=== PATIENT | female | born 1990 | race African-American/Black ===

== ENCOUNTER 2019-11-01 16:30 | Emergency (ER) | payer MEDICAID, OTHER ==
--- NOTE | 2019-11-01 16:48 | EDM.PDOC ---
ED HPI GENERAL MEDICAL PROBLEM - General Chief Complaint: Diabetic Complaint Stated Complaint: MEDICAL VIA [facility] Time Seen by Provider: 11/01/19 16:35 Source of Information: Reports: Patient, EMS History Limitations: Reports: No Limitations - History of Present Illness INITIAL COMMENTS - FREE TEXT/NARRATIVE: 28-year-old female with type 1 diabetes who usually sees providers in [place] for primary care, arrives by ambulance after a hypoglycemic episode. This has happened before. She has not recently been ill, does not think she took the wrong amount of insulin and has had no significant diet change. When EMS arrived her blood glucose was in the 20s, she responded to oral glucose and glucagon. She is now back to baseline, however in reviewing her clinic records she has been a no-show for appointments for over a year and there are no blood tests other than [id number] glucoses intermittently. She has some chronic right hand and right lower extremity swelling in the hand and foot, and some intermittent left lower back discomfort. Denies a headache, fever, cold symptoms, shortness of breath or cough. 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 She also has some moderate expressive a aphasia which is chronic. Onset: Sudden Duration: Hour(s): (Became hypoglycemic about an hour and a half ago) Associated Symptoms: Reports: Confusion, Other (Decreased responsiveness) Left Back Pain Score (Numeric/FACES): 8 - Related Data Allergies Allergy/AdvReac Type Severity Reaction Status Date / Time diphenhydramine Allergy Itching Verified 11/02/19 13:43 ibuprofen Allergy Nausea and Verified 11/02/19 13:43 Vomiting Home Meds: Home Meds Albuterol Sulfate [Albuterol Sulfate Hfa] 1 - 2 puff IH Q4H PRN 11/01/19 [ History] Baclofen 15 mg PO TID 11/01/19 [History] Cholecalciferol (Vitamin D3) [Vitamin D3] 1,000 unit PO DAILY 11/01/19 [History] Cimetidine 1 tab PO BID 11/01/19 [History] DULoxetine [Cymbalta] 60 mg PO DAILY 11/01/19 [History] Ferrous Sulfate [Ferosul] 325 mg PO DAILY 11/01/19 [History] Gabapentin [Neurontin] 1 tab PO TID 11/01/19 [History] Insulin Aspart [NovoLOG] 0 units SQ ASDIRECTED 11/01/19 [History] Insulin Glarg,Human.Rec.Analog [Lantus Solostar] 10 units SQ DAILY 11/01/19 [ History] Lipase/Protease/Amylase [Enzadyne Capsule] 1 each PO ASDIRECTED 11/01/19 [ History] Loperamide [Imodium] 2 mg PO ASDIRECTED 11/01/19 [History] Melatonin 3 mg PO DAILY 11/01/19 [History] Multivitamin [Multi-Vitamin Daily] 1 tab PO DAILY 11/01/19 [History] Omeprazole Magnesium [Prilosec Otc] 20 mg PO BID 11/01/19 [History] Ondansetron [Zofran ODT] 4 mg PO Q6H PRN 11/01/19 [History] Pantoprazole Sodium [Protonix] 40 mg PO DAILY 11/01/19 [History] Rivaroxaban [Xarelto] 20 mg PO DAILY 11/01/19 [History] Vitamin A 50,000 units PO ASDIRECTED 11/01/19 [History] amLODIPine Besylate [Norvasc] 10 mg PO DAILY 11/01/19 [History] atorvaSTATin Calcium [Lipitor] 20 mg PO DAILY 11/01/19 [History] carvediloL [Coreg] 25 mg PO BID 11/01/19 [History] lisinopriL [Lisinopril] 20 mg PO BEDTIME 11/01/19 [History] ED ROS GENERAL - Review of Systems Review Of Systems: See Below Constitutional: Denies: Fever, Chills HEENT: Denies: Vision Change Respiratory: Denies: Shortness of Breath Cardiovascular: Denies: Chest Pain GI/Abdominal: Denies: Abdominal Pain, Diarrhea, Nausea, Vomiting Skin: Reports: Other (Patient has widespread scarring that appears to have resulted from past history of acne, also IV drug use) Neurological: Reports: Trouble Speaking (Chronic expressive aphasia). Denies: Headache ED EXAM GENERAL NO PERIP PULSE - Physical Exam Exam: See Below General Appearance: Alert, No Apparent Distress Eye Exam: Bilateral Eye: EOMI (Tracks well, pupils are reactive) Head: Atraumatic Respiratory/Chest: No Respiratory Distress, Lungs Clear Cardiovascular: Regular Rate, Rhythm, Other (site monitor shows normal sinus rhythm). No: Extra Beats GI/Abdominal: Soft, Non-Tender Extremities: Other (Patient does have limited muscular control of the right arm and leg, with chronic contractures of the hand on the right side. She does have some edema of the hand and foot.) Neurological: Alert, Oriented Psychiatric: Flat Affect Course - Vital Signs Last Recorded V/S: Last Vital Signs Temp 94.7 F L 11/01/19 16:43 Pulse 68 11/01/19 18:09 Resp 12 11/01/19 18:09 BP 117/77 11/01/19 18:09 Pulse Ox 99 11/01/19 18:09 - Orders/Labs/Meds Labs: Laboratory Tests 11/01/19 11/01/19 Range/Units 17:20 17:20 Urine Color Yellow (YELLOW) Urine Appearance Clear (CLEAR) Urine pH 6.0 (5.0-8.0) Ur Specific [place] 1.025 (1.008-1.030) Urine Protein Negative (NEGATIVE) mg/dL Urine Glucose (UA) 250 H (NEGATIVE) mg/dL Urine Ketones Negative (NEGATIVE) mg/dL Urine Occult Blood Trace-lysed H (NEGATIVE) Urine Nitrite Negative (NEGATIVE) Urine Bilirubin Negative (NEGATIVE) Urine Urobilinogen 0.2 (0.2-1.0) EU/dL Ur Leukocyte Esterase Negative (NEGATIVE) Urine RBC Not seen (0-5) Urine WBC 0-5 (0-5) Ur Epithelial Cells Rare Amorphous Sediment Not seen Urine Bacteria Not seen Urine Mucus Not seen Urine Opiates Screen Negative (NEGATIVE) Ur Oxycodone Screen Negative (NEGATIVE) Urine Methadone Screen Presumptive positive H (NEGATIVE) Ur Propoxyphene Screen Negative (NEGATIVE) Ur Barbiturates Screen Negative (NEGATIVE) Ur Tricyclics Screen Negative (NEGATIVE) Ur Phencyclidine Scrn Negative (NEGATIVE) Ur Amphetamine Screen Negative (NEGATIVE) U Methamphetamines Scrn Negative (NEGATIVE) Urine MDMA Screen Negative (NEGATIVE) U Benzodiazepines Scrn Negative (NEGATIVE) U Cocaine Metab Screen Negative (NEGATIVE) U Marijuana (THC) Screen Negative (NEGATIVE) - Re-Assessments/Exams Free Text/Narrative Re-Assessment/Exam: 11/01/19 17:55 After 20 minutes in the emergency room the patient had a glucometer which was 107. A mini cath UA was obtained and showed no infection, urine drug screen was negative. Patient felt comfortable going home and will continue her medications as prescribed. 11/01/19 18:25 1 full hour after being in the emergency room glucometer was checked and was 110. She was given a meal to eat and discharged and is trying to obtain a ride home. Departure - Departure Time of Disposition: 19:33 Disposition: Home, Self-Care 01 Clinical Impression: Hypoglycemia - Discharge Information Instructions: Hypoglycemia Referrals: PCP,None [Primary Care Provider] - Forms: ED Department Discharge Care Plan Goals: Continue your medications as prescribed. Arrange a follow-up appointment with your primary provider and keep the appointment. Return sooner if low blood sugar problems are recurring or you develop other concerns. Sepsis Event Note - Focused Exam Date Exam was Performed: 11/02/19 Time Exam was Performed: 16:25
== END 2019-11-01 19:35 | disposition home or self-care (01) ==
LOC: JP.ED 16:30
DX: E10.649 Type 1 diabetes mellitus with hypoglycemia without coma (principal); Z88.6 Allergy status to analgesic agent; Z88.8 Allergy status to other drugs, medicaments and biological substances; Z79.01 Long term (current) use of anticoagulants; Z79.899 Other long term (current) drug therapy
CPT/HCPCS: 80305-QW; 81001; 82962; 99284

== ENCOUNTER 2019-11-02 13:35 | Emergency (ER) | payer MEDICAID ==
--- NOTE | 2019-11-02 14:17 | EDM.PDOC ---
ED HPI GENERAL MEDICAL PROBLEM - General Chief Complaint: Diabetic Complaint Stated Complaint: MEDICAL VIA [facility] Time Seen by Provider: 11/02/19 14:00 Source of Information: Reports: Patient, EMS, Old Records History Limitations: Reports: No Limitations - History of Present Illness INITIAL COMMENTS - FREE TEXT/NARRATIVE: 28 yo black female with IDDM presents via EMS for low BS. Was seen here yesterday for the same thing. She recently moved to [place] from [place] and has not switched her care yet from [place] to here, but does intend to. Has no changes in her meds after yesterday's visit. Says that before yesterday had not had low BS for a long time. Has not been to the clinic for several months. Denies any changes in her diet, activity level or medications to explain her low BS. No recent illness or nausea. No weight loss. After EMS gave glucagon and got her BS up she is feeling back to her baseline. According to records she has been missing multiple visits to the doctor over the past year and has a pHx of meth use. PHx of CVA. Is not prescribed methadone. When asked where she is getting it she replied that she buys it off the street. Had methadone in her urine drug screen yesterday. Onset: Today, Sudden Onset Date: 11/02/19 Duration: Minutes:, Resolved Prior to Arrival Location: Reports: Generalized Quality: Reports: Other (no pain) Severity: Severe (low BS) Improves with: Reports: Medication (glucagon) Worsens with: Reports: Other (uncertain) Context: Reports: Other (See HPI) Associated Symptoms: Reports: Diaphoresis, Other (decreased LOC transiently with her low BS) Treatments LEARNING SUPPORT SPECIALIST: Reports: Glucagon - Related Data Allergies Allergy/AdvReac Type Severity Reaction Status Date / Time diphenhydramine Allergy Itching Verified 11/02/19 13:43 ibuprofen Allergy Nausea and Verified 11/02/19 13:43 Vomiting Home Meds: Home Meds Albuterol Sulfate [Albuterol Sulfate Hfa] 1 - 2 puff IH Q4H PRN 11/01/19 [ History] Baclofen 15 mg PO TID 11/01/19 [History] Cholecalciferol (Vitamin D3) [Vitamin D3] 1,000 unit PO DAILY 11/01/19 [History] Cimetidine 1 tab PO BID 11/01/19 [History] DULoxetine [Cymbalta] 60 mg PO DAILY 11/01/19 [History] Ferrous Sulfate [Ferosul] 325 mg PO DAILY 11/01/19 [History] Gabapentin [Neurontin] 1 tab PO TID 11/01/19 [History] Insulin Aspart [NovoLOG] 0 units SQ ASDIRECTED 11/01/19 [History] Insulin Glarg,Human.Rec.Analog [Lantus Solostar] 10 units SQ DAILY 11/01/19 [ History] Lipase/Protease/Amylase [Enzadyne Capsule] 1 each PO ASDIRECTED 11/01/19 [ History] Loperamide [Imodium] 2 mg PO ASDIRECTED 11/01/19 [History] Melatonin 3 mg PO DAILY 11/01/19 [History] Multivitamin [Multi-Vitamin Daily] 1 tab PO DAILY 11/01/19 [History] Omeprazole Magnesium [Prilosec Otc] 20 mg PO BID 11/01/19 [History] Ondansetron [Zofran ODT] 4 mg PO Q6H PRN 11/01/19 [History] Pantoprazole Sodium [Protonix] 40 mg PO DAILY 11/01/19 [History] Rivaroxaban [Xarelto] 20 mg PO DAILY 11/01/19 [History] Vitamin A 50,000 units PO ASDIRECTED 11/01/19 [History] amLODIPine Besylate [Norvasc] 10 mg PO DAILY 11/01/19 [History] atorvaSTATin Calcium [Lipitor] 20 mg PO DAILY 11/01/19 [History] carvediloL [Coreg] 25 mg PO BID 11/01/19 [History] lisinopriL [Lisinopril] 20 mg PO BEDTIME 11/01/19 [History] Past Medical History HEENT History: Reports: Impaired Vision Cardiovascular History: Reports: Afib, High Cholesterol, Hypertension, Other ( See Below) Other Cardiovascular History: hypotension Gastrointestinal History: Reports: GERD, Other (See Below) Other Gastrointestinal History: abdominal pain hepatic steatosis Genitourinary History: Reports: Other (See Below) Other Genitourinary History: BRIAN Musculoskeletal History: Reports: None, Other (See Below) Neurological History: Reports: CVA, Neuropathy, Diabetic, Seizure, Other (See Below) Other Neuro History: medically noncompliant Psychiatric History: Reports: Anxiety, Other (See Below) Other Psychiatric History: history of drug use altered mental statis Endocrine/Metabolic History: Reports: Diabetes, Type I, Obesity/BMI 30+, Other ( See Below) Other Endocrine/Metabolic History: polyneuropathy, ketoacidosis,hyperglycemia, hyperkalemia - Infectious Disease History Infectious Disease History: Reports: Chicken Pox - Past Surgical History GI Surgical History: Reports: Other (See Below) Other GI Surgeries/Procedures: upper endoscopy with biopsy 2019 Social & Family History - Tobacco Use Smoking Status *Q: Current Every Day Smoker Years of Tobacco use: 11 Packs/Tins Daily: 0.5 - Caffeine Use Caffeine Use: Reports: Soda - Recreational Drug Use Recreational Drug Use: No ED ROS GENERAL - Review of Systems Review Of Systems: See Below Constitutional: Reports: Diaphoresis HEENT: Reports: No Symptoms Respiratory: Reports: No Symptoms Cardiovascular: Reports: No Symptoms Endocrine: Reports: Low Glucose GI/Abdominal: Reports: No Symptoms : Reports: No Symptoms Musculoskeletal: Reports: No Symptoms Skin: Reports: Diaphoresis (now resolved) Neurological: Reports: Other (decreased LOC with her low BS) Psychiatric: Reports: No Symptoms ED EXAM GENERAL NO PERIP PULSE - Physical Exam Exam: See Below Exam Limited By: No Limitations General Appearance: Alert, WD/WN, No Apparent Distress Eye Exam: Bilateral Eye: Normal Inspection Ears: Normal External Exam, Normal Canal, Hearing Grossly Normal, Normal TMs Nose: Normal Inspection, No Blood Throat/Mouth: Normal Inspection, Normal Lips, Normal Oropharynx, Normal Voice, No Airway Compromise Head: Atraumatic, Normocephalic Neck: Normal Inspection Respiratory/Chest: No Respiratory Distress, Lungs Clear, Normal Breath Sounds, No Accessory Muscle Use Cardiovascular: Regular Rate, Rhythm, No Edema GI/Abdominal: Normal Bowel Sounds, Soft, Non-Tender, No Distention. No: Distended Extremities: Normal Inspection Neurological: Alert, Oriented, CN II-XII Intact, Normal Cognition, No Motor/ Sensory Deficits Psychiatric: Normal Affect, Normal Mood Skin Exam: Warm, Dry, Intact, Normal Color, No Rash Course - Vital Signs Last Recorded V/S: Last Vital Signs Temp 36.1 C 11/02/19 13:48 Pulse 82 11/02/19 15:14 Resp 15 11/02/19 15:14 BP 104/68 11/02/19 15:14 Pulse Ox 100 04/29/20 13:48 - Orders/Labs/Meds Labs: Laboratory Tests 11/02/19 Range/Units 14:49 Urine Opiates Screen Negative (NEGATIVE) Ur Oxycodone Screen Negative (NEGATIVE) Urine Methadone Screen Presumptive positive H (NEGATIVE) Ur Propoxyphene Screen Negative (NEGATIVE) Ur Barbiturates Screen Negative (NEGATIVE) Ur Tricyclics Screen Negative (NEGATIVE) Ur Phencyclidine Scrn Negative (NEGATIVE) Ur Amphetamine Screen Negative (NEGATIVE) U Methamphetamines Scrn Negative (NEGATIVE) Urine MDMA Screen Negative (NEGATIVE) U Benzodiazepines Scrn Negative (NEGATIVE) U Cocaine Metab Screen Negative (NEGATIVE) U Marijuana (THC) Screen Negative (NEGATIVE) - Re-Assessments/Exams Free Text/Narrative Re-Assessment/Exam: 11/02/19 14:56 Call placed for social service consult @ 1450h, message left. They called back at 1500h and a report of my concern was shared with them. They will file a report and look into her situation. 11/02/19 15:02 Departure - Departure Time of Disposition: 17:30 Disposition: Home, Self-Care 01 Condition: Fair Clinical Impression: Hypoglycemia, Illicit drug use, Medically noncompliant - Discharge Information *PRESCRIPTION DRUG MONITORING PROGRAM REVIEWED*: No *COPY OF PRESCRIPTION DRUG MONITORING REPORT IN PATIENT EDIN: No Instructions: Hypoglycemia, [id number] Referrals: PCP,None [Primary Care Provider] - Forms: ED Department Discharge Additional Instructions: Check your blood sugars more frequently to avoid low blood sugars. See your doctor MARQUEZ for recheck. Reduce your insulin Lantus to 8 mg at bedtime for now. Return as needed. Sepsis Event Note - Evaluation Sepsis Screening Result: No Definite Risk - Focused Exam Vital Signs: Vital Signs Temp Pulse Resp BP Pulse Ox 11/02/19 15:14 82 15 104/68 11/02/19 14:30 88 111/66 11/02/19 13:57 87 15 109/68 11/02/19 13:48 36.1 C 78 15 106/65 100 11/02/19 13:44 36.1 C 78 15 106/65 100 Date Exam was Performed: 11/02/19 Time Exam was Performed: 17:30
== END 2019-11-02 17:43 | disposition home or self-care (01) ==
LOC: JP.ED 13:35
DX: E10.649 Type 1 diabetes mellitus with hypoglycemia without coma (principal); I48.91 Unspecified atrial fibrillation; E78.00 Pure hypercholesterolemia, unspecified; I10 Essential (primary) hypertension; K21.9 Gastro-esophageal reflux disease without esophagitis; F41.9 Anxiety disorder, unspecified; E66.9 Obesity, unspecified; E10.42 Type 1 diabetes mellitus with diabetic polyneuropathy; E10.10 Type 1 diabetes mellitus with ketoacidosis without coma; F17.210 Nicotine dependence, cigarettes, uncomplicated; Z91.14 Patient's other noncompliance with medication regimen; Z86.73 Personal history of transient ischemic attack (TIA), and cerebral infarction without residual deficits; Z88.6 Allergy status to analgesic agent; Z79.899 Other long term (current) drug therapy; Z68.21 Body mass index [BMI] 21.0-21.9, adult; Z88.8 Allergy status to other drugs, medicaments and biological substances; Z79.01 Long term (current) use of anticoagulants
CPT/HCPCS: 80305-QW; 99285

== ENCOUNTER 2019-11-12 16:58 | Emergency (ER) | payer MEDICAID | END 2019-11-12 18:30 | disposition home or self-care (01) | LOC: JP.ED 16:58 | DX: L03.116 Cellulitis of left lower limb (principal) | CPT/HCPCS: 99283 ==

== ENCOUNTER 2019-12-07 15:43 | Emergency (ER) | payer MEDICAID ==
[2019-12-07] MEDS ORDERED: Acetaminophen 500 MG Tab PO ONE (17:13)
[2019-12-07] MEDS ORDERED: Lidocaine 2% Jelly 30 ML Tube MUCMEM STA (17:16)
--- NOTE | 2019-12-07 17:34 | EDM.PDOC ---
ED HPI GENERAL MEDICAL PROBLEM - General Chief Complaint: Skin Complaint Stated Complaint: PAIN IN BUTT Time Seen by Provider: 12/07/19 17:00 Source of Information: Reports: Patient, Old Records, RN History Limitations: Reports: No Limitations - History of Present Illness INITIAL COMMENTS - FREE TEXT/NARRATIVE: 29 yo female presents with reported anal pain x 3 days. Had some bleeding a couple weeks ago but not since. Has not been to the clinic. Pain is constant, but worse during passage of stool per rectum. Took ibuprofen for pain relief without much improvement. Onset: Gradual Onset Date: 12/04/19 Duration: Day(s): (3), Getting Worse Location: Reports: Other (anal) Quality: Reports: Sharp Severity: Moderate Improves with: Reports: None Worsens with: Reports: Other (BM's) Context: Reports: Other (see HPI) Associated Symptoms: Reports: No Other Symptoms Treatments PIPE SETTER: Reports: NSAIDS - Related Data Allergies Allergy/AdvReac Type Severity Reaction Status Date / Time diphenhydramine Allergy Itching Verified 12/07/19 16:51 ibuprofen Allergy Nausea and Verified 12/07/19 16:51 Vomiting Home Meds: Home Meds Albuterol Sulfate [Albuterol Sulfate Hfa] 1 - 2 puff IH Q4H PRN 11/01/19 [ History] Baclofen 15 mg PO TID 11/01/19 [History] Cholecalciferol (Vitamin D3) [Vitamin D3] 1,000 unit PO DAILY 11/01/19 [History] Cimetidine 1 tab PO BID 11/01/19 [History] DULoxetine [Cymbalta] 60 mg PO DAILY 11/01/19 [History] Ferrous Sulfate [Ferosul] 325 mg PO DAILY 11/01/19 [History] Gabapentin [Neurontin] 1 tab PO TID 11/01/19 [History] Insulin Aspart [NovoLOG] 0 units SQ ASDIRECTED 11/01/19 [History] Insulin Glarg,Human.Rec.Analog [Lantus Solostar] 10 units SQ DAILY 11/01/19 [ History] Lipase/Protease/Amylase [Enzadyne Capsule] 1 each PO ASDIRECTED 11/01/19 [ History] Loperamide [Imodium] 2 mg PO ASDIRECTED 11/01/19 [History] Melatonin 3 mg PO DAILY 11/01/19 [History] Multivitamin [Multi-Vitamin Daily] 1 tab PO DAILY 11/01/19 [History] Omeprazole Magnesium [Prilosec Otc] 20 mg PO BID 11/01/19 [History] Ondansetron [Zofran ODT] 4 mg PO Q6H PRN 11/01/19 [History] Pantoprazole Sodium [Protonix] 40 mg PO DAILY 11/01/19 [History] Rivaroxaban [Xarelto] 20 mg PO DAILY 11/01/19 [History] Vitamin A 50,000 units PO ASDIRECTED 11/01/19 [History] amLODIPine Besylate [Norvasc] 10 mg PO DAILY 11/01/19 [History] atorvaSTATin Calcium [Lipitor] 20 mg PO DAILY 11/01/19 [History] carvediloL [Coreg] 25 mg PO BID 11/01/19 [History] lisinopriL [Lisinopril] 20 mg PO BEDTIME 11/01/19 [History] Past Medical History HEENT History: Reports: Impaired Vision Cardiovascular History: Reports: Afib, High Cholesterol, Hypertension, Other ( See Below) Other Cardiovascular History: hypotension Gastrointestinal History: Reports: GERD, Other (See Below) Other Gastrointestinal History: abdominal pain hepatic steatosis Genitourinary History: Reports: Other (See Below) Other Genitourinary History: BRIAN Musculoskeletal History: Reports: None, Other (See Below) Neurological History: Reports: CVA, Neuropathy, Diabetic, Seizure, Other (See Below) Other Neuro History: medically noncompliant Psychiatric History: Reports: Anxiety, Other (See Below) Other Psychiatric History: history of drug use altered mental statis Endocrine/Metabolic History: Reports: Diabetes, Type I, Obesity/BMI 30+, Other ( See Below) Other Endocrine/Metabolic History: polyneuropathy, ketoacidosis,hyperglycemia, hyperkalemia - Infectious Disease History Infectious Disease History: Reports: Chicken Pox - Past Surgical History GI Surgical History: Reports: Other (See Below) Other GI Surgeries/Procedures: upper endoscopy with biopsy 2019 Social & Family History - Tobacco Use Smoking Status *Q: Never Smoker - Caffeine Use Caffeine Use: Reports: Soda ED ROS GENERAL - Review of Systems Review Of Systems: See Below Constitutional: Reports: No Symptoms HEENT: Reports: No Symptoms Respiratory: Reports: No Symptoms Cardiovascular: Reports: No Symptoms GI/Abdominal: Reports: Other (anal pain) : Reports: No Symptoms Musculoskeletal: Reports: No Symptoms ED EXAM, SKIN/RASH Exam: See Below Exam Limited By: No Limitations General Appearance: Alert, WD/WN, Mild Distress GI/Abdominal: Other (normal anal external exam with no sign of thrombosed ext hemorrhoid. No bleeding. ) Rectal (Female) Exam: Deferred Course - Vital Signs Last Recorded V/S: Last Vital Signs Temp 35.9 C L 12/07/19 17:00 Pulse 90 12/07/19 17:00 Resp 16 12/07/19 17:00 BP 180/108 H 12/07/19 17:00 Pulse Ox 99 12/07/19 17:00 - Orders/Labs/Meds Meds: Medications Discontinued Medications Generic Name Dose Route Start Last Admin Trade Name [place] PRN Reason Stop Dose Admin Acetaminophen 1,000 mg 12/07/19 17:13 Tylenol Extra Strength PO 12/07/19 17:14 ONETIME ONE Lidocaine HCl 3 ml 12/07/19 17:16 Xylocaine 2% Jelly MUCMEM 12/07/19 17:17 NOW STA - Re-Assessments/Exams Free Text/Narrative Re-Assessment/Exam: 12/07/19 17:49 Feeling a lot better after rectal lidocaine jelly. Departure - Departure Time of Disposition: 18:00 Disposition: Home, Self-Care 01 Condition: Fair Clinical Impression: Acute anal fissure - Discharge Information *PRESCRIPTION DRUG MONITORING PROGRAM REVIEWED*: No *COPY OF PRESCRIPTION DRUG MONITORING REPORT IN PATIENT EDIN: No Referrals: PCP,None [Primary Care Provider] - Additional Instructions: Take acetaminophen up to 1000 mg every 6 hrs as needed for pain relief. Take Miralax one dose twice daily to keep your stools soft. Use Lidocaine jelly about 2 ml 3 minutes before attempting a bowel movement and as needed for pain relief. See your doctor for recheck early next week, call for an appointment. Sepsis Event Note - Evaluation Sepsis Screening Result: No Definite Risk - Focused Exam Vital Signs: Vital Signs Temp Pulse Resp BP Pulse Ox 12/07/19 17:00 35.9 C L 90 16 180/108 H 99 12/07/19 16:10 35.9 C L 90 16 180/108 H 99 Date Exam was Performed: 12/07/19 Time Exam was Performed: 17:29
== END 2019-12-07 18:28 | disposition home or self-care (01) ==
LOC: JP.ED 15:43
DX: K60.0 Acute anal fissure (principal); K21.9 Gastro-esophageal reflux disease without esophagitis; I10 Essential (primary) hypertension; I48.91 Unspecified atrial fibrillation; E66.9 Obesity, unspecified; E10.65 Type 1 diabetes mellitus with hyperglycemia; E10.42 Type 1 diabetes mellitus with diabetic polyneuropathy; E10.10 Type 1 diabetes mellitus with ketoacidosis without coma; F41.9 Anxiety disorder, unspecified; E78.00 Pure hypercholesterolemia, unspecified; Z86.73 Personal history of transient ischemic attack (TIA), and cerebral infarction without residual deficits; Z88.6 Allergy status to analgesic agent; Z88.8 Allergy status to other drugs, medicaments and biological substances; Z79.899 Other long term (current) drug therapy
CPT/HCPCS: 99283; A9270

== ENCOUNTER 2019-12-10 00:53 | Emergency (ER) | payer MEDICAID ==
--- NOTE | 2019-12-10 01:10 | EDM.PDOC ---
ED HPI GENERAL MEDICAL PROBLEM - General Chief Complaint: Cardiovascular Problem Stated Complaint: MEDICAL VIA [facility] Time Seen by Provider: 12/10/19 01:10 Source of Information: Reports: Patient History Limitations: Reports: No Limitations - History of Present Illness INITIAL COMMENTS - FREE TEXT/NARRATIVE: pt has been running high bs and she is not sure when that started. She seemed slightly confused. Onset: Today, Sudden Duration: Hour(s): Location: Reports: Generalized, Other ( bs was very high. ) Associated Symptoms: Reports: Weakness - Related Data Allergies Allergy/AdvReac Type Severity Reaction Status Date / Time diphenhydramine Allergy Itching Verified 12/10/19 00:56 ibuprofen AdvReac Nausea and Verified 12/10/19 07:16 Vomiting Home Meds: Home Meds Cimetidine 1 tab PO BID 11/01/19 [History] DULoxetine [Cymbalta] 60 mg PO DAILY 11/01/19 [History] Insulin Aspart [NovoLOG] 10 units SQ QID 11/01/19 [History] Insulin Glarg,Human.Rec.Analog [Lantus Solostar] 20 units SQ DAILY 11/01/19 [ History] Rivaroxaban [Xarelto] 20 mg PO DAILY 11/01/19 [History] atorvaSTATin Calcium [Lipitor] 20 mg PO DAILY 11/01/19 [History] carvediloL [Coreg] 25 mg PO BID 11/01/19 [History] levETIRAcetam [Keppra] 1 tab PO BID 12/10/19 [History] Past Medical History HEENT History: Reports: Impaired Vision Cardiovascular History: Reports: Afib, High Cholesterol, Hypertension, Other ( See Below) Other Cardiovascular History: hypotension Gastrointestinal History: Reports: GERD, Other (See Below) Other Gastrointestinal History: abdominal pain hepatic steatosis Genitourinary History: Reports: Other (See Below) Other Genitourinary History: BRIAN Musculoskeletal History: Reports: None, Other (See Below) Neurological History: Reports: CVA, Neuropathy, Diabetic, Seizure, Other (See Below) Other Neuro History: medically noncompliant Psychiatric History: Reports: Anxiety, Other (See Below) Other Psychiatric History: history of drug use altered mental statis Endocrine/Metabolic History: Reports: Diabetes, Type I, Obesity/BMI 30+, Other ( See Below) Other Endocrine/Metabolic History: polyneuropathy, ketoacidosis,hyperglycemia, hyperkalemia - Infectious Disease History Infectious Disease History: Reports: Chicken Pox - Past Surgical History GI Surgical History: Reports: Other (See Below) Other GI Surgeries/Procedures: upper endoscopy with biopsy 2019 Social & Family History - Tobacco Use Smoking Status *Q: Current Every Day Smoker Years of Tobacco use: 12 Packs/Tins Daily: 0.5 Used Tobacco, but Quit: No Second Hand Smoke Exposure: Yes - Caffeine Use Caffeine Use: Reports: Soda - Recreational Drug Use Recreational Drug Use: No ED ROS GENERAL - Review of Systems Review Of Systems: See Below Constitutional: Reports: No Symptoms HEENT: Reports: No Symptoms Respiratory: Reports: No Symptoms Cardiovascular: Reports: No Symptoms Endocrine: Reports: High Glucose GI/Abdominal: Reports: No Symptoms : Reports: No Symptoms Musculoskeletal: Reports: No Symptoms Skin: Reports: No Symptoms Neurological: Reports: Other (history of a cerebral bleed with rt hemipareses) Psychiatric: Reports: Anxiety, Depression ED EXAM, GENERAL - Physical Exam Exam: See Below Free Text/Narrative:: pt arrived with a history of her bp being up and hr bs was elevated. Exam Limited By: No Limitations General Appearance: Alert, Anxious Ears: Normal TMs Nose: Normal Inspection Throat/Mouth: Normal Inspection Head: Atraumatic Neck: Normal Inspection Respiratory/Chest: No Respiratory Distress Cardiovascular: Regular Rate, Rhythm GI/Abdominal: Soft, Non-Tender (Female) Exam: Deferred Rectal (Female) Exam: Deferred Extremities: Other (hemiparesis on the rt from a stroke. ) Neurological: Alert, Other (pt was a little confused earlier) Psychiatric: Normal Affect Course - Vital Signs Last Recorded V/S: Last Vital Signs Temp 36.3 C 12/10/19 01:05 Pulse 81 12/10/19 07:13 Resp 18 12/10/19 01:05 BP 136/84 12/10/19 07:13 Pulse Ox 100 12/10/19 01:05 - Orders/Labs/Meds Labs: Laboratory Tests 12/10/19 12/10/19 12/10/19 Range/Units 01:20 01:20 02:10 WBC 7.9 (4.5-11.0) K/uL RBC 3.19 L (3.30-5.50) M/uL Hgb 9.6 L (12.0-15.0) g/dL Hct 28.0 L (36.0-48.0) % MCV 88 (80-98) fL MCH 30 (27-31) pg MCHC 34 (32-36) % Plt Count 249 (150-400) K/uL Neut % (Auto) 56 (36-66) % Lymph % (Auto) 29 (24-44) % [place] % (Auto) 8 H (2-6) % Eos % (Auto) 7 H (2-4) % Baso % (Auto) 0 (0-1) % VBG pH 7.537 H (7.350-7.450) Sodium 135 L (140-148) mmol/L Potassium 3.7 (3.6-5.2) mmol/L Chloride 102 (100-108) mmol/L Carbon Dioxide 21 (21-32) mmol/L Anion Gap 15.7 H (5.0-14.0) mmol/L BUN 12 (7-18) mg/dL Creatinine 1.5 H (0.6-1.0) mg/dL Est Cr Clr Drug Dosing 51.05 mL/min Estimated GFR (MDRD) 49 L (>60) Glucose 414 H* (74-106) mg/dL Calcium 8.3 L (8.5-10.1) mg/dL Iron (50-170) ug/dL TIBC (250-450) ug/dl % Saturation (20-55) % Total Bilirubin 0.6 (0.2-1.0) mg/dL AST 24 (15-37) U/L ALT 26 (12-78) U/L Alkaline Phosphatase 118 H (46-116) U/L Total Protein 6.5 (6.4-8.2) g/dL Albumin 3.4 (3.4-5.0) g/dL Globulin 3.1 (2.3-3.5) g/dL Albumin/Globulin Ratio 1.1 L (1.2-2.2) Urine Color (YELLOW) Urine Appearance (CLEAR) Urine pH (5.0-8.0) Ur Specific Green (1.008-1.030) Urine Protein (NEGATIVE) mg/dL Urine Glucose (UA) (NEGATIVE) mg/dL Urine Ketones (NEGATIVE) mg/dL Urine Occult Blood (NEGATIVE) Urine Nitrite (NEGATIVE) Urine Bilirubin (NEGATIVE) Urine Urobilinogen (0.2-1.0) EU/dL Ur Leukocyte Esterase (NEGATIVE) Urine RBC (0-5) Urine WBC (0-5) Ur Epithelial Cells Amorphous Sediment Urine Bacteria Urine Mucus Urine Opiates Screen (NEGATIVE) Ur Oxycodone Screen (NEGATIVE) Urine Methadone Screen (NEGATIVE) Ur Propoxyphene Screen (NEGATIVE) Ur Barbiturates Screen (NEGATIVE) Ur Tricyclics Screen (NEGATIVE) Ur Phencyclidine Scrn (NEGATIVE) Ur Amphetamine Screen (NEGATIVE) U Methamphetamines Scrn (NEGATIVE) Urine MDMA Screen (NEGATIVE) U Benzodiazepines Scrn (NEGATIVE) U Cocaine Metab Screen (NEGATIVE) U Marijuana (THC) Screen (NEGATIVE) Ethyl Alcohol mg/dL 12/10/19 12/10/19 12/10/19 Range/Units 02:30 02:38 02:38 WBC (4.5-11.0) K/uL RBC (3.30-5.50) M/uL Hgb (12.0-15.0) g/dL Hct (36.0-48.0) % MCV (80-98) fL MCH (27-31) pg MCHC (32-36) % Plt Count (150-400) K/uL Neut % (Auto) (36-66) % Lymph % (Auto) (24-44) % [place] % (Auto) (2-6) % Eos % (Auto) (2-4) % Baso % (Auto) (0-1) % VBG pH (7.350-7.450) Sodium (140-148) mmol/L Potassium (3.6-5.2) mmol/L Chloride (100-108) mmol/L Carbon Dioxide (21-32) mmol/L Anion Gap (5.0-14.0) mmol/L BUN (7-18) mg/dL Creatinine (0.6-1.0) mg/dL Est Cr Clr Drug Dosing mL/min Estimated GFR (MDRD) (>60) Glucose (74-106) mg/dL Calcium (8.5-10.1) mg/dL Iron (50-170) ug/dL TIBC (250-450) ug/dl % Saturation (20-55) % Total Bilirubin (0.2-1.0) mg/dL AST (15-37) U/L ALT (12-78) U/L Alkaline Phosphatase (46-116) U/L Total Protein (6.4-8.2) g/dL Albumin (3.4-5.0) g/dL Globulin (2.3-3.5) g/dL Albumin/Globulin Ratio (1.2-2.2) Urine Color Yellow (YELLOW) Urine Appearance Slightly cloudy A (CLEAR) Urine pH 6.0 (5.0-8.0) Ur Specific Green 1.015 (1.008-1.030) Urine Protein Negative (NEGATIVE) mg/dL Urine Glucose (UA) 500 H (NEGATIVE) mg/dL Urine Ketones Trace H (NEGATIVE) mg/dL Urine Occult Blood Moderate H (NEGATIVE) Urine Nitrite Negative (NEGATIVE) Urine Bilirubin Negative (NEGATIVE) Urine Urobilinogen 0.2 (0.2-1.0) EU/dL Ur Leukocyte Esterase Negative (NEGATIVE) Urine RBC 5-10 H (0-5) Urine WBC 0-5 (0-5) Ur Epithelial Cells Rare Amorphous Sediment Not seen Urine Bacteria Few Urine Mucus Not seen Urine Opiates Screen Negative (NEGATIVE) Ur Oxycodone Screen Negative (NEGATIVE) Urine Methadone Screen Negative (NEGATIVE) Ur Propoxyphene Screen Negative (NEGATIVE) Ur Barbiturates Screen Negative (NEGATIVE) Ur Tricyclics Screen Negative (NEGATIVE) Ur Phencyclidine Scrn Negative (NEGATIVE) Ur Amphetamine Screen Negative (NEGATIVE) U Methamphetamines Scrn Negative (NEGATIVE) Urine MDMA Screen Negative (NEGATIVE) U Benzodiazepines Scrn Negative (NEGATIVE) U Cocaine Metab Screen Negative (NEGATIVE) U Marijuana (THC) Screen Negative (NEGATIVE) Ethyl Alcohol < 3 mg/dL 12/10/19 Range/Units 06:19 WBC (4.5-11.0) K/uL RBC (3.30-5.50) M/uL Hgb (12.0-15.0) g/dL Hct (36.0-48.0) % MCV (80-98) fL MCH (27-31) pg MCHC (32-36) % Plt Count (150-400) K/uL Neut % (Auto) (36-66) % Lymph % (Auto) (24-44) % [place] % (Auto) (2-6) % Eos % (Auto) (2-4) % Baso % (Auto) (0-1) % VBG pH (7.350-7.450) Sodium (140-148) mmol/L Potassium (3.6-5.2) mmol/L Chloride (100-108) mmol/L Carbon Dioxide (21-32) mmol/L Anion Gap (5.0-14.0) mmol/L BUN (7-18) mg/dL Creatinine (0.6-1.0) mg/dL Est Cr Clr Drug Dosing mL/min Estimated GFR (MDRD) (>60) Glucose (74-106) mg/dL Calcium (8.5-10.1) mg/dL Iron 24 L (50-170) ug/dL TIBC 332 (250-450) ug/dl % Saturation 7 L (20-55) % Total Bilirubin (0.2-1.0) mg/dL AST (15-37) U/L ALT (12-78) U/L Alkaline Phosphatase (46-116) U/L Total Protein (6.4-8.2) g/dL Albumin (3.4-5.0) g/dL Globulin (2.3-3.5) g/dL Albumin/Globulin Ratio (1.2-2.2) Urine Color (YELLOW) Urine Appearance (CLEAR) Urine pH (5.0-8.0) Ur Specific Green (1.008-1.030) Urine Protein (NEGATIVE) mg/dL Urine Glucose (UA) (NEGATIVE) mg/dL Urine Ketones (NEGATIVE) mg/dL Urine Occult Blood (NEGATIVE) Urine Nitrite (NEGATIVE) Urine Bilirubin (NEGATIVE) Urine Urobilinogen (0.2-1.0) EU/dL Ur Leukocyte Esterase (NEGATIVE) Urine RBC (0-5) Urine WBC (0-5) Ur Epithelial Cells Amorphous Sediment Urine Bacteria Urine Mucus Urine Opiates Screen (NEGATIVE) Ur Oxycodone Screen (NEGATIVE) Urine Methadone Screen (NEGATIVE) Ur Propoxyphene Screen (NEGATIVE) Ur Barbiturates Screen (NEGATIVE) Ur Tricyclics Screen (NEGATIVE) Ur Phencyclidine Scrn (NEGATIVE) Ur Amphetamine Screen (NEGATIVE) U Methamphetamines Scrn (NEGATIVE) Urine MDMA Screen (NEGATIVE) U Benzodiazepines Scrn (NEGATIVE) U Cocaine Metab Screen (NEGATIVE) U Marijuana (THC) Screen (NEGATIVE) Ethyl Alcohol mg/dL Meds: Medications Discontinued Medications Generic Name Dose Route Start Last Admin Trade Name Freq PRN Reason Stop Dose Admin Sodium Chloride 1,000 mls @ 999 mls/hr 12/10/19 02:00 12/10/19 02:38 Normal Saline IV 999 mls/hr ASDIRECTED GWEDNOLYN Administration Insulin Glargine 15 units 12/10/19 02:04 12/10/19 02:43 Lantus Solostar SUBCUT 15 units DAILY GWENDOLYN Administration Insulin Human Regular 6 unit 12/10/19 02:05 12/10/19 02:40 Humulin R SUBCUT 12/10/19 02:06 6 unit ONETIME ONE Administration Insulin Human Regular 5 unit 12/10/19 06:01 12/10/19 06:15 Humulin R SUBCUT 12/10/19 06:02 5 units ONETIME ONE Administration - Re-Assessments/Exams Free Text/Narrative Re-Assessment/Exam: 12/10/19 06:15 pt was found to have a bs of over 400. . she was given her lantus insulin which she had not taken at 10 pm as usual and she has been incremented with some regular insulin. She is coming down and is in the 200 range, Will have her eat some breakfast. Pt states she is feeling better. Pt does need to be more rigoris in regulating her insulin. Pt was dry and she was given a liter of fluid. Departure - Departure Time of Disposition: 07:35 Disposition: Home, Self-Care 01 Condition: Fair Clinical Impression: Hyperglycemia, Dehydration Instructions: Hyperglycemia Referrals: PCP,None [Primary Care Provider] - Forms: ED Department Discharge Care Plan Goals: take insulin on a regular basis to maintain better diabetic control, resume diabetic diet. check sugars regularly. push fluids. Sepsis Event Note - Evaluation Sepsis Screening Result: No Definite Risk - Focused Exam Date Exam was Performed: 12/12/19 Time Exam was Performed: 12:33
[2019-12-10] MEDS ORDERED: Sodium Chloride 0.9% 1,000 ML IV SCH (02:00)
[2019-12-10] MEDS ORDERED: Insulin Glargine,Human Rec. Analog 100 Units/ML 3 ML Pen SUBCUT SCH (02:04)
[2019-12-10] MEDS ORDERED: Insulin Regular, Human 100 Units/ML 3 ML Vial SUBCUT ONE ×2 (02:05→06:01)
== END 2019-12-10 07:38 | disposition home or self-care (01) ==
LOC: JP.ED 00:53
DX: E86.0 Dehydration (principal); E10.65 Type 1 diabetes mellitus with hyperglycemia; I10 Essential (primary) hypertension; I48.91 Unspecified atrial fibrillation; E78.00 Pure hypercholesterolemia, unspecified; E10.40 Type 1 diabetes mellitus with diabetic neuropathy, unspecified; R56.9 Unspecified convulsions; E66.9 Obesity, unspecified; F41.9 Anxiety disorder, unspecified; F17.210 Nicotine dependence, cigarettes, uncomplicated; Z88.6 Allergy status to analgesic agent; Z88.8 Allergy status to other drugs, medicaments and biological substances; Z79.899 Other long term (current) drug therapy
CPT/HCPCS: 36415; 80053; 80305; 80307; 81001; 82800; 82962; 83550; 85025; 87086; 96360; 99285; J1815; J7030

== ENCOUNTER 2019-12-30 20:27 | Emergency (ER) | payer MEDICAID ==
[2019-12-30] MEDS ORDERED: Lidocaine 2% Jelly 10 ML Urojet MUCMEM ONE (21:21)
--- NOTE | 2019-12-30 21:28 | EDM.PDOC ---
ED HPI GENERAL MEDICAL PROBLEM - General Chief Complaint: Gastrointestinal Problem Stated Complaint: ABD PAIN/BLOOD IN STOOL Time Seen by Provider: 12/30/19 21:15 Source of Information: Reports: Patient, Old Records, RN History Limitations: Reports: No Limitations - History of Present Illness INITIAL COMMENTS - FREE TEXT/NARRATIVE: 29 yo black female returns complaining of continued anal pain presumably from an anal fissure. Was seen here for the same thing 23 days ago and was asked to follow up in the clinic. She has not done this. Says her stools are soft and that there is blood all through each stool. Is taking Ibuprofen for pain relief. Has been using hydrocortisone cream on the area that her "partner" recommended. Onset: Unknown/Unsure Duration: Chronic, Constant Location: Reports: Abdomen (anus) Quality: Reports: Burning Severity: Moderate Improves with: Reports: None Worsens with: Reports: None Context: Reports: Other (see HPI) Associated Symptoms: Reports: No Other Symptoms Treatments [employer]: Reports: Other (see below) (See HPI) Abdomen Pain Score (Numeric/FACES): 10 - Related Data Allergies Allergy/AdvReac Type Severity Reaction Status Date / Time diphenhydramine Allergy Itching Verified 12/30/19 20:39 ibuprofen AdvReac Nausea and Verified 12/30/19 20:39 Vomiting Home Meds: Home Meds Cimetidine 1 tab PO BID 11/01/19 [History] DULoxetine [Cymbalta] 60 mg PO DAILY 11/01/19 [History] Insulin Aspart [NovoLOG] 10 units SQ QID 11/01/19 [History] Insulin Glarg,Human.Rec.Analog [Lantus Solostar] 20 units SQ DAILY 11/01/19 [History] Rivaroxaban [Xarelto] 20 mg PO DAILY 11/01/19 [History] atorvaSTATin Calcium [Lipitor] 20 mg PO DAILY 11/01/19 [History] carvediloL [Coreg] 25 mg PO BID 11/01/19 [History] levETIRAcetam [Keppra] 1 tab PO BID 12/10/19 [History] Nitroglycerin [Rectiv] 1 inch TD BID #1 oint...g. 12/30/19 [Rx] Past Medical History HEENT History: Reports: Impaired Vision Cardiovascular History: Reports: Afib, High Cholesterol, Hypertension, Other (See Below) Other Cardiovascular History: hypotension Gastrointestinal History: Reports: GERD, Other (See Below) Other Gastrointestinal History: abdominal pain hepatic steatosis Genitourinary History: Reports: Other (See Below) Other Genitourinary History: BRIAN Musculoskeletal History: Reports: Other (See Below) Neurological History: Reports: CVA, Neuropathy, Diabetic, Seizure, Other (See Below) Other Neuro History: medically noncompliant Psychiatric History: Reports: Anxiety, Other (See Below) Other Psychiatric History: history of drug use altered mental statis Endocrine/Metabolic History: Reports: Diabetes, Type I, Obesity/BMI 30+, Other (See Below) Other Endocrine/Metabolic History: polyneuropathy, ketoacidosis,hyperglycemia,hyperkalemia - Infectious Disease History Infectious Disease History: Reports: Chicken Pox - Past Surgical History GI Surgical History: Reports: Other (See Below) Other GI Surgeries/Procedures: upper endoscopy with biopsy 2019 Social & Family History - Tobacco Use Smoking Status *Q: Light Tobacco Smoker Years of Tobacco use: 12 Packs/Tins Daily: 0.3 - Caffeine Use Caffeine Use: Reports: Soda - Recreational Drug Use Recreational Drug Use: No ED ROS GENERAL - Review of Systems Review Of Systems: See Below Constitutional: Reports: No Symptoms HEENT: Reports: No Symptoms Respiratory: Reports: No Symptoms Cardiovascular: Reports: No Symptoms GI/Abdominal: Reports: Bloody Stool, Hematochezia, Other (anal pain). Denies: Abdominal Pain, Black Stool, Constipation, Diarrhea, Nausea : Reports: No Symptoms Musculoskeletal: Reports: No Symptoms Skin: Reports: No Symptoms Neurological: Reports: No Symptoms ED EXAM, GI/ABD - Physical Exam Exam: See Below Exam Limited By: No Limitations General Appearance: Alert, WD/WN, No Apparent Distress Eyes: Bilateral: Normal Appearance Ears: Hearing Grossly Normal Nose: Normal Inspection, No Blood Throat/Mouth: Normal Inspection, Normal Lips, Normal Oropharynx, Normal Voice, No Airway Compromise Head: Atraumatic, Normocephalic Neck: Normal Inspection Respiratory/Chest: No Respiratory Distress, Lungs Clear, Normal Breath Sounds, No Accessory Muscle Use Cardiovascular: Regular Rate, Rhythm, No Edema GI/Abdominal Exam: Soft, Non-Tender, No Distention Rectal (Female) Exam: Other (anal area inspected. No external pathology noted. No blood visualized. There is a white cream present over area, presumably the hydrocortisone cream. ) Extremities: Normal Inspection Course - Vital Signs Last Recorded V/S: Last Vital Signs Temp 35.8 C L 12/30/19 21:07 Pulse 96 12/30/19 21:32 Resp 16 12/30/19 21:32 BP 181/104 H 12/30/19 21:32 Pulse Ox 97 12/30/19 21:32 - Orders/Labs/Meds Labs: Laboratory Tests 12/30/19 Range/Units 21:22 Hgb 7.5 L D (12.0-15.0) g/dL Meds: Medications Discontinued Medications Generic Name Dose Route Start Last Admin Trade Name [place] PRN Reason Stop Dose Admin Lidocaine HCl 5 ml 12/30/19 21:21 12/30/19 21:37 Xylocaine 2% Jelly MUCMEM 12/30/19 21:22 5 ml ONETIME ONE Administration Departure - Departure Time of Disposition: 22:07 Disposition: Home, Self-Care 01 Condition: Fair Clinical Impression: Anal pain, Rectal bleeding Anemia Qualifiers: Anemia type: iron deficiency Iron deficiency anemia type: chronic blood loss Qualified Code(s): D50.0 - Iron deficiency anemia secondary to blood loss (chronic) - Discharge Information *PRESCRIPTION DRUG MONITORING PROGRAM REVIEWED*: No *COPY OF PRESCRIPTION DRUG MONITORING REPORT IN PATIENT EDIN: No Prescriptions: Nitroglycerin [Rectiv] 1 inch TD BID #1 oint...g. Referrals: PCP,None [Primary Care Provider] - Forms: ED Department Discharge Additional Instructions: Try the Rectiv for pain relief, use a one inch strip every 12 hrs applied to your finger and then placed in your anus. Use a gloved little finger. Switch to acetaminophen 1000 mg every 6 hrs for pain relief, stop the ibuprofen. Eat a high fiber diet and drink ample fluids to keep your stools soft. Take the prep as directed and return as directed on Thursday for your colonoscopy. Get established with a family doctor of your choice next week. Sepsis Event Note (ED) - Evaluation Sepsis Screening Result: No Definite Risk - Focused Exam Vital Signs: Vital Signs Temp Pulse Resp BP Pulse Ox 12/30/19 21:32 96 16 181/104 H 97 12/30/19 21:07 35.8 C L 96 16 172/105 H 100 12/30/19 20:45 35.8 C L 96 16 172/105 H 100
== END 2019-12-30 22:33 | disposition home or self-care (01) ==
LOC: JP.ED 20:27
DX: D50.0 Iron deficiency anemia secondary to blood loss (chronic) (principal); K62.5 Hemorrhage of anus and rectum; I48.91 Unspecified atrial fibrillation; E78.00 Pure hypercholesterolemia, unspecified; I10 Essential (primary) hypertension; R56.9 Unspecified convulsions; F41.9 Anxiety disorder, unspecified; E66.9 Obesity, unspecified; Z68.22 Body mass index [BMI] 22.0-22.9, adult; E10.42 Type 1 diabetes mellitus with diabetic polyneuropathy; F17.210 Nicotine dependence, cigarettes, uncomplicated; Z88.6 Allergy status to analgesic agent; Z79.01 Long term (current) use of anticoagulants; Z86.73 Personal history of transient ischemic attack (TIA), and cerebral infarction without residual deficits; Z88.8 Allergy status to other drugs, medicaments and biological substances
CPT/HCPCS: 36415; 85018; 99284

== ENCOUNTER 2020-01-02 19:30 | Emergency (ER) | payer MEDICAID ==
[2020-01-02] MEDS ORDERED: Sodium Chloride 0.9% 1,000 ML IV ONE (22:14)
[2020-01-02] MEDS ORDERED: Ondansetron 4 MG Tab.DIS PO ONE (22:15)
--- NOTE | 2020-01-02 22:31 | EDM.PDOC ---
<Ольга Aguilar - Last Filed: 01/02/20 23:05> ED HPI GENERAL MEDICAL PROBLEM - General Chief Complaint: Gastrointestinal Problem Stated Complaint: VOMITING,NOT EATING Time Seen by Provider: 01/02/20 22:12 Source of Information: Reports: Patient, Provider, RN, RN Notes Reviewed History Limitations: Reports: Altered Mental Status (Previous CVA) - History of Present Illness INITIAL COMMENTS - FREE TEXT/NARRATIVE: 29 year old female presents to the ER via w/c for continuing c/o nausea, emesis, weakness, back pain, sweats, RUQ pain, poor intake of food or liquid over last 3 days, no BM since 12-30-19, urination only 1 time today and 2 times yesterday. Denies fever. Denies pain with urination. Back pain and RUQ pain 10/10 from vomiting. States takes Tylenol but not helping. Onset: Gradual Onset Date: 12/30/19 Duration: Day(s):, Getting Worse, Recurring Location: Reports: Abdomen, Back Quality: Reports: Ache Severity: Moderate Improves with: Reports: None Worsens with: Reports: None Associated Symptoms: Reports: Loss of Appetite, Malaise, Nausea/Vomiting, Weakness Treatments WATCH DIAL STONER: Reports: Acetaminophen Abdomen Pain Score (Numeric/FACES): 10 Lower Back Pain Score (Numeric/FACES): 10 - Related Data Allergies Allergy/AdvReac Type Severity Reaction Status Date / Time diphenhydramine Allergy Itching Verified 01/02/20 21:52 ibuprofen AdvReac Nausea and Verified 01/02/20 21:52 Vomiting Home Meds: Home Meds Cimetidine 1 tab PO BID 11/01/19 [History] DULoxetine [Cymbalta] 60 mg PO DAILY 11/01/19 [History] Insulin Aspart [NovoLOG] 10 units SQ QID 11/01/19 [History] Insulin Glarg,Human.Rec.Analog [Lantus Solostar] 20 units SQ DAILY 11/01/19 [History] Rivaroxaban [Xarelto] 20 mg PO DAILY 11/01/19 [History] atorvaSTATin Calcium [Lipitor] 20 mg PO DAILY 11/01/19 [History] carvediloL [Coreg] 25 mg PO BID 11/01/19 [History] levETIRAcetam [Keppra] 1 tab PO BID 12/10/19 [History] Nitroglycerin [Rectiv] 1 inch TD BID #1 oint...g. 12/30/19 [Rx] Past Medical History HEENT History: Reports: Impaired Vision Cardiovascular History: Reports: Afib, High Cholesterol, Hypertension, Other (See Below) Other Cardiovascular History: hypotension Gastrointestinal History: Reports: GERD, Other (See Below) Other Gastrointestinal History: abdominal pain hepatic steatosis Genitourinary History: Reports: Other (See Below) Other Genitourinary History: BRIAN Musculoskeletal History: Reports: Other (See Below) Neurological History: Reports: CVA, Neuropathy, Diabetic, Seizure, Other (See Below) Other Neuro History: medically noncompliant Psychiatric History: Reports: Anxiety, Depression, Other (See Below) Other Psychiatric History: history of drug use altered mental statis Endocrine/Metabolic History: Reports: Diabetes, Type I, Obesity/BMI 30+, Other (See Below) Other Endocrine/Metabolic History: polyneuropathy, ketoacidosis,hyperglycemia,hyperkalemia - Infectious Disease History Infectious Disease History: Reports: Chicken Pox - Past Surgical History GI Surgical History: Reports: Other (See Below) Other GI Surgeries/Procedures: upper endoscopy with biopsy 2019 Social & Family History - Tobacco Use Smoking Status *Q: Current Every Day Smoker Years of Tobacco use: 18 Packs/Tins Daily: 0.5 - Caffeine Use Caffeine Use: Reports: None - Recreational Drug Use Recreational Drug Use: Yes Drug Use in Last 12 Months: No Recreational Drug Type: Reports: Marijuana/Hashish - Sexual History Other Sexual History Comment: Has girlfriend ED ROS GENERAL - Review of Systems Review Of Systems: See Below Constitutional: Reports: Chills, Malaise, Weakness, Fatigue, Night Sweats, Decreased Appetite HEENT: Reports: No Symptoms Respiratory: Reports: Shortness of Breath (From vomitting. ) Cardiovascular: Reports: Lightheadedness (From not eating or drinking ) Endocrine: Reports: High Glucose (History of high blood sugar. Type I) GI/Abdominal: Reports: Abdominal Pain, Constipation, Decreased Appetite, Nausea, Vomiting : Reports: No Symptoms Musculoskeletal: Reports: Back Pain Skin: Reports: Dryness Neurological: Reports: Pre-Existing Deficit, Weakness Psychiatric: Reports: No Symptoms Hematologic/Lymphatic: Reports: No Symptoms Immunologic: Reports: No Symptoms ED EXAM, GI/ABD - Physical Exam Exam: See Below Exam Limited By: Altered Mental Status General Appearance: Alert, WD/WN, No Apparent Distress Eyes: Bilateral: Normal Appearance Ears: Normal External Exam, Hearing Grossly Normal Nose: Normal Inspection, Normal Mucosa, No Blood Throat/Mouth: Normal Inspection, Normal Lips, Normal Teeth, Normal Gums, Normal Voice, No Airway Compromise Head: Atraumatic, Normocephalic Neck: Normal Inspection, Supple, Non-Tender, Full Range of Motion Respiratory/Chest: No Respiratory Distress, Lungs Clear, Normal Breath Sounds, No Accessory Muscle Use, Chest Non-Tender Cardiovascular: Normal Peripheral Pulses, Regular Rate, Rhythm, No Edema, No Gallop, No JVD, No Murmur, No Rub GI/Abdominal Exam: Normal Bowel Sounds, Soft, No Distention, Guarding (RUQ) (Female) Exam: Deferred Rectal (Female) Exam: Deferred Back Exam: Normal Inspection, Full Range of Motion, Other (C/o pain to back from vomiting) Extremities: Normal Inspection, Normal Range of Motion, Non-Tender, No Pedal Edema, Normal Capillary Refill Neurological: Alert, Oriented, CN II-XII Intact (Baseline neuro from medical history ) Psychiatric: Normal Affect, Normal Mood Lymphatic: No Adenopathy Course - Re-Assessments/Exams Free Text/Narrative Re-Assessment/Exam: 01/02/20 22:37 Met with pt. Full ROS completed. Labs ordered, glucometer check, and UA mini cath 01/02/20 22:59 CBC reviewed. Glucose 139 per lab 01/02/20 23:05 CMP reviewed. Will discuss plans with pt to d/c home with [facility] and instructions on hydration. Departure - Departure Disposition: Home, Self-Care 01 Condition: Good Clinical Impression: Vomiting, Dehydration Nausea & vomiting Qualifiers: Vomiting type: unspecified Vomiting Intractability: unspecified Qualified Code(s): R11.2 - Nausea with vomiting, unspecified Gastritis Qualifiers: Gastritis type: unspecified gastritis Chronicity: acute Gastritis bleeding: without bleeding Qualified Code(s): K29.00 - Acute gastritis without bleeding - Discharge Information *PRESCRIPTION DRUG MONITORING PROGRAM REVIEWED*: Not Applicable *COPY OF PRESCRIPTION DRUG MONITORING REPORT IN PATIENT EDIN: Not Applicable Instructions: Viral Gastroenteritis, Adult, [id number], Nausea and Vomiting, Adult, [id number], Dehydration, Adult, [id number], Abdominal Pain, Adult, [id number] Referrals: PCP,None [Primary Care Provider] - Forms: ED Department Discharge Care Plan Goals: Please drink plenty of fluids and rest. Eat a diet that is bland, not spicy, and easy to digest. Please seek medical attention in the event of continuing of symptoms or medical emergency. Follow up with your regular medical provider with any medical concerns. Take Zofran as directed by provider. Sepsis Event Note (ED) - Evaluation Sepsis Screening Result: No Definite Risk - Problem List Review Problem List Initiated/Reviewed/Updated: Yes <Michael Hawk - Last Filed: 01/03/20 17:23> Course - Vital Signs Text/Narrative:: I personally performed or re-performed the physical examination and medical decision making. I have verified all student documentation or findings, including history, physical exam and/or medical decision making. Last Recorded V/S: Last Vital Signs Temp 96.7 F L 01/02/20 21:49 Pulse 99 01/02/20 21:49 Resp 16 01/02/20 21:49 BP 147/112 H 01/02/20 21:49 Pulse Ox 99 01/02/20 21:49 - Orders/Labs/Meds Orders: Active Orders 24 hr Category Date Time Status POC Glucose [Blood Glucose Check, Bedside] [RC] ONETIME Care 01/02/20 22:17 Active Labs: Laboratory Tests 01/02/20 01/02/20 Range/Units 22:45 22:45 WBC 8.6 (4.5-11.0) K/uL RBC 3.78 (3.30-5.50) M/uL Hgb 10.9 L D (12.0-15.0) g/dL Hct 34.0 L (36.0-48.0) % MCV 90 (80-98) fL MCH 29 (27-31) pg MCHC 32 (32-36) % Plt Count 408 H (150-400) K/uL Neut % (Auto) 69 H (36-66) % Lymph % (Auto) 20 L (24-44) % [place] % (Auto) 10 H (2-6) % Eos % (Auto) 1 L (2-4) % Baso % (Auto) 0 (0-1) % Sodium 136 L (140-148) mmol/L Potassium 3.2 L (3.6-5.2) mmol/L Chloride 101 (100-108) mmol/L Carbon Dioxide 21 (21-32) mmol/L Anion Gap 17.2 H (5.0-14.0) mmol/L BUN 15 (7-18) mg/dL Creatinine 0.9 (0.6-1.0) mg/dL Est Cr Clr Drug Dosing 88.88 mL/min Estimated GFR (MDRD) > 60 (>60) Glucose 139 H (74-106) mg/dL Calcium 8.6 (8.5-10.1) mg/dL Total Bilirubin 0.6 (0.2-1.0) mg/dL AST 24 (15-37) U/L ALT 23 (12-78) U/L Alkaline Phosphatase 85 (46-116) U/L Total Protein 6.6 (6.4-8.2) g/dL Albumin 2.5 L (3.4-5.0) g/dL Globulin 4.1 H (2.3-3.5) g/dL Albumin/Globulin Ratio 0.6 L (1.2-2.2) Meds: Medications Discontinued Medications Generic Name Dose Route Start Last Admin Trade Name Freq PRN Reason Stop Dose Admin Sodium Chloride 1,000 mls @ 999 mls/hr 01/02/20 22:14 Normal Saline IV 01/02/20 23:14 .BOLUS ONE Ondansetron HCl 4 mg 01/02/20 22:15 01/02/20 23:00 Zofran Odt PO 01/02/20 22:16 4 mg ONETIME ONE Administration Departure - Departure Time of Disposition: 23:20
== END 2020-01-02 23:29 | disposition home or self-care (01) ==
LOC: JP.ED 19:30
DX: E86.0 Dehydration (principal); K29.00 Acute gastritis without bleeding; I10 Essential (primary) hypertension; I48.91 Unspecified atrial fibrillation; F41.9 Anxiety disorder, unspecified; F32.9 Major depressive disorder, single episode, unspecified; E10.40 Type 1 diabetes mellitus with diabetic neuropathy, unspecified; E66.9 Obesity, unspecified; Z68.21 Body mass index [BMI] 21.0-21.9, adult; F17.210 Nicotine dependence, cigarettes, uncomplicated; Z88.6 Allergy status to analgesic agent; Z88.8 Allergy status to other drugs, medicaments and biological substances; Z79.01 Long term (current) use of anticoagulants; Z79.899 Other long term (current) drug therapy
CPT/HCPCS: 36415; 80053; 85025; 99284; A9270

== ENCOUNTER 2020-01-19 12:53 | Emergency (ER) | payer MEDICAID ==
[2020-01-19] MEDS ORDERED: Albuterol 0.083% 2.5 MG/3 ML Neb Soln NEB ONE (13:34)
--- NOTE | 2020-01-19 13:38 | EDM.PDOC ---
ED HPI GENERAL MEDICAL PROBLEM - General Chief Complaint: Respiratory Problem Stated Complaint: CHEST PAIN, COUGH Time Seen by Provider: 01/19/20 13:25 Source of Information: Reports: Patient, Old Records History Limitations: Reports: No Limitations - History of Present Illness INITIAL COMMENTS - FREE TEXT/NARRATIVE: 29 yo smoking black female presents with a cough for 2 weeks. No fever. Chest hurts when she coughs. Called the clinic today and was referred to the ER. No SOB. Onset: Gradual Duration: Week(s): (2), Constant Location: Reports: Chest Quality: Reports: Dull Severity: Mild Improves with: Reports: None Worsens with: Reports: Other (coughing) Context: Reports: Other (See HPI) Associated Symptoms: Reports: Chest Pain, Cough. Denies: Fever/Chills, Shortness of Breath Treatments SOCIAL WORK JOB TITLES: Reports: Other (see below) (none) - Related Data Allergies Allergy/AdvReac Type Severity Reaction Status Date / Time diphenhydramine Allergy Itching Verified 01/19/20 13:20 ibuprofen AdvReac Nausea and Verified 01/19/20 13:20 Vomiting Home Meds: Home Meds Insulin Aspart [NovoLOG] 5 units SQ .WITHMEALS 11/01/19 [History] Insulin Glarg,Human.Rec.Analog [Lantus Solostar] 10 units SQ BEDTIME 11/01/19 [History] Acetaminophen [Tylenol] 650 mg PO Q4H PRN 01/04/20 [History] Albuterol Sulfate [Albuterol Sulfate Hfa] 1 - 2 puff INH Q4H PRN 01/04/20 [History] Docusate Sodium [Colace] 100 mg PO DAILY 01/04/20 [History] Gabapentin [Neurontin] 600 mg PO TID 01/04/20 [History] Hyoscyamine Sulfate 0.125 mg SL Q4H 01/04/20 [History] Multivitamin 1 each PO DAILY 01/04/20 [History] Omeprazole 20 mg PO DAILY 01/04/20 [History] Ondansetron [Zofran ODT] 4 mg PO Q8H 01/04/20 [History] Saccharomyces Boulardii 250 mg PO BID 01/04/20 [History] Sertraline HCl 50 mg PO DAILY 01/04/20 [History] amLODIPine Besylate [Amlodipine Besylate] 10 mg PO DAILY 01/04/20 [History] hydrOXYzine HCL [Hydroxyzine HCl] 25 mg PO TID PRN 01/04/20 [History] lisinopriL [Lisinopril] 30 mg PO DAILY 01/04/20 [History] polyethylene glycoL 3350 [Miralax] 17 gm PO DAILY PRN 01/04/20 [History] predniSONE [Prednisone] 10 mg PO TID #16 tab.ds.pk 01/19/20 [Rx] Past Medical History HEENT History: Reports: Impaired Vision Cardiovascular History: Reports: Afib, High Cholesterol, Hypertension, Other (See Below) Other Cardiovascular History: hypotension Gastrointestinal History: Reports: GERD, Other (See Below) Other Gastrointestinal History: abdominal pain hepatic steatosis Genitourinary History: Reports: Other (See Below) Other Genitourinary History: BRIAN Musculoskeletal History: Reports: Other (See Below) Neurological History: Reports: CVA, Neuropathy, Diabetic, Seizure, Other (See Below) Other Neuro History: medically noncompliant Psychiatric History: Reports: Anxiety, Depression, Other (See Below) Other Psychiatric History: history of drug use altered mental statis Endocrine/Metabolic History: Reports: Diabetes, Type I, Obesity/BMI 30+, Other (See Below) Other Endocrine/Metabolic History: polyneuropathy, ketoacidosis,hyperglycemia,hyperkalemia - Infectious Disease History Infectious Disease History: Reports: Chicken Pox - Past Surgical History GI Surgical History: Reports: Other (See Below) Other GI Surgeries/Procedures: upper endoscopy with biopsy 2019 Social & Family History - Tobacco Use Smoking Status *Q: Current Every Day Smoker Years of Tobacco use: 10 Packs/Tins Daily: 0.5 - Caffeine Use Caffeine Use: Reports: None - Sexual History Other Sexual History Comment: Has girlfriend ED ROS GENERAL - Review of Systems Review Of Systems: See Below Constitutional: Reports: No Symptoms HEENT: Reports: No Symptoms Respiratory: Reports: Cough. Denies: Shortness of Breath, Wheezing, Pleuritic Chest Pain, Sputum, Hemoptysis Cardiovascular: Reports: Chest Pain (with coughing). Denies: Dyspnea on Exertion, Edema, Orthopnea, Palpitations GI/Abdominal: Reports: No Symptoms : Reports: No Symptoms Musculoskeletal: Reports: No Symptoms Skin: Reports: No Symptoms Neurological: Reports: No Symptoms ED EXAM, GENERAL - Physical Exam Exam: See Below Exam Limited By: No Limitations General Appearance: Alert, WD/WN, No Apparent Distress Eye Exam: Bilateral Eye: Normal Inspection Ears: Normal External Exam, Normal Canal, Hearing Grossly Normal Ear Exam: Bilateral Ear: Auricle Normal, Canal Normal Nose: Normal Inspection, No Blood Throat/Mouth: Normal Inspection, Normal Lips, Normal Oropharynx, Normal Voice, No Airway Compromise Head: Atraumatic, Normocephalic Neck: Normal Inspection Respiratory/Chest: No Respiratory Distress, Lungs Clear, Normal Breath Sounds, No Accessory Muscle Use Cardiovascular: Regular Rate, Rhythm, No Edema Extremities: Normal Inspection Neurological: Alert, Oriented, CN II-XII Intact, Normal Cognition, No Motor/Sensory Deficits Psychiatric: Normal Affect, Normal Mood Skin Exam: Warm, Dry, Intact, Normal Color, No Rash Course - Vital Signs Last Recorded V/S: Last Vital Signs Temp 35.8 C L 01/19/20 13:26 Pulse 105 H 01/19/20 13:26 Resp 14 01/19/20 13:26 BP 180/108 H 01/19/20 13:26 Pulse Ox 95 01/19/20 13:26 - Orders/Labs/Meds Orders: Active Orders 24 hr Category Date Time Status RT Aerosol Therapy [RC] ASDIRECTED Care 01/19/20 13:34 Active Labs: Laboratory Tests 01/19/20 Range/Units 14:29 WBC 5.4 (4.5-11.0) K/uL RBC 3.05 L (3.30-5.50) M/uL Hgb 8.5 L D (12.0-15.0) g/dL Hct 27.5 L (36.0-48.0) % MCV 90 (80-98) fL MCH 28 (27-31) pg MCHC 31 L (32-36) % Plt Count 299 (150-400) K/uL Meds: Medications Discontinued Medications Generic Name Dose Route Start Last Admin Trade Name Freq PRN Reason Stop Dose Admin Albuterol 2.5 mg 01/19/20 13:34 01/19/20 13:58 Proventil Neb Soln NEB 01/19/20 13:35 2.5 mg ONETIME ONE Administration - Re-Assessments/Exams Free Text/Narrative Re-Assessment/Exam: 01/19/20 14:30 Breath sounds slightly improved after neb, feels a little better. Departure - Departure Time of Disposition: 15:10 Disposition: Home, Self-Care 01 Condition: Fair Clinical Impression: Bronchospasm - Discharge Information Prescriptions: predniSONE [Prednisone] 10 mg PO TID #16 tab.ds.pk Referrals: PCP,None [Primary Care Provider] - Forms: ED Department Discharge Additional Instructions: NO smoking. Use your albuterol inhaler 2 puffs every 4 hrs as needed. Take the prednisone as directed until gone. Recheck with your doctor by early next week, call for an appt. Sepsis Event Note (ED) - Evaluation Sepsis Screening Result: No Definite Risk - Focused Exam Vital Signs: Vital Signs Temp Pulse Resp BP Pulse Ox 01/19/20 13:26 35.8 C L 105 H 14 180/108 H 95 01/19/20 13:17 35.8 C L 105 H 14 180/108 H 95 - My Orders Last 24 Hours: My Active Orders 01/19/20 13:34 RT Aerosol Therapy [RC] ASDIRECTED - Assessment/Plan Last 24 Hours: My Active Orders 01/19/20 13:34 RT Aerosol Therapy [RC] ASDIRECTED
== END 2020-01-19 16:21 | disposition home or self-care (01) ==
LOC: JP.ED 12:53
DX: J98.01 Acute bronchospasm (principal); I48.91 Unspecified atrial fibrillation; E78.00 Pure hypercholesterolemia, unspecified; I10 Essential (primary) hypertension; Z86.73 Personal history of transient ischemic attack (TIA), and cerebral infarction without residual deficits; R56.9 Unspecified convulsions; E66.9 Obesity, unspecified; E10.40 Type 1 diabetes mellitus with diabetic neuropathy, unspecified; Z79.4 Long term (current) use of insulin; Z79.899 Other long term (current) drug therapy; Z68.27 Body mass index [BMI] 27.0-27.9, adult; Z88.6 Allergy status to analgesic agent; Z88.8 Allergy status to other drugs, medicaments and biological substances
CPT/HCPCS: 36415; 85027; 94640; 99285-25

== ENCOUNTER 2020-02-13 12:58 | Emergency (ER) | payer MEDICAID ==
--- NOTE | 2020-02-13 13:18 | EDM.PDOC ---
ED HPI GENERAL MEDICAL PROBLEM - General Chief Complaint: Diabetic Complaint Stated Complaint: BODY PAIN Time Seen by Provider: 02/13/20 13:04 Source of Information: Reports: Patient History Limitations: Reports: No Limitations - History of Present Illness Onset: Today Duration: Week(s): (2), Chronic Quality: Reports: Ache - Related Data Allergies Allergy/AdvReac Type Severity Reaction Status Date / Time diphenhydramine Allergy Itching Verified 01/19/20 13:20 ibuprofen AdvReac Nausea and Verified 01/19/20 13:20 Vomiting Home Meds: Home Meds Insulin Aspart [NovoLOG] 5 units SQ .WITHMEALS 11/01/19 [History] Insulin Glarg,Human.Rec.Analog [Lantus Solostar] 10 units SQ BEDTIME 11/01/19 [History] Acetaminophen [Tylenol] 650 mg PO Q4H PRN 01/04/20 [History] Albuterol Sulfate [Albuterol Sulfate Hfa] 1 - 2 puff INH Q4H PRN 01/04/20 [History] Docusate Sodium [Colace] 100 mg PO DAILY 01/04/20 [History] Gabapentin [Neurontin] 600 mg PO TID 01/04/20 [History] Hyoscyamine Sulfate 0.125 mg SL Q4H 01/04/20 [History] Multivitamin 1 each PO DAILY 01/04/20 [History] Omeprazole 20 mg PO DAILY 01/04/20 [History] Ondansetron [Zofran ODT] 4 mg PO Q8H 01/04/20 [History] Saccharomyces Boulardii 250 mg PO BID 01/04/20 [History] Sertraline HCl 50 mg PO DAILY 01/04/20 [History] amLODIPine Besylate [Amlodipine Besylate] 10 mg PO DAILY 01/04/20 [History] hydrOXYzine HCL [Hydroxyzine HCl] 25 mg PO TID PRN 01/04/20 [History] lisinopriL [Lisinopril] 30 mg PO DAILY 01/04/20 [History] polyethylene glycoL 3350 [Miralax] 17 gm PO DAILY PRN 01/04/20 [History] predniSONE [Prednisone] 10 mg PO TID #16 tab.ds.pk 01/19/20 [Rx] Past Medical History HEENT History: Reports: Impaired Vision Cardiovascular History: Reports: Afib, High Cholesterol, Hypertension, Other (See Below) Other Cardiovascular History: hypotension Gastrointestinal History: Reports: GERD, Other (See Below) Other Gastrointestinal History: abdominal pain hepatic steatosis Genitourinary History: Reports: Other (See Below) Other Genitourinary History: BRIAN Musculoskeletal History: Reports: Other (See Below) Neurological History: Reports: CVA, Neuropathy, Diabetic, Seizure, Other (See Below) Other Neuro History: medically noncompliant Psychiatric History: Reports: Anxiety, Depression, Other (See Below) Other Psychiatric History: history of drug use altered mental statis Endocrine/Metabolic History: Reports: Diabetes, Type I, Obesity/BMI 30+, Other (See Below) Other Endocrine/Metabolic History: polyneuropathy, keto acidosis,hyperglycemia,hyperkalemia - Infectious Disease History Infectious Disease History: Reports: Chicken Pox - Past Surgical History GI Surgical History: Reports: Other (See Below) Other GI Surgeries/Procedures: upper endoscopy with biopsy 2019 Social & Family History - Caffeine Use Caffeine Use: Reports: None - Sexual History Other Sexual History Comment: Has girlfriend ED ROS GENERAL - Review of Systems Review Of Systems: See Below Constitutional: Reports: Fever, Chills, Diaphoresis HEENT: Reports: Throat Pain. Denies: Ear Pain Respiratory: Reports: Shortness of Breath, Cough, Sputum Cardiovascular: Reports: Chest Pain Endocrine: Reports: Fatigue GI/Abdominal: Reports: Nausea, Vomiting (Last vomited today). Denies: Diarrhea Musculoskeletal: Reports: Other ("body aches") Free Text/Narrative/Comment: Pt states blood sugar measurement at home "doing good" ED EXAM GENERAL NO PERIP PULSE - Physical Exam Exam: See Below Exam Limited By: No Limitations General Appearance: Alert EKG INTERPRETATION EKG Date: 02/13/20 Time: 13:55 Rhythm: NSR Rate (Beats/Min): 101 P-Wave: Present ST-T: Normal Course - Vital Signs Text/Narrative:: Initial diff Dx: DKA, viral syndrome, UTI, CHF,pneumonia, influenza, COVID. Radiologist interpretation of chest x-ray is that there is an infiltrate in the left lower lobe and increased markings in the right perihilar area, consistent with pneumonia. The pt. is very difficult to obatain venous access for blood draw and IV placement. At 1455 I discussed the patient with Dr. Cortes who would like to wait making a decision regarding disposition pending COVID results. Fingerstick blood glucose>500. Discussed again w/Dr. Cortes and pt. will be admitted to ICU here. Last Recorded V/S: Last Vital Signs Temp 36.1 C 02/13/20 13:21 Pulse 80 02/13/20 13:21 Resp 27 H 02/13/20 13:21 BP 129/64 02/13/20 13:21 Pulse Ox 94 L 02/13/20 13:21 - Orders/Labs/Meds Orders: Active Orders 24 hr Category Date Time Status EKG Documentation Completion [RC] ASDIRECTED Care 02/13/20 13:37 Active POC Glucose [Blood Glucose Check, Bedside] [RC] ONETIME Care 02/13/20 14:36 Active BLOOD GAS VENOUS [BG] Stat Lab 02/13/20 13:37 Ordered CULTURE BLOOD [BC] Urgent Lab 02/13/20 14:27 Ordered CULTURE BLOOD [BC] Urgent Lab 02/13/20 14:27 Ordered INFLUENZA A+B AG SCREEN [RM] Stat Lab 02/13/20 13:39 Ordered LIPASE [CHEM] Stat Lab 02/13/20 16:24 Received TROPONIN I [CHEM] Stat Lab 02/13/20 16:24 Received UA W/MICROSCOPIC [URIN] Urgent Lab 02/13/20 13:36 Ordered Sodium Chloride 0.9% [Normal Saline] 1,000 ml Med 02/13/20 14:15 Active IV ASDIRECTED Sodium Chloride 0.9% [Normal Saline] 1,000 ml Med 02/13/20 14:15 Active IV ASDIRECTED Blood Culture x2 Reflex Set [OM.PC] Urgent Oth 02/13/20 14:27 Ordered Isolation [COMM] Routine Oth 02/13/20 13:39 Ordered EKG 12 Lead [EK] Urgent Ther 02/13/20 13:36 Ordered Medication Orders Sodium Chloride (Normal Saline) 1,000 mls @ 500 mls/hr IV ASDIRECTED GWENDOLYN Sodium Chloride (Normal Saline) 1,000 mls @ 150 mls/hr IV ASDIRECTED GWENDOLYN Labs: Laboratory Tests 02/13/20 02/13/20 02/13/20 Range/Units 13:36 13:36 13:36 WBC 9.9 (4.5-11.0) K/uL RBC 2.95 L (3.30-5.50) M/uL Hgb 8.1 L (12.0-15.0) g/dL Hct 25.0 L (36.0-48.0) % MCV 85 (80-98) fL MCH 28 (27-31) pg MCHC 32 (32-36) % Plt Count 321 (150-400) K/uL Sodium 128 L (140-148) mmol/L Potassium 6.6 H* (3.6-5.2) mmol/L Chloride 96 L (100-108) mmol/L Carbon Dioxide 12 L (21-32) mmol/L Anion Gap 26.6 H (5.0-14.0) mmol/L BUN 46 H D (7-18) mg/dL Creatinine 3.8 H* D (0.6-1.0) mg/dL Est Cr Clr Drug Dosing 21.05 mL/min Estimated GFR (MDRD) 17 L (>60) Glucose 815 H* (74-106) mg/dL POC Glucose (74-106) MG/DL Lactic Acid 3.9 H (0.4-2.0) mmol/L Calcium 7.3 L D (8.5-10.1) mg/dL Total Bilirubin 1.1 H D (0.2-1.0) mg/dL AST 41 H (15-37) U/L ALT 19 (12-78) U/L Alkaline Phosphatase 123 H (46-116) U/L NT-Pro-B Natriuret Pep 47426 H (5-125) pg/mL Total Protein 5.0 L (6.4-8.2) g/dL Albumin 1.7 L (3.4-5.0) g/dL Globulin 3.3 (2.3-3.5) g/dL Albumin/Globulin Ratio 0.5 L (1.2-2.2) SARS Virus RNA (PCR) (NEGATIVE) 02/13/20 02/13/20 Range/Units 15:15 15:51 WBC (4.5-11.0) K/uL RBC (3.30-5.50) M/uL Hgb (12.0-15.0) g/dL Hct (36.0-48.0) % MCV (80-98) fL MCH (27-31) pg MCHC (32-36) % Plt Count (150-400) K/uL Sodium (140-148) mmol/L Potassium (3.6-5.2) mmol/L Chloride (100-108) mmol/L Carbon Dioxide (21-32) mmol/L Anion Gap (5.0-14.0) mmol/L BUN (7-18) mg/dL Creatinine (0.6-1.0) mg/dL Est Cr Clr Drug Dosing mL/min Estimated GFR (MDRD) (>60) Glucose (74-106) mg/dL POC Glucose > 500 H* (74-106) MG/DL Lactic Acid (0.4-2.0) mmol/L Calcium (8.5-10.1) mg/dL Total Bilirubin (0.2-1.0) mg/dL AST (15-37) U/L ALT (12-78) U/L Alkaline Phosphatase (46-116) U/L NT-Pro-B Natriuret Pep (5-125) pg/mL Total Protein (6.4-8.2) g/dL Albumin (3.4-5.0) g/dL Globulin (2.3-3.5) g/dL Albumin/Globulin Ratio (1.2-2.2) SARS Virus RNA (PCR) Negative (NEGATIVE) Meds: Medications Generic Name Dose Route Start Last Admin Trade Name Freq PRN Reason Stop Dose Admin Sodium Chloride 1,000 mls @ 500 mls/hr 02/13/20 14:15 Normal Saline IV ASDIRECTED GWENDOLYN Sodium Chloride 1,000 mls @ 150 mls/hr 02/13/20 14:15 Normal Saline IV ASDIRECTED GWENDOLYN Discontinued Medications Generic Name Dose Route Start Last Admin Trade Name Freq PRN Reason Stop Dose Admin Ceftriaxone Sodium 1 gm/ 50 mls @ 100 mls/hr 02/13/20 14:32 Sodium Chloride IV 02/13/20 15:01 ONETIME ONE Insulin Human Regular 3 unit 02/13/20 15:50 Humulin R SUBCUT 02/13/20 15:51 ONETIME ONE Insulin Human Regular 5 unit 02/13/20 15:51 Humulin R IVPUSH 02/13/20 15:52 ONETIME ONE Departure - Departure Time of Disposition: 16:43 Disposition: Admitted As Inpatient 65 Condition: Poor Clinical Impression: Community acquired pneumonia, Hyperglycemia due to diabetes mellitus Anemia Qualifiers: Anemia type: unspecified type Qualified Code(s): D64.9 - Anemia, unspecified - Discharge Information Referrals: PCP,None [Primary Care Provider] - Forms: ED Department Discharge Sepsis Event Note (ED) - Focused Exam Vital Signs: Vital Signs Temp Pulse Resp BP Pulse Ox 02/13/20 13:21 36.1 C 80 27 H 129/64 94 L 02/13/20 13:14 36.1 C 80 27 H 129/64 94 L - My Orders Last 24 Hours: My Active Orders 02/13/20 13:36 UA W/MICROSCOPIC [URIN] Urgent EKG 12 Lead [EK] Urgent 02/13/20 13:37 EKG Documentation Completion [RC] ASDIRECTED BLOOD GAS VENOUS [BG] Stat 02/13/20 13:39 INFLUENZA A+B AG SCREEN [RM] Stat Isolation [COMM] Routine 02/13/20 14:15 Sodium Chloride 0.9% [Normal Saline] 1,000 ml IV ASDIRECTED Sodium Chloride 0.9% [Normal Saline] 1,000 ml IV ASDIRECTED 02/13/20 14:27 CULTURE BLOOD [BC] Urgent CULTURE BLOOD [BC] Urgent Blood Culture x2 Reflex Set [OM.PC] Urgent 02/13/20 14:36 POC Glucose [Blood Glucose Check, Bedside] [RC] ONETIME 02/13/20 16:24 LIPASE [CHEM] Stat TROPONIN I [CHEM] Stat - Assessment/Plan Last 24 Hours: My Active Orders 02/13/20 13:36 UA W/MICROSCOPIC [URIN] Urgent EKG 12 Lead [EK] Urgent 02/13/20 13:37 EKG Documentation Completion [RC] ASDIRECTED BLOOD GAS VENOUS [BG] Stat 02/13/20 13:39 INFLUENZA A+B AG SCREEN [RM] Stat Isolation [COMM] Routine 02/13/20 14:15 Sodium Chloride 0.9% [Normal Saline] 1,000 ml IV ASDIRECTED Sodium Chloride 0.9% [Normal Saline] 1,000 ml IV ASDIRECTED 02/13/20 14:27 CULTURE BLOOD [BC] Urgent CULTURE BLOOD [BC] Urgent Blood Culture x2 Reflex Set [OM.PC] Urgent 02/13/20 14:36 POC Glucose [Blood Glucose Check, Bedside] [RC] ONETIME 02/13/20 16:24 LIPASE [CHEM] Stat TROPONIN I [CHEM] Stat
[2020-02-13] MEDS ORDERED: Sodium Chloride 0.9% 1,000 ML IV SCH ×2 (14:15)
--- NOTE | 2020-02-13 14:22 | CR ---
CHEST: 2 view CLINICAL HISTORY:SOB COMPARISON:None FINDINGS: There is less than optimal inspiration which exaggerates lung markings. There is some patchy density in the left midlung field which is suspect for infiltrate in the left lower lobe. There is some mild density in the right perihilar region which could also represent minimal infiltrate. Impression: Limited study due to poor inspiratory level Bilateral pneumonic infiltrate suggested left greater than right .
[2020-02-13] MEDS ORDERED: cefTRIAXone 1 GM in Sodium Chloride 0.9% 50 ML IV ONE ×2 (14:32→16:45)
[2020-02-13] MEDS ORDERED: Insulin Regular, Human 100 Units/ML 3 ML Vial SUBCUT ONE (15:50)
[2020-02-13] MEDS ORDERED: Insulin Regular, Human 100 Units/ML 3 ML Vial IVPUSH ONE (15:51)
[2020-02-13] MEDS ORDERED: Aspirin 81 MG Tab.Chew PO ONE (17:45)
[2020-02-13] MEDS ORDERED: Nitroglycerin 0.4 MG Tab.SL SL PRN (17:46)
[2020-02-13] MEDS ORDERED: Sodium Chloride 0.9% 1,000 ML IV ONE (17:54)
[2020-02-13] MEDS ORDERED: Insulin Regular in 0.9 % NACL 100 ML IV SCH (18:00)
--- NOTE | 2020-02-13 18:06 | EDM.PDOC ---
ED HPI GENERAL MEDICAL PROBLEM - General Chief Complaint: Diabetic Complaint Stated Complaint: BODY PAIN Time Seen by Provider: 02/13/20 13:04 Source of Information: Reports: Patient History Limitations: Reports: No Limitations - History of Present Illness Onset: Today Duration: Week(s): (2), Chronic Quality: Reports: Ache - Related Data Allergies Allergy/AdvReac Type Severity Reaction Status Date / Time diphenhydramine Allergy Itching Verified 01/19/20 13:20 ibuprofen AdvReac Nausea and Verified 01/19/20 13:20 Vomiting Home Meds: Home Meds Insulin Aspart [NovoLOG] 5 units SQ .WITHMEALS 11/01/19 [History] Insulin Glarg,Human.Rec.Analog [Lantus Solostar] 10 units SQ BEDTIME 11/01/19 [History] Acetaminophen [Tylenol] 650 mg PO Q4H PRN 01/04/20 [History] Albuterol Sulfate [Albuterol Sulfate Hfa] 1 - 2 puff INH Q4H PRN 01/04/20 [History] Docusate Sodium [Colace] 100 mg PO DAILY 01/04/20 [History] Gabapentin [Neurontin] 600 mg PO TID 01/04/20 [History] Hyoscyamine Sulfate 0.125 mg SL Q4H 01/04/20 [History] Multivitamin 1 each PO DAILY 01/04/20 [History] Omeprazole 20 mg PO DAILY 01/04/20 [History] Ondansetron [Zofran ODT] 4 mg PO Q8H 01/04/20 [History] Saccharomyces Boulardii 250 mg PO BID 01/04/20 [History] Sertraline HCl 50 mg PO DAILY 01/04/20 [History] amLODIPine Besylate [Amlodipine Besylate] 10 mg PO DAILY 01/04/20 [History] hydrOXYzine HCL [Hydroxyzine HCl] 25 mg PO TID PRN 01/04/20 [History] lisinopriL [Lisinopril] 30 mg PO DAILY 01/04/20 [History] polyethylene glycoL 3350 [Miralax] 17 gm PO DAILY PRN 01/04/20 [History] predniSONE [Prednisone] 10 mg PO TID #16 tab.ds.pk 01/19/20 [Rx] Past Medical History HEENT History: Reports: Impaired Vision Cardiovascular History: Reports: Afib, High Cholesterol, Hypertension, Other (See Below) Other Cardiovascular History: hypotension Gastrointestinal History: Reports: GERD, Other (See Below) Other Gastrointestinal History: abdominal pain hepatic steatosis Genitourinary History: Reports: Other (See Below) Other Genitourinary History: BRIAN Musculoskeletal History: Reports: Other (See Below) Neurological History: Reports: CVA, Neuropathy, Diabetic, Seizure, Other (See Below) Other Neuro History: medically noncompliant Psychiatric History: Reports: Anxiety, Depression, Other (See Below) Other Psychiatric History: history of drug use altered mental statis Endocrine/Metabolic History: Reports: Diabetes, Type I, Obesity/BMI 30+, Other (See Below) Other Endocrine/Metabolic History: polyneuropathy, keto acidosis,hyperglycemia,hyperkalemia - Infectious Disease History Infectious Disease History: Reports: Chicken Pox - Past Surgical History GI Surgical History: Reports: Other (See Below) Other GI Surgeries/Procedures: upper endoscopy with biopsy 2019 Social & Family History - Caffeine Use Caffeine Use: Reports: None - Recreational Drug Use Recreational Drug Use: No - Sexual History Other Sexual History Comment: Has girlfriend ED ROS GENERAL - Review of Systems Review Of Systems: See Below Constitutional: Reports: Malaise, Weakness HEENT: Reports: No Symptoms Respiratory: Reports: Shortness of Breath Cardiovascular: Reports: Chest Pain Endocrine: Reports: Fatigue, High Glucose GI/Abdominal: Reports: Abdominal Pain Neurological: Reports: No Symptoms Psychiatric: Reports: Depression Hematologic/Lymphatic: Reports: Anemia ED EXAM GENERAL NO PERIP PULSE - Physical Exam Exam: See Below Exam Limited By: No Limitations General Appearance: Alert, Anxious, Moderate Distress Neck: Normal Inspection, Supple Respiratory/Chest: Chest Non-Tender, Respiratory Distress (Apnea). No: Crackles, Rales, Wheezing, Pleural Rub Cardiovascular: Normal Peripheral Pulses, Tachycardia GI/Abdominal: Soft, Non-Tender Extremities: Pedal Edema Neurological: Alert, Oriented, Normal Cognition Psychiatric: Anxious, Depressed Mood Skin Exam: Warm, Dry EKG INTERPRETATION EKG Date: 02/13/20 Time: 13:55 Rhythm: NSR Rate (Beats/Min): 101 P-Wave: Present QRS: Normal ST-T: Normal Course - Vital Signs Last Recorded V/S: Last Vital Signs Temp 36.1 C 02/13/20 13:21 Pulse 80 02/13/20 13:21 Resp 27 H 02/13/20 13:21 BP 129/64 02/13/20 13:21 Pulse Ox 94 L 02/13/20 13:21 - Orders/Labs/Meds Orders: Active Orders 24 hr Category Date Time Status EKG Documentation Completion [RC] ASDIRECTED Care 02/13/20 13:37 Active POC Glucose [Blood Glucose Check, Bedside] [RC] ONETIME Care 02/13/20 14:36 Active CULTURE BLOOD [BC] Urgent Lab 02/13/20 17:20 Received CULTURE BLOOD [BC] Urgent Lab 02/13/20 17:20 Received INFLUENZA A+B AG SCREEN [RM] Stat Lab 02/13/20 13:39 Ordered UA W/MICROSCOPIC [URIN] Urgent Lab 02/13/20 13:36 Ordered Nitroglycerin [Nitrostat] Med 02/13/20 17:46 Ordered 0.4 mg SL Q5M PRN Regular Insulin,Human 100 Units in NS @ 0.1 UNITS/KG/HR Med 02/13/20 18:00 Ordered (100 ml) Insulin Regular in 0.9 % NACL [Myxredlin 100 UNIT/100 ML] 100 ml IV ASDIRECTED Sodium Chloride 0.9% [Normal Saline] 1,000 ml Med 02/13/20 14:15 Active IV ASDIRECTED Sodium Chloride 0.9% [Normal Saline] 1,000 ml Med 02/13/20 14:15 Active IV ASDIRECTED Blood Culture x2 Reflex Set [OM.PC] Urgent Oth 02/13/20 14:27 Ordered Isolation [COMM] Routine Oth 02/13/20 13:39 Ordered EKG 12 Lead [EK] Urgent Ther 02/13/20 13:36 Ordered Medication Orders Sodium Chloride (Normal Saline) 1,000 mls @ 500 mls/hr IV ASDIRECTED GWENDOLYN Sodium Chloride (Normal Saline) 1,000 mls @ 150 mls/hr IV ASDIRECTED GWENDOLYN Last Admin: 02/13/20 17:33 Dose: 150 mls/hr Documented by: [id number] Insulin Regular in 0.9 % NACL (Myxredlin 100 Unit/100 Ml) 100 mls @ 6.804 mls/hr IV ASDIRECTED GWENDOLYN Nitroglycerin (Nitrostat) 0.4 mg SL Q5M PRN PRN Reason: Chest Pain Labs: Laboratory Tests 02/13/20 02/13/2002/12/20 Range/Units 13:36 13:36 13:36 WBC 9.9 (4.5-11.0) K/uL RBC 2.95 L (3.30-5.50) M/uL Hgb 8.1 L (12.0-15.0) g/dL Hct 25.0 L (36.0-48.0) % MCV 85 (80-98) fL MCH 28 (27-31) pg MCHC 32 (32-36) % Plt Count 321 (150-400) K/uL Puncture Site ABG pH (7.350-7.450) ABG pCO2 (35.0-42.0) mmHg ABG pO2 (75.0-100.0) mmHg ABG HCO3 (22.0-26.0) mmol/L ABG Total CO2 (21.0-25.0) mmol/L ABG O2 Saturation (95.0-98.0) % ABG Base Excess mm/L ABG Hemoglobin (12.0-16.0) g/dL ABG Oxyhemoglobin % ABG Carboxyhemoglobin (0.0-1.6) % ABG Methemoglobin % Santiago Test O2 Delivery Device Sodium 128 L (140-148) mmol/L Potassium 6.6 H* (3.6-5.2) mmol/L Chloride 96 L (100-108) mmol/L Carbon Dioxide 12 L (21-32) mmol/L Anion Gap 26.6 H (5.0-14.0) mmol/L BUN 46 H D (7-18) mg/dL Creatinine 3.8 H* D (0.6-1.0) mg/dL Est Cr Clr Drug Dosing 21.05 mL/min Estimated GFR (MDRD) 17 L (>60) Glucose 815 H* (74-106) mg/dL POC Glucose (74-106) MG/DL Lactic Acid 3.9 H (0.4-2.0) mmol/L Calcium 7.3 L D (8.5-10.1) mg/dL Total Bilirubin 1.1 H D (0.2-1.0) mg/dL AST 41 H (15-37) U/L ALT 19 (12-78) U/L Alkaline Phosphatase 123 H (46-116) U/L Troponin I (0.000-0.056) ng/mL NT-Pro-B Natriuret Pep 96686 H (5-125) pg/mL Total Protein 5.0 L (6.4-8.2) g/dL Albumin 1.7 L (3.4-5.0) g/dL Globulin 3.3 (2.3-3.5) g/dL Albumin/Globulin Ratio 0.5 L (1.2-2.2) Lipase (73-393) U/L SARS Virus RNA (PCR) (NEGATIVE) 02/13/20 02/13/20 02/13/20 Range/Units 15:15 15:51 16:24 WBC (4.5-11.0) K/uL RBC (3.30-5.50) M/uL Hgb (12.0-15.0) g/dL Hct (36.0-48.0) % MCV (80-98) fL MCH (27-31) pg MCHC (32-36) % Plt Count (150-400) K/uL Puncture Site ABG pH (7.350-7.450) ABG pCO2 (35.0-42.0) mmHg ABG pO2 (75.0-100.0) mmHg ABG HCO3 (22.0-26.0) mmol/L ABG Total CO2 (21.0-25.0) mmol/L ABG O2 Saturation (95.0-98.0) % ABG Base Excess mm/L ABG Hemoglobin (12.0-16.0) g/dL ABG Oxyhemoglobin % ABG Carboxyhemoglobin (0.0-1.6) % ABG Methemoglobin % Santiago Test O2 Delivery Device Sodium (140-148) mmol/L Potassium (3.6-5.2) mmol/L Chloride (100-108) mmol/L Carbon Dioxide (21-32) mmol/L Anion Gap (5.0-14.0) mmol/L BUN (7-18) mg/dL Creatinine (0.6-1.0) mg/dL Est Cr Clr Drug Dosing mL/min Estimated GFR (MDRD) (>60) Glucose (74-106) mg/dL POC Glucose > 500 H* (74-106) MG/DL Lactic Acid (0.4-2.0) mmol/L Calcium (8.5-10.1) mg/dL Total Bilirubin (0.2-1.0) mg/dL AST (15-37) U/L ALT (12-78) U/L Alkaline Phosphatase (46-116) U/L Troponin I 1.508 H* (0.000-0.056) ng/mL NT-Pro-B Natriuret Pep (5-125) pg/mL Total Protein (6.4-8.2) g/dL Albumin (3.4-5.0) g/dL Globulin (2.3-3.5) g/dL Albumin/Globulin Ratio (1.2-2.2) Lipase 581 H (73-393) U/L SARS Virus RNA (PCR) Negative (NEGATIVE) 02/13/20 Range/Units 17:20 WBC (4.5-11.0) K/uL RBC (3.30-5.50) M/uL Hgb (12.0-15.0) g/dL Hct (36.0-48.0) % MCV (80-98) fL MCH (27-31) pg MCHC (32-36) % Plt Count (150-400) K/uL Puncture Site Jugular ABG pH 7.271 L (7.350-7.450) ABG pCO2 24.7 L (35.0-42.0) mmHg ABG pO2 152.0 H (75.0-100.0) mmHg ABG HCO3 11.0 L (22.0-26.0) mmol/L ABG Total CO2 10.8 L (21.0-25.0) mmol/L ABG O2 Saturation 93.7 L (95.0-98.0) % ABG Base Excess -14.4 mm/L ABG Hemoglobin 8.0 L (12.0-16.0) g/dL ABG Oxyhemoglobin 86.4 % ABG Carboxyhemoglobin 4.5 H (0.0-1.6) % ABG Methemoglobin 3.3 % Santiago Test Not performed O2 Delivery Device Room air Sodium (140-148) mmol/L Potassium (3.6-5.2) mmol/L Chloride (100-108) mmol/L Carbon Dioxide (21-32) mmol/L Anion Gap (5.0-14.0) mmol/L BUN (7-18) mg/dL Creatinine (0.6-1.0) mg/dL Est Cr Clr Drug Dosing mL/min Estimated GFR (MDRD) (>60) Glucose (74-106) mg/dL POC Glucose (74-106) MG/DL Lactic Acid (0.4-2.0) mmol/L Calcium (8.5-10.1) mg/dL Total Bilirubin (0.2-1.0) mg/dL AST (15-37) U/L ALT (12-78) U/L Alkaline Phosphatase (46-116) U/L Troponin I (0.000-0.056) ng/mL NT-Pro-B Natriuret Pep (5-125) pg/mL Total Protein (6.4-8.2) g/dL Albumin (3.4-5.0) g/dL Globulin (2.3-3.5) g/dL Albumin/Globulin Ratio (1.2-2.2) Lipase (73-393) U/L SARS Virus RNA (PCR) (NEGATIVE) Meds: Medications Generic Name Dose Route Start Last Admin Trade Name Freq PRN Reason Stop Dose Admin Sodium Chloride 1,000 mls @ 500 mls/hr 02/13/20 14:15 Normal Saline IV ASDIRECTED GWENDOLYN Sodium Chloride 1,000 mls @ 150 mls/hr 02/13/20 14:15 02/13/20 17:33 Normal Saline IV 150 mls/hr ASDIRECTED GWENDOLYN Administration Insulin Regular in 0.9 % NACL 100 mls @ 6.804 mls/hr 02/13/20 18:00 Myxredlin 100 Unit/100 Ml IV ASDIRECTED GWENDOLYN 0.1 UNITS/KG/HR Nitroglycerin 0.4 mg 02/13/20 17:46 Nitrostat SL Q5M PRN Chest Pain Discontinued Medications Generic Name Dose Route Start Last Admin Trade Name Freq PRN Reason Stop Dose Admin Aspirin 324 mg 02/13/20 17:45 Aspirin PO 02/13/20 17:46 ONETIME ONE Ceftriaxone Sodium 1 gm/ 50 mls @ 100 mls/hr 02/13/20 16:45 02/13/20 17:33 Sodium Chloride IV 02/13/20 17:14 100 mls/hr ONETIME ONE Administration Sodium Chloride 1,000 mls @ 999 mls/min 02/13/20 17:54 Normal Saline IV 02/13/20 17:55 .BOLUS ONE Insulin Human Regular 3 unit 02/13/20 15:50 Humulin R SUBCUT 02/13/20 15:51 ONETIME ONE Insulin Human Regular 5 unit 02/13/20 15:51 02/13/20 17:32 Humulin R IVPUSH 02/13/20 15:52 5 units ONETIME ONE Administration - Re-Assessments/Exams Free Text/Narrative Re-Assessment/Exam: 02/13/20 18:02 The patient's troponin was reported back markedly elevated. Twelve-lead EKG does not show ischemic changes. This is a non-ST elevation [place]. Patient is also in diabetic ketoacidosis and is hyperkalemic. Given all this information, Dr. Cortes feels the patient deserves a higher level of care, i.e. availability of [facility]. As of 1754 I have discussed the patient with sultana Borrego at [facility]. Patient has been accepted in transfer there. Dr. Doherty has recommended that we give more fluid to the patient and start an insulin drip. This is been ordered. Patient was here for a prolonged period of time because we could not obtain blood for testing or IV access. After multiple attempts at percutaneous access we did consult anesthesia who was able to place a jugular line Departure - Departure Time of Disposition: 18:08 Disposition: DC/Tfer to Critical Access 66 Condition: Poor Clinical Impression: Community acquired pneumonia, Hyperglycemia due to diabetes mellitus, Non-STEMI (non-ST elevated myocardial infarction) Anemia Qualifiers: Anemia type: unspecified type Qualified Code(s): D64.9 - Anemia, unspecified - Discharge Information Referrals: PCP,None [Primary Care Provider] - Forms: ED Department Discharge, Interfacility Transfer [facility] Sepsis Event Note (ED) - Evaluation Sepsis Screening Result: No Definite Risk - Focused Exam Vital Signs: Vital Signs Temp Pulse Resp BP Pulse Ox 02/13/20 13:21 36.1 C 80 27 H 129/64 94 L 02/13/20 13:14 36.1 C 80 27 H 129/64 94 L - My Orders Last 24 Hours: My Active Orders 02/13/20 13:36 UA W/MICROSCOPIC [URIN] Urgent EKG 12 Lead [EK] Urgent 02/13/20 13:37 EKG Documentation Completion [RC] ASDIRECTED 02/13/20 13:39 INFLUENZA A+B AG SCREEN [RM] Stat Isolation [COMM] Routine 02/13/20 14:15 Sodium Chloride 0.9% [Normal Saline] 1,000 ml IV ASDIRECTED Sodium Chloride 0.9% [Normal Saline] 1,000 ml IV ASDIRECTED 02/13/20 14:27 Blood Culture x2 Reflex Set [OM.PC] Urgent 02/13/20 14:36 POC Glucose [Blood Glucose Check, Bedside] [RC] ONETIME 02/13/20 17:20 CULTURE BLOOD [BC] Urgent CULTURE BLOOD [BC] Urgent 02/13/20 17:46 Nitroglycerin [Nitrostat] 0.4 mg SL Q5M PRN 02/13/20 18:00 Regular Insulin,Human 100 Units in NS @ 0.1 UNITS/KG/HR (100 ml) Insulin Regular in 0.9 % NACL [Myxredlin 100 UNIT/100 ML] 100 ml IV ASDIRECTED - Assessment/Plan Last 24 Hours: My Active Orders 02/13/20 13:36 UA W/MICROSCOPIC [URIN] Urgent EKG 12 Lead [EK] Urgent 02/13/20 13:37 EKG Documentation Completion [RC] ASDIRECTED 02/13/20 13:39 INFLUENZA A+B AG SCREEN [RM] Stat Isolation [COMM] Routine 02/13/20 14:15 Sodium Chloride 0.9% [Normal Saline] 1,000 ml IV ASDIRECTED Sodium Chloride 0.9% [Normal Saline] 1,000 ml IV ASDIRECTED 02/13/20 14:27 Blood Culture x2 Reflex Set [OM.PC] Urgent 02/13/20 14:36 POC Glucose [Blood Glucose Check, Bedside] [RC] ONETIME 02/13/20 17:20 CULTURE BLOOD [BC] Urgent CULTURE BLOOD [BC] Urgent 02/13/20 17:46 Nitroglycerin [Nitrostat] 0.4 mg SL Q5M PRN 02/13/20 18:00 Regular Insulin,Human 100 Units in NS @ 0.1 UNITS/KG/HR (100 ml) Insulin Regular in 0.9 % NACL [Myxredlin 100 UNIT/100 ML] 100 ml IV ASDIRECTED
== END 2020-02-13 19:10 | disposition critical access hospital (66) ==
LOC: JP.ED 12:58
DX: I21.4 Non-ST elevation (NSTEMI) myocardial infarction (principal); J18.9 Pneumonia, unspecified organism; D64.9 Anemia, unspecified; I48.91 Unspecified atrial fibrillation; E78.00 Pure hypercholesterolemia, unspecified; I10 Essential (primary) hypertension; K21.9 Gastro-esophageal reflux disease without esophagitis; R56.9 Unspecified convulsions; F41.9 Anxiety disorder, unspecified; F32.9 Major depressive disorder, single episode, unspecified; E10.65 Type 1 diabetes mellitus with hyperglycemia; E10.40 Type 1 diabetes mellitus with diabetic neuropathy, unspecified; Z68.23 Body mass index [BMI] 23.0-23.9, adult; Z79.899 Other long term (current) drug therapy; Z86.73 Personal history of transient ischemic attack (TIA), and cerebral infarction without residual deficits; Z20.828 Contact with and (suspected) exposure to other viral communicable diseases
CPT/HCPCS: 36415; 36556; 36600; 71046; 80053; 82803; 82962; 83605; 83690; 83880; 84484; 85027; 87040; 87635; 93005; 96365; 99285; A9270; C1894; J0696; J1815; J7030; J7050; 93010; U0002

== ENCOUNTER 2020-03-02 11:49 | Observation (INO) | payer MEDICAID, OTHER ==
[2020-03-02] MEDS ORDERED: Dextrose 5%-0.45% NaCl 1,000 ML IV SCH ×2 (12:15→14:15)
[2020-03-02] MEDS ORDERED: 50% Dextrose in Water 50 ML Syringe IVPUSH ONE (12:20)
--- NOTE | 2020-03-02 12:24 | EDM.PDOC ---
ED HPI GENERAL MEDICAL PROBLEM - General Chief Complaint: Diabetic Complaint Stated Complaint: [facility] Time Seen by Provider: 03/02/20 11:49 Source of Information: Reports: EMS - History of Present Illness INITIAL COMMENTS - FREE TEXT/NARRATIVE: Maren is a 29 year old diabetic female who presents to the ED today after being found unresponsive by her roommate, EMS was called, blood sugar prior to arrival 27, patient given Glucagon, EMS unable to establish IV. Patient arrives responsive to pain, GCS of 7. Patient with extensive medical hx. Patient unable to provide hx, last known well per EMS was "last evening". Onset: Today - Related Data Allergies Allergy/AdvReac Type Severity Reaction Status Date / Time diphenhydramine Allergy Itching Verified 01/19/20 13:20 ibuprofen AdvReac Nausea and Verified 01/19/20 13:20 Vomiting Home Meds: Home Meds Insulin Aspart [NovoLOG] 5 units SQ .WITHMEALS 11/01/19 [History] Insulin Glarg,Human.Rec.Analog [Lantus Solostar] 10 units SQ BEDTIME 11/01/19 [History] Acetaminophen [Tylenol] 650 mg PO Q4H PRN 01/04/20 [History] Albuterol Sulfate [Albuterol Sulfate Hfa] 1 - 2 puff INH Q4H PRN 01/04/20 [History] Docusate Sodium [Colace] 100 mg PO DAILY 01/04/20 [History] Gabapentin [Neurontin] 600 mg PO TID 01/04/20 [History] Hyoscyamine Sulfate 0.125 mg SL Q4H 01/04/20 [History] Multivitamin 1 each PO DAILY 01/04/20 [History] Omeprazole 20 mg PO DAILY 01/04/20 [History] Ondansetron [Zofran ODT] 4 mg PO Q8H 01/04/20 [History] Saccharomyces Boulardii 250 mg PO BID 01/04/20 [History] Sertraline HCl 50 mg PO DAILY 01/04/20 [History] amLODIPine Besylate [Amlodipine Besylate] 10 mg PO DAILY 01/04/20 [History] hydrOXYzine HCL [Hydroxyzine HCl] 25 mg PO TID PRN 01/04/20 [History] lisinopriL [Lisinopril] 30 mg PO DAILY 01/04/20 [History] polyethylene glycoL 3350 [Miralax] 17 gm PO DAILY PRN 01/04/20 [History] predniSONE [Prednisone] 10 mg PO TID #16 tab.ds.pk 01/19/20 [Rx] Past Medical History HEENT History: Reports: Impaired Vision Cardiovascular History: Reports: Afib, High Cholesterol, Hypertension, Other (See Below) Other Cardiovascular History: hypotension Gastrointestinal History: Reports: GERD, Other (See Below) Other Gastrointestinal History: abdominal pain hepatic steatosis Genitourinary History: Reports: Other (See Below) Other Genitourinary History: BRIAN Musculoskeletal History: Reports: Other (See Below) Neurological History: Reports: CVA, Neuropathy, Diabetic, Seizure, Other (See Below) Other Neuro History: medically noncompliant Psychiatric History: Reports: Anxiety, Depression, Other (See Below) Other Psychiatric History: history of drug use altered mental statis Endocrine/Metabolic History: Reports: Diabetes, Type I, Obesity/BMI 30+, Other (See Below) Other Endocrine/Metabolic History: polyneuropathy, ketoacidosis,hyperglycemia,hyperkalemia - Infectious Disease History Infectious Disease History: Reports: Chicken Pox - Past Surgical History GI Surgical History: Reports: Other (See Below) Other GI Surgeries/Procedures: upper endoscopy with biopsy 2019 Social & Family History - Caffeine Use Caffeine Use: Reports: None - Sexual History Other Sexual History Comment: Has girlfriend ED ROS GENERAL - Review of Systems Review Of Systems: Unable To Obtain Reason Not Obtained: unresponsive ED EXAM GENERAL NO PERIP PULSE - Physical Exam Exam: See Below Exam Limited By: Other (unresponsive with GCS of 7) Eye Exam: Bilateral Eye: EOMI, PERRL Ears: Normal External Exam Throat/Mouth: Normal Oropharynx Head: Atraumatic, Normocephalic Neck: Normal Inspection, Supple Respiratory/Chest: Lungs Clear GI/Abdominal: Normal Bowel Sounds Extremities: Normal Inspection, Other (Right hemiparesis from CVA hx with swelling noted to right upper and lower extremities) Neurological: Unresponsive (GCS of 7 on arrival) Course - Vital Signs Text/Narrative:: 1149-Patient arrives here with a GCS of 7 and profound hypoglycemia. Please refer to HPI. Patient unable to provide hx. She arrives here with profound hypoglycemia, EMS unable to obtain PIV. NO quick access identified on patient arrival so Intra-osseous was placed on right tibial plateau successfully. Patient was given one amp of D50, shortly there after patient woke up, was re- oriented to today's events and location. 1245-PIV access was obtained using bedside US. Intra-osseous was pulled. Patient at this time is on a D5 1/2 NS infusion. Last blood sugar 110. Patient alert and oriented, states she feels "good". Patient denies any drug use. Patient denies any trauma. 1330-Blood sugar stable, patient will be admitted to observation to ensure stabilization of her blood sugars over the next 24 hours. Note patient's blood work above. Patient agreeable and verbalizes understanding of plan of care. Patient unable to urinate but is complaining of a full bladder and the need to urinate so jimenez catheter was placed. Awaiting UA and drug screen. Patient discussed with Dr. Cortes, hospitalist, who has graciously accepted patient for admission. Last Recorded V/S: Last Vital Signs Temp 35.5 C L 03/02/20 12:18 Pulse 79 03/02/20 14:54 Resp 15 03/02/20 14:54 BP 141/99 H 03/02/20 14:54 Pulse Ox 94 L 03/02/20 14:54 - Orders/Labs/Meds Orders: Active Orders 24 hr Category Date Time Status Patient Status Manage Transfer [TRANSFER] Routine ADT 03/02/20 14:31 Active Jimenez Catheter Insertion [Insert Urinary Catheter] [OM. Care 03/02/20 13:45 Ordered PC] Q24H Urinary Catheter Assessment [RC] ASDIRECTED Care 03/02/20 13:31 Active Dextrose 5%-0.45% NaCl [Dextrose 5%-1/2 NS] 1,000 ml Med 03/02/20 12:15 Active IV ASDIRECTED Dextrose 5%-0.45% NaCl [Dextrose 5%-1/2 NS] 1,000 ml Med 03/02/20 14:15 Active IV ASDIRECTED Intraosseous Insertion [OM.PC] Routine Oth 03/02/20 12:02 Ordered Resuscitation Status Routine Resus Stat 03/02/20 14:32 Ordered Medication Orders Dextrose/Sodium Chloride (Dextrose 5%-1/2 Ns) 1,000 mls @ 125 mls/hr IV ASDIRECTED GWENDOLYN Dextrose/Sodium Chloride (Dextrose 5%-1/2 Ns) 1,000 mls @ 125 mls/hr IV ASDIRECTED [facility] Labs: Laboratory Tests 03/02/20 03/02/20 03/02/20 Range/Units 12:02 12:10 12:10 WBC 7.3 (4.5-11.0) K/uL RBC 3.51 (3.30-5.50) M/uL Hgb 9.7 L (12.0-15.0) g/dL Hct 30.6 L (36.0-48.0) % MCV 87 (80-98) fL MCH 28 (27-31) pg MCHC 32 (32-36) % Plt Count 348 (150-400) K/uL Neut % (Auto) 60 (36-66) % Lymph % (Auto) 28 (24-44) % [place] % (Auto) 8 H (2-6) % Eos % (Auto) 3 (2-4) % Baso % (Auto) 0 (0-1) % Puncture Site ABG pH (7.350-7.450) ABG pCO2 (35.0-42.0) mmHg ABG pO2 (75.0-100.0) mmHg ABG HCO3 (22.0-26.0) mmol/L ABG Total CO2 (21.0-25.0) mmol/L ABG O2 Saturation (95.0-98.0) % ABG O2 Content (15.0-23.0) %vol ABG Base Excess mm/L ABG Hemoglobin (12.0-16.0) g/dL ABG Oxyhemoglobin % ABG Carboxyhemoglobin (0.0-1.6) % ABG Methemoglobin % Santiago Test O2 Delivery Device Sodium 143 (140-148) mmol/L Potassium 3.2 L (3.6-5.2) mmol/L Chloride 111 H (100-108) mmol/L Carbon Dioxide 20 L (21-32) mmol/L Anion Gap 15.2 H (5.0-14.0) mmol/L BUN 29 H (7-18) mg/dL Creatinine 2.1 H (0.6-1.0) mg/dL Est Cr Clr Drug Dosing TNP Estimated GFR (MDRD) 34 L (>60) Glucose 163 H (74-106) mg/dL POC Glucose 33 L* (74-106) MG/DL Lactic Acid (0.4-2.0) mmol/L Calcium 8.0 L (8.5-10.1) mg/dL Total Bilirubin 0.6 (0.2-1.0) mg/dL AST 30 (15-37) U/L ALT 37 D (12-78) U/L Alkaline Phosphatase 115 (46-116) U/L C-Reactive Protein (0.0-0.3) mg/dL Total Protein 6.0 L (6.4-8.2) g/dL Albumin 2.4 L (3.4-5.0) g/dL Globulin 3.6 H (2.3-3.5) g/dL Albumin/Globulin Ratio 0.7 L (1.2-2.2) Urine Color (YELLOW) Urine Appearance (CLEAR) Urine pH (5.0-8.0) Ur Specific Addison (1.008-1.030) Urine Protein (NEGATIVE) mg/dL Urine Glucose (UA) (NEGATIVE) mg/dL Urine Ketones (NEGATIVE) mg/dL Urine Occult Blood (NEGATIVE) Urine Nitrite (NEGATIVE) Urine Bilirubin (NEGATIVE) Urine Urobilinogen (0.2-1.0) EU/dL Ur Leukocyte Esterase (NEGATIVE) Urine RBC (0-5) Urine WBC (0-5) Ur Epithelial Cells Amorphous Sediment Urine Bacteria Urine Mucus Urine Opiates Screen (NEGATIVE) Ur Oxycodone Screen (NEGATIVE) Urine Methadone Screen (NEGATIVE) Ur Propoxyphene Screen (NEGATIVE) Ur Barbiturates Screen (NEGATIVE) Ur Tricyclics Screen (NEGATIVE) Ur Phencyclidine Scrn (NEGATIVE) Ur Amphetamine Screen (NEGATIVE) U Methamphetamines Scrn (NEGATIVE) Urine MDMA Screen (NEGATIVE) U Benzodiazepines Scrn (NEGATIVE) U Cocaine Metab Screen (NEGATIVE) U Marijuana (THC) Screen (NEGATIVE) 03/02/20 03/02/20 03/02/20 Range/Units 12:10 12:10 12:10 WBC (4.5-11.0) K/uL RBC (3.30-5.50) M/uL Hgb (12.0-15.0) g/dL Hct (36.0-48.0) % MCV (80-98) fL MCH (27-31) pg MCHC (32-36) % Plt Count (150-400) K/uL Neut % (Auto) (36-66) % Lymph % (Auto) (24-44) % [place] % (Auto) (2-6) % Eos % (Auto) (2-4) % Baso % (Auto) (0-1) % Puncture Site Lt brachial ABG pH 7.323 L (7.350-7.450) ABG pCO2 36.4 (35.0-42.0) mmHg ABG pO2 93.4 (75.0-100.0) mmHg ABG HCO3 18.3 L (22.0-26.0) mmol/L ABG Total CO2 17.3 L (21.0-25.0) mmol/L ABG O2 Saturation 94.4 L (95.0-98.0) % ABG O2 Content 12.6 L (15.0-23.0) %vol ABG Base Excess -6.6 mm/L ABG Hemoglobin 9.9 L (12.0-16.0) g/dL ABG Oxyhemoglobin 89.2 % ABG Carboxyhemoglobin 2.5 H (0.0-1.6) % ABG Methemoglobin 3.0 % Santiago Test N/a O2 Delivery Device Room air Sodium (140-148) mmol/L Potassium (3.6-5.2) mmol/L Chloride (100-108) mmol/L Carbon Dioxide (21-32) mmol/L Anion Gap (5.0-14.0) mmol/L BUN (7-18) mg/dL Creatinine (0.6-1.0) mg/dL Est Cr Clr Drug Dosing Estimated GFR (MDRD) (>60) Glucose (74-106) mg/dL POC Glucose (74-106) MG/DL Lactic Acid 1.4 (0.4-2.0) mmol/L Calcium (8.5-10.1) mg/dL Total Bilirubin (0.2-1.0) mg/dL AST (15-37) U/L ALT (12-78) U/L Alkaline Phosphatase (46-116) U/L C-Reactive Protein 0.26 (0.0-0.3) mg/dL Total Protein (6.4-8.2) g/dL Albumin (3.4-5.0) g/dL Globulin (2.3-3.5) g/dL Albumin/Globulin Ratio (1.2-2.2) Urine Color (YELLOW) Urine Appearance (CLEAR) Urine pH (5.0-8.0) Ur Specific [place] (1.008-1.030) Urine Protein (NEGATIVE) mg/dL Urine Glucose (UA) (NEGATIVE) mg/dL Urine Ketones (NEGATIVE) mg/dL Urine Occult Blood (NEGATIVE) Urine Nitrite (NEGATIVE) Urine Bilirubin (NEGATIVE) Urine Urobilinogen (0.2-1.0) EU/dL Ur Leukocyte Esterase (NEGATIVE) Urine RBC (0-5) Urine WBC (0-5) Ur Epithelial Cells Amorphous Sediment Urine Bacteria Urine Mucus Urine Opiates Screen (NEGATIVE) Ur Oxycodone Screen (NEGATIVE) Urine Methadone Screen (NEGATIVE) Ur Propoxyphene Screen (NEGATIVE) Ur Barbiturates Screen (NEGATIVE) Ur Tricyclics Screen (NEGATIVE) Ur Phencyclidine Scrn (NEGATIVE) Ur Amphetamine Screen (NEGATIVE) U Methamphetamines Scrn (NEGATIVE) Urine MDMA Screen (NEGATIVE) U Benzodiazepines Scrn (NEGATIVE) U Cocaine Metab Screen (NEGATIVE) U Marijuana (THC) Screen (NEGATIVE) 03/02/20 03/02/20 03/02/20 Range/Units 12:20 13:30 13:50 WBC (4.5-11.0) K/uL RBC (3.30-5.50) M/uL Hgb (12.0-15.0) g/dL Hct (36.0-48.0) % MCV (80-98) fL MCH (27-31) pg MCHC (32-36) % Plt Count (150-400) K/uL Neut % (Auto) (36-66) % Lymph % (Auto) (24-44) % [place] % (Auto) (2-6) % Eos % (Auto) (2-4) % Baso % (Auto) (0-1) % Puncture Site ABG pH (7.350-7.450) ABG pCO2 (35.0-42.0) mmHg ABG pO2 (75.0-100.0) mmHg ABG HCO3 (22.0-26.0) mmol/L ABG Total CO2 (21.0-25.0) mmol/L ABG O2 Saturation (95.0-98.0) % ABG O2 Content (15.0-23.0) %vol ABG Base Excess mm/L ABG Hemoglobin (12.0-16.0) g/dL ABG Oxyhemoglobin % ABG Carboxyhemoglobin (0.0-1.6) % ABG Methemoglobin % Santiago Test O2 Delivery Device Sodium (140-148) mmol/L Potassium (3.6-5.2) mmol/L Chloride (100-108) mmol/L Carbon Dioxide (21-32) mmol/L Anion Gap (5.0-14.0) mmol/L BUN (7-18) mg/dL Creatinine (0.6-1.0) mg/dL Est Cr Clr Drug Dosing Estimated GFR (MDRD) (>60) Glucose (74-106) mg/dL POC Glucose 102 87 (74-106) MG/DL Lactic Acid (0.4-2.0) mmol/L Calcium (8.5-10.1) mg/dL Total Bilirubin (0.2-1.0) mg/dL AST (15-37) U/L ALT (12-78) U/L Alkaline Phosphatase (46-116) U/L C-Reactive Protein (0.0-0.3) mg/dL Total Protein (6.4-8.2) g/dL Albumin (3.4-5.0) g/dL Globulin (2.3-3.5) g/dL Albumin/Globulin Ratio (1.2-2.2) Urine Color (YELLOW) Urine Appearance (CLEAR) Urine pH (5.0-8.0) Ur Specific [place] (1.008-1.030) Urine Protein (NEGATIVE) mg/dL Urine Glucose (UA) (NEGATIVE) mg/dL Urine Ketones (NEGATIVE) mg/dL Urine Occult Blood (NEGATIVE) Urine Nitrite (NEGATIVE) Urine Bilirubin (NEGATIVE) Urine Urobilinogen (0.2-1.0) EU/dL Ur Leukocyte Esterase (NEGATIVE) Urine RBC (0-5) Urine WBC (0-5) Ur Epithelial Cells Amorphous Sediment Urine Bacteria Urine Mucus Urine Opiates Screen Negative (NEGATIVE) Ur Oxycodone Screen Presumptive positive H (NEGATIVE) Urine Methadone Screen Presumptive positive H (NEGATIVE) Ur Propoxyphene Screen Negative (NEGATIVE) Ur Barbiturates Screen Negative (NEGATIVE) Ur Tricyclics Screen Negative (NEGATIVE) Ur Phencyclidine Scrn Negative (NEGATIVE) Ur Amphetamine Screen Negative (NEGATIVE) U Methamphetamines Scrn Negative (NEGATIVE) Urine MDMA Screen Negative (NEGATIVE) U Benzodiazepines Scrn Negative (NEGATIVE) U Cocaine Metab Screen Negative (NEGATIVE) U Marijuana (THC) Screen Negative (NEGATIVE) 03/02/20 Range/Units 13:50 WBC (4.5-11.0) K/uL RBC (3.30-5.50) M/uL Hgb (12.0-15.0) g/dL Hct (36.0-48.0) % MCV (80-98) fL MCH (27-31) pg MCHC (32-36) % Plt Count (150-400) K/uL Neut % (Auto) (36-66) % Lymph % (Auto) (24-44) % [place] % (Auto) (2-6) % Eos % (Auto) (2-4) % Baso % (Auto) (0-1) % Puncture Site ABG pH (7.350-7.450) ABG pCO2 (35.0-42.0) mmHg ABG pO2 (75.0-100.0) mmHg ABG HCO3 (22.0-26.0) mmol/L ABG Total CO2 (21.0-25.0) mmol/L ABG O2 Saturation (95.0-98.0) % ABG O2 Content (15.0-23.0) %vol ABG Base Excess mm/L ABG Hemoglobin (12.0-16.0) g/dL ABG Oxyhemoglobin % ABG Carboxyhemoglobin (0.0-1.6) % ABG Methemoglobin % Santiago Test O2 Delivery Device Sodium (140-148) mmol/L Potassium (3.6-5.2) mmol/L Chloride (100-108) mmol/L Carbon Dioxide (21-32) mmol/L Anion Gap (5.0-14.0) mmol/L BUN (7-18) mg/dL Creatinine (0.6-1.0) mg/dL Est Cr Clr Drug Dosing Estimated GFR (MDRD) (>60) Glucose (74-106) mg/dL POC Glucose (74-106) MG/DL Lactic Acid (0.4-2.0) mmol/L Calcium (8.5-10.1) mg/dL Total Bilirubin (0.2-1.0) mg/dL AST (15-37) U/L ALT (12-78) U/L Alkaline Phosphatase (46-116) U/L C-Reactive Protein (0.0-0.3) mg/dL Total Protein (6.4-8.2) g/dL Albumin (3.4-5.0) g/dL Globulin (2.3-3.5) g/dL Albumin/Globulin Ratio (1.2-2.2) Urine Color Yellow (YELLOW) Urine Appearance Slightly cloudy A (CLEAR) Urine pH 5.5 (5.0-8.0) Ur Specific [place] 1.015 (1.008-1.030) Urine Protein 30 H (NEGATIVE) mg/dL Urine Glucose (UA) 100 H (NEGATIVE) mg/dL Urine Ketones Negative (NEGATIVE) mg/dL Urine Occult Blood Negative (NEGATIVE) Urine Nitrite Negative (NEGATIVE) Urine Bilirubin Negative (NEGATIVE) Urine Urobilinogen 0.2 (0.2-1.0) EU/dL Ur Leukocyte Esterase Negative (NEGATIVE) Urine RBC Not seen (0-5) Urine WBC 0-5 (0-5) Ur Epithelial Cells Not seen Amorphous Sediment Many Urine Bacteria Not seen Urine Mucus Not seen Urine Opiates Screen (NEGATIVE) Ur Oxycodone Screen (NEGATIVE) Urine Methadone Screen (NEGATIVE) Ur Propoxyphene Screen (NEGATIVE) Ur Barbiturates Screen (NEGATIVE) Ur Tricyclics Screen (NEGATIVE) Ur Phencyclidine Scrn (NEGATIVE) Ur Amphetamine Screen (NEGATIVE) U Methamphetamines Scrn (NEGATIVE) Urine MDMA Screen (NEGATIVE) U Benzodiazepines Scrn (NEGATIVE) U Cocaine Metab Screen (NEGATIVE) U Marijuana (THC) Screen (NEGATIVE) Meds: Medications Generic Name Dose Route Start Last Admin Trade Name Freq PRN Reason Stop Dose Admin Dextrose/Sodium Chloride 1,000 mls @ 125 mls/hr 03/02/20 12:15 Dextrose 5%-1/2 Ns IV ASDIRECTED GWENDOLYN Dextrose/Sodium Chloride 1,000 mls @ 125 mls/hr 03/02/20 14:15 Dextrose 5%-1/2 Ns IV ASDIRECTED GWENDOLYN Discontinued Medications Generic Name Dose Route Start Last Admin Trade Name Freq PRN Reason Stop Dose Admin Dextrose/Water 50 ml 03/02/20 12:20 03/02/20 11:49 Dextrose 50% In Water IVPUSH 03/02/20 12:21 50 ml ONETIME ONE Administration Departure - Departure Time of Disposition: 14:00 Disposition: Admitted As Inpatient 65 Condition: Serious Clinical Impression: Hypoglycemia, coma - Discharge Information Referrals: PCP,None [Primary Care Provider] - Forms: ED Department Discharge Sepsis Event Note (ED) - Focused Exam Vital Signs: Vital Signs Temp Pulse Resp BP Pulse Ox 03/02/20 14:54 79 15 141/99 H 94 L 03/02/20 12:18 35.5 C L 82 15 112/76 94 L - My Orders Last 24 Hours: My Active Orders 03/02/20 12:02 Intraosseous Insertion [OM.PC] Routine 03/02/20 12:15 Dextrose 5%-0.45% NaCl [Dextrose 5%-1/2 NS] 1,000 ml IV ASDIRECTED 03/02/20 13:31 Urinary Catheter Assessment [RC] ASDIRECTED 03/02/20 13:45 Jimenez Catheter Insertion [Insert Urinary Catheter] [OM.PC] Q24H 03/02/20 14:15 Dextrose 5%-0.45% NaCl [Dextrose 5%-1/2 NS] 1,000 ml IV ASDIRECTED - Assessment/Plan Last 24 Hours: My Active Orders 03/02/20 12:02 Intraosseous Insertion [OM.PC] Routine 03/02/20 12:15 Dextrose 5%-0.45% NaCl [Dextrose 5%-1/2 NS] 1,000 ml IV ASDIRECTED 03/02/20 13:31 Urinary Catheter Assessment [RC] ASDIRECTED 03/02/20 13:45 Jimenez Catheter Insertion [Insert Urinary Catheter] [OM.PC] Q24H 03/02/20 14:15 Dextrose 5%-0.45% NaCl [Dextrose 5%-1/2 NS] 1,000 ml IV ASDIRECTED
[2020-03-02] MEDS ORDERED: Lidocaine 2% 100 MG/5 ML Syringe IOSS ONE (14:00)
--- NOTE | 2020-03-02 14:41 | PCM.HP.2 ---
H&P History of Present Illness - General Date of Service: 03/02/20 Admit Problem/Dx: Admission Diagnosis/Problem Admission Diagnosis/Problem Hypoglycemia Source of Information: Patient, Provider History Limitations: Reports: No Limitations - History of Present Illness Initial Comments - Free Text/Narative: CC: unresponsive HPI: Maren was brought to the emergency room by ambulance after her fianc found her unresponsive at home. Her blood sugar was checked in route to the hospital and her blood sugar was noted to be 27. Upon arrival to the emergency room IV access was difficult to obtain so an intraosseous line was achieved and she was given D50. After her blood sugar improved her mental status improved very quickly with a baseline on arrival with a GCS of 7. Since improvement in her blood sugar she has been fairly stable. Her blood sugar has remained acceptable but she is currently requiring an infusion of D5 half-normal saline. Laboratory studies fairly unremarkable and her kidney function is stable and stage III. No evidence for infection so far. Given the persistent hypoglycemia and requirement for a dextrose infusion she is going to be admitted for observation. She reports that she had been feeling well the last couple of days. Her appetite has been normal. She does have some diarrhea which is chronic and unchanged. No complaints of shortness of breath or chest pain. She did just get out of the hospital in [place] after diabetic ketoacidosis and a variety of other issues. She is not quite sure what could have happened to cause the low blood sugar. She does report that she has hypoglycemia occasionally but never this low. - Related Data Allergies/Adverse Reactions: Allergies Allergy/AdvReac Type Severity Reaction Status Date / Time diphenhydramine Allergy Itching Verified 01/19/20 13:20 ibuprofen AdvReac Nausea and Verified 01/19/20 13:20 Vomiting Home Medications: Home Meds Insulin Aspart [NovoLOG] 5 units SQ .WITHMEALS 11/01/19 [History] Insulin Glarg,Human.Rec.Analog [Lantus Solostar] 10 units SQ BEDTIME 11/01/19 [History] Acetaminophen [Tylenol] 650 mg PO Q4H PRN 01/04/20 [History] Albuterol Sulfate [Albuterol Sulfate Hfa] 1 - 2 puff INH Q4H PRN 01/04/20 [History] Docusate Sodium [Colace] 100 mg PO DAILY 01/04/20 [History] Gabapentin [Neurontin] 600 mg PO TID 01/04/20 [History] Hyoscyamine Sulfate 0.125 mg SL Q4H 01/04/20 [History] Multivitamin 1 each PO DAILY 01/04/20 [History] Omeprazole 20 mg PO DAILY 01/04/20 [History] Ondansetron [Zofran ODT] 4 mg PO Q8H 01/04/20 [History] Saccharomyces Boulardii 250 mg PO BID 01/04/20 [History] Sertraline HCl 50 mg PO DAILY 01/04/20 [History] amLODIPine Besylate [Amlodipine Besylate] 10 mg PO DAILY 01/04/20 [History] hydrOXYzine HCL [Hydroxyzine HCl] 25 mg PO TID PRN 01/04/20 [History] lisinopriL [Lisinopril] 30 mg PO DAILY 01/04/20 [History] polyethylene glycoL 3350 [Miralax] 17 gm PO DAILY PRN 01/04/20 [History] predniSONE [Prednisone] 10 mg PO TID #16 tab.ds.pk 01/19/20 [Rx] Past Medical History HEENT History: Reports: Impaired Vision Cardiovascular History: Reports: Afib, High Cholesterol, Hypertension, Other (See Below) Other Cardiovascular History: hypotension Gastrointestinal History: Reports: GERD, Other (See Below) Other Gastrointestinal History: abdominal pain hepatic steatosis Genitourinary History: Reports: Other (See Below) Other Genitourinary History: BRIAN Musculoskeletal History: Reports: Other (See Below) Neurological History: Reports: CVA, Neuropathy, Diabetic, Seizure, Other (See Below) Other Neuro History: medically noncompliant Psychiatric History: Reports: Anxiety, Depression, Other (See Below) Other Psychiatric History: history of drug use altered mental statis Endocrine/Metabolic History: Reports: Diabetes, Type I, Obesity/BMI 30+, Other (See Below) Other Endocrine/Metabolic History: polyneuropathy, ketoacidosis,hyperglycemia,hyperkalemia - Infectious Disease History Infectious Disease History: Reports: Chicken Pox - Past Surgical History GI Surgical History: Reports: Other (See Below) Other GI Surgeries/Procedures: upper endoscopy with biopsy 2019 Social & Family History - Family History Cardiac: Denies: CAD - Tobacco Use Smoking Status *Q: Unknown Ever Smoked - Caffeine Use Caffeine Use: Reports: None - Alcohol Use Alcohol Use History: No - Sexual History Other Sexual History Comment: Has girlfriend H&P Review of Systems - Review of Systems: Review Of Systems: See Below Free Text/Narrative: A complete 12 point review of systems was obtained. Pertinent positives and negatives are noted in the history of present illness. All other systems were reviewed and were negative except as noted. Exam - Exam Exam: See Below - Exam Quality Assessment: No: Supplemental Oxygen General: Alert, Cooperative. No: Mild Distress HEENT: Conjunctiva Clear. No: Mucosa Moist & Hecker (dry) Neck: Supple, Trachea Midline Lungs: Clear to Auscultation, Normal Respiratory Effort Cardiovascular: Regular Rate, Regular Rhythm GI/Abdominal Exam: Normal Bowel Sounds, Soft, No Distention, Tender (mild right sided ) Extremities: No Pedal Edema. No: Increased Warmth Skin: Warm, Dry, Wound (round lesion right anterior patel ) Neuro Extensive - Mental Status: Alert, Slow Response to Commands Neuro Extensive - Motor, Sensory, Reflexes: Expressive Aphasia. No: Abnormal Motor, Tremor Psychiatric: Alert, Normal Affect - Patient Data Lab Results Last 24 hrs: Laboratory Results - last 24 hr 03/02/20 03/02/20 03/02/20 Range/Units 12:02 12:10 12:10 WBC 7.3 (4.5-11.0) K/uL RBC 3.51 (3.30-5.50) M/uL Hgb 9.7 L (12.0-15.0) g/dL Hct 30.6 L (36.0-48.0) % MCV 87 (80-98) fL MCH 28 (27-31) pg MCHC 32 (32-36) % Plt Count 348 (150-400) K/uL Neut % (Auto) 60 (36-66) % Lymph % (Auto) 28 (24-44) % [place] % (Auto) 8 H (2-6) % Eos % (Auto) 3 (2-4) % Baso % (Auto) 0 (0-1) % Puncture Site ABG pH (7.350-7.450) ABG pCO2 (35.0-42.0) mmHg ABG pO2 (75.0-100.0) mmHg ABG HCO3 (22.0-26.0) mmol/L ABG Total CO2 (21.0-25.0) mmol/L ABG O2 Saturation (95.0-98.0) % ABG O2 Content (15.0-23.0) %vol ABG Base Excess mm/L ABG Hemoglobin (12.0-16.0) g/dL ABG Oxyhemoglobin % ABG Carboxyhemoglobin (0.0-1.6) % ABG Methemoglobin % Santiago Test O2 Delivery Device Sodium 143 (140-148) mmol/L Potassium 3.2 L (3.6-5.2) mmol/L Chloride 111 H (100-108) mmol/L Carbon Dioxide 20 L (21-32) mmol/L Anion Gap 15.2 H (5.0-14.0) mmol/L BUN 29 H (7-18) mg/dL Creatinine 2.1 H (0.6-1.0) mg/dL Est Cr Clr Drug Dosing TNP Estimated GFR (MDRD) 34 L (>60) Glucose 163 H (74-106) mg/dL POC Glucose 33 L* (74-106) MG/DL Lactic Acid (0.4-2.0) mmol/L Calcium 8.0 L (8.5-10.1) mg/dL Total Bilirubin 0.6 (0.2-1.0) mg/dL AST 30 (15-37) U/L ALT 37 D (12-78) U/L Alkaline Phosphatase 115 (46-116) U/L C-Reactive Protein (0.0-0.3) mg/dL Total Protein 6.0 L (6.4-8.2) g/dL Albumin 2.4 L (3.4-5.0) g/dL Globulin 3.6 H (2.3-3.5) g/dL Albumin/Globulin Ratio 0.7 L (1.2-2.2) Urine Color (YELLOW) Urine Appearance (CLEAR) Urine pH (5.0-8.0) Ur Specific [place] (1.008-1.030) Urine Protein (NEGATIVE) mg/dL Urine Glucose (UA) (NEGATIVE) mg/dL Urine Ketones (NEGATIVE) mg/dL Urine Occult Blood (NEGATIVE) Urine Nitrite (NEGATIVE) Urine Bilirubin (NEGATIVE) Urine Urobilinogen (0.2-1.0) EU/dL Ur Leukocyte Esterase (NEGATIVE) Urine RBC (0-5) Urine WBC (0-5) Ur Epithelial Cells Amorphous Sediment Urine Bacteria Urine Mucus Urine Opiates Screen (NEGATIVE) Ur Oxycodone Screen (NEGATIVE) Urine Methadone Screen (NEGATIVE) Ur Propoxyphene Screen (NEGATIVE) Ur Barbiturates Screen (NEGATIVE) Ur Tricyclics Screen (NEGATIVE) Ur Phencyclidine Scrn (NEGATIVE) Ur Amphetamine Screen (NEGATIVE) U Methamphetamines Scrn (NEGATIVE) Urine MDMA Screen (NEGATIVE) U Benzodiazepines Scrn (NEGATIVE) U Cocaine Metab Screen (NEGATIVE) U Marijuana (THC) Screen (NEGATIVE) 03/02/20 03/02/20 03/02/20 Range/Units 12:10 12:10 12:10 WBC (4.5-11.0) K/uL RBC (3.30-5.50) M/uL Hgb (12.0-15.0) g/dL Hct (36.0-48.0) % MCV (80-98) fL MCH (27-31) pg MCHC (32-36) % Plt Count (150-400) K/uL Neut % (Auto) (36-66) % Lymph % (Auto) (24-44) % [place] % (Auto) (2-6) % Eos % (Auto) (2-4) % Baso % (Auto) (0-1) % Puncture Site Lt brachial ABG pH 7.323 L (7.350-7.450) ABG pCO2 36.4 (35.0-42.0) mmHg ABG pO2 93.4 (75.0-100.0) mmHg ABG HCO3 18.3 L (22.0-26.0) mmol/L ABG Total CO2 17.3 L (21.0-25.0) mmol/L ABG O2 Saturation 94.4 L (95.0-98.0) % ABG O2 Content 12.6 L (15.0-23.0) %vol ABG Base Excess -6.6 mm/L ABG Hemoglobin 9.9 L (12.0-16.0) g/dL ABG Oxyhemoglobin 89.2 % ABG Carboxyhemoglobin 2.5 H (0.0-1.6) % ABG Methemoglobin 3.0 % [place] Test N/a O2 Delivery Device Room air Sodium (140-148) mmol/L Potassium (3.6-5.2) mmol/L Chloride (100-108) mmol/L Carbon Dioxide (21-32) mmol/L Anion Gap (5.0-14.0) mmol/L BUN (7-18) mg/dL Creatinine (0.6-1.0) mg/dL Est Cr Clr Drug Dosing Estimated GFR (MDRD) (>60) Glucose (74-106) mg/dL POC Glucose (74-106) MG/DL Lactic Acid 1.4 (0.4-2.0) mmol/L Calcium (8.5-10.1) mg/dL Total Bilirubin (0.2-1.0) mg/dL AST (15-37) U/L ALT (12-78) U/L Alkaline Phosphatase (46-116) U/L C-Reactive Protein 0.26 (0.0-0.3) mg/dL Total Protein (6.4-8.2) g/dL Albumin (3.4-5.0) g/dL Globulin (2.3-3.5) g/dL Albumin/Globulin Ratio (1.2-2.2) Urine Color (YELLOW) Urine Appearance (CLEAR) Urine pH (5.0-8.0) Ur Specific [place] (1.008-1.030) Urine Protein (NEGATIVE) mg/dL Urine Glucose (UA) (NEGATIVE) mg/dL Urine Ketones (NEGATIVE) mg/dL Urine Occult Blood (NEGATIVE) Urine Nitrite (NEGATIVE) Urine Bilirubin (NEGATIVE) Urine Urobilinogen (0.2-1.0) EU/dL Ur Leukocyte Esterase (NEGATIVE) Urine RBC (0-5) Urine WBC (0-5) Ur Epithelial Cells Amorphous Sediment Urine Bacteria Urine Mucus Urine Opiates Screen (NEGATIVE) Ur Oxycodone Screen (NEGATIVE) Urine Methadone Screen (NEGATIVE) Ur Propoxyphene Screen (NEGATIVE) Ur Barbiturates Screen (NEGATIVE) Ur Tricyclics Screen (NEGATIVE) Ur Phencyclidine Scrn (NEGATIVE) Ur Amphetamine Screen (NEGATIVE) U Methamphetamines Scrn (NEGATIVE) Urine MDMA Screen (NEGATIVE) U Benzodiazepines Scrn (NEGATIVE) U Cocaine Metab Screen (NEGATIVE) U Marijuana (THC) Screen (NEGATIVE) 03/02/20 03/02/20 03/02/20 Range/Units 12:20 13:30 13:50 WBC (4.5-11.0) K/uL RBC (3.30-5.50) M/uL Hgb (12.0-15.0) g/dL Hct (36.0-48.0) % MCV (80-98) fL MCH (27-31) pg MCHC (32-36) % Plt Count (150-400) K/uL Neut % (Auto) (36-66) % Lymph % (Auto) (24-44) % [place] % (Auto) (2-6) % Eos % (Auto) (2-4) % Baso % (Auto) (0-1) % Puncture Site ABG pH (7.350-7.450) ABG pCO2 (35.0-42.0) mmHg ABG pO2 (75.0-100.0) mmHg ABG HCO3 (22.0-26.0) mmol/L ABG Total CO2 (21.0-25.0) mmol/L ABG O2 Saturation (95.0-98.0) % ABG O2 Content (15.0-23.0) %vol ABG Base Excess mm/L ABG Hemoglobin (12.0-16.0) g/dL ABG Oxyhemoglobin % ABG Carboxyhemoglobin (0.0-1.6) % ABG Methemoglobin % Santiago Test O2 Delivery Device Sodium (140-148) mmol/L Potassium (3.6-5.2) mmol/L Chloride (100-108) mmol/L Carbon Dioxide (21-32) mmol/L Anion Gap (5.0-14.0) mmol/L BUN (7-18) mg/dL Creatinine (0.6-1.0) mg/dL Est Cr Clr Drug Dosing Estimated GFR (MDRD) (>60) Glucose (74-106) mg/dL POC Glucose 102 87 (74-106) MG/DL Lactic Acid (0.4-2.0) mmol/L Calcium (8.5-10.1) mg/dL Total Bilirubin (0.2-1.0) mg/dL AST (15-37) U/L ALT (12-78) U/L Alkaline Phosphatase (46-116) U/L C-Reactive Protein (0.0-0.3) mg/dL Total Protein (6.4-8.2) g/dL Albumin (3.4-5.0) g/dL Globulin (2.3-3.5) g/dL Albumin/Globulin Ratio (1.2-2.2) Urine Color (YELLOW) Urine Appearance (CLEAR) Urine pH (5.0-8.0) Ur Specific [place] (1.008-1.030) Urine Protein (NEGATIVE) mg/dL Urine Glucose (UA) (NEGATIVE) mg/dL Urine Ketones (NEGATIVE) mg/dL Urine Occult Blood (NEGATIVE) Urine Nitrite (NEGATIVE) Urine Bilirubin (NEGATIVE) Urine Urobilinogen (0.2-1.0) EU/dL Ur Leukocyte Esterase (NEGATIVE) Urine RBC (0-5) Urine WBC (0-5) Ur Epithelial Cells Amorphous Sediment Urine Bacteria Urine Mucus Urine Opiates Screen Negative (NEGATIVE) Ur Oxycodone Screen Presumptive positive H (NEGATIVE) Urine Methadone Screen Presumptive positive H (NEGATIVE) Ur Propoxyphene Screen Negative (NEGATIVE) Ur Barbiturates Screen Negative (NEGATIVE) Ur Tricyclics Screen Negative (NEGATIVE) Ur Phencyclidine Scrn Negative (NEGATIVE) Ur Amphetamine Screen Negative (NEGATIVE) U Methamphetamines Scrn Negative (NEGATIVE) Urine MDMA Screen Negative (NEGATIVE) U Benzodiazepines Scrn Negative (NEGATIVE) U Cocaine Metab Screen Negative (NEGATIVE) U Marijuana (THC) Screen Negative (NEGATIVE) 03/02/20 Range/Units 13:50 WBC (4.5-11.0) K/uL RBC (3.30-5.50) M/uL Hgb (12.0-15.0) g/dL Hct (36.0-48.0) % MCV (80-98) fL MCH (27-31) pg MCHC (32-36) % Plt Count (150-400) K/uL Neut % (Auto) (36-66) % Lymph % (Auto) (24-44) % [place] % (Auto) (2-6) % Eos % (Auto) (2-4) % Baso % (Auto) (0-1) % Puncture Site ABG pH (7.350-7.450) ABG pCO2 (35.0-42.0) mmHg ABG pO2 (75.0-100.0) mmHg ABG HCO3 (22.0-26.0) mmol/L ABG Total CO2 (21.0-25.0) mmol/L ABG O2 Saturation (95.0-98.0) % ABG O2 Content (15.0-23.0) %vol ABG Base Excess mm/L ABG Hemoglobin (12.0-16.0) g/dL ABG Oxyhemoglobin % ABG Carboxyhemoglobin (0.0-1.6) % ABG Methemoglobin % Santiago Test O2 Delivery Device Sodium (140-148) mmol/L Potassium (3.6-5.2) mmol/L Chloride (100-108) mmol/L Carbon Dioxide (21-32) mmol/L Anion Gap (5.0-14.0) mmol/L BUN (7-18) mg/dL Creatinine (0.6-1.0) mg/dL Est Cr Clr Drug Dosing Estimated GFR (MDRD) (>60) Glucose (74-106) mg/dL POC Glucose (74-106) MG/DL Lactic Acid (0.4-2.0) mmol/L Calcium (8.5-10.1) mg/dL Total Bilirubin (0.2-1.0) mg/dL AST (15-37) U/L ALT (12-78) U/L Alkaline Phosphatase (46-116) U/L C-Reactive Protein (0.0-0.3) mg/dL Total Protein (6.4-8.2) g/dL Albumin (3.4-5.0) g/dL Globulin (2.3-3.5) g/dL Albumin/Globulin Ratio (1.2-2.2) Urine Color Yellow (YELLOW) Urine Appearance Slightly cloudy A (CLEAR) Urine pH 5.5 (5.0-8.0) Ur Specific [place] 1.015 (1.008-1.030) Urine Protein 30 H (NEGATIVE) mg/dL Urine Glucose (UA) 100 H (NEGATIVE) mg/dL Urine Ketones Negative (NEGATIVE) mg/dL Urine Occult Blood Negative (NEGATIVE) Urine Nitrite Negative (NEGATIVE) Urine Bilirubin Negative (NEGATIVE) Urine Urobilinogen 0.2 (0.2-1.0) EU/dL Ur Leukocyte Esterase Negative (NEGATIVE) Urine RBC Not seen (0-5) Urine WBC 0-5 (0-5) Ur Epithelial Cells Not seen Amorphous Sediment Many Urine Bacteria Not seen Urine Mucus Not seen Urine Opiates Screen (NEGATIVE) Ur Oxycodone Screen (NEGATIVE) Urine Methadone Screen (NEGATIVE) Ur Propoxyphene Screen (NEGATIVE) Ur Barbiturates Screen (NEGATIVE) Ur Tricyclics Screen (NEGATIVE) Ur Phencyclidine Scrn (NEGATIVE) Ur Amphetamine Screen (NEGATIVE) U Methamphetamines Scrn (NEGATIVE) Urine MDMA Screen (NEGATIVE) U Benzodiazepines Scrn (NEGATIVE) U Cocaine Metab Screen (NEGATIVE) U Marijuana (THC) Screen (NEGATIVE) Result Diagrams: 03/02/20 12:02 03/02/20 12:10 *Q Meaningful Use (ADM) - VTE Risk Assess *Q Each Risk Factor Represents 1 Point: None Total Score 1 Point Risk Factors: 0 Each Risk Factor Represents 2 Points: None Total Score 2 Point Risk Factors: 0 Each Risk Factor Represents 3 Points: None Total Score 3 Point Risk Factors: 0 Each Risk Factor Represents 5 Points: None Total Score 5 Point Risk Factors: 0 Venous Thromboembolism Risk Factor Score *Q: 0 - Problem List (1) Hypoglycemia due to type 1 diabetes mellitus SNOMED Code(s): 76527851349901, 88909325883668 ICD Code: E10.649 - TYPE 1 DIABETES MELLITUS WITH HYPOGLYCEMIA WITHOUT COMA Status: Acute Current Visit: Yes (2) Type I diabetes mellitus with complication SNOMED Code(s): 77361149, 006868917 ICD Code: E10.8 - TYPE 1 DIABETES MELLITUS WITH UNSPECIFIED COMPLICATIONS Status: Acute Current Visit: Yes (3) CKD (chronic kidney disease), stage III SNOMED Code(s): 304088825 ICD Code: N18.3 - CHRONIC KIDNEY DISEASE, STAGE 3 (MODERATE) Status: Chronic Current Visit: Yes (4) Hx of stroke without residual deficits Status: Chronic Current Visit: Yes Problem List Initiated/Reviewed/Updated: Yes Orders Last 24hrs: Active Orders 24 hr Category Date Time Status Patient Status Manage Transfer [TRANSFER] Routine ADT 03/02/20 14:31 Ordered Alt[place]irano Catheter Insertion [Insert Urinary Catheter] [OM. Care 03/02/20 13:45 Ordered PC] Q24H Urinary Catheter Assessment [RC] ASDIRECTED Care 03/02/20 13:31 Active Dextrose 5%-0.45% NaCl [Dextrose 5%-1/2 NS] 1,000 ml Med 03/02/20 12:15 Active IV ASDIRECTED Dextrose 5%-0.45% NaCl [Dextrose 5%-1/2 NS] 1,000 ml Med 08/28/20 14:15 Active IV ASDIRECTED Intraosseous Insertion [OM.PC] Routine Oth 03/02/20 12:02 Ordered Resuscitation Status Routine Resus Stat 03/02/20 14:32 Ordered Medication Orders Dextrose/Sodium Chloride (Dextrose 5%-1/2 Ns) 1,000 mls @ 125 mls/hr IV ASDI RECTED GWENDOLYN Dextrose/Sodium Chloride (Dextrose 5%-1/2 Ns) 1,000 mls @ 125 mls/hr IV ASDIRECTED GWENDOLYN Assessment/Plan Comment:: ASSESSMENT AND PLAN - Type 1 diabetes mellitus with hypoglycemia and obtundation-improved with sugar in the emergency room. Still requiring dextrose containing fluids to keep her blood sugar up. Trigger for the hypoglycemia is unclear. Patient did states she may have taken extra insulin this morning but does not recall for sure. No evidence for infection. Otherwise she is stable. -Continue D5 infusion until blood sugar improves and stabilizes -Hold insulin until blood sugar has improved further -Every 2 hour Accu-Cheks -Restart insulins as indicated when blood sugar improves Cerebrovascular disease-history of a stroke 3 years ago with resulting difficulties including some strength and speech. -Continue medical management Stage III chronic kidney disease-creatinine near baseline. Maintenance issues - - DVT prophylaxis -mechanical - GI prophylaxis -PPI - Nutrition -diabetic - Altamirano catheter -placed in the emergency room CODE STATUS -full code Admission justification -patient will be referred observation status for glucose monitoring Disposition -I would anticipate discharge home after the hospital stay Primary care physician - Bhanu Cortes M.D. - Mortality Measure Prognosis:: Good
[2020-03-02] MEDS ORDERED: LORazepam 2 MG/ML SDV IVPUSH PRN (16:09)
[2020-03-02] MEDS ORDERED: Acetaminophen 325 MG Tab PO PRN (16:09)
[2020-03-02] MEDS ORDERED: Ondansetron 4 MG/2 ML SDV IV PRN (16:09)
[2020-03-02] MEDS ORDERED: Ondansetron 4 MG Tab.DIS PO PRN (16:09)
[2020-03-02] MEDS: oxyCODONE 5 MG Tab PO PRN ×2 (17:21→21:48)
[2020-03-02] MEDS ORDERED: Insulin Glargine,Human Rec. Analog 100 Units/ML 3 ML Pen SUBCUT SCH (21:00)
[2020-03-02] MEDS ORDERED: Insulin Lispro 100 Unit/ML 3 ML KwikPen SUBCUT ONE (21:01)
[2020-03-03] MEDS: oxyCODONE 5 MG Tab PO PRN ×3 (01:44→10:58)
[2020-03-03] MEDS ORDERED: Potassium Chloride 20 MEQ Tab.ER PO ONE (09:00)
[2020-03-03] MEDS: Insulin Lispro 100 Unit/ML 3 ML KwikPen SUBCUT SCH ×2 (09:33→12:23)
--- NOTE | 2020-03-03 09:34 | PCM.DCSUM1 ---
Discharge Summary - Hospital Course Brief History: 29-year-old female with history of stroke at age 26 with some residual speech deficits and weakness, suboptimally controlled insulin-dependent diabetes mellitus, stage IIIb chronic kidney disease who presented after being found obtunded at home. She was admitted for management of severe hypoglycemia. Diagnosis: Stroke: No - Discharge Data Discharge Date: 03/03/20 Discharge Disposition: Home, Self-Care 01 Condition: Fair - Referral to Home Health Primary Care Physician: PCP None - Discharge Diagnosis/Problem(s) (1) Hypoglycemia due to type 1 diabetes mellitus SNOMED Code(s): 44594934652410, [id number] ICD Code: E10.649 - TYPE 1 DIABETES MELLITUS WITH HYPOGLYCEMIA WITHOUT COMA Status: Acute Current Visit: Yes (2) Type I diabetes mellitus with complication SNOMED Code(s): 79950876, 238436353 ICD Code: E10.8 - TYPE 1 DIABETES MELLITUS WITH UNSPECIFIED COMPLICATIONS Status: Acute Current Visit: Yes (3) CKD (chronic kidney disease), stage III SNOMED Code(s): 074217479 ICD Code: N18.3 - CHRONIC KIDNEY DISEASE, STAGE 3 (MODERATE) Status: Chronic Current Visit: Yes (4) Hx of stroke without residual deficits Status: Chronic Current Visit: Yes - Patient Summary/Data Hospital Course: Maren was brought to the emergency room by ambulance after being found unresponsive at home. She had severe hypoglycemia with a blood sugar of only 20 when paramedics arrived. After getting to the emergency room and intraosseous line was placed and she was given a dose of D50 with almost immediate improvement in her mental status. Her blood sugar did remain low despite the amp of D50 so she was started on a dextrose infusion. This did maintain her blood sugars but just barely in the normal range. We decided to admit her for observation until her blood sugars had stabilized. The patient was not aware of any event that may have triggered the hypoglycemia. She said that she had been eating okay and was not aware of any extra medication that she took. She is able to tell me her insulin dosing at the time of admission. During the first few hours of the hospital stay we continued the dextrose infusion until her blood sugar was over 200. At this point it was stopped. Her blood sugar remained mildly elevated but stable overnight. She has become slightly tachycardic but has missed a couple of doses of her carvedilol. Otherwise her vital signs are fairly stable with exception of some moderate hypertension but she has also missed her antihypertensive medications because we were not able to verify these medications until this morning. She feels well and appears much better than yesterday. Blood sugars have been stable. We did have a slightly low normal blood sugar at lunchtime so I did encourage her to decrease her insulin dosing from 5 units with meals to 3 units. She will continue her usual long-acting dose at bedtime. She has follow-up scheduled in a few days. She will be discharged home in stable condition. - Patient Instructions Diet: Diabetic Diet Activity: As Tolerated Notify Provider of: Fever, Increased Pain Other/Special Instructions: 1. You were in the hospital for observation after an episode of severe hypoglycemia. Your condition has improved with some IV glucose therapy. Your blood sugar control has been acceptable during the hospital stay and I recommend that you continue your usual home doses of 10 units of the long-acting insulin at 5 units with your meals. If you continue to experience low blood sugars you may need to reduce the doses of these medications. At this point I would not recommend making any changes but continue to monitor your blood sugars very carefully. 2. It is extremely important that you take your medications as prescribed by your doctors. This is especially true with your diabetes medications, blood pressure medications as well as your blood thinning medication apixaban (AKA Eliquis). It is also important to take your own medications and not use medications prescribed to other people. 3. Follow up as scheduled with Randy Jacques on , Mar 08 at 1 pm. 4. Resume any standing home care orders. - Discharge Plan *PRESCRIPTION DRUG MONITORING PROGRAM REVIEWED*: Not Applicable *COPY OF PRESCRIPTION DRUG MONITORING REPORT IN PATIENT EDIN: Not Applicable Prescriptions/Med Rec: Insulin Aspart [NovoLOG] 3 units SQ TIDAC #3 pen oxyCODONE 5 mg PO Q6H PRN #15 tablet PRN Reason: Pain Home Medications: Home Meds Insulin Glarg,Human.Rec.Analog [Lantus Solostar] 10 units SQ BEDTIME 11/01/19 [History] Acetaminophen [Tylenol] 650 mg PO Q4H PRN 01/04/20 [History] Albuterol Sulfate [Albuterol Sulfate Hfa] 1 - 2 puff INH Q4H PRN 01/04/20 [History] Sertraline HCl 50 mg PO DAILY 01/04/20 [History] Apixaban [Eliquis] 5 mg PO BID 03/02/20 [History] Aspirin [Halfprin] 81 mg PO DAILY 03/02/20 [History] Bumetanide [Bumex] 1 mg PO DAILY 03/02/20 [History] Gabapentin [Neurontin] 300 mg PO DAILY 03/02/20 [History] Magnesium Chloride [Mag-64] 128 mg PO DAILY 03/02/20 [History] atorvaSTATin [Lipitor] 20 mg PO BEDTIME 03/02/20 [History] carvediloL [Carvedilol] 12.5 mg PO BID 03/02/20 [History] Insulin Aspart [NovoLOG] 3 units SQ TIDAC #3 pen 03/03/20 [Rx] hydrALAZINE [Apresoline] 25 mg PO QID 03/03/20 [History] oxyCODONE 5 mg PO Q6H PRN #15 tablet 03/03/20 [Rx] Oxygen Therapy Mode: Room Air Patient Handouts: Type 1 Diabetes Mellitus, Self Care, Adult, [id number], Hypoglycemia, [id number] Referrals: Randy Jacques NP [Nurse Practitioner] - 03/08/20 1:00 pm (arrive by 12:45) - Discharge Summary/Plan Comment DC Time >30 min.: Yes (40-medication counseling) - Patient Data Vitals - Most Recent: Last Vital Signs Temp 36.7 C 03/03/20 08:00 Pulse 117 H 03/03/20 08:00 Resp 12 03/03/20 08:00 BP 156/102 H 03/03/20 08:00 Pulse Ox 98 03/03/20 08:00 Weight - Most Recent: 77.4 kg I&O - Last 24 hours: Intake & Output 03/02/20 03/03/20 03/03/20 22:59 06:59 14:59 Intake Total 360 Output Total 900 Balance 360 -900 Lab Results - Last 24 hrs: Laboratory Results - last 24 hr 03/02/20 03/02/20 03/02/20 Range/Units 12:02 12:10 12:10 WBC 7.3 (4.5-11.0) K/uL RBC 3.51 (3.30-5.50) M/uL Hgb 9.7 L (12.0-15.0) g/dL Hct 30.6 L (36.0-48.0) % MCV 87 (80-98) fL MCH 28 (27-31) pg MCHC 32 (32-36) % Plt Count 348 (150-400) K/uL Neut % (Auto) 60 (36-66) % Lymph % (Auto) 28 (24-44) % Stone % (Auto) 8 H (2-6) % Eos % (Auto) 3 (2-4) % Baso % (Auto) 0 (0-1) % Puncture Site ABG pH (7.350-7.450) ABG pCO2 (35.0-42.0) mmHg ABG pO2 (75.0-100.0) mmHg ABG HCO3 (22.0-26.0) mmol/L ABG Total CO2 (21.0-25.0) mmol/L ABG O2 Saturation (95.0-98.0) % ABG O2 Content (15.0-23.0) %vol ABG Base Excess mm/L ABG Hemoglobin (12.0-16.0) g/dL ABG Oxyhemoglobin % ABG Carboxyhemoglobin (0.0-1.6) % ABG Methemoglobin % Santiago Test O2 Delivery Device Sodium 143 (140-148) mmol/L Potassium 3.2 L (3.6-5.2) mmol/L Chloride 111 H (100-108) mmol/L Carbon Dioxide 20 L (21-32) mmol/L Anion Gap 15.2 H (5.0-14.0) mmol/L BUN 29 H (7-18) mg/dL Creatinine 2.1 H (0.6-1.0) mg/dL Est Cr Clr Drug Dosing TNP Estimated GFR (MDRD) 34 L (>60) Glucose 163 H (74-106) mg/dL POC Glucose 33 L* (74-106) MG/DL Lactic Acid (0.4-2.0) mmol/L Calcium 8.0 L (8.5-10.1) mg/dL Total Bilirubin 0.6 (0.2-1.0) mg/dL AST 30 (15-37) U/L ALT 37 D (12-78) U/L Alkaline Phosphatase 115 (46-116) U/L C-Reactive Protein (0.0-0.3) mg/dL Total Protein 6.0 L (6.4-8.2) g/dL Albumin 2.4 L (3.4-5.0) g/dL Globulin 3.6 H (2.3-3.5) g/dL Albumin/Globulin Ratio 0.7 L (1.2-2.2) Urine Color (YELLOW) Urine Appearance (CLEAR) Urine pH (5.0-8.0) Ur Specific Elgin (1.008-1.030) Urine Protein (NEGATIVE) mg/dL Urine Glucose (UA) (NEGATIVE) mg/dL Urine Ketones (NEGATIVE) mg/dL Urine Occult Blood (NEGATIVE) Urine Nitrite (NEGATIVE) Urine Bilirubin (NEGATIVE) Urine Urobilinogen (0.2-1.0) EU/dL Ur Leukocyte Esterase (NEGATIVE) Urine RBC (0-5) Urine WBC (0-5) Ur Epithelial Cells Amorphous Sediment Urine Bacteria Urine Mucus Urine Opiates Screen (NEGATIVE) Ur Oxycodone Screen (NEGATIVE) Urine Methadone Screen (NEGATIVE) Ur Propoxyphene Screen (NEGATIVE) Ur Barbiturates Screen (NEGATIVE) Ur Tricyclics Screen (NEGATIVE) Ur Phencyclidine Scrn (NEGATIVE) Ur Amphetamine Screen (NEGATIVE) U Methamphetamines Scrn (NEGATIVE) Urine MDMA Screen (NEGATIVE) U Benzodiazepines Scrn (NEGATIVE) U Cocaine Metab Screen (NEGATIVE) U Marijuana (THC) Screen (NEGATIVE) 03/02/20 03/02/20 03/02/20 Range/Units 12:10 12:10 12:10 WBC (4.5-11.0) K/uL RBC (3.30-5.50) M/uL Hgb (12.0-15.0) g/dL Hct (36.0-48.0) % MCV (80-98) fL MCH (27-31) pg MCHC (32-36) % Plt Count (150-400) K/uL Neut % (Auto) (36-66) % Lymph % (Auto) (24-44) % Stone % (Auto) (2-6) % Eos % (Auto) (2-4) % Baso % (Auto) (0-1) % Puncture Site Lt brachial ABG pH 7.323 L (7.350-7.450) ABG pCO2 36.4 (35.0-42.0) mmHg ABG pO2 93.4 (75.0-100.0) mmHg ABG HCO3 18.3 L (22.0-26.0) mmol/L ABG Total CO2 17.3 L (21.0-25.0) mmol/L ABG O2 Saturation 94.4 L (95.0-98.0) % ABG O2 Content 12.6 L (15.0-23.0) %vol ABG Base Excess -6.6 mm/L ABG Hemoglobin 9.9 L (12.0-16.0) g/dL ABG Oxyhemoglobin 89.2 % ABG Carboxyhemoglobin 2.5 H (0.0-1.6) % ABG Methemoglobin 3.0 % Santiago Test N/a O2 Delivery Device Room air Sodium (140-148) mmol/L Potassium (3.6-5.2) mmol/L Chloride (100-108) mmol/L Carbon Dioxide (21-32) mmol/L Anion Gap (5.0-14.0) mmol/L BUN (7-18) mg/dL Creatinine (0.6-1.0) mg/dL Est Cr Clr Drug Dosing Estimated GFR (MDRD) (>60) Glucose (74-106) mg/dL POC Glucose (74-106) MG/DL Lactic Acid 1.4 (0.4-2.0) mmol/L Calcium (8.5-10.1) mg/dL Total Bilirubin (0.2-1.0) mg/dL AST (15-37) U/L ALT (12-78) U/L Alkaline Phosphatase (46-116) U/L C-Reactive Protein 0.26 (0.0-0.3) mg/dL Total Protein (6.4-8.2) g/dL Albumin (3.4-5.0) g/dL Globulin (2.3-3.5) g/dL Albumin/Globulin Ratio (1.2-2.2) Urine Color (YELLOW) Urine Appearance (CLEAR) Urine pH (5.0-8.0) Ur Specific [place] (1.008-1.030) Urine Protein (NEGATIVE) mg/dL Urine Glucose (UA) (NEGATIVE) mg/dL Urine Ketones (NEGATIVE) mg/dL Urine Occult Blood (NEGATIVE) Urine Nitrite (NEGATIVE) Urine Bilirubin (NEGATIVE) Urine Urobilinogen (0.2-1.0) EU/dL Ur Leukocyte Esterase (NEGATIVE) Urine RBC (0-5) Urine WBC (0-5) Ur Epithelial Cells Amorphous Sediment Urine Bacteria Urine Mucus Urine Opiates Screen (NEGATIVE) Ur Oxycodone Screen (NEGATIVE) Urine Methadone Screen (NEGATIVE) Ur Propoxyphene Screen (NEGATIVE) Ur Barbiturates Screen (NEGATIVE) Ur Tricyclics Screen (NEGATIVE) Ur Phencyclidine Scrn (NEGATIVE) Ur Amphetamine Screen (NEGATIVE) U Methamphetamines Scrn (NEGATIVE) Urine MDMA Screen (NEGATIVE) U Benzodiazepines Scrn (NEGATIVE) U Cocaine Metab Screen (NEGATIVE) U Marijuana (THC) Screen (NEGATIVE) 03/02/20 03/02/20 03/02/20 Range/Units 12:20 13:30 13:50 WBC (4.5-11.0) K/uL RBC (3.30-5.50) M/uL Hgb (12.0-15.0) g/dL Hct (36.0-48.0) % MCV (80-98) fL MCH (27-31) pg MCHC (32-36) % Plt Count (150-400) K/uL Neut % (Auto) (36-66) % Lymph % (Auto) (24-44) % Stone % (Auto) (2-6) % Eos % (Auto) (2-4) % Baso % (Auto) (0-1) % Puncture Site ABG pH (7.350-7.450) ABG pCO2 (35.0-42.0) mmHg ABG pO2 (75.0-100.0) mmHg ABG HCO3 (22.0-26.0) mmol/L ABG Total CO2 (21.0-25.0) mmol/L ABG O2 Saturation (95.0-98.0) % ABG O2 Content (15.0-23.0) %vol ABG Base Excess mm/L ABG Hemoglobin (12.0-16.0) g/dL ABG Oxyhemoglobin % ABG Carboxyhemoglobin (0.0-1.6) % ABG Methemoglobin % Santiago Test O2 Delivery Device Sodium (140-148) mmol/L Potassium (3.6-5.2) mmol/L Chloride (100-108) mmol/L Carbon Dioxide (21-32) mmol/L Anion Gap (5.0-14.0) mmol/L BUN (7-18) mg/dL Creatinine (0.6-1.0) mg/dL Est Cr Clr Drug Dosing Estimated GFR (MDRD) (>60) Glucose (74-106) mg/dL POC Glucose 102 87 (74-106) MG/DL Lactic Acid (0.4-2.0) mmol/L Calcium (8.5-10.1) mg/dL Total Bilirubin (0.2-1.0) mg/dL AST (15-37) U/L ALT (12-78) U/L Alkaline Phosphatase (46-116) U/L C-Reactive Protein (0.0-0.3) mg/dL Total Protein (6.4-8.2) g/dL Albumin (3.4-5.0) g/dL Globulin (2.3-3.5) g/dL Albumin/Globulin Ratio (1.2-2.2) Urine Color (YELLOW) Urine Appearance (CLEAR) Urine pH (5.0-8.0) Ur Specific [place] (1.008-1.030) Urine Protein (NEGATIVE) mg/dL Urine Glucose (UA) (NEGATIVE) mg/dL Urine Ketones (NEGATIVE) mg/dL Urine Occult Blood (NEGATIVE) Urine Nitrite (NEGATIVE) Urine Bilirubin (NEGATIVE) Urine Urobilinogen (0.2-1.0) EU/dL Ur Leukocyte Esterase (NEGATIVE) Urine RBC (0-5) Urine WBC (0-5) Ur Epithelial Cells Amorphous Sediment Urine Bacteria Urine Mucus Urine Opiates Screen Negative (NEGATIVE) Ur Oxycodone Screen Presumptive positive H (NEGATIVE) Urine Methadone Screen Presumptive positive H (NEGATIVE) Ur Propoxyphene Screen Negative (NEGATIVE) Ur Barbiturates Screen Negative (NEGATIVE) Ur Tricyclics Screen Negative (NEGATIVE) Ur Phencyclidine Scrn Negative (NEGATIVE) Ur Amphetamine Screen Negative (NEGATIVE) U Methamphetamines Scrn Negative (NEGATIVE) Urine MDMA Screen Negative (NEGATIVE) U Benzodiazepines Scrn Negative (NEGATIVE) U Cocaine Metab Screen Negative (NEGATIVE) U Marijuana (THC) Screen Negative (NEGATIVE) 03/02/20 03/03/20 Range/Units 13:50 05:46 WBC (4.5-11.0) K/uL RBC (3.30-5.50) M/uL Hgb (12.0-15.0) g/dL Hct (36.0-48.0) % MCV (80-98) fL MCH (27-31) pg MCHC (32-36) % Plt Count (150-400) K/uL Neut % (Auto) (36-66) % Lymph % (Auto) (24-44) % Stone % (Auto) (2-6) % Eos % (Auto) (2-4) % Baso % (Auto) (0-1) % Puncture Site ABG pH (7.350-7.450) ABG pCO2 (35.0-42.0) mmHg ABG pO2 (75.0-100.0) mmHg ABG HCO3 (22.0-26.0) mmol/L ABG Total CO2 (21.0-25.0) mmol/L ABG O2 Saturation (95.0-98.0) % ABG O2 Content (15.0-23.0) %vol ABG Base Excess mm/L ABG Hemoglobin (12.0-16.0) g/dL ABG Oxyhemoglobin % ABG Carboxyhemoglobin (0.0-1.6) % ABG Methemoglobin % Santiago Test O2 Delivery Device Sodium 144 (140-148) mmol/L Potassium 3.2 L (3.6-5.2) mmol/L Chloride 112 H (100-108) mmol/L Carbon Dioxide 20 L (21-32) mmol/L Anion Gap 15.2 H (5.0-14.0) mmol/L BUN 27 H (7-18) mg/dL Creatinine 2.0 H (0.6-1.0) mg/dL Est Cr Clr Drug Dosing 40.00 Estimated GFR (MDRD) 35 L (>60) Glucose 197 H (74-106) mg/dL POC Glucose (74-106) MG/DL Lactic Acid (0.4-2.0) mmol/L Calcium 7.7 L (8.5-10.1) mg/dL Total Bilirubin (0.2-1.0) mg/dL AST (15-37) U/L ALT (12-78) U/L Alkaline Phosphatase (46-116) U/L C-Reactive Protein (0.0-0.3) mg/dL Total Protein (6.4-8.2) g/dL Albumin (3.4-5.0) g/dL Globulin (2.3-3.5) g/dL Albumin/Globulin Ratio (1.2-2.2) Urine Color Yellow (YELLOW) Urine Appearance Slightly cloudy A (CLEAR) Urine pH 5.5 (5.0-8.0) Ur Specific [place]gin 1.015 (1.008-1.030) Urine Protein 30 H (NEGATIVE) mg/dL Urine Glucose (UA) 100 H (NEGATIVE) mg/dL Urine Ketones Negative (NEGATIVE) mg/dL Urine Occult Blood Negative (NEGATIVE) Urine Nitrite Negative (NEGATIVE) Urine Bilirubin Negative (NEGATIVE) Urine Urobilinogen 0.2 (0.2-1.0) EU/dL Ur Leukocyte Esterase Negative (NEGATIVE) Urine RBC Not seen (0-5) Urine WBC 0-5 (0-5) Ur Epithelial Cells Not seen Amorphous Sediment Many Urine Bacteria Not seen Urine Mucus Not seen Urine Opiates Screen (NEGATIVE) Ur Oxycodone Screen (NEGATIVE) Urine Methadone Screen (NEGATIVE) Ur Propoxyphene Screen (NEGATIVE) Ur Barbiturates Screen (NEGATIVE) Ur Tricyclics Screen (NEGATIVE) Ur Phencyclidine Scrn (NEGATIVE) Ur Amphetamine Screen (NEGATIVE) U Methamphetamines Scrn (NEGATIVE) Urine MDMA Screen (NEGATIVE) U Benzodiazepines Scrn (NEGATIVE) U Cocaine Metab Screen (NEGATIVE) U Marijuana (THC) Screen (NEGATIVE) Med Orders - Current: Current Medications Acetaminophen (Tylenol) 650 mg PO Q4H PRN PRN Reason: Pain (Mild 1-3)/fever Last Admin: 03/03/20 08:09 Dose: 650 mg Documented by: Insulin Glargine (Lantus Solostar) 8 units SUBCUT BEDTIME GWENDOLYN Last Admin: 03/02/20 21:15 Dose: 8 units Documented by: Insulin Human Lispro (Humalog) 5 unit SUBCUT TIDAC GWENDOLYN Lorazepam (Ativan) 0.5 mg IVPUSH Q4H PRN PRN Reason: Nausea/Vomiting Ondansetron HCl (Zofran) 4 mg IV Q6H PRN PRN Reason: Nausea/Vomiting Ondansetron HCl (Zofran Odt) 4 mg PO Q6H PRN PRN Reason: Nausea able to take PO Oxycodone HCl (Oxycodone) 5 - 10 mg PO Q4H PRN PRN Reason: Pain Last Admin: 03/03/20 05:53 Dose: 10 mg Documented by: Discontinued Medications Dextrose/Water (Dextrose 50% In Water) 50 ml IVPUSH ONETIME ONE Stop: 03/02/20 12:21 Last Admin: 03/02/20 11:49 Dose: 50 ml Documented by: Dextrose/Sodium Chloride (Dextrose 5%-1/2 Ns) 1,000 mls @ 125 mls/hr IV ASDIRECTED GWENDOLYN Dextrose/Sodium Chloride (Dextrose 5%-1/2 Ns) 1,000 mls @ 125 mls/hr IV ASDIRECTED GWENDOLYN Last Admin: 03/02/20 16:22 Dose: 125 mls/hr Documented by: Insulin Human Lispro (Humalog) 2 unit SUBCUT ONETIME ONE Stop: 03/02/20 21:02 Last Admin: 03/02/20 21:16 Dose: 2 units Documented by: Lidocaine HCl (Xylocaine 2%) 60 mg IOSS ONETIME ONE Stop: 03/02/20 14:01 Last Admin: 03/02/20 17:25 Dose: Not Given Documented by: Potassium Chloride (Klor-Con M20) 40 meq PO ONETIME ONE Stop: 03/03/20 09:01
[2020-03-03] MEDS ORDERED: Pneumococcal Polyvalent-23 Vaccine 0.5 ML SDV IM ONE (10:00)
== END 2020-03-03 16:06 | disposition home or self-care (01) ==
LOC: JP.ED 11:49 → JP.ICU 14:31
PROVIDERS: ADMIT Internal Medicine; ATTEND Internal Medicine
DX: E10.649 Type 1 diabetes mellitus with hypoglycemia without coma (principal); E10.22 Type 1 diabetes mellitus with diabetic chronic kidney disease; I12.9 Hypertensive chronic kidney disease with stage 1 through stage 4 chronic kidney disease, or unspecified chronic kidney disease; N18.3 Chronic kidney disease, stage 3 (moderate); E78.00 Pure hypercholesterolemia, unspecified; E10.42 Type 1 diabetes mellitus with diabetic polyneuropathy; E66.9 Obesity, unspecified; Z88.6 Allergy status to analgesic agent; Z88.8 Allergy status to other drugs, medicaments and biological substances; Z86.73 Personal history of transient ischemic attack (TIA), and cerebral infarction without residual deficits; Z79.899 Other long term (current) drug therapy; Z79.82 Long term (current) use of aspirin; Z68.26 Body mass index [BMI] 26.0-26.9, adult
CPT/HCPCS: 36415; 36600; 51702; 80048; 80053; 80305; 81001; 82803; 82962; 83605; 85025; 86140; 96361; 96374; 99285; A9270; G0378; J1815; J7042

== ENCOUNTER 2020-03-13 15:56 | Emergency (ER) | payer MEDICAID ==
[2020-03-13] MEDS ORDERED: Midazolam 1 MG/ML 2 ML SDV NAS ONE (16:43)
[2020-03-13] MEDS ORDERED: Sodium Chloride 0.9% 10 ML Syringe FLUSH PRN (16:44)
--- NOTE | 2020-03-13 16:58 | EDM.PDOC ---
<OfficerMauricio - Last Filed: 03/13/20 16:53> ED HPI GENERAL MEDICAL PROBLEM - General Chief Complaint: Diabetic Complaint Stated Complaint: MEDICAL [facility] Time Seen by Provider: 03/13/20 16:40 Source of Information: Reports: Patient, EMS, RN Notes Reviewed History Limitations: Reports: Altered Mental Status - Related Data Allergies Allergy/AdvReac Type Severity Reaction Status Date / Time diphenhydramine Allergy Itching Verified 03/02/20 17:33 ibuprofen AdvReac Nausea and Verified 03/02/20 17:33 Vomiting Home Meds: Home Meds Insulin Glarg,Human.Rec.Analog [Lantus Solostar] 10 units SQ BEDTIME 11/01/19 [History] Acetaminophen [Tylenol] 650 mg PO Q4H PRN 01/04/20 [History] Albuterol Sulfate [Albuterol Sulfate Hfa] 1 - 2 puff INH Q4H PRN 01/04/20 [History] Sertraline HCl 50 mg PO DAILY 01/04/20 [History] Apixaban [Eliquis] 5 mg PO BID 03/02/20 [History] Aspirin [Halfprin] 81 mg PO DAILY 03/02/20 [History] Bumetanide [Bumex] 1 mg PO DAILY 03/02/20 [History] Gabapentin [Neurontin] 300 mg PO DAILY 03/02/20 [History] Magnesium Chloride [Mag-64] 128 mg PO DAILY 03/02/20 [History] atorvaSTATin [Lipitor] 20 mg PO BEDTIME 03/02/20 [History] carvediloL [Carvedilol] 12.5 mg PO BID 03/02/20 [History] Insulin Aspart [NovoLOG] 3 units SQ TIDAC #3 pen 03/03/20 [Rx] hydrALAZINE [Apresoline] 25 mg PO QID 03/03/20 [History] oxyCODONE 5 mg PO Q6H PRN #15 tablet 03/03/20 [Rx] Past Medical History HEENT History: Reports: Impaired Vision Cardiovascular History: Reports: Afib, High Cholesterol, Hypertension, Other (See Below) Other Cardiovascular History: hypotension Gastrointestinal History: Reports: GERD, Other (See Below) Other Gastrointestinal History: abdominal pain hepatic steatosis Genitourinary History: Reports: Other (See Below) Other Genitourinary History: BRIAN Musculoskeletal History: Reports: Other (See Below) Neurological History: Reports: CVA, Neuropathy, Diabetic, Seizure, Other (See Below) Other Neuro History: medically noncompliant Psychiatric History: Reports: Anxiety, Depression, Other (See Below) Other Psychiatric History: history of drug use altered mental statis Endocrine/Metabolic History: Reports: Diabetes, Type I, Other (See Below) Other Endocrine/Metabolic History: polyneuropathy, ketoacidosis,hyperglycemia,hyperkalemia - Infectious Disease History Infectious Disease History: Reports: Chicken Pox - Past Surgical History GI Surgical History: Reports: Other (See Below) Other GI Surgeries/Procedures: upper endoscopy with biopsy 2019 Social & Family History - Tobacco Use Smoking Status *Q: Current Every Day Smoker - Caffeine Use Caffeine Use: Reports: Soda - Sexual History Other Sexual History Comment: Has girlfriend ED ROS GENERAL - Review of Systems Review Of Systems: Unable To Obtain ED EXAM GENERAL NO PERIP PULSE - Physical Exam Exam: See Below Exam Limited By: Altered Mental Status General Appearance: Obtunded Head: Atraumatic, Normocephalic Neck: Normal Inspection, Supple, Non-Tender, Full Range of Motion Respiratory/Chest: No Respiratory Distress, Lungs Clear, Normal Breath Sounds, No Accessory Muscle Use, Chest Non-Tender Cardiovascular: Regular Rate, Rhythm, No Murmur GI/Abdominal: Soft, Non-Tender Departure - Departure Disposition: DC/Tfer to Other Clinical Impression: Witnessed seizure-like activity, Hypokalemia DKA (diabetic ketoacidoses) Qualifiers: Diabetes mellitus type: type 1 Diabetes mellitus complication detail: without coma Qualified Code(s): E10.10 - Type 1 diabetes mellitus with ketoacidosis without coma - Discharge Information Referrals: PCP,None [Primary Care Provider] - Forms: ED Department Discharge Care Plan Goals: Patient was accepted by Dr. Silva at [place], she will be a direct admit for further evaluation and treatment of diabetic ketoacidosis, hypokalemia, seizure activity. <Michael Hawk - Last Filed: 03/14/20 01:39> Course - Vital Signs Last Recorded V/S: Last Vital Signs Temp 95.2 F L 03/13/20 18:13 Pulse 116 H 03/13/20 19:15 Resp 22 H 03/13/20 19:15 BP 200/117 H 03/13/20 19:15 Pulse Ox 99 03/13/20 19:15 - Orders/Labs/Meds Orders: Active Orders 24 hr Category Date Time Status Insert [place] Catheter [Insert Urinary Catheter] [OM.PC] Care 03/13/20 18:00 Ordered Q24H CULTURE BLOOD [BC] Urgent Lab 03/13/20 18:15 Received CULTURE BLOOD [BC] Urgent Lab 03/13/20 18:15 Received Blood Culture x2 Reflex Set [OM.PC] Urgent Oth 03/13/20 16:44 Ordered Peripheral IV Insertion Adult [OM.PC] Stat Oth 03/13/20 16:44 Ordered Resuscitation Status Stat Resus Stat 03/13/20 16:44 Ordered Labs: Laboratory Tests 03/13/20 03/13/20 03/13/20 Range/Units 16:44 16:44 17:51 WBC (4.5-11.0) K/uL RBC (3.30-5.50) M/uL Hgb (12.0-15.0) g/dL Hct (36.0-48.0) % MCV (80-98) fL MCH (27-31) pg MCHC (32-36) % Plt Count (150-400) K/uL Neut % (Auto) (36-66) % Lymph % (Auto) (24-44) % [place] % (Auto) (2-6) % Eos % (Auto) (2-4) % Baso % (Auto) (0-1) % Puncture Site Rt femoral ABG pH 7.245 L (7.350-7.450) ABG pCO2 24.3 L (35.0-42.0) mmHg ABG pO2 113.0 H (75.0-100.0) mmHg ABG HCO3 10.2 L (22.0-26.0) mmol/L ABG Total CO2 9.6 L (21.0-25.0) mmol/L ABG O2 Saturation 95.6 (95.0-98.0) % ABG O2 Content 15.1 (15.0-23.0) %vol ABG Base Excess -15.6 mm/L ABG Hemoglobin 11.5 L (12.0-16.0) g/dL ABG Oxyhemoglobin 92.3 % ABG Carboxyhemoglobin 0.7 (0.0-1.6) % ABG Methemoglobin 2.8 % Santiago Test N/a O2 Delivery Device Room air Sodium 124 L (140-148) mmol/L Potassium 2.7 L* (3.6-5.2) mmol/L Chloride 86 L (100-108) mmol/L Carbon Dioxide 10 L (21-32) mmol/L Anion Gap 30.7 H (5.0-14.0) mmol/L BUN 17 (7-18) mg/dL Creatinine 2.8 H (0.6-1.0) mg/dL Est Cr Clr Drug Dosing 28.49 mL/min Estimated GFR (MDRD) 24 L (>60) Glucose 1114 H* (74-106) mg/dL POC Glucose > 500 H* (74-106) MG/DL Lactic Acid (0.4-2.0) mmol/L Calcium 8.1 L (8.5-10.1) mg/dL Phosphorus 3.7 (2.5-4.9) mg/dL Magnesium 1.6 L (1.8-2.4) mg/dL Total Bilirubin 0.6 (0.2-1.0) mg/dL AST 20 (15-37) U/L ALT 21 (12-78) U/L Alkaline Phosphatase 100 (46-116) U/L Troponin I (0.000-0.056) ng/mL Total Protein 6.3 L (6.4-8.2) g/dL Albumin 2.8 L (3.4-5.0) g/dL Globulin 3.5 (2.3-3.5) g/dL Albumin/Globulin Ratio 0.8 L (1.2-2.2) Urine Color (YELLOW) Urine Appearance (CLEAR) Urine pH (5.0-8.0) Ur Specific Tiff (1.008-1.030) Urine Protein (NEGATIVE) mg/dL Urine Glucose (UA) (NEGATIVE) mg/dL Urine Ketones (NEGATIVE) mg/dL Urine Occult Blood (NEGATIVE) Urine Nitrite (NEGATIVE) Urine Bilirubin (NEGATIVE) Urine Urobilinogen (0.2-1.0) EU/dL Ur Leukocyte Esterase (NEGATIVE) Urine RBC (0-5) Urine WBC (0-5) Ur Epithelial Cells Amorphous Sediment Urine Bacteria Urine Mucus Urine Opiates Screen (NEGATIVE) Ur Oxycodone Screen (NEGATIVE) Urine Methadone Screen (NEGATIVE) Ur Propoxyphene Screen (NEGATIVE) Ur Barbiturates Screen (NEGATIVE) Ur Tricyclics Screen (NEGATIVE) Ur Phencyclidine Scrn (NEGATIVE) Ur Amphetamine Screen (NEGATIVE) U Methamphetamines Scrn (NEGATIVE) Urine MDMA Screen (NEGATIVE) U Benzodiazepines Scrn (NEGATIVE) U Cocaine Metab Screen (NEGATIVE) U Marijuana (THC) Screen (NEGATIVE) 03/13/20 03/13/20 03/13/20 Range/Units 18:15 18:15 18:15 WBC 6.1 (4.5-11.0) K/uL RBC 4.16 (3.30-5.50) M/uL Hgb 11.2 L (12.0-15.0) g/dL Hct 35.2 L (36.0-48.0) % MCV 85 (80-98) fL MCH 27 (27-31) pg MCHC 32 (32-36) % Plt Count 100 L (150-400) K/uL Neut % (Auto) 76 H (36-66) % Lymph % (Auto) 14 L (24-44) % [place] % (Auto) 6 (2-6) % Eos % (Auto) 3 (2-4) % Baso % (Auto) 0 (0-1) % Puncture Site ABG pH (7.350-7.450) ABG pCO2 (35.0-42.0) mmHg ABG pO2 (75.0-100.0) mmHg ABG HCO3 (22.0-26.0) mmol/L ABG Total CO2 (21.0-25.0) mmol/L ABG O2 Saturation (95.0-98.0) % ABG O2 Content (15.0-23.0) %vol ABG Base Excess mm/L ABG Hemoglobin (12.0-16.0) g/dL ABG Oxyhemoglobin % ABG Carboxyhemoglobin (0.0-1.6) % ABG Methemoglobin % Santiago Test O2 Delivery Device Sodium (140-148) mmol/L Potassium (3.6-5.2) mmol/L Chloride (100-108) mmol/L Carbon Dioxide (21-32) mmol/L Anion Gap (5.0-14.0) mmol/L BUN (7-18) mg/dL Creatinine (0.6-1.0) mg/dL Est Cr Clr Drug Dosing mL/min Estimated GFR (MDRD) (>60) Glucose (74-106) mg/dL POC Glucose (74-106) MG/DL Lactic Acid 3.7 H (0.4-2.0) mmol/L Calcium (8.5-10.1) mg/dL Phosphorus (2.5-4.9) mg/dL Magnesium (1.8-2.4) mg/dL Total Bilirubin (0.2-1.0) mg/dL AST (15-37) U/L ALT (12-78) U/L Alkaline Phosphatase (46-116) U/L Troponin I 0.160 H* (0.000-0.056) ng/mL Total Protein (6.4-8.2) g/dL Albumin (3.4-5.0) g/dL Globulin (2.3-3.5) g/dL Albumin/Globulin Ratio (1.2-2.2) Urine Color (YELLOW) Urine Appearance (CLEAR) Urine pH (5.0-8.0) Ur Specific Tiff (1.008-1.030) Urine Protein (NEGATIVE) mg/dL Urine Glucose (UA) (NEGATIVE) mg/dL Urine Ketones (NEGATIVE) mg/dL Urine Occult Blood (NEGATIVE) Urine Nitrite (NEGATIVE) Urine Bilirubin (NEGATIVE) Urine Urobilinogen (0.2-1.0) EU/dL Ur Leukocyte Esterase (NEGATIVE) Urine RBC (0-5) Urine WBC (0-5) Ur Epithelial Cells Amorphous Sediment Urine Bacteria Urine Mucus Urine Opiates Screen (NEGATIVE) Ur Oxycodone Screen (NEGATIVE) Urine Methadone Screen (NEGATIVE) Ur Propoxyphene Screen (NEGATIVE) Ur Barbiturates Screen (NEGATIVE) Ur Tricyclics Screen (NEGATIVE) Ur Phencyclidine Scrn (NEGATIVE) Ur Amphetamine Screen (NEGATIVE) U Methamphetamines Scrn (NEGATIVE) Urine MDMA Screen (NEGATIVE) U Benzodiazepines Scrn (NEGATIVE) U Cocaine Metab Screen (NEGATIVE) U Marijuana (THC) Screen (NEGATIVE) 03/13/20 03/13/20 Range/Units 18:24 18:24 WBC (4.5-11.0) K/uL RBC (3.30-5.50) M/uL Hgb (12.0-15.0) g/dL Hct (36.0-48.0) % MCV (80-98) fL MCH (27-31) pg MCHC (32-36) % Plt Count (150-400) K/uL Neut % (Auto) (36-66) % Lymph % (Auto) (24-44) % [place] % (Auto) (2-6) % Eos % (Auto) (2-4) % Baso % (Auto) (0-1) % Puncture Site ABG pH (7.350-7.450) ABG pCO2 (35.0-42.0) mmHg ABG pO2 (75.0-100.0) mmHg ABG HCO3 (22.0-26.0) mmol/L ABG Total CO2 (21.0-25.0) mmol/L ABG O2 Saturation (95.0-98.0) % ABG O2 Content (15.0-23.0) %vol ABG Base Excess mm/L ABG Hemoglobin (12.0-16.0) g/dL ABG Oxyhemoglobin % ABG Carboxyhemoglobin (0.0-1.6) % ABG Methemoglobin % Santiago Test O2 Delivery Device Sodium (140-148) mmol/L Potassium (3.6-5.2) mmol/L Chloride (100-108) mmol/L Carbon Dioxide (21-32) mmol/L Anion Gap (5.0-14.0) mmol/L BUN (7-18) mg/dL Creatinine (0.6-1.0) mg/dL Est Cr Clr Drug Dosing mL/min Estimated GFR (MDRD) (>60) Glucose (74-106) mg/dL POC Glucose (74-106) MG/DL Lactic Acid (0.4-2.0) mmol/L Calcium (8.5-10.1) mg/dL Phosphorus (2.5-4.9) mg/dL Magnesium (1.8-2.4) mg/dL Total Bilirubin (0.2-1.0) mg/dL AST (15-37) U/L ALT (12-78) U/L Alkaline Phosphatase (46-116) U/L Troponin I (0.000-0.056) ng/mL Total Protein (6.4-8.2) g/dL Albumin (3.4-5.0) g/dL Globulin (2.3-3.5) g/dL Albumin/Globulin Ratio (1.2-2.2) Urine Color Yellow (YELLOW) Urine Appearance Clear (CLEAR) Urine pH 5.5 (5.0-8.0) Ur Specific Tiff 1.010 (1.008-1.030) Urine Protein Negative (NEGATIVE) mg/dL Urine Glucose (UA) 500 H (NEGATIVE) mg/dL Urine Ketones 40 H (NEGATIVE) mg/dL Urine Occult Blood Small H (NEGATIVE) Urine Nitrite Negative (NEGATIVE) Urine Bilirubin Negative (NEGATIVE) Urine Urobilinogen 0.2 (0.2-1.0) EU/dL Ur Leukocyte Esterase Negative (NEGATIVE) Urine RBC Not seen (0-5) Urine WBC Not seen (0-5) Ur Epithelial Cells Rare Amorphous Sediment Few Urine Bacteria Not seen Urine Mucus Not seen Urine Opiates Screen Negative (NEGATIVE) Ur Oxycodone Screen Presumptive positive H (NEGATIVE) Urine Methadone Screen Negative (NEGATIVE) Ur Propoxyphene Screen Negative (NEGATIVE) Ur Barbiturates Screen Negative (NEGATIVE) Ur Tricyclics Screen Negative (NEGATIVE) Ur Phencyclidine Scrn Negative (NEGATIVE) Ur Amphetamine Screen Negative (NEGATIVE) U Methamphetamines Scrn Negative (NEGATIVE) Urine MDMA Screen Negative (NEGATIVE) U Benzodiazepines Scrn Negative (NEGATIVE) U Cocaine Metab Screen Negative (NEGATIVE) U Marijuana (THC) Screen Negative (NEGATIVE) Meds: Medications Discontinued Medications Generic Name Dose Route Start Last Admin Trade Name Freq PRN Reason Stop Dose Admin Fentanyl 50 mcg 03/13/20 17:34 03/13/20 17:43 Sublimaze IVPUSH 03/13/20 17:35 50 mcg ONETIME ONE Administration Sodium Chloride 1,000 mls @ 999 mls/hr 03/13/20 17:00 03/13/20 18:30 Normal Saline IV 999 mls/hr ASDIRECTED GWENDOLYN Administration Potassium Chloride 20 meq/ 100 mls @ 50 mls/hr 03/13/20 19:01 03/13/20 19:14 Premix IV 03/13/20 21:00 50 mls/hr ONETIME ONE Administration Insulin Human Regular 10 unit 03/13/20 18:21 03/13/20 18:27 Humulin R IVPUSH 03/13/20 18:22 10 unit ONETIME ONE Administration Lidocaine HCl 5 ml 03/13/20 19:12 03/13/20 19:16 Xylocaine-Mpf 1% INJECT 03/13/20 19:13 3 ml ONETIME ONE Administration Lorazepam 2 mg 03/13/20 17:33 03/13/20 17:41 Ativan IVPUSH 03/13/20 17:34 2 mg ONETIME ONE Administration Lorazepam 4 mg 03/13/20 18:03 03/13/20 18:12 Ativan IVPUSH 03/13/20 18:04 4 mg ONETIME ONE Administration Lorazepam 2 mg 03/13/20 19:08 03/13/20 19:13 Ativan IVPUSH 03/13/20 19:09 2 mg ONETIME ONE Administration Midazolam HCl 5 mg 03/13/20 16:43 03/13/20 16:48 Versed 1 Mg/Ml STEF 03/13/20 16:44 5 mg ONETIME ONE Administration Sodium Chloride 10 ml 03/13/20 16:44 03/13/20 17:34 Saline Flush FLUSH 10 ml ASDIRECTED PRN Administration Keep Vein Open - Re-Assessments/Exams Free Text/Narrative Re-Assessment/Exam: 03/13/20 19:06 29-year-old female arrives by ambulance with seizure-like activity and hyperglycemia. She is a very poorly controlled diabetic. Initially evaluated and treatment started by Officer, care turned over to myself pending labs and disposition. She was a very difficult IV access, a left IO was in place. It was running well. She had received almost 1 L of normal saline when I arrived, a left femoral artery stick was used to get blood for lab. pH was 7.24, glucose 1114. CO2 24. She was given 10 units of insulin through the IO, with her potassium only 2.7 she needed 40 mEq of potassium IV prior to an insulin drip. Just prior to discharge she had seizure-like activity and was given 2 mg of IV Ativan. Vitals were stable. 03/13/20 21:21 Patient had not received enough potassium to start the insulin drip prior to transfer, this was relayed to the accepting physician Departure - Departure Time of Disposition: 19:29 Sepsis Event Note (ED) - Focused Exam Vital Signs: Vital Signs Temp Pulse Resp BP Pulse Ox 03/13/20 19:15 116 H 22 H 200/117 H 99 03/13/20 18:28 110 H 22 H 190/151 H 100 03/13/20 18:13 95.2 F L 104 H 18 152/75 H 97 03/13/20 17:48 115 H 15 162/90 H 98 03/13/20 17:25 97.3 F 96 19 155/87 H 100 03/13/20 16:26 97.3 F 96 19 155/87 H 100
[2020-03-13] MEDS ORDERED: LORazepam 2 MG/ML SDV IVPUSH ONE ×3 (17:33→19:08)
[2020-03-13] MEDS: Sodium Chloride 0.9% 1,000 ML IV SCH ×2 (17:34→18:30)
[2020-03-13] MEDS ORDERED: fentaNYL 100 MCG/2 ML SDV IVPUSH ONE (17:34)
[2020-03-13] MEDS ORDERED: Insulin Regular, Human 100 Units/ML 3 ML Vial IVPUSH ONE (18:21)
[2020-03-13] MEDS ORDERED: Potassium Chloride 20 MEQ in Premix Bag 1 BAG IV ONE ×2 (18:45→19:01)
== END 2020-03-13 19:31 | disposition other institution (70) ==
LOC: JP.ED 15:56
DX: E10.10 Type 1 diabetes mellitus with ketoacidosis without coma (principal); E87.6 Hypokalemia; R56.9 Unspecified convulsions; I10 Essential (primary) hypertension; F41.9 Anxiety disorder, unspecified; F32.9 Major depressive disorder, single episode, unspecified; E10.65 Type 1 diabetes mellitus with hyperglycemia; E10.42 Type 1 diabetes mellitus with diabetic polyneuropathy; I48.91 Unspecified atrial fibrillation; F17.200 Nicotine dependence, unspecified, uncomplicated; Z88.6 Allergy status to analgesic agent; Z88.8 Allergy status to other drugs, medicaments and biological substances; Z86.73 Personal history of transient ischemic attack (TIA), and cerebral infarction without residual deficits; Z79.82 Long term (current) use of aspirin; Z79.899 Other long term (current) drug therapy
CPT/HCPCS: 36415; 36600; 51702; 80053; 80305; 81001; 82803; 82962; 83605; 83735; 84100; 84484; 85025; 87040; 96361; 96374; 96375; 96376; 99285; J1815; J2001; J2060; J2250; J3010; J3480; J7030

== ENCOUNTER 2020-04-05 14:59 | Emergency (ER) | payer MEDICAID ==
[2020-04-05] MEDS ORDERED: Lactated Ringers 1,000 ML IV ONE (15:04)
[2020-04-05] MEDS ORDERED: Metoclopramide 10 MG/2 ML SDV IVPUSH ONE (15:04)
[2020-04-05] MEDS ORDERED: HYDROmorphone 0.5 MG/0.5 ML Syringe IVPUSH ONE ×2 (15:43→19:37)
--- NOTE | 2020-04-05 15:45 | EDM.PDOC ---
ED HPI GENERAL MEDICAL PROBLEM - General Chief Complaint: General Stated Complaint: HIGH BLOOD SUGAR, VOMITTING Time Seen by Provider: 04/05/20 15:30 Source of Information: Reports: Patient History Limitations: Reports: No Limitations - History of Present Illness INITIAL COMMENTS - FREE TEXT/NARRATIVE: 29 yo female with multiple medical problems including diabetes has been running elevated blood sugars for the past 3 days and has had L sided abdominal pain since yesterday. Has vomited. No fever. No hematemesis. Has not had any other medical care this week. Denies knowledge of diverticular dz. Onset: Gradual Onset Date: 04/02/20 Duration: Day(s):, Getting Worse Location: Reports: Abdomen (L side), Generalized Quality: Reports: Ache Severity: Moderate Improves with: Reports: Rest Worsens with: Reports: Movement (or touching of area) Context: Reports: Other (See HPI) Associated Symptoms: Reports: Nausea/Vomiting. Denies: Fever/Chills, Shortness of Breath Treatments [employer]: Reports: Other (see below) (none) - Related Data Allergies Allergy/AdvReac Type Severity Reaction Status Date / Time diphenhydramine Allergy Itching Verified 03/02/20 17:33 ibuprofen AdvReac Nausea and Verified 03/02/20 17:33 Vomiting Home Meds: Home Meds Insulin Glarg,Human.Rec.Analog [Lantus Solostar] 10 units SQ BEDTIME 11/01/19 [History] Acetaminophen [Tylenol] 650 mg PO Q4H PRN 01/04/20 [History] Albuterol Sulfate [Albuterol Sulfate Hfa] 1 - 2 puff INH Q4H PRN 01/04/20 [History] Sertraline HCl 50 mg PO DAILY 01/04/20 [History] Apixaban [Eliquis] 5 mg PO BID 03/02/20 [History] Aspirin [Halfprin] 81 mg PO DAILY 03/02/20 [History] Bumetanide [Bumex] 1 mg PO DAILY 03/02/20 [History] Gabapentin [Neurontin] 300 mg PO DAILY 03/02/20 [History] Magnesium Chloride [Mag-64] 128 mg PO DAILY 03/02/20 [History] atorvaSTATin [Lipitor] 20 mg PO BEDTIME 03/02/20 [History] carvediloL [Carvedilol] 12.5 mg PO BID 03/02/20 [History] Insulin Aspart [NovoLOG] 3 units SQ TIDAC #3 pen 03/03/20 [Rx] hydrALAZINE [Apresoline] 25 mg PO QID 03/03/20 [History] oxyCODONE 5 mg PO Q6H PRN #15 tablet 03/03/20 [Rx] Past Medical History HEENT History: Reports: Impaired Vision Cardiovascular History: Reports: Afib, High Cholesterol, Hypertension, Other (See Below) Other Cardiovascular History: hypotension Gastrointestinal History: Reports: GERD, Other (See Below) Other Gastrointestinal History: abdominal pain hepatic steatosis Genitourinary History: Reports: Other (See Below) Other Genitourinary History: BRIAN Musculoskeletal History: Reports: Other (See Below) Neurological History: Reports: CVA, Neuropathy, Diabetic, Seizure, Other (See Below) Other Neuro History: medically noncompliant Psychiatric History: Reports: Anxiety, Depression, Other (See Below) Other Psychiatric History: history of drug use altered mental statis Endocrine/Metabolic History: Reports: Diabetes, Type I, Other (See Below) Other Endocrine/Metabolic History: polyneuropathy, ketoacidosis,hyperglycemia,hyperkalemia - Infectious Disease History Infectious Disease History: Reports: Chicken Pox - Past Surgical History GI Surgical History: Reports: Other (See Below) Other GI Surgeries/Procedures: upper endoscopy with biopsy 2019 Social & Family History - Caffeine Use Caffeine Use: Reports: Soda - Sexual History Other Sexual History Comment: Has girlfriend ED ROS GENERAL - Review of Systems Review Of Systems: See Below Constitutional: Reports: Malaise HEENT: Reports: No Symptoms Respiratory: Reports: No Symptoms Cardiovascular: Reports: No Symptoms Endocrine: Reports: High Glucose (high 500's at home today) GI/Abdominal: Reports: Abdominal Pain (L sided), Nausea, Vomiting. Denies: Black Stool, Bloody Stool, Constipation, Diarrhea, Distension, Hematemesis, Hematochezia, Melena : Reports: No Symptoms Musculoskeletal: Reports: No Symptoms Skin: Reports: No Symptoms Neurological: Reports: No Symptoms ED EXAM, GENERAL - Physical Exam Exam: See Below Exam Limited By: No Limitations General Appearance: Alert, WD/WN, No Apparent Distress Eye Exam: Bilateral Eye: Normal Inspection Ears: Normal External Exam, Normal Canal, Hearing Grossly Normal, Normal TMs Ear Exam: Bilateral Ear: Auricle Normal, Canal Normal Nose: Normal Inspection, No Blood Throat/Mouth: Normal Inspection, Normal Lips, Normal Oropharynx, Normal Voice, No Airway Compromise Head: Atraumatic, Normocephalic Neck: Normal Inspection Respiratory/Chest: No Respiratory Distress, Lungs Clear, Normal Breath Sounds, No Accessory Muscle Use Cardiovascular: Regular Rate, Rhythm, No Edema GI/Abdominal: No Distention, Guarding, Rebound, Tender (L sided). No: Distended Back Exam: Normal Inspection Extremities: Normal Inspection, Normal Range of Motion, Non-Tender, No Pedal Edema Neurological: Alert, Oriented, CN II-XII Intact, Normal Cognition, No Motor/Sensory Deficits Psychiatric: Normal Affect, Normal Mood Skin Exam: Warm, Dry, Intact, Normal Color, No Rash EKG INTERPRETATION EKG Date: 04/05/20 Time: 16:40 Rhythm: NSR Rate (Beats/Min): 86 [place]: RAD-Right [place] Deviation P-Wave: Present QRS: Normal ST-T: Normal QT: Prolonged Comparison: Change From Previous EKG Course - Vital Signs Last Recorded V/S: Last Vital Signs Temp 36.8 C 04/05/20 16:29 Pulse 90 04/05/20 16:29 Resp 16 04/05/20 16:29 BP 181/103 H 04/05/20 16:29 Pulse Ox 98 04/05/20 16:29 - Orders/Labs/Meds Orders: Active Orders 24 hr Category Date Time Status EKG Documentation Completion [RC] ASDIRECTED Care 04/05/20 16:30 Active DRUG SCREEN, URINE [URCHEM] Stat Lab 04/05/20 15:05 Ordered UA W/MICROSCOPIC [URIN] Stat Lab 04/05/20 15:04 Ordered Potassium Chloride [KCL 20 MEQ in Water 100 ML] 20 meq Med 04/05/20 16:29 Active Premix Bag 1 bag IV ONETIME EKG 12 Lead [EK] Routine Ther 04/05/20 16:29 Ordered Medication Orders Potassium Chloride 20 meq/ (Premix) 100 mls @ 50 mls/hr IV ONETIME ONE Stop: 04/05/20 18:28 Last Admin: 04/05/20 16:44 Dose: 50 mls/hr Documented by: [email or web address] Labs: Laboratory Tests 10/01/20 10/01/20 10/01/20 Range/Units 15:57 15:57 15:57 WBC 6.4 (4.5-11.0) K/uL RBC 3.47 (3.30-5.50) M/uL Hgb 9.0 L D (12.0-15.0) g/dL Hct 28.2 L (36.0-48.0) % MCV 81 (80-98) fL MCH 26 L (27-31) pg MCHC 32 (32-36) % Plt Count 288 (150-400) K/uL Puncture Site ABG pH (7.350-7.450) ABG pCO2 (35.0-42.0) mmHg ABG pO2 (75.0-100.0) mmHg ABG HCO3 (22.0-26.0) mmol/L ABG Total CO2 (21.0-25.0) mmol/L ABG O2 Saturation (95.0-98.0) % ABG O2 Content (15.0-23.0) %vol ABG Base Excess mm/L ABG Hemoglobin (12.0-16.0) g/dL ABG Oxyhemoglobin % ABG Carboxyhemoglobin (0.0-1.6) % ABG Methemoglobin % Santiago Test O2 Delivery Device Sodium 133 L (140-148) mmol/L Potassium 2.7 L* (3.6-5.2) mmol/L Chloride 97 L (100-108) mmol/L Carbon Dioxide 25 D (21-32) mmol/L Anion Gap 13.7 (5.0-14.0) mmol/L BUN 20 H (7-18) mg/dL Creatinine 2.3 H (0.6-1.0) mg/dL Est Cr Clr Drug Dosing 33.29 mL/min Estimated GFR (MDRD) 30 L (>60) Glucose 512 H* (74-106) mg/dL Calcium 9.5 D (8.5-10.1) mg/dL Magnesium (1.8-2.4) mg/dL Troponin I 0.158 H* (0.000-0.056) ng/mL C-Reactive Protein (0.0-0.3) mg/dL 04/05/20 04/05/20 04/05/20 Range/Units 15:57 15:57 16:01 WBC (4.5-11.0) K/uL RBC (3.30-5.50) M/uL Hgb (12.0-15.0) g/dL Hct (36.0-48.0) % MCV (80-98) fL MCH (27-31) pg MCHC (32-36) % Plt Count (150-400) K/uL Puncture Site Lt.brachial ABG pH 7.413 (7.350-7.450) ABG pCO2 38.0 (35.0-42.0) mmHg ABG pO2 155.0 H (75.0-100.0) mmHg ABG HCO3 23.8 (22.0-26.0) mmol/L ABG Total CO2 22.2 (21.0-25.0) mmol/L ABG O2 Saturation 95.2 (95.0-98.0) % ABG O2 Content 12.1 L (15.0-23.0) %vol ABG Base Excess -0.1 mm/L ABG Hemoglobin 9.5 L (12.0-16.0) g/dL ABG Oxyhemoglobin 88.1 % ABG Carboxyhemoglobin 2.8 H (0.0-1.6) % ABG Methemoglobin 4.7 % Santiago Test TNP O2 Delivery Device Room air Sodium (140-148) mmol/L Potassium (3.6-5.2) mmol/L Chloride (100-108) mmol/L Carbon Dioxide (21-32) mmol/L Anion Gap (5.0-14.0) mmol/L BUN (7-18) mg/dL Creatinine (0.6-1.0) mg/dL Est Cr Clr Drug Dosing mL/min Estimated GFR (MDRD) (>60) Glucose (74-106) mg/dL Calcium (8.5-10.1) mg/dL Magnesium 1.5 L (1.8-2.4) mg/dL Troponin I (0.000-0.056) ng/mL C-Reactive Protein 2.05 H (0.0-0.3) mg/dL Meds: Medications Generic Name Dose Route Start Last Admin Trade Name Freq PRN Reason Stop Dose Admin Potassium Chloride 20 meq/ 100 mls @ 50 mls/hr 04/05/20 16:29 04/05/20 16:44 Premix IV 04/05/20 18:28 50 mls/hr ONETIME ONE Administration Discontinued Medications Generic Name Dose Route Start Last Admin Trade Name Freq PRN Reason Stop Dose Admin Hydromorphone HCl 0.5 mg 04/05/20 15:43 04/05/20 16:28 Dilaudid IVPUSH 04/05/20 15:44 0.5 mg ONETIME ONE Administration Lactated Ringer's 1,000 mls @ 1,000 mls/hr 04/05/20 15:04 04/05/20 16:28 Ringers, Lactated IV 04/05/20 16:03 1,000 mls/hr BOLUS ONE Administration Insulin Human Regular 10 unit 04/05/20 16:28 04/05/20 16:43 Humulin R SUBCUT 04/05/20 16:29 10 unit ONETIME ONE Administration Magnesium Oxide 800 mg 04/05/20 16:22 04/05/20 16:44 Magnesium Oxide PO 04/05/20 16:23 800 mg ONETIME ONE Administration Metoclopramide HCl 10 mg 04/05/20 15:04 04/05/20 16:28 Reglan IVPUSH 04/05/20 15:05 10 mg ONETIME ONE Administration Potassium Chloride 40 meq 04/05/20 16:28 04/05/20 16:44 Potassium Chloride PO 04/05/20 16:29 40 meq ONETIME ONE Administration - Radiology Interpretation Free Text/Narrative:: CT abd/pelvis without contrast-IMPRESSION: CT of the abdomen shows moderate acute pancreatitis involving the pancreatic head. Moderate inflammatory changes extending throughout the abdomen as described above. Mild amount of fluid seen inferior to the pancreatic body with moderate amount of fluid in the pelvis, right greater than left. Scattered coarse calcifications throughout the pancreas consistent with previous pancreatitis. Satisfactory appearance status post cecal resection with ileocolic anastomosis seen to be widely patent. CT of the pelvis shows a 1.4 centimeter left ovarian cyst. As described above, there is a moderate amount of free fluid in the pelvis, right greater than left. Please note that all CT scans at this facility use dose modulation, iterative reconstruction, and/or weight-based dosing when appropriate to reduce radiation dose to as low as reasonably achievable. Dictated by Jose Mendez MD @ Apr 05 2020 5:34PM CT Results Date: 04/05/20 CT Results Time: 17:45 Departure - Departure Time of Disposition: 18:10 Disposition: DC/Tfer to Acute Hospital 02 Condition: Serious Clinical Impression: Hyperglycemia, Hypokalemia, Elevated troponin Acute pancreatitis Qualifiers: Pancreatitis type: unspecified pancreatitis type Acute pancreatitis complication: unspecified Qualified Code(s): K85.90 - Acute pancreatitis without necrosis or infection, unspecified - Discharge Information *PRESCRIPTION DRUG MONITORING PROGRAM REVIEWED*: Not Applicable *COPY OF PRESCRIPTION DRUG MONITORING REPORT IN PATIENT EDIN: Not Applicable Referrals: PCP,None [Primary Care Provider] - Forms: ED Department Discharge Sepsis Event Note (ED) - Focused Exam Vital Signs: Vital Signs Temp Pulse Resp BP Pulse Ox 04/05/20 16:29 36.8 C 90 16 181/103 H 98 04/05/20 15:34 36.8 C 90 16 181/103 H 98 - My Orders Last 24 Hours: My Active Orders 04/05/20 15:04 UA W/MICROSCOPIC [URIN] Stat 04/05/20 15:05 DRUG SCREEN, URINE [URCHEM] Stat 04/05/20 16:29 Potassium Chloride [KCL 20 MEQ in Water 100 ML] 20 meq Premix Bag 1 bag IV ONETIME EKG 12 Lead [EK] Routine 04/05/20 16:30 EKG Documentation Completion [RC] ASDIRECTED - Assessment/Plan Last 24 Hours: My Active Orders 04/05/20 15:04 UA W/MICROSCOPIC [URIN] Stat 04/05/20 15:05 DRUG SCREEN, URINE [URCHEM] Stat 04/05/20 16:29 Potassium Chloride [KCL 20 MEQ in Water 100 ML] 20 meq Premix Bag 1 bag IV ONETIME EKG 12 Lead [EK] Routine 04/05/20 16:30 EKG Documentation Completion [RC] ASDIRECTED
[2020-04-05] MEDS ORDERED: Magnesium Oxide 400 MG Tab PO ONE (16:22)
[2020-04-05] MEDS ORDERED: Insulin Regular, Human 100 Units/ML 3 ML Vial SUBCUT ONE (16:28)
[2020-04-05] MEDS ORDERED: Potassium Chloride 10 MEQ Cap.ER PO ONE (16:28)
[2020-04-05] MEDS ORDERED: Potassium Chloride 20 MEQ in Premix Bag 1 BAG IV ONE (16:29)
--- NOTE | 2020-04-05 17:45 | CRLCT ---
INDICATION: Left-sided pain with elevated CRP. Chronic renal failure. COMPARISON: None available TECHNIQUE: CT examination of the abdomen and pelvis was performed without contrast enhancement using 3 mm thick axial sections from the lung bases through the pubic symphysis. Oral contrast was not administered. Please note that all CT scans at this facility use dose modulation, iterative reconstruction, and/or weight-based dosing when appropriate to reduce radiation dose to as low as reasonably achievable. FINDINGS: The dome of the liver and upper pole of the spleen are not included on today`s study. Today`s study is diagnostic however. In the abdomen, the visualized portions of the unenhanced liver and spleen are normal in appearance. There are findings of moderate acute pancreatitis. The pancreatic head is mildly swollen and there is mild peripancreatic inflammation around the pancreatic head. The inflammation extends anteriorly and inferiorly along the body of the stomach and into the omentum. There is also extension of the inflammation into the para retroperitoneum, involving the periaortic and pericaval spaces. There is a mild amount of fluid located inferior to the pancreatic body. There is also a moderate amount of free fluid in the pelvis, more prominent on the right than the left. There are small coarse calcifications scattered throughout the pancreatic head, body, and tail consistent with previous pancreatitis. The adrenals are normal in appearance. The unenhanced kidneys are normal in appearance. The gallbladder is normal in appearance. The abdominal aorta is normal in caliber with no sign of dilatation. There is no sign of retroperitoneal mass or adenopathy. The stomach shows no sign of wall thickening to suggest gastritis related to the pancreatitis. There are changes of cecal resection with a widely patent ileocolic anastomosis. The rest of the loops of small bowel and colon in the abdomen are normal in appearance. The loops of small bowel and colon in the pelvis are normal in appearance. The left ovary has a 1.5 centimeter cyst. The uterus and right adnexal region are normal in appearance. The urinary bladder is normal in appearance. There is no sign of pelvic or inguinal mass or adenopathy. There is no sign of any free air or extraluminal air in the abdomen or pelvis. The lung bases are clear. There is minimal scoliosis of the thoracolumbar spine convex towards the right. The osseous structures are otherwise normal in appearance for the patient`s age. IMPRESSION: CT of the abdomen shows moderate acute pancreatitis involving the pancreatic head. Moderate inflammatory changes extending throughout the abdomen as described above. Mild amount of fluid seen inferior to the pancreatic body with moderate amount of fluid in the pelvis, right greater than left. Scattered coarse calcifications throughout the pancreas consistent with previous pancreatitis. Satisfactory appearance status post cecal resection with ileocolic anastomosis seen to be widely patent. CT of the pelvis shows a 1.4 centimeter left ovarian cyst. As described above, there is a moderate amount of free fluid in the pelvis, right greater than left. Please note that all CT scans at this facility use dose modulation, iterative reconstruction, and/or weight-based dosing when appropriate to reduce radiation dose to as low as reasonably achievable. Dictated by Jose Mendez MD @ Apr 05 2020 5:34PM Signed by Dr. Jose Mendez @ Apr 05 2020 5:43PM
[2020-04-05] MEDS ORDERED: Lactated Ringers 1,000 ML IV SCH (19:45)
== END 2020-04-05 21:13 ==
LOC: JP.ED 14:59
DX: K85.90 Acute pancreatitis without necrosis or infection, unspecified (principal); E87.6 Hypokalemia; N83.202 Unspecified ovarian cyst, left side; E10.65 Type 1 diabetes mellitus with hyperglycemia; E10.42 Type 1 diabetes mellitus with diabetic polyneuropathy; F41.9 Anxiety disorder, unspecified; F32.9 Major depressive disorder, single episode, unspecified; R79.89 Other specified abnormal findings of blood chemistry; I48.91 Unspecified atrial fibrillation; E78.00 Pure hypercholesterolemia, unspecified; Z79.01 Long term (current) use of anticoagulants; Z79.82 Long term (current) use of aspirin; Z79.899 Other long term (current) drug therapy; Z86.73 Personal history of transient ischemic attack (TIA), and cerebral infarction without residual deficits; Z88.6 Allergy status to analgesic agent; Z88.8 Allergy status to other drugs, medicaments and biological substances
CPT/HCPCS: 36415; 36600; 74176; 80048; 82803; 82962; 83690; 83735; 84484; 85027; 86140; 93005; 96365; 96366; 96375; 96376; 99285; A9270; J1170; J1815; J2765; J3480; J7120; 93010; 99283

== ENCOUNTER 2020-04-13 01:17 | Emergency (ER) | payer MEDICAID ==
--- NOTE | 2020-04-13 01:34 | EDM.PDOC ---
ED HPI GENERAL MEDICAL PROBLEM - General Chief Complaint: Neurological Problem Stated Complaint: [facility] Time Seen by Provider: 04/13/20 01:25 Source of Information: Reports: EMS History Limitations: Reports: Altered Mental Status - History of Present Illness INITIAL COMMENTS - FREE TEXT/NARRATIVE: Patient presents via local ambulance paramedics after being found unresponsive at home by family members. This patient has had multiple emergency department visits for hypoglycemia, unresponsiveness, brittle diabetes, poor system compliance. She was last seen here approximately 10 days ago after being found in a similar poorly responsive state. Tonight, the patient was found unresponsive by family members when they returned home from work. She was found on a concrete floor and there is no indication how long she may have been there. Family called 911 and reportedly when law enforcement arrived, the initial first responders, they did not detect pulse or breathing and did CPR for approximately 2 minutes. Paramedics arrived and were able to detect pulse and breathing at that time. She was responsive only to pain and felt cool to the touch. Based on many prior encounters with the patient, paramedics contacted local air ambulance service as she always has been transferred to other facilities for care when she presents as was found anika. Initially, there was not helicopter available and the paramedics made a decision to bring her here for initial evaluation and stabilization. On their way here, a helicopter was found available with an ETA of approximately 20 minutes. They came to us as a brief, intermediate stop until the patient could be flown to [place]. Had helicopter been available while they were initially at her home, they would have flown her directly from there to one of the [facility]. On arrival she was responsive to pain but would moan slightly. At the scene, EMS found her blood glucose to read low on their meter. They established an intraosseous point on the left tibia. She received some D10 solution prior to arrival here. On arrival, she felt cool but did respond to sternal rub with some extremity flexion. There was a nasal trumpet in place in the left nostril. As she was transferred to her cart, paramedics were notified that the helicopter was 15 minutes out from the airport. And an additional IV was attempted in the left humeral region. Altamirano catheter was placed. Skin temperature was found to be 83 degrees and she was given 1 L of warm lactated Ringer's at 500 mL/h. We were unable to get peripheral blood except for a tiny drop at the time of her other IV start. That shows a glucose value of 76. I contacted [facility], the typical receiving facility for her and they were unable to take any patients. I contacted [facility] and spoke with emergency department staff regarding the case. They accepted her and would arrange to have their wire rope sling maker contact us. Paramedics had obtained an EKG at the scene which showed sinus rhythm with occasional short bursts of what appeared to be ventricular tachycardia but nonsustained. Onset: Unknown/Unsure Location: Reports: Generalized Severity: Severe Improves with: Reports: None Worsens with: Reports: None - Related Data Allergies Allergy/AdvReac Type Severity Reaction Status Date / Time diphenhydramine Allergy Itching Verified 03/02/20 17:33 ibuprofen AdvReac Nausea and Verified 03/02/20 17:33 Vomiting Home Meds: Home Meds Insulin Glarg,Human.Rec.Analog [Lantus Solostar] 10 units SQ BEDTIME 11/01/19 [History] Acetaminophen [Tylenol] 650 mg PO Q4H PRN 01/04/20 [History] Albuterol Sulfate [Albuterol Sulfate Hfa] 1 - 2 puff INH Q4H PRN 01/04/20 [History] Sertraline HCl 50 mg PO DAILY 01/04/20 [History] Apixaban [Eliquis] 5 mg PO BID 03/02/20 [History] Aspirin [Halfprin] 81 mg PO DAILY 03/02/20 [History] Bumetanide [Bumex] 1 mg PO DAILY 03/02/20 [History] Gabapentin [Neurontin] 300 mg PO DAILY 03/02/20 [History] Magnesium Chloride [Mag-64] 128 mg PO DAILY 03/02/20 [History] atorvaSTATin [Lipitor] 20 mg PO BEDTIME 03/02/20 [History] carvediloL [Carvedilol] 12.5 mg PO BID 03/02/20 [History] Insulin Aspart [NovoLOG] 3 units SQ TIDAC #3 pen 03/03/20 [Rx] hydrALAZINE [Apresoline] 25 mg PO QID 03/03/20 [History] oxyCODONE 5 mg PO Q6H PRN #15 tablet 03/03/20 [Rx] Past Medical History HEENT History: Reports: Impaired Vision Cardiovascular History: Reports: Afib, High Cholesterol, Hypertension, Other (See Below) Other Cardiovascular History: hypotension Gastrointestinal History: Reports: GERD, Other (See Below) Other Gastrointestinal History: abdominal pain hepatic steatosis Genitourinary History: Reports: Other (See Below) Other Genitourinary History: BRIAN Musculoskeletal History: Reports: Other (See Below) Neurological History: Reports: CVA, Neuropathy, Diabetic, Seizure, Other (See Below) Other Neuro History: medically noncompliant Psychiatric History: Reports: Anxiety, Depression, Other (See Below) Other Psychiatric History: history of drug use altered mental statis Endocrine/Metabolic History: Reports: Diabetes, Type I, Other (See Below) Other Endocrine/Metabolic History: polyneuropathy, ketoacidosis,hyperglycemia,hyperkalemia - Infectious Disease History Infectious Disease History: Reports: Chicken Pox - Past Surgical History GI Surgical History: Reports: Other (See Below) Other GI Surgeries/Procedures: upper endoscopy with biopsy 2019 Social & Family History - Caffeine Use Caffeine Use: Reports: Soda - Sexual History Other Sexual History Comment: Has girlfriend ED ROS GENERAL - Review of Systems Review Of Systems: Unable To Obtain Reason Not Obtained: Altered mental status due to hypoglycemia and possibly a cardiac - Physical Exam Exam: See Below Exam Limited By: Altered Mental Status General Appearance: Obtunded Eye Exam: Bilateral Eye: PERRL (2 mm pupils) Ears: Normal External Exam Nose: Normal Inspection Respiratory/Chest: No Respiratory Distress Cardiovascular: Regular Rate, Rhythm, Extra Beats GI/Abdominal: Soft, Non-Tender Neuro Exam (Abbreviated): Unresponsive (Although she does respond to a sternal rub weekly.) Skin Exam: Cool Course - Vital Signs Last Recorded V/S: Last Vital Signs Temp 28.3 C L 04/13/20 01:37 Pulse 67 04/13/20 01:37 Resp 11 L 04/13/20 01:37 BP 177/120 H 04/13/20 01:37 Pulse Ox 100 04/13/20 01:37 - Orders/Labs/Meds Orders: Active Orders 24 hr Category Date Time Status Altamirano Catheter Insertion [Insert Urinary Catheter] [OM. Care 04/13/20 01:45 Ordered PC] Q24H Urinary Catheter Assessment [RC] ASDIRECTED Care 04/13/20 01:39 Ordered Lactated Ringers [Ringers, Lactated] 1,000 ml Med 04/13/20 01:45 Ordered IOSS ASDIRECTED Medication Orders Lactated Ringer's (Ringers, Lactated) 1,000 mls @ 500 mls/hr IOSS ASDIRECTED [facility] Last Admin: 04/13/20 01:30 Dose: 500 mls/hr Documented by: Meds: Medications Generic Name Dose Route Start Last Admin Trade Name Frejohnnie PRN Reason Stop Dose Admin Lactated Ringer's 1,000 mls @ 500 mls/hr 04/13/20 01:45 04/13/20 01:30 Ringers, Lactated IOSS 500 mls/hr ASDIRECTED [facility] Administration - Re-Assessments/Exams Free Text/Narrative Re-Assessment/Exam: 04/13/20 02:42 Patient was in our facility for only a brief period of time prior to transport to [place] which she would have needed. She was moving head and neck slightly and moving her hands at the time of transfer to the helicopter. We did not attempt intubation at that time. Altamirano catheter was placed. Blood pressure was in the 190 systolic range, heart rate was in the 70s and she was breathing approximately 14-15 times per minute. Her total time in the department may have been only 22 minutes or so. As the patient was being placed in the ambulance to go to the airport, critical care staff from [facility] called and her case was reviewed with him. Although CPR was performed by law enforcement on initial arrival, it is not known for certain whether the patient was actually in cardiac arrest? Paramedics on their arrival did find vital signs. EKG was as described previously the patient's vital signs remained stable in the department here for her brief time. Critical care staff was upset with the fact that the patient had not been intubated prior to discharge from this department. Due to the related operational tempo of the department, her beginnings of pain is movement, and the desire to facilitate transfer, we did not attempt intubation. Flight paramedics would be able to intubator if needed. Departure - Departure Time of Disposition: 01:50 Disposition: DC/Tfer to Acute Hospital 02 Condition: Poor Clinical Impression: Hypoglycemia, Unresponsive state Hypothermia Qualifiers: Encounter type: initial encounter Qualified Code(s): T68.XXXA - Hypothermia, initial encounter - Discharge Information Referrals: PCP,None [Primary Care Provider] - Forms: ED Department Discharge Additional Instructions: Transfer to [facility]. Sepsis Event Note (ED) - Focused Exam Vital Signs: Vital Signs Temp Pulse Resp BP Pulse Ox 04/13/20 01:37 28.3 C L 67 11 L 177/120 H 100 - My Orders Last 24 Hours: My Active Orders 04/13/20 01:39 Urinary Catheter Assessment [RC] ASDIRECTED 04/13/20 01:45 Altamirano Catheter Insertion [Insert Urinary Catheter] [OM.PC] Q24H Lactated Ringers [Ringers, Lactated] 1,000 ml IOSS ASDIRECTED - Assessment/Plan Last 24 Hours: My Active Orders 04/13/20 01:39 Urinary Catheter Assessment [RC] ASDIRECTED 04/13/20 01:45 Altamirano Catheter Insertion [Insert Urinary Catheter] [OM.PC] Q24H Lactated Ringers [Ringers, Lactated] 1,000 ml IOSS ASDIRECTED
[2020-04-13] MEDS ORDERED: Lactated Ringers 1,000 ML IOSS SCH (01:45)
== END 2020-04-13 02:00 ==
LOC: JP.ED 01:17
DX: T68.XXXA Hypothermia, initial encounter (principal); E10.649 Type 1 diabetes mellitus with hypoglycemia without coma; I10 Essential (primary) hypertension; I48.91 Unspecified atrial fibrillation; E78.00 Pure hypercholesterolemia, unspecified; E10.42 Type 1 diabetes mellitus with diabetic polyneuropathy; F41.9 Anxiety disorder, unspecified; F32.9 Major depressive disorder, single episode, unspecified; Z88.6 Allergy status to analgesic agent; Z88.8 Allergy status to other drugs, medicaments and biological substances; Z86.73 Personal history of transient ischemic attack (TIA), and cerebral infarction without residual deficits; Z79.82 Long term (current) use of aspirin; Z79.01 Long term (current) use of anticoagulants; Z79.899 Other long term (current) drug therapy
CPT/HCPCS: 51702; 99285; J7120; 99284

== ENCOUNTER 2020-12-11 14:07 | Inpatient (IN) | payer MEDICAID ==
[2020-12-11] MEDS ORDERED: Ondansetron 4 MG/2 ML SDV IVPUSH ONE ×2 (16:38→23:08)
[2020-12-11] MEDS ORDERED: Sodium Chloride 0.9% 1,000 ML IV SCH ×2 (16:45→19:30)
--- NOTE | 2020-12-11 18:26 | EDM.PDOC ---
<Bro Angela - Last Filed: 12/11/20 22:04> ED HPI GENERAL MEDICAL PROBLEM - General Chief Complaint: General Time Seen by Provider: 12/11/20 14:30 - Related Data Allergies Allergy/AdvReac Type Severity Reaction Status Date / Time diphenhydramine Allergy Itching Verified 12/11/20 15:04 ibuprofen AdvReac Nausea and Verified 12/11/20 15:04 Vomiting Home Meds: Home Meds Insulin Glarg,Human.Rec.Analog [Lantus Solostar] 10 units SQ BEDTIME 11/01/19 [History] Acetaminophen [Tylenol] 650 mg PO Q4H PRN 01/04/20 [History] Albuterol Sulfate [Albuterol Sulfate Hfa] 1 - 2 puff INH Q4H PRN 01/04/20 [History] Sertraline HCl 50 mg PO DAILY 01/04/20 [History] Apixaban [Eliquis] 5 mg PO BID 03/02/20 [History] Aspirin [Halfprin] 81 mg PO DAILY 03/02/20 [History] Bumetanide [Bumex] 1 mg PO DAILY 03/02/20 [History] Gabapentin [Neurontin] 300 mg PO DAILY 03/02/20 [History] Magnesium Chloride [Mag-64] 128 mg PO DAILY 03/02/20 [History] atorvaSTATin [Lipitor] 20 mg PO BEDTIME 03/02/20 [History] carvediloL [Carvedilol] 12.5 mg PO BID 03/02/20 [History] Insulin Aspart [NovoLOG] 3 units SQ TIDAC #3 pen 03/03/20 [Rx] hydrALAZINE [Apresoline] 25 mg PO QID 03/03/20 [History] oxyCODONE 5 mg PO Q6H PRN #15 tablet 03/03/20 [Rx] Course - Vital Signs Text/Narrative:: Jose Ray called @ 2135h Dr. Mooney called @ - Radiology Interpretation Free Text/Narrative:: CT abd/pelvis without contrast- IMPRESSION: 1. Bibasilar bronchial wall thickening with a few areas of mucus plugging, likely representing bronchitis. 2. No acute intra-abdominal abnormality identified. No urinary tract stones or hydronephrosis. 3. Chronic pancreatitis. 4. Status post resection of the proximal colon with ileocolic anastomosis, as before. 5. Aortoiliac atherosclerotic calcifications, prominent for age. MIK GOMEZ MD [facility] CXR-neg CT Results Date: 12/11/20 CT Results Time: 21:10 Departure - Departure Time of Disposition: 22:30 Disposition: Admitted As Inpatient 65 Condition: Serious Clinical Impression: Elevated amylase, Dehydration DKA (diabetic ketoacidoses) Qualifiers: Diabetes mellitus type: type 1 Diabetes mellitus complication detail: without coma Qualified Code(s): E10.10 - Type 1 diabetes mellitus with ketoacidosis without coma Nausea and vomiting Qualifiers: Vomiting type: unspecified Vomiting Intractability: non-intractable Qualified Code(s): R11.2 - Nausea with vomiting, unspecified - Discharge Information <Nazia Bullock - Last Filed: 12/12/20 07:46> ED HPI GENERAL MEDICAL PROBLEM - General Source of Information: Reports: Patient History Limitations: Reports: No Limitations - History of Present Illness INITIAL COMMENTS - FREE TEXT/NARRATIVE: PT HAS BEEN SICK FOR THE PAST 4 DAYS. sHE HAS BEEN VOMITING. sHE HAS UPPER ABDOMANAL PAIN. sHE HAS NOT BEEN HAVING STOOLS BUT SHE HAS NOT BEEN EATING. Pt is a known diabetic who has been vomiting and having abdomanal pain. She is very dehydrated. Pt does not know what her sugar has been looking like because she has been too sick to check it. Onset: Other ( 4 DAYS AGO. ) Duration: Day(s): Location: Reports: Abdomen, Other (PT HAS HAD A STROKE IN THE PAST WITH A ) Associated Symptoms: Reports: Other (PT HAS HAD A PREVIOUS CVA WITH WEAKNESS ON THE RT SIDE. ) Chest Pain Score (Numeric/FACES): 3 Past Medical History HEENT History: Reports: Impaired Vision Cardiovascular History: Reports: Afib, High Cholesterol, Hypertension, Other (See Below) Other Cardiovascular History: hypotension Respiratory History: Reports: Asthma Gastrointestinal History: Reports: GERD, Other (See Below) Other Gastrointestinal History: abdominal pain hepatic steatosis Genitourinary History: Reports: Other (See Below) Other Genitourinary History: BRIAN Musculoskeletal History: Reports: Other (See Below) Other Musculoskeletal History: neuropathy Neurological History: Reports: CVA, Neuropathy, Diabetic, Seizure, Other (See Below) Other Neuro History: medically noncompliant. weakness on right side from CVA Psychiatric History: Reports: Anxiety, Depression, Other (See Below) Other Psychiatric History: history of drug use altered mental statis Endocrine/Metabolic History: Reports: Diabetes, Type I, Other (See Below) Other Endocrine/Metabolic History: polyneuropathy, ketoacidosis,hyperglycemia,hyperkalemia - Infectious Disease History Infectious Disease History: Reports: Chicken Pox - Past Surgical History Cardiovascular Surgical History: Reports: None Respiratory Surgical History: Reports: None GI Surgical History: Reports: Other (See Below) Other GI Surgeries/Procedures: upper endoscopy with biopsy 2020 Female Surgical History: Reports: None Endocrine Surgical History: Reports: None Neurological Surgical History: Reports: None Musculoskeletal Surgical History: Reports: None Dermatological Surgical History: Reports: None Social & Family History - Tobacco Use Tobacco Use Status *Q: Current Every Day Tobacco User Years of Tobacco use: 10 Packs/Tins Daily: 0.5 - Caffeine Use Caffeine Use: Reports: Soda Caffeine Use Comment: unable to obtain - Recreational Drug Use Recreational Drug Use: No - Sexual History Other Sexual History Comment: Has girlfriend ED ROS GENERAL - Review of Systems Review Of Systems: See Below Constitutional: Reports: No Symptoms HEENT: Reports: No Symptoms Respiratory: Reports: No Symptoms Cardiovascular: Reports: No Symptoms Endocrine: Reports: No Symptoms GI/Abdominal: Reports: Abdominal Pain, Vomiting, Other ( PT HAS BEEN VOMITING FOR THE PAST 4 DAYS. ) : Reports: No Symptoms Musculoskeletal: Reports: No Symptoms Skin: Reports: No Symptoms Neurological: Reports: No Symptoms, Other (past history of a stroke, ) Psychiatric: Reports: Other (pt does seem somewhat obtunded. ) ED EXAM, GENERAL - Physical Exam Exam: See Below Free Text/Narrative:: PT ARRIVED WITH UPPER ABDOMANAL PAIN. sHE STATES SHE HAS BEEN VOMITING FOR THE PAST 4 DAY. Exam Limited By: No Limitations General Appearance: Alert, Lethargic, Moderate Distress Ears: Normal TMs Nose: Normal Inspection Throat/Mouth: Other (MOUTH IS EXTREMELY DRY WITH ALOT OF MUCOUS CAKED TO THE AREA. ) Head: Atraumatic Neck: Normal Inspection Respiratory/Chest: No Respiratory Distress Cardiovascular: Regular Rate, Rhythm, Tachycardia GI/Abdominal: Tender, Other (PT IS TENDER IN THE EPIGASTRIC AREA. sHE DOES NOT KNOW IF SHE HAD PANCREATITIS IN THE PAST. ) (Female) Exam: Deferred Rectal (Female) Exam: Deferred Back Exam: Normal Inspection Extremities: Other ( PT HAS A OLD RT SIDED HEMIPARES. ) Neurological: Alert, Oriented, Other (PT IS LETHARGIC. ) Psychiatric: Anxious #1 Interpretation Rhythm: NSR EKG Interpretation Comments: PT HAS EVIDENCE OF ATRIAL ENLARGEMENT. dEFINITE TACHY. Course - Vital Signs Last Recorded V/S: Last Vital Signs Temp 36.8 C 12/12/20 02:00 Pulse 110 H 12/12/20 06:00 Resp 29 H 12/12/20 06:00 BP 174/106 H 12/12/20 06:00 Pulse Ox 93 L 12/12/20 06:00 - Orders/Labs/Meds Orders: Active Orders 24 hr Category Date Time Status Patient Status [ADT] Routine ADT 12/11/20 23:05 Active Ambulate [RC] QID Care 12/11/20 23:05 Active Blood Glucose Check, Bedside [RC] Q1H Care 12/11/20 22:32 Active Diabetes Education [RC] Click to Edit Care 12/11/20 22:29 Active Height and Weight [RC] DAILY Care 12/11/20 23:05 Active Intake and Output [RC] QSHIFT Care 12/11/20 23:05 Active Notify Provider Laboratory Res [RC] ASDIRECTED Care 12/11/20 22:31 Active Notify Provider Laboratory Res [RC] ASDIRECTED Care 12/11/20 22:31 Active Notify Provider Laboratory Res [RC] ASDIRECTED Care 12/11/20 22:31 Active Notify Provider Vital Signs [RC] ASDIRECTED Care 12/11/20 23:05 Active Notify Provider [RC] PRN Care 12/11/20 22:29 Active Oxygen Therapy [RC] PRN Care 12/11/20 23:05 Active Peripheral IV Care [RC] . DIRECTED Care 12/11/20 23:05 Active RT Aerosol Therapy [RC] ASDIRECTED Care 12/11/20 23:05 Active RT Post Treatment Assessment [RC] Click to Edit Care 12/11/20 23:05 Active Up With Assistance [RC] ASDIRECTED Care 12/11/20 23:05 Active Up to Chair [RC] QID Care 12/11/20 23:05 Active VTE/DVT Education [RC] Per Unit Routine Care 12/11/20 23:05 Active Vital Signs [RC] Q1H Care 12/11/20 22:29 Active Consult to Diabetic Nurse Specialist [CONS] Urgent Cons 12/11/20 22:29 Active Consistent Carbohydrate Diet [DIET] Diet 12/11/20 Breakfast Active Chest 1V Frontal [CR] Stat Exams 12/11/20 18:56 Taken BASIC METABOLIC PANEL,BMP [CHEM] Q4H Lab 12/12/20 10:30 Ordered BASIC METABOLIC PANEL,BMP [CHEM] Q4H Lab 12/12/20 14:30 Ordered BASIC METABOLIC PANEL,BMP [CHEM] Q4H Lab 12/12/20 18:30 Ordered MAGNESIUM [CHEM] Q6H Lab 12/12/20 10:30 Ordered MAGNESIUM [CHEM] Q6H Lab 12/12/20 16:30 Ordered PHOSPHORUS [CHEM] Q6H Lab 12/12/20 10:30 Ordered PHOSPHORUS [CHEM] Q6H Lab 12/12/20 16:30 Ordered POTASSIUM,K [CHEM] Q2H Lab 12/12/20 08:30 Ordered POTASSIUM,K [CHEM] Q2H Lab 12/12/20 12:30 Ordered POTASSIUM,K [CHEM] Q2H Lab 12/12/20 16:30 Ordered POTASSIUM,K [CHEM] Q2H Lab 12/12/20 20:30 Ordered Acetaminophen [TylenoL] Med 12/11/20 23:05 Active 650 mg PO Q4H PRN Albuterol [Proventil Neb Soln] Med 12/11/20 23:05 Active 2.5 mg NEB Q4H PRN Albuterol [Ventolin HFA] Med 12/11/20 23:05 Active 1 - 2 gm INH Q4H PRN Apixaban [Eliquis] Med 12/12/20 09:00 Active 5 mg PO BID Aspirin [Halfprin] Med 12/12/20 09:00 Active 81 mg PO DAILY Dextrose 5%-0.45% NaCl [Dextrose 5%-1/2 NS] 1,000 ml Med 12/11/20 22:29 Active IV .CONTINUOUS Dextrose 50% in Water Med 12/11/20 23:05 Active 50 ml IVPUSH ASDIRECTED PRN Dextrose 50% in Water Med 12/11/20 22:29 Active 50 ml IVPUSH ONETIME PRN Gabapentin [Neurontin] Med 12/12/20 09:00 Active 300 mg PO DAILY Glucagon,Human Recombinant [GlucaGen] Med 12/11/20 23:05 Active 1 mg IM ASDIRECTED PRN Insulin Glarg,Human.Rec.Analog [LantUS Solostar] Med 12/12/20 21:00 Active 10 units SUBCUT BEDTIME Insulin Regular in 0.9 % NACL [Myxredlin in NS 100 UNIT Med 12/11/20 22:30 Active /100 ML] 100 ml IV ASDIRECTED Magnesium Oxide Med 12/12/20 09:00 Active 400 mg PO DAILY Ondansetron [Zofran] Med 12/11/20 23:05 Active 4 mg IV Q4H PRN Potassium Chloride [KCL in Water 20 MEQ/100 ML] 20 meq Med 12/11/20 23:00 Active Premix Bag 1 bag IV Q2H Potassium Chloride [Potassium Chloride Solution] Med 12/11/20 22:29 Active 20 meq PO NOW PRN Potassium Chloride [Potassium Chloride Solution] Med 12/11/20 22:29 Active 40 meq PO NOW PRN Potassium Chloride [Potassium Chloride Solution] Med 12/11/20 22:29 Active 40 meq PO Q2H PRN Sertraline [Zoloft] Med 12/12/20 09:00 Active 50 mg PO DAILY Sodium Chloride 0.9% [Normal Saline] 2,000 ml Med 12/11/20 22:29 Active IV .CONTINUOUS Sodium Chloride 0.9% [Saline Flush] Med 12/11/20 23:05 Active 10 ml FLUSH ASDIRECTED PRN atorvaSTATin [Lipitor] Med 12/12/20 21:00 Active 20 mg PO BEDTIME carvediloL [Coreg] Med 12/12/20 09:00 Active 12.5 mg PO BID hydrALAZINE [Apresoline] Med 12/12/20 06:00 Active 25 mg PO QID oxyCODONE Med 12/11/20 23:05 Active 5 mg PO Q6H PRN polyethylene glycoL 3350 [MiraLAX] Med 12/11/20 23:05 Active 17 gm PO DAILY PRN Medication Continuation Instructions [OM.PC] ASDIRECTED Oth 12/11/20 22:30 Ordered Medication Discontinuation Instructions [OM.PC] Oth 12/11/20 22:30 Ordered ASDIRECTED Medication Discontinuation Instructions [OM.PC] Routine Oth 12/11/20 22:33 Ordered Peripheral IV Insertion Adult [OM.PC] Routine Oth 12/11/20 23:05 Ordered Sequential Compression Device [OM.PC] Per Unit Routine Oth 12/11/20 23:05 Ordered Resuscitation Status Routine Resus Stat 12/11/20 22:48 Ordered EKG 12 Lead [EK] Routine Ther 12/11/20 18:58 Stop Req Medication Orders Acetaminophen (Acetaminophen 325 Mg Tab) 650 mg PO Q4H PRN PRN Reason: Pain (Mild 1-3)/fever Albuterol (Albuterol 8 Gm Inhaler) 1 - 2 gm INH Q4H PRN PRN Reason: Shortness of Breath Albuterol (Albuterol 0.083% 2.5 Mg/3 Ml Neb Soln) 2.5 mg NEB Q4H PRN PRN Reason: Shortness Of Breath/wheezing Last Admin: 12/12/20 05:43 Dose: 2.5 mg Documented by: TOMÁS Apixaban (Apixaban 5 Mg Tab) 5 mg PO BID [facility] Aspirin (Aspirin 81 Mg Tab.Ec) 81 mg PO DAILY [facility] Atorvastatin Calcium (Atorvastatin 20 Mg Tab) 20 mg PO BEDTIME [facility] Carvedilol (Carvedilol 12.5 Mg Tab) 12.5 mg PO BID [facility] Dextrose/Water (50% Dextrose In Water 50 Ml Syringe) 50 ml IVPUSH ONETIME PRN PRN Reason: Blood Glucose Dextrose/Water (50% Dextrose In Water 50 Ml Syringe) 50 ml IVPUSH ASDIRECTED PRN PRN Reason: Hypoglycemia Gabapentin (Gabapentin 300 Mg Cap) 300 mg PO DAILY [facility] Glucagon (Glucagon,Human Recombinant 1 Mg Vial) 1 mg IM ASDIRECTED PRN PRN Reason: Hypoglycemia Hydralazine HCl (Hydralazine 25 Mg Tab) 25 mg PO QID [facility] Last Admin: 12/12/20 05:43 Dose: 25 mg Documented by: TOMÁS Sodium Chloride (Normal Saline) 2,000 mls @ 500 mls/hr IV .CONTINUOUS PRN PRN Reason: Blood Glucose Last Infusion: 12/12/20 02:07 Dose: 0 mls/hr Documented by: Admin: 12/11/20 23:36 Dose: 500 mls/hr Documented by: TOMÁS Dextrose/Sodium Chloride (Dextrose 5%-1/2 Ns) 1,000 mls @ 150 mls/hr IV .CONTINUOUS PRN PRN Reason: Blood Glucose Last Admin: 12/12/20 02:08 Dose: 150 mls/hr Documented by: TOMÁS Potassium Chloride 20 meq/ (Premix) 100 mls @ 50 mls/hr IV Q2H PRN PRN Reason: Hypokalemia Insulin Regular in 0.9 % NACL (Myxredlin In Ns 100 Unit/100 Ml) 100 mls @ 5.897 mls/hr IV ASDIRECTED [facility]; Protocol Last Infusion: 12/12/20 06:01 Dose: 0.05 units/kg/hr, 3 mls/hr Documented by: TOMÁS Cosigned by: ELAINA Infusion: 12/12/20 04:12 Dose: 0.03 units/kg/hr, 2 mls/hr Documented by: TOMÁS Cosigned by: ELAINA Infusion: 12/12/20 02:05 Dose: 0.05 units/kg/hr, 3 mls/hr Documented by: TOMÁS Cosigned by: ELAINA Infusion: 12/12/20 01:07 Dose: 0.1 units/kg/hr, 6 mls/hr Documented by: ELAINA Cosigned by: TOMÁS Admin: 12/11/20 23:29 Dose: 0.2 units/kg/hr, 12 mls/hr Documented by: TOMÁS Cosigned by: ELAINA Piperacillin/Tazobactam/ (Dextrose 3.375 gm/ Premix) 50 mls @ 100 mls/hr IV Q6H [facility] Vancomycin HCl 1.5 gm/ Sodium (Chloride) 250 mls @ 167 mls/hr IV ONETIME ONE Stop: 12/12/20 10:29 Insulin Glargine (Insulin Glargine,Human Rec. Analog 100 Units/Ml 3 Ml Pen) 10 units SUBCUT BEDTIME [facility] Magnesium Oxide (Magnesium Oxide 400 Mg Tab) 400 mg PO DAILY [facility] Morphine Sulfate (Morphine 2 Mg/Ml Syringe) 2 mg IVPUSH Q1H PRN PRN Reason: Pain Last Admin: 12/12/20 04:06 Dose: 2 mg Documented by: Admin: 12/12/20 02:47 Dose: 2 mg Documented by: Admin: 12/12/20 01:02 Dose: 2 mg Documented by: TOMÁS Ondansetron HCl (Ondansetron 4 Mg/2 Ml Sdv) 4 mg IV Q4H PRN PRN Reason: Nausea/Vomiting Last Admin: 12/12/20 04:49 Dose: 4 mg Documented by: TOMÁS Oxycodone HCl (Oxycodone 5 Mg Tab) 5 mg PO Q6H PRN PRN Reason: Pain Polyethylene Glycol (Polyethylene Glycol 3350 Powder 17 Gm Packet) 17 gm PO DAILY PRN PRN Reason: Constipation Potassium Chloride (Potassium Chloride 10% 20 Meq/15 Ml Soln 15 Ml Ud Cup) 20 meq PO NOW PRN PRN Reason: Hypokalemia Last Admin: 12/12/20 04:45 Dose: 20 meq Documented by: TOMÁS Potassium Chloride (Potassium Chloride 10% 20 Meq/15 Ml Soln 15 Ml Ud Cup) 40 meq PO NOW PRN PRN Reason: Hypokalemia Potassium Chloride (Potassium Chloride 10% 20 Meq/15 Ml Soln 15 Ml Ud Cup) 40 meq PO Q2H PRN PRN Reason: Hypokalemia Sertraline HCl (Sertraline 50 Mg Tab) 50 mg PO DAILY [facility] Sodium Chloride (Sodium Chloride 0.9% 10 Ml Syringe) 10 ml FLUSH ASDIRECTED PRN PRN Reason: Keep Vein Open Vancomycin HCl (Vancomycin 1 Gm Sdv) 1 gm IV .PHARMACY TO DOSE [facility] Labs: Laboratory Tests 12/11/20 12/11/20 12/11/20 Range/Units 16:37 17:50 17:50 WBC 13.5 H (4.5-11.0) K/uL RBC 3.83 (3.30-5.50) M/uL Hgb 11.2 L D (12.0-15.0) g/dL Hct 33.3 L (36.0-48.0) % MCV 87 (80-98) fL MCH 29 (27-31) pg MCHC 34 (32-36) % Plt Count 217 (150-400) K/uL Neut % (Auto) 81.8 H (36-66) % Lymph % (Auto) 7.8 L (24-44) % [place] % (Auto) 9.6 H (2-6) % Eos % (Auto) 0.7 L (2-4) % Baso % (Auto) 0.1 (0-1) % VBG pH (7.350-7.450) Sodium 135 L (140-148) mmol/L Potassium 4.7 (3.6-5.2) mmol/L Chloride 97 L (100-108) mmol/L Carbon Dioxide 11 L (21-32) mmol/L Anion Gap 31.7 H (5.0-14.0) mmol/L BUN 50 H D (7-18) mg/dL Creatinine 3.8 H* D (0.6-1.0) mg/dL Est Cr Clr Drug Dosing 19.97 mL/min Estimated GFR (MDRD) 17 L (>60) Glucose 680 H* (74-106) mg/dL POC Glucose (74-106) mg/dL Calcium 8.1 L (8.5-10.1) mg/dL Phosphorus (2.5-4.9) mg/dL Magnesium (1.8-2.4) mg/dL Total Bilirubin 0.9 (0.2-1.0) mg/dL AST 22 (15-37) U/L ALT 15 (12-78) U/L Alkaline Phosphatase 103 (46-116) U/L C-Reactive Protein (0.0-0.3) mg/dL Total Protein 7.5 (6.4-8.2) g/dL Albumin 3.0 L (3.4-5.0) g/dL Globulin 4.5 H (2.3-3.5) g/dL Albumin/Globulin Ratio 0.7 L (1.2-2.2) Amylase (25-115) U/L Lipase (73-393) U/L Urine Color Cancelled Urine Appearance Cancelled Urine pH Cancelled Ur Specific [place] Cancelled Urine Protein Cancelled Urine Glucose (UA) Cancelled Urine Ketones Cancelled Urine Occult Blood Cancelled Urine Nitrite Cancelled Urine Bilirubin Cancelled Urine Urobilinogen Cancelled Ur Leukocyte Esterase Cancelled Urine RBC Cancelled Urine WBC Cancelled Ur Epithelial Cells Cancelled Amorphous Sediment Cancelled Urine Bacteria Cancelled Urine Mucus Cancelled Urine Other Cancelled Urinalysis Comment Cancelled Urine Opiates Screen (NEGATIVE) Ur Oxycodone Screen (NEGATIVE) Urine Methadone Screen (NEGATIVE) Ur Propoxyphene Screen (NEGATIVE) Ur Barbiturates Screen (NEGATIVE) Ur Tricyclics Screen (NEGATIVE) Ur Phencyclidine Scrn (NEGATIVE) Ur Amphetamine Screen (NEGATIVE) U Methamphetamines Scrn (NEGATIVE) Urine MDMA Screen (NEGATIVE) U Benzodiazepines Scrn (NEGATIVE) U Cocaine Metab Screen (NEGATIVE) U Marijuana (THC) Screen (NEGATIVE) 12/11/20 12/11/20 12/11/20 Range/Units 17:50 17:50 19:49 WBC (4.5-11.0) K/uL RBC (3.30-5.50) M/uL Hgb (12.0-15.0) g/dL Hct (36.0-48.0) % MCV (80-98) fL MCH (27-31) pg MCHC (32-36) % Plt Count (150-400) K/uL Neut % (Auto) (36-66) % Lymph % (Auto) (24-44) % [place] % (Auto) (2-6) % Eos % (Auto) (2-4) % Baso % (Auto) (0-1) % VBG pH 7.242 L (7.350-7.450) Sodium (140-148) mmol/L Potassium (3.6-5.2) mmol/L Chloride (100-108) mmol/L Carbon Dioxide (21-32) mmol/L Anion Gap (5.0-14.0) mmol/L BUN (7-18) mg/dL Creatinine (0.6-1.0) mg/dL Est Cr Clr Drug Dosing mL/min Estimated GFR (MDRD) (>60) Glucose (74-106) mg/dL POC Glucose (74-106) mg/dL Calcium (8.5-10.1) mg/dL Phosphorus (2.5-4.9) mg/dL Magnesium (1.8-2.4) mg/dL Total Bilirubin (0.2-1.0) mg/dL AST (15-37) U/L ALT (12-78) U/L Alkaline Phosphatase (46-116) U/L C-Reactive Protein 23.80 H (0.0-0.3) mg/dL Total Protein (6.4-8.2) g/dL Albumin (3.4-5.0) g/dL Globulin (2.3-3.5) g/dL Albumin/Globulin Ratio (1.2-2.2) Amylase 235 H (25-115) U/L Lipase 43 L (73-393) U/L Urine Color Urine Appearance Urine pH Ur Specific [place] Urine Protein Urine Glucose (UA) Urine Ketones Urine Occult Blood Urine Nitrite Urine Bilirubin Urine Urobilinogen Ur Leukocyte Esterase Urine RBC Urine WBC Ur Epithelial Cells Amorphous Sediment Urine Bacteria Urine Mucus Urine Other Urinalysis Comment Urine Opiates Screen (NEGATIVE) Ur Oxycodone Screen (NEGATIVE) Urine Methadone Screen (NEGATIVE) Ur Propoxyphene Screen (NEGATIVE) Ur Barbiturates Screen (NEGATIVE) Ur Tricyclics Screen (NEGATIVE) Ur Phencyclidine Scrn (NEGATIVE) Ur Amphetamine Screen (NEGATIVE) U Methamphetamines Scrn (NEGATIVE) Urine MDMA Screen (NEGATIVE) U Benzodiazepines Scrn (NEGATIVE) U Cocaine Metab Screen (NEGATIVE) U Marijuana (THC) Screen (NEGATIVE) 12/11/20 12/11/20 12/11/20 Range/Units 20:51 21:27 21:29 WBC (4.5-11.0) K/uL RBC (3.30-5.50) M/uL Hgb (12.0-15.0) g/dL Hct (36.0-48.0) % MCV (80-98) fL MCH (27-31) pg MCHC (32-36) % Plt Count (150-400) K/uL Neut % (Auto) (36-66) % Lymph % (Auto) (24-44) % [place] % (Auto) (2-6) % Eos % (Auto) (2-4) % Baso % (Auto) (0-1) % VBG pH (7.350-7.450) Sodium (140-148) mmol/L Potassium (3.6-5.2) mmol/L Chloride (100-108) mmol/L Carbon Dioxide (21-32) mmol/L Anion Gap (5.0-14.0) mmol/L BUN (7-18) mg/dL Creatinine (0.6-1.0) mg/dL Est Cr Clr Drug Dosing mL/min Estimated GFR (MDRD) (>60) Glucose (74-106) mg/dL POC Glucose (74-106) mg/dL Calcium (8.5-10.1) mg/dL Phosphorus (2.5-4.9) mg/dL Magnesium 1.7 L (1.8-2.4) mg/dL Total Bilirubin (0.2-1.0) mg/dL AST (15-37) U/L ALT (12-78) U/L Alkaline Phosphatase (46-116) U/L C-Reactive Protein (0.0-0.3) mg/dL Total Protein (6.4-8.2) g/dL Albumin (3.4-5.0) g/dL Globulin (2.3-3.5) g/dL Albumin/Globulin Ratio (1.2-2.2) Amylase (25-115) U/L Lipase (73-393) U/L Urine Color Yellow Urine Appearance Slightly cloudy A Urine pH 5.5 Ur Specific [place] 1.015 Urine Protein >=300 H Urine Glucose (UA) 500 H Urine Ketones 80 H Urine Occult Blood Large H Urine Nitrite Negative Urine Bilirubin Small H Urine Urobilinogen 0.2 Ur Leukocyte Esterase Negative Urine RBC 75-100 H Urine WBC 0-5 Ur Epithelial Cells Few Amorphous Sediment Not seen Urine Bacteria Moderate Urine Mucus Not seen Urine Other Urinalysis Comment Urine Opiates Screen Negative (NEGATIVE) Ur Oxycodone Screen Negative (NEGATIVE) Urine Methadone Screen Presumptive positive H (NEGATIVE) Ur Propoxyphene Screen Negative (NEGATIVE) Ur Barbiturates Screen Negative (NEGATIVE) Ur Tricyclics Screen Negative (NEGATIVE) Ur Phencyclidine Scrn Negative (NEGATIVE) Ur Amphetamine Screen Negative (NEGATIVE) U Methamphetamines Scrn Negative (NEGATIVE) Urine MDMA Screen Negative (NEGATIVE) U Benzodiazepines Scrn Negative (NEGATIVE) U Cocaine Metab Screen Negative (NEGATIVE) U Marijuana (THC) Screen Negative (NEGATIVE) 12/11/20 12/11/20 Range/Units 21:29 22:45 WBC (4.5-11.0) K/uL RBC (3.30-5.50) M/uL Hgb (12.0-15.0) g/dL Hct (36.0-48.0) % MCV (80-98) fL MCH (27-31) pg MCHC (32-36) % Plt Count (150-400) K/uL Neut % (Auto) (36-66) % Lymph % (Auto) (24-44) % [place] % (Auto) (2-6) % Eos % (Auto) (2-4) % Baso % (Auto) (0-1) % VBG pH (7.350-7.450) Sodium 139 L (140-148) mmol/L Potassium 5.3 H (3.6-5.2) mmol/L Chloride 104 (100-108) mmol/L Carbon Dioxide 17 L (21-32) mmol/L Anion Gap 23.3 H (5.0-14.0) mmol/L BUN 46 H (7-18) mg/dL Creatinine 3.5 H (0.6-1.0) mg/dL Est Cr Clr Drug Dosing 21.68 mL/min Estimated GFR (MDRD) 18 L (>60) Glucose 488 H* (74-106) mg/dL POC Glucose 544 H* (74-106) mg/dL Calcium 7.7 L (8.5-10.1) mg/dL Phosphorus 3.6 (2.5-4.9) mg/dL Magnesium 1.8 (1.8-2.4) mg/dL Total Bilirubin (0.2-1.0) mg/dL AST (15-37) U/L ALT (12-78) U/L Alkaline Phosphatase (46-116) U/L C-Reactive Protein (0.0-0.3) mg/dL Total Protein (6.4-8.2) g/dL Albumin (3.4-5.0) g/dL Globulin (2.3-3.5) g/dL Albumin/Globulin Ratio (1.2-2.2) Amylase (25-115) U/L Lipase (73-393) U/L Urine Color Urine Appearance Urine pH Ur Specific [place] Urine Protein Urine Glucose (UA) Urine Ketones Urine Occult Blood Urine Nitrite Urine Bilirubin Urine Urobilinogen Ur Leukocyte Esterase Urine RBC Urine WBC Ur Epithelial Cells Amorphous Sediment Urine Bacteria Urine Mucus Urine Other Urinalysis Comment Urine Opiates Screen (NEGATIVE) Ur Oxycodone Screen (NEGATIVE) Urine Methadone Screen (NEGATIVE) Ur Propoxyphene Screen (NEGATIVE) Ur Barbiturates Screen (NEGATIVE) Ur Tricyclics Screen (NEGATIVE) Ur Phencyclidine Scrn (NEGATIVE) Ur Amphetamine Screen (NEGATIVE) U Methamphetamines Scrn (NEGATIVE) Urine MDMA Screen (NEGATIVE) U Benzodiazepines Scrn (NEGATIVE) U Cocaine Metab Screen (NEGATIVE) U Marijuana (THC) Screen (NEGATIVE) Meds: Medications Generic Name Dose Route Start Last Admin Trade Name Freq PRN Reason Stop Dose Admin Acetaminophen 650 mg 12/11/20 23:05 Acetaminophen 325 Mg Tab PO Q4H PRN Pain (Mild 1-3)/fever Albuterol 1 - 2 gm 12/11/20 23:05 Albuterol 8 Gm Inhaler INH Q4H PRN Shortness of Breath Albuterol 2.5 mg 12/11/20 23:05 12/12/20 05:43 Albuterol 0.083% 2.5 Mg/3 Ml Neb Soln NEB 2.5 mg Q4H PRN Administration Shortness Of Breath/wheezing Apixaban 5 mg 12/12/20 09:00 Apixaban 5 Mg Tab PO BID [facility] Aspirin 81 mg 12/12/20 09:00 Aspirin 81 Mg Tab.Ec PO DAILY [facility] Atorvastatin Calcium 20 mg 12/12/20 21:00 Atorvastatin 20 Mg Tab PO BEDTIME [facility] Carvedilol 12.5 mg 12/12/20 09:00 Carvedilol 12.5 Mg Tab PO BID [facility] Dextrose/Water 50 ml 12/11/20 22:29 50% Dextrose In Water 50 Ml Syringe IVPUSH ONETIME PRN Blood Glucose Dextrose/Water 50 ml 12/11/20 23:05 50% Dextrose In Water 50 Ml Syringe IVPUSH ASDIRECTED PRN Hypoglycemia Gabapentin 300 mg 12/12/20 09:00 Gabapentin 300 Mg Cap PO DAILY [facility] Glucagon 1 mg 12/11/20 23:05 Glucagon,Human Recombinant 1 Mg Vial IM ASDIRECTED PRN Hypoglycemia Hydralazine HCl 25 mg 12/12/20 06:00 12/12/20 05:43 Hydralazine 25 Mg Tab PO 25 mg QID [facility] Administration Sodium Chloride 2,000 mls @ 500 mls/hr 12/11/20 22:29 12/12/20 02:07 Normal Saline IV 0 mls/hr .CONTINUOUS PRN Infusion Blood Glucose Dextrose/Sodium Chloride 1,000 mls @ 150 mls/hr 12/11/20 22:29 12/12/20 02:08 Dextrose 5%-1/2 Ns IV 150 mls/hr .CONTINUOUS PRN Administration Blood Glucose Potassium Chloride 20 meq/ 100 mls @ 50 mls/hr 12/11/20 23:00 Premix IV Q2H PRN Hypokalemia Insulin Regular in 0.9 % NACL 100 mls @ 5.897 mls/hr 12/11/20 22:30 12/12/20 06:01 Myxredlin In Ns 100 Unit/100 Ml IV 0.05 units/kg/hr ASDIRECTED [facility] 3 mls/hr Infusion Protocol 0.1 UNITS/KG/HR Piperacillin/Tazobactam/ 50 mls @ 100 mls/hr 12/12/20 08:00 Dextrose 3.375 gm/ Premix IV Q6H [facility] Vancomycin HCl 1.5 gm/ Sodium 250 mls @ 167 mls/hr 12/12/20 09:00 Chloride IV 12/12/20 10:29 ONETIME ONE Insulin Glargine 10 units 12/12/20 21:00 Insulin Glargine,Human Rec. Analog 100 Units/Ml 3 Ml Pen SUBCUT BEDTIME [facility] Magnesium Oxide 400 mg 12/12/20 09:00 Magnesium Oxide 400 Mg Tab PO DAILY [facility] Morphine Sulfate 2 mg 12/12/20 00:45 12/12/20 04:06 Morphine 2 Mg/Ml Syringe IVPUSH 2 mg Q1H PRN Administration Pain Ondansetron HCl 4 mg 12/11/20 23:05 12/12/20 04:49 Ondansetron 4 Mg/2 Ml Sdv IV 4 mg Q4H PRN Administration Nausea/Vomiting Oxycodone HCl 5 mg 12/11/20 23:05 Oxycodone 5 Mg Tab PO Q6H PRN Pain Polyethylene Glycol 17 gm 12/11/20 23:05 Polyethylene Glycol 3350 Powder 17 Gm Packet PO DAILY PRN Constipation Potassium Chloride 20 meq 12/11/20 22:29 12/12/20 04:45 Potassium Chloride 10% 20 Meq/15 Ml Soln 15 Ml Ud Cup PO 20 meq NOW PRN Administration Hypokalemia Potassium Chloride 40 meq 12/11/20 22:29 Potassium Chloride 10% 20 Meq/15 Ml Soln 15 Ml Ud Cup PO NOW PRN Hypokalemia Potassium Chloride 40 meq 12/11/20 22:29 Potassium Chloride 10% 20 Meq/15 Ml Soln 15 Ml Ud Cup PO Q2H PRN Hypokalemia Sertraline HCl 50 mg 12/12/20 09:00 Sertraline 50 Mg Tab PO DAILY [facility] Sodium Chloride 10 ml 12/11/20 23:05 Sodium Chloride 0.9% 10 Ml Syringe FLUSH ASDIRECTED PRN Keep Vein Open Vancomycin HCl 1 gm 12/12/20 08:00 Vancomycin 1 Gm Sdv IV .PHARMACY TO DOSE [facility] Discontinued Medications Generic Name Dose Route Start Last Admin Trade Name Freq PRN Reason Stop Dose Admin Dextrose/Water 50 ml 12/11/20 19:47 50% Dextrose In Water 50 Ml Syringe IVPUSH ASDIRECTED PRN Hypoglycemia Dextrose/Water 50 ml 12/11/20 21:33 50% Dextrose In Water 50 Ml Syringe IVPUSH ASDIRECTED PRN Hypoglycemia Glucagon 1 mg 12/11/20 19:47 Glucagon,Human Recombinant 1 Mg Vial IM ASDIRECTED PRN Hypoglycemia Glucagon 1 mg 12/11/20 21:33 Glucagon,Human Recombinant 1 Mg Vial IM ASDIRECTED PRN Hypoglycemia Hydromorphone HCl 0.5 mg 12/11/20 18:52 12/11/20 19:12 Hydromorphone 0.5 Mg/0.5 Ml Syringe IVPUSH 12/11/20 18:53 0.5 mg ONETIME ONE Administration Hydromorphone HCl 0.5 mg 12/11/20 22:09 12/11/20 23:37 Hydromorphone 0.5 Mg/0.5 Ml Syringe IVPUSH 12/11/20 22:10 Not Given ONETIME ONE Sodium Chloride 1,000 mls @ 999 mls/hr 12/11/20 16:45 12/11/20 17:53 Normal Saline IV 999 mls/hr ASDIRECTED [facility] Administration Sodium Chloride 1,000 mls @ 999 mls/hr 12/11/20 19:30 12/11/20 19:32 Normal Saline IV 999 mls/hr ASDIRECTED [facility] Administration Potassium Chloride/Sodium Chloride 1,000 mls @ 500 mls/hr 12/11/20 21:00 12/11/20 21:10 Normal Saline With 20 Meq Kcl IV 500 mls/hr ASDIRECTED [facility] Administration Potassium Chloride 20 meq/ 100 mls @ 50 mls/hr 12/11/20 22:29 12/11/20 23:30 Premix IV 12/12/20 00:28 Not Given ONETIME ONE Potassium Chloride 20 meq/ 100 mls @ 50 mls/hr 12/11/20 22:29 Premix IV Q2H PRN Hypokalemia Magnesium Sulfate 2 gm in 50 mls @ 25 mls/hr 12/11/20 22:29 12/12/20 06:13 Magnesium Sulfate In Water 2 Gm/50 Ml IV 25 mls/hr ONETIME PRN Administration low magnesium Insulin Human Regular 16 unit 12/11/20 19:47 12/11/20 19:52 Insulin Regular, Human 100 Units/Ml 3 Ml Vial SUBCUT 12/11/20 19:48 16 units ONETIME ONE Administration Insulin Human Regular 14 unit 12/11/20 21:33 12/11/20 22:00 Insulin Regular, Human 100 Units/Ml 3 Ml Vial SUBCUT 12/11/20 21:34 14 units ONETIME ONE Administration Metoclopramide HCl 5 mg 12/11/20 21:17 12/11/20 21:44 Metoclopramide 10 Mg/2 Ml Sdv IVPUSH 12/11/20 21:18 5 mg ONETIME ONE Administration Ondansetron HCl 4 mg 12/11/20 16:38 12/11/20 17:52 Ondansetron 4 Mg/2 Ml Sdv IVPUSH 12/11/20 16:39 4 mg ONETIME ONE Administration Ondansetron HCl 4 mg 12/11/20 23:08 12/11/20 23:17 Ondansetron 4 Mg/2 Ml Sdv IVPUSH 12/11/20 23:09 4 mg ONETIME ONE Administration - Re-Assessments/Exams Free Text/Narrative Re-Assessment/Exam: 12/12/20 07:45 pt was found to be very acidotic. Her bs was over 600. She was obviously in ketoacidosis. Sepsis Event Note (ED) - Evaluation Sepsis Screening Result: No Definite Risk - Focused Exam Vital Signs: Vital Signs Temp Pulse Resp BP Pulse Ox 12/11/20 22:09 111 H 29 H 173/103 H 98 12/11/20 21:16 36.5 C 12/11/20 20:57 113 H 28 H 179/110 H 90 L 12/11/20 20:20 108 H 180/102 H - My Orders Last 24 Hours: My Active Orders 12/11/20 18:56 Chest 1V Frontal [CR] Stat 12/11/20 18:58 EKG 12 Lead [EK] Routine - Assessment/Plan Last 24 Hours: My Active Orders 12/11/20 18:56 Chest 1V Frontal [CR] Stat 12/11/20 18:58 EKG 12 Lead [EK] Routine
[2020-12-11] MEDS ORDERED: HYDROmorphone 0.5 MG/0.5 ML Syringe IVPUSH ONE ×2 (18:52→22:09)
[2020-12-11] MEDS ORDERED: 50% Dextrose in Water 50 ML Syringe IVPUSH PRN ×4 (19:47→23:05)
[2020-12-11] MEDS ORDERED: Glucagon,Human Recombinant 1 MG Vial IM PRN ×3 (19:47→23:05)
[2020-12-11] MEDS ORDERED: Insulin Regular, Human 100 Units/ML 3 ML Vial SUBCUT ONE ×2 (19:47→21:33)
[2020-12-11] MEDS ORDERED: NS + KCl 20mEq/L 1,000 ML IV SCH (21:00)
--- NOTE | 2020-12-11 21:09 | CRLCT ---
INDICATION: Abdominal pain. CT ABDOMEN AND PELVIS WITHOUT CONTRAST TECHNIQUE: Multidetector CT imaging was performed through the abdomen and pelvis without intravenous contrast administration. Coronal and sagittal reconstructions were generated. COMPARISON: 04/05/2020 CT abdomen and pelvis. FINDINGS: Lower chest: Bibasilar bronchial wall thickening with a few areas of mucous plugging, suggesting bronchitis. No lung consolidation identified. Liver: Within normal limits. Gallbladder and bile ducts: No gallbladder wall thickening or calcified gallstones. No biliary dilation identified. Pancreas: Diffuse pancreatic atrophy and innumerable punctate pancreatic calcifications, consistent with chronic pancreatitis. Spleen: Normal. Adrenals: No nodules or masses. Kidneys, ureters, and urinary bladder: No urinary tract stones identified. No renal masses or hydronephrosis. Nonspecific moderate distention of the urinary bladder. No bladder mass or definite wall thickening. Gastrointestinal tract: Normal caliber small bowel without apparent wall thickening or obstruction. Status post resection of the proximal colon with ileocolic anastomosis, as before. Vascular structures: Mild aortoiliac atherosclerotic calcifications, prominent for the patient`s age. Peritoneum: No free air, abscess, or significant free fluid. Lymph nodes: No pathologically enlarged nodes identified. Reproductive organs: No pelvic masses. Bones: Normal for age. IMPRESSION: 1. Bibasilar bronchial wall thickening with a few areas of mucus plugging, likely representing bronchitis. 2. No acute intra-abdominal abnormality identified. No urinary tract stones or hydronephrosis. 3. Chronic pancreatitis. 4. Status post resection of the proximal colon with ileocolic anastomosis, as before. 5. Aortoiliac atherosclerotic calcifications, prominent for age. MIK GOMEZ MD [employer] [facility] Dictated by Anjum Gomez MD @ 12/11/2020 9:07:17 PM Dictated by: Anjum Gomez MD @ 12/11/2020 21:07:49 (Electronically Signed)
[2020-12-11] MEDS ORDERED: Metoclopramide 10 MG/2 ML SDV IVPUSH ONE (21:17)
[2020-12-11] MEDS ORDERED: Potassium Chloride 20 MEQ in Premix Bag 1 BAG IV ONE (22:29)
[2020-12-11] MEDS ORDERED: Potassium Chloride 20 MEQ in Premix Bag 1 BAG IV PRN ×2 (22:29→23:00)
[2020-12-11] MEDS ORDERED: Magnesium Sulfate/Water 2 GM/50 ML BAG IV PRN (22:29)
[2020-12-11] MEDS ORDERED: Sodium Chloride 0.9% 2,000 ML IV PRN (22:29)
[2020-12-11] MEDS ORDERED: Potassium Chloride 10% 20 MEQ/15 ML Soln 15 ML UD Cup PO PRN ×3 (22:29)
[2020-12-11] MEDS ORDERED: Insulin Regular in 0.9 % NACL 100 ML IV SCH (22:30)
--- NOTE | 2020-12-11 22:57 | PCM.HP.2 ---
H&P History of Present Illness - General Date of Service: 12/11/20 Admit Problem/Dx: Admission Diagnosis/Problem Admission Diagnosis/Problem Ketoacidosis Source of Information: Patient, Old Records, Provider, RN Notes Reviewed History Limitations: Reports: No Limitations - History of Present Illness Initial Comments - Free Text/Narative: Ms. Frank is a 30-year-old woman who was admitted through the emergency department with progressive weakness, nausea vomiting, and abdominal pain, secondary to diabetic ketoacidosis. She has a known and longstanding history of type 1 diabetes mellitus with regular episodes of ketoacidosis. She has underlying kidney disease, cerebrovascular disease, and peripheral neuropathy. She reports recent history of abdominal pain in the left lower quadrant for the past 4 days associated with nausea and vomiting. She thinks that she has been taking her insulin at home and has noticed a progressive increase in glucose levels over the past few days. Because of progression of her symptoms she has presented to the emergency department earlier today for further evaluation. Laboratory tests did show evidence of elevated anion gap acidosis, with a carbon dioxide level of 11 and anion gap of 32. White blood cell count is mildly to mo derately elevated and CRP is significantly elevated. Because of her history of abdominal pain CT scan of the abdomen was obtained but shows no acute abnormality to explain her current symptoms. Chest x-ray is clear with no obvious infiltrate and urinalysis is also fairly clear other than some blood in the urine. She has received IV fluid replacement in the emergency department and given 2 doses of subcutaneous insulin. - Related Data Allergies/Adverse Reactions: Allergies Allergy/AdvReac Type Severity Reaction Status Date / Time diphenhydramine Allergy Itching Verified 12/11/20 15:04 ibuprofen AdvReac Nausea and Verified 12/11/20 15:04 Vomiting Home Medications: Home Meds Insulin Glarg,Human.Rec.Analog [Lantus Solostar] 10 units SQ BEDTIME 11/01/19 [History] Acetaminophen [Tylenol] 650 mg PO Q4H PRN 01/04/20 [History] Albuterol Sulfate [Albuterol Sulfate Hfa] 1 - 2 puff INH Q4H PRN 01/04/20 [Histo ry] Sertraline HCl 50 mg PO DAILY 01/04/20 [History] Apixaban [Eliquis] 5 mg PO BID 03/02/20 [History] Aspirin [Halfprin] 81 mg PO DAILY 03/02/20 [History] Bumetanide [Bumex] 1 mg PO DAILY 03/02/20 [History] Gabapentin [Neurontin] 300 mg PO DAILY 03/02/20 [History] Magnesium Chloride [Mag-64] 128 mg PO DAILY 03/02/20 [History] atorvaSTATin [Lipitor] 20 mg PO BEDTIME 03/02/20 [History] carvediloL [Carvedilol] 12.5 mg PO BID 03/02/20 [History] Insulin Aspart [NovoLOG] 3 units SQ TIDAC #3 pen 03/03/20 [Rx] hydrALAZINE [Apresoline] 25 mg PO QID 03/03/20 [History] oxyCODONE 5 mg PO Q6H PRN #15 tablet 03/03/20 [Rx] Past Medical History HEENT History: Reports: Impaired Vision Cardiovascular History: Reports: Afib, High Cholesterol, Hypertension, Other (See Below) Other Cardiovascular History: hypotension Respiratory History: Reports: Asthma Gastrointestinal History: Reports: GERD, Other (See Below) Other Gastrointestinal History: abdominal pain hepatic steatosis Genitourinary History: Reports: Other (See Below) Other Genitourinary History: BRIAN Musculoskeletal History: Reports: Other (See Below) Other Musculoskeletal History: neuropathy Neurological History: Reports: CVA, Neuropathy, Diabetic, Seizure, Other (See Below) Other Neuro History: medically noncompliant. weakness on right side from CVA Psychiatric History: Reports: Anxiety, Depression, Other (See Below) Other Psychiatric History: history of drug use altered mental statis Endocrine/Metabolic History: Reports: Diabetes, Type I, Other (See Below) Other Endocrine/Metabolic History: polyneuropathy, ketoacido sis,hyperglycemia,hyperkalemia - Infectious Disease History Infectious Disease History: Reports: Chicken Pox - Past Surgical History Cardiovascular Surgical History: Reports: None Respiratory Surgical History: Reports: None GI Surgical History: Reports: Other (See Below) Other GI Surgeries/Procedures: upper endoscopy with biopsy 2020 Female Surgical History: Reports: None Endocrine Surgical History: Reports: None Neurological Surgical History: Reports: None Musculoskeletal Surgical History: Reports: None Dermatological Surgical History: Reports: None Social & Family History - Tobacco Use Tobacco Use Status *Q: Current Every Day Tobacco User Years of Tobacco use: 10 Packs/Tins Daily: 0.5 - Caffeine Use Caffeine Use: Reports: Soda Caffeine Use Comment: unable to obtain - Recreational Drug Use Recreational Drug Use: No - Sexual History Other Sexual History Comment: Has girlfriend H&P Review of Systems - Review of Systems: Review Of Systems: See Below General: Reports: Weakness, Diaphoresis, Decreased Appetite HEENT: Reports: No Symptoms Pulmonary: Reports: Shortness of Breath. Denies: Wheezing, Pleuritic Chest Pain, Cough, Sputum, Hemoptysis Cardiovascular: Reports: No Symptoms Gastrointestinal: Reports: Abdominal Pain, Nausea, Vomiting. Denies: Diarrhea, Difficulty Swallowing, Distension, Hematemesis, Hematochezia, Melena Genitourinary: Reports: No Symptoms Musculoskeletal: Reports: Back Pain. Denies: Neck Pain Skin: Reports: No Symptoms Psychiatric: Reports: No Symptoms Neurological: Reports: Numbness, Pre-Existing Deficit (Peripheral neuropathy, right upper and lower extremity weakness secondary to previous CVA) Exam - Exam Exam: See Below - Vital Signs Vital Signs: Last Vital Signs Temp 97.7 F 12/11/20 21:16 Pulse 111 H 12/11/20 22:09 Resp 29 H 12/11/20 22:09 BP 173/103 H 12/11/20 22:09 Pulse Ox 98 12/11/20 22:09 Weight: 130 lb - Exam Quality Assessment: DVT Prophylaxis General: Alert, Oriented, Cooperative, Moderate Distress HEENT: Conjunctiva Clear, Hearing Intact, Normal Nasal Septum, Posterior Pharynx Clear, Pupils Equal. No: Mucosa Moist & [place] Neck: Supple, Trachea Midline, +2 Carotid Pulse wo Bruit Lungs: Clear to Auscultation, Normal Respiratory Effort Cardiovascular: Regular Rhythm, Normal S1, Normal S2, Tachycardia. No: Systolic Murmur, Diastolic Murmur GI/Abdominal Exam: Soft, No Organomegaly, Tender. No: Distended, Guarding, Rigid, Rebound Back Exam: Normal Inspection, Full Range of Motion, Vertebral Tenderness Extremities: Non-Tender, No Pedal Edema Skin: Warm, Dry, Intact Neurological: Cranial Nerves Intact, Normal Speech, Focal Deficit (Right upper and lower extremity weakness). No: Strength Equal Bilateral, Sensation Intact Neuro Extensive - Mental Status: Alert, Oriented x3, Normal Mood/Affect, Normal Cognition, Memory Intact - Patient Data Lab Results Last 24 hrs: Laboratory Results - last 24 hr 12/11/20 12/11/20 12/11/20 Range/Units 16:37 17:50 17:50 WBC 13.5 H (4.5-11.0) K/uL RBC 3.83 (3.30-5.50) M/uL Hgb 11.2 L D (12.0-15.0) g/dL Hct 33.3 L (36.0-48.0) % MCV 87 (80-98) fL MCH 29 (27-31) pg MCHC 34 (32-36) % Plt Count 217 (150-400) K/uL Neut % (Auto) 81.8 H (36-66) % Lymph % (Auto) 7.8 L (24-44) % Upson % (Auto) 9.6 H (2-6) % Eos % (Auto) 0.7 L (2-4) % Baso % (Auto) 0.1 (0-1) % VBG pH (7.350-7.450) Sodium 135 L (140-148) mmol/L Potassium 4.7 (3.6-5.2) mmol/L Chloride 97 L (100-108) mmol/L Carbon Dioxide 11 L (21-32) mmol/L Anion Gap 31.7 H (5.0-14.0) mmol/L BUN 50 H D (7-18) mg/dL Creatinine 3.8 H* D (0.6-1.0) mg/dL Est Cr Clr Drug Dosing 19.97 mL/min Estimated GFR (MDRD) 17 L (>60) Glucose 680 H* (74-106) mg/dL POC Glucose (74-106) mg/dL Calcium 8.1 L (8.5-10.1) mg/dL Magnesium (1.8-2.4) mg/dL Total Bilirubin 0.9 (0.2-1.0) mg/dL AST 22 (15-37) U/L ALT 15 (12-78) U/L Alkaline Phosphatase 103 (46-116) U/L C-Reactive Protein (0.0-0.3) mg/dL Total Protein 7.5 (6.4-8.2) g/dL Albumin 3.0 L (3.4-5.0) g/dL Globulin 4.5 H (2.3-3.5) g/dL Albumin/Globulin Ratio 0.7 L (1.2-2.2) Amylase (25-115) U/L Lipase (73-393) U/L Urine Color Cancelled Urine Appearance Cancelled Urine pH Cancelled Ur Specific [place] Cancelled Urine Protein Cancelled Urine Glucose (UA) Cancelled Urine Ketones Cancelled Urine Occult Blood Cancelled Urine Nitrite Cancelled Urine Bilirubin Cancelled Urine Urobilinogen Cancelled Ur Leukocyte Esterase Cancelled Urine RBC Cancelled Urine WBC Cancelled Ur Epithelial Cells Cancelled Amorphous Sediment Cancelled Urine Bacteria Cancelled Urine Mucus Cancelled Urine Other Cancelled Urinalysis Comment Cancelled Urine Opiates Screen (NEGATIVE) Ur Oxycodone Screen (NEGATIVE) Urine Methadone Screen (NEGATIVE) Ur Propoxyphene Screen (NEGATIVE) Ur Barbiturates Screen (NEGATIVE) Ur Tricyclics Screen (NEGATIVE) Ur Phencyclidine Scrn (NEGATIVE) Ur Amphetamine Screen (NEGATIVE) U Methamphetamines Scrn (NEGATIVE) Urine MDMA Screen (NEGATIVE) U Benzodiazepines Scrn (NEGATIVE) U Cocaine Metab Screen (NEGATIVE) U Marijuana (THC) Screen (NEGATIVE) 12/11/20 12/11/20 12/11/20 Range/Units 17:50 17:50 19:49 WBC (4.5-11.0) K/uL RBC (3.30-5.50) M/uL Hgb (12.0-15.0) g/dL Hct (36.0-48.0) % MCV (80-98) fL MCH (27-31) pg MCHC (32-36) % Plt Count (150-400) K/uL Neut % (Auto) (36-66) % Lymph % (Auto) (24-44) % Upson % (Auto) (2-6) % Eos % (Auto) (2-4) % Baso % (Auto) (0-1) % VBG pH 7.242 L (7.350-7.450) Sodium (140-148) mmol/L Potassium (3.6-5.2) mmol/L Chloride (100-108) mmol/L Carbon Dioxide (21-32) mmol/L Anion Gap (5.0-14.0) mmol/L BUN (7-18) mg/dL Creatinine (0.6-1.0) mg/dL Est Cr Clr Drug Dosing mL/min Estimated GFR (MDRD) (>60) Glucose (74-106) mg/dL POC Glucose (74-106) mg/dL Calcium (8.5-10.1) mg/dL Magnesium (1.8-2.4) mg/dL Total Bilirubin (0.2-1.0) mg/dL AST (15-37) U/L ALT (12-78) U/L Alkaline Phosphatase (46-116) U/L C-Reactive Protein 23.80 H (0.0-0.3) mg/dL Total Protein (6.4-8.2) g/dL Albumin (3.4-5.0) g/dL Globulin (2.3-3.5) g/dL Albumin/Globulin Ratio (1.2-2.2) Amylase 235 H (25-115) U/L Lipase 43 L (73-393) U/L Urine Color Urine Appearance Urine pH Ur Specific [place] Urine Protein Urine Glucose (UA) Urine Ketones Urine Occult Blood Urine Nitrite Urine Bilirubin Urine Urobilinogen Ur Leukocyte Esterase Urine RBC Urine WBC Ur Epithelial Cells Amorphous Sediment Urine Bacteria Urine Mucus Urine Other Urinalysis Comment Urine Opiates Screen (NEGATIVE) Ur Oxycodone Screen (NEGATIVE) Urine Methadone Screen (NEGATIVE) Ur Propoxyphene Screen (NEGATIVE) Ur Barbiturates Screen (NEGATIVE) Ur Tricyclics Screen (NEGATIVE) Ur Phencyclidine Scrn (NEGATIVE) Ur Amphetamine Screen (NEGATIVE) U Methamphetamines Scrn (NEGATIVE) Urine MDMA Screen (NEGATIVE) U Benzodiazepines Scrn (NEGATIVE) U Cocaine Metab Screen (NEGATIVE) U Marijuana (THC) Screen (NEGATIVE) 12/11/20 12/11/20 12/11/20 Range/Units 20:51 21:27 21:29 WBC (4.5-11.0) K/uL RBC (3.30-5.50) M/uL Hgb (12.0-15.0) g/dL Hct (36.0-48.0) % MCV (80-98) fL MCH (27-31) pg MCHC (32-36) % Plt Count (150-400) K/uL Neut % (Auto) (36-66) % Lymph % (Auto) (24-44) % Upson % (Auto) (2-6) % Eos % (Auto) (2-4) % Baso % (Auto) (0-1) % VBG pH (7.350-7.450) Sodium (140-148) mmol/L Potassium (3.6-5.2) mmol/L Chloride (100-108) mmol/L Carbon Dioxide (21-32) mmol/L Anion Gap (5.0-14.0) mmol/L BUN (7-18) mg/dL Creatinine (0.6-1.0) mg/dL Est Cr Clr Drug Dosing mL/min Estimated GFR (MDRD) (>60) Glucose (74-106) mg/dL POC Glucose (74-106) mg/dL Calcium (8.5-10.1) mg/dL Magnesium 1.7 L (1.8-2.4) mg/dL Total Bilirubin (0.2-1.0) mg/dL AST (15-37) U/L ALT (12-78) U/L Alkaline Phosphatase (46-116) U/L C-Reactive Protein (0.0-0.3) mg/dL Total Protein (6.4-8.2) g/dL Albumin (3.4-5.0) g/dL Globulin (2.3-3.5) g/dL Albumin/Globulin Ratio (1.2-2.2) Amylase (25-115) U/L Lipase (73-393) U/L Urine Color Yellow Urine Appearance Slightly cloudy A Urine pH 5.5 Ur Specific [place] 1.015 Urine Protein >=300 H Urine Glucose (UA) 500 H Urine Ketones 80 H Urine Occult Blood Large H Urine Nitrite Negative Urine Bilirubin Small H Urine Urobilinogen 0.2 Ur Leukocyte Esterase Negative Urine RBC 75-100 H Urine WBC 0-5 Ur Epithelial Cells Few Amorphous Sediment Not seen Urine Bacteria Moderate Urine Mucus Not seen Urine Other Urinalysis Comment Urine Opiates Screen Negative (NEGATIVE) Ur Oxycodone Screen Negative (NEGATIVE) Urine Methadone Screen Presumptive positive H (NEGATIVE) Ur Propoxyphene Screen Negative (NEGATIVE) Ur Barbiturates Screen Negative (NEGATIVE) Ur Tricyclics Screen Negative (NEGATIVE) Ur Phencyclidine Scrn Negative (NEGATIVE) Ur Amphetamine Screen Negative (NEGATIVE) U Methamphetamines Scrn Negative (NEGATIVE) Urine MDMA Screen Negative (NEGATIVE) U Benzodiazepines Scrn Negative (NEGATIVE) U Cocaine Metab Screen Negative (NEGATIVE) U Marijuana (THC) Screen Negative (NEGATIVE) 12/11/20 Range/Units 21:29 WBC (4.5-11.0) K/uL RBC (3.30-5.50) M/uL Hgb (12.0-15.0) g/dL Hct (36.0-48.0) % MCV (80-98) fL MCH (27-31) pg MCHC (32-36) % Plt Count (150-400) K/uL Neut % (Auto) (36-66) % Lymph % (Auto) (24-44) % Upson % (Auto) (2-6) % Eos % (Auto) (2-4) % Baso % (Auto) (0-1) % VBG pH (7.350-7.450) Sodium (140-148) mmol/L Potassium (3.6-5.2) mmol/L Chloride (100-108) mmol/L Carbon Dioxide (21-32) mmol/L Anion Gap (5.0-14.0) mmol/L BUN (7-18) mg/dL Creatinine (0.6-1.0) mg/dL Est Cr Clr Drug Dosing mL/min Estimated GFR (MDRD) (>60) Glucose (74-106) mg/dL POC Glucose 544 H* (74-106) mg/dL Calcium (8.5-10.1) mg/dL Magnesium (1.8-2.4) mg/dL Total Bilirubin (0.2-1.0) mg/dL AST (15-37) U/L ALT (12-78) U/L Alkaline Phosphatase (46-116) U/L C-Reactive Protein (0.0-0.3) mg/dL Total Protein (6.4-8.2) g/dL Albumin (3.4-5.0) g/dL Globulin (2.3-3.5) g/dL Albumin/Globulin Ratio (1.2-2.2) Amylase (25-115) U/L Lipase (73-393) U/L Urine Color Urine Appearance Urine pH Ur Specific [place] Urine Protein Urine Glucose (UA) Urine Ketones Urine Occult Blood Urine Nitrite Urine Bilirubin Urine Urobilinogen Ur Leukocyte Esterase Urine RBC Urine WBC Ur Epithelial Cells Amorphous Sediment Urine Bacteria Urine Mucus Urine Other Urinalysis Comment Urine Opiates Screen (NEGATIVE) Ur Oxycodone Screen (NEGATIVE) Urine Methadone Screen (NEGATIVE) Ur Propoxyphene Screen (NEGATIVE) Ur Barbiturates Screen (NEGATIVE) Ur Tricyclics Screen (NEGATIVE) Ur Phencyclidine Scrn (NEGATIVE) Ur Amphetamine Screen (NEGATIVE) U Methamphetamines Scrn (NEGATIVE) Urine MDMA Screen (NEGATIVE) U Benzodiazepines Scrn (NEGATIVE) U Cocaine Metab Screen (NEGATIVE) U Marijuana (THC) Screen (NEGATIVE) Result Diagrams: 12/11/20 17:50 12/11/20 22:45 Sepsis Event Note - Evaluation Sepsis Screening Result: No Definite Risk - Focused Exam Vital Signs: Vital Signs Temp Pulse Resp BP Pulse Ox 12/11/20 22:09 111 H 29 H 173/103 H 98 12/11/20 21:16 97.7 F 12/11/20 20:57 113 H 28 H 179/110 H 90 L 12/11/20 20:20 108 H 180/102 H 12/11/20 18:07 114 H 30 H 169/109 H 12/11/20 16:52 109 H 138/86 99 12/11/20 16:23 114 H 24 H 148/97 H 98 12/11/20 15:01 112 H 39 H 143/84 H 87 L 12/11/20 15:00 111 H 33 H 143/84 H 93 L 12/11/20 14:43 113 H 25 H 126/85 93 L 12/11/20 14:28 100.1 F 114 H 39 H 178/103 H 93 L *Q Meaningful Use (ADM) - VTE Risk Assess *Q Each Risk Factor Represents 1 Point: None Total Score 1 Point Risk Factors: 0 Each Risk Factor Represents 2 Points: None Total Score 2 Point Risk Factors: 0 Each Risk Factor Represents 3 Points: None Total Score 3 Point Risk Factors: 0 Each Risk Factor Represents 5 Points: None Total Score 5 Point Risk Factors: 0 Venous Thromboembolism Risk Factor Score *Q: 0 Problem List Initiated/Reviewed/Updated: Yes Orders Last 24hrs: Active Orders 24 hr Category Date Time Status Patient Status Manage Transfer [TRANSFER] Routine ADT 12/11/20 22:42 Active Blood Glucose Check, Bedside [RC] Q1H Care 12/11/20 22:32 Active Diabetes Education [RC] Click to Edit Care 12/11/20 22:29 Active EKG Documentation Completion [RC] ASDIRECTED Care 12/11/20 18:58 Active Notify Provider Laboratory Res [RC] ASDIRECTED Care 12/11/20 22:31 Active Notify Provider Laboratory Res [RC] ASDIRECTED Care 12/11/20 22:31 Active Notify Provider Laboratory Res [RC] ASDIRECTED Care 12/11/20 22:31 Active Notify Provider [RC] PRN Care 12/11/20 22:29 Active Vital Signs [RC] Q1H Care 12/11/20 22:29 Active Consult to Diabetic Nurse Specialist [CONS] Urgent Cons 12/11/20 22:29 Active Chest 1V Frontal [CR] Stat Exams 12/11/20 18:56 Taken BASIC METABOLIC PANEL,BMP [CHEM] Q4H Lab 12/11/20 22:45 Received BASIC METABOLIC PANEL,BMP [CHEM] Q4 Lab 12/12/20 02:30 Ordered BASIC METABOLIC PANEL,BMP [CHEM] Q4 Lab 12/12/20 06:30 Ordered BASIC METABOLIC PANEL,BMP [CHEM] Q4 Lab 12/12/20 10:30 Ordered BASIC METABOLIC PANEL,BMP [CHEM] Q4 Lab 12/12/20 14:30 Ordered BASIC METABOLIC PANEL,BMP [CHEM] Q4 Lab 12/12/20 18:30 Ordered CORONAVIRUS COVID-19, ANGEL Stat Lab 12/11/20 22:06 Ordered GLYCOSYLATED HEMOGLOBIN,HGBA1C [CHEM] AM Lab 12/12/20 05:11 Ordered MAGNESIUM [CHEM] Q6 Lab 12/11/20 22:45 Received MAGNESIUM [CHEM] Q6 Lab 12/12/20 04:30 Ordered MAGNESIUM [CHEM] Q6 Lab 12/12/20 10:30 Ordered MAGNESIUM [CHEM] Q6 Lab 12/12/20 16:30 Ordered PHOSPHORUS [CHEM] Q6 Lab 12/11/20 22:45 Received PHOSPHORUS [CHEM] Q6 Lab 12/12/20 04:30 Ordered PHOSPHORUS [CHEM] Q6H Lab 12/12/20 10:30 Ordered PHOSPHORUS [CHEM] Q6 Lab 12/12/20 16:30 Ordered POTASSIUM,K [CHEM] Q2 Lab 12/12/20 00:30 Ordered POTASSIUM,K [CHEM] Q2H Lab 12/12/20 02:30 Ordered POTASSIUM,K [CHEM] Q2H Lab 12/12/20 04:30 Ordered POTASSIUM,K [CHEM] Q2H Lab 12/12/20 06:30 Ordered POTASSIUM,K [CHEM] Q2 Lab 12/12/20 08:30 Ordered POTASSIUM,K [CHEM] [facility] Lab 12/12/20 10:30 Ordered POTASSIUM,K [CHEM] [facility] Lab 12/12/20 12:30 Ordered POTASSIUM,K [CHEM] [facility] Lab 12/12/20 14:30 Ordered POTASSIUM,K [CHEM] [facility] Lab 12/12/20 16:30 Ordered POTASSIUM,K [CHEM] [facility] Lab 12/12/20 18:30 Ordered POTASSIUM,K [CHEM] [facility] Lab 12/12/20 20:30 Ordered Dextrose 5%-0.45% NaCl [Dextrose 5%-1/2 NS] 1,000 ml Med 12/11/20 22:29 Active IV .CONTINUOUS Dextrose 50% in Water Med 12/11/20 19:47 Active 50 ml IVPUSH ASDIRECTED PRN Dextrose 50% in Water Med 12/11/20 21:33 Active 50 ml IVPUSH ASDIRECTED PRN Dextrose 50% in Water Med 12/11/20 22:29 Active 50 ml IVPUSH ONETIME PRN Glucagon,Human Recombinant [GlucaGen] Med 12/11/20 19:47 Active 1 mg IM ASDIRECTED PRN Glucagon,Human Recombinant [GlucaGen] Med 12/11/20 21:33 Active 1 mg IM ASDIRECTED PRN Insulin Regular in 0.9 % NACL [Myxredlin in NS 100 UNIT Med 12/11/20 22:30 Act jayy /100 ML] 100 ml IV ASDIRECTED Magnesium Sulfate/Water [Magnesium Sulfate in Water 2 Med 12/11/20 22:29 Active GM/50 ML] 2 gm in 50 ml IV ONETIME NS + KCl 20mEq/L [Normal Saline with 20 mEq KCl] 1,000 Med 12/11/20 21:00 Active ml IV ASDIRECTED Potassium Chloride [KCL in Water 20 MEQ/100 ML] 20 meq Med 12/11/20 22:29 Active Premix Bag 1 bag IV ONETIME Potassium Chloride [KCL in Water 20 MEQ/100 ML] 20 meq Med 12/11/20 23:00 Active Premix Bag 1 bag IV Q2H Potassium Chloride [Potassium Chloride Solution] Med 12/11/20 22:29 Active 20 meq PO NOW PRN Potassium Chloride [Potassium Chloride Solution] Med 12/11/20 22:29 Active 40 meq PO NOW PRN Potassium Chloride [Potassium Chloride Solution] Med 12/11/20 22:29 Active 40 meq PO Q2H PRN Sodium Chloride 0.9% [Normal Saline] 1,000 ml Med 12/11/20 16:45 Active IV ASDIRECTED Sodium Chloride 0.9% [Normal Saline] 1,000 ml Med 12/11/20 19:30 Active IV ASDIRECTED Sodium Chloride 0.9% [Normal Saline] 2,000 ml Med 12/11/20 22:29 Active IV .CONTINUOUS Medication Continuation Instructions [OM.PC] ASDIRECTED Oth 12/11/20 22:30 Or dered Medication Discontinuation Instructions [OM.PC] Oth 12/11/20 22:30 Ordered ASDIRECTED Medication Discontinuation Instructions [OM.PC] Routine Oth 12/11/20 22:33 Ordered Resuscitation Status Routine Resus Stat 12/11/20 22:48 Ordered EKG 12 Lead [EK] Routine Ther 12/11/20 18:58 Ordered Medication Orders Dextrose/Water (50% Dextrose In Water 50 Ml Syringe) 50 ml IVPUSH ASDIRECTED PRN PRN Reason: Hypoglycemia Dextrose/Water (50% Dextrose In Water 50 Ml Syringe) 50 ml IVPUSH ASDIRECTED PRN PRN Reason: Hypoglycemia Dextrose/Water (50% Dextrose In Water 50 Ml Syringe) 50 ml IVPUSH ONETIME PRN PRN Reason: Blood Glucose Glucagon (Glucagon,Human Recombinant 1 Mg Vial) 1 mg IM ASDIRECTED PRN PRN Reason: Hypoglycemia Glucagon (Glucagon,Human Recombinant 1 Mg Vial) 1 mg IM ASDIRECTED PRN PRN Reason: Hypoglycemia Sodium Chloride (Normal Saline) 1,000 mls @ 999 mls/hr IV ASDIRECTED [facility] Last Admin: 12/11/20 17:53 Dose: 999 mls/hr Documented by: USROB Sodium Chloride (Normal Saline) 1,000 mls @ 999 mls/hr IV ASDIRECTED [facility] Last Admin: 12/11/20 19:32 Dose: 999 mls/hr Documented by: USROB Potassium Chloride/Sodium Chloride (Normal Saline With 20 Meq Kcl) 1,000 mls @ 500 mls/hr IV ASDIRECTED [facility] Last Admin: 12/11/20 21:10 Dose: 500 mls/hr Documented by: GET Sodium Chloride (Normal Saline) 2,000 mls @ 500 mls/hr IV .CONTINUOUS PRN PRN Reason: Blood Glucose Dextrose/Sodium Chloride (Dextrose 5%-1/2 Ns) 1,000 mls @ 150 mls/hr IV .EDWIN NUOUS PRN PRN Reason: Blood Glucose Potassium Chloride 20 meq/ (Premix) 100 mls @ 50 mls/hr IV ONETIME ONE Stop: 12/12/20 00:28 Potassium Chloride 20 meq/ (Premix) 100 mls @ 50 mls/hr IV Q2H PRN PRN Reason: Hypokalemia Magnesium Sulfate (Magnesium Sulfate In Water 2 Gm/50 Ml) 2 gm in 50 mls @ 25 mls/hr IV ONETIME PRN PRN Reason: low magnesium Insulin Regular in 0.9 % NACL (Myxredlin In Ns 100 Unit/100 Ml) 100 mls @ 5.897 mls/hr IV ASDIRECTED GWENDOLYN; Protocol Potassium Chloride (Potassium Chloride 10% 20 Meq/15 Ml Soln 15 Ml Ud Cup) 20 meq PO NOW PRN PRN Reason: Hypokalemia Potassium Chloride (Potassium Chloride 10% 20 Meq/15 Ml Soln 15 Ml Ud Cup) 40 meq PO NOW PRN PRN Reason: Hypokalemia Potassium Chloride (Potassium Chloride 10% 20 Meq/15 Ml Soln 15 Ml Ud Cup) 40 meq PO Q2H PRN PRN Reason: Hypokalemia Assessment/Plan Comment:: ASSESSMENT AND PLAN DIABETIC KETOACIDOSIS-occurring in this 30-year-old woman with a known and longstanding history of type 1 diabetes mellitus. Symptoms of abdominal pain with nausea and vomiting over the past 4 days. She does not think she has had a fever but has had sweats. Significant elevation in CRP with modest elevation in white blood cell count. No obvious source of underlying infection identified on evaluation in the emergency department with labs and CT scan of the abdomen. Significant elevation in anion gap at 32 with a carbon dioxide level of 11. She has received fluids as well as subcutaneous insulin in the emergency department and labs have improved somewhat with this management. -IV insulin per protocol -Continue vigorous IV fluid replacement again per ketoacidosis protocol -Closely monitor electrolytes and manage per protocol -Consistent carbohydrate diet ACUTE KIDNEY INJURY-known chronic kidney disease stage IIIb. 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 At the time of this admission I do not reasonably expected evaluation and management of this problem will require more than a 96 hour hospital stay. DISPOSITION-anticipate discharge to home after the hospital stay. PRIMARY CARE PROVIDER-Randy Jacques - Mortality Measure Prognosis:: Good
[2020-12-11] MEDS ORDERED: Albuterol 8 GM Inhaler INH PRN (23:05)
[2020-12-11] MEDS ORDERED: Polyethylene Glycol 3350 Powder 17 GM Packet PO PRN (23:05)
[2020-12-11] MEDS ORDERED: Sodium Chloride 0.9% 10 ML Syringe FLUSH PRN (23:05)
[2020-12-12 00:14] LABS: HEMOGLOBIN A1C 9.2 % (4.5-6.2)
[2020-12-12 00:18] LABS: CORONAVIRUS COVID-19 NAA NEGATIVE (NEGATIVE)
[2020-12-12] MEDS: Morphine 2 MG/ML SYRINGE IVPUSH PRN ×5 (01:02→20:57)
[2020-12-12] MEDS: Dextrose 5%-0.45% NaCl 1,000 ML IV PRN ×3 (02:08→15:14)
[2020-12-12] MEDS: Ondansetron 4 MG/2 ML SDV IV PRN (04:49)
[2020-12-12] MEDS: hydrALAZINE 25 MG Tab PO SCH ×4 (05:43→21:00)
[2020-12-12] MEDS: Albuterol 0.083% 2.5 MG/3 ML Neb Soln NEB PRN (05:43)
[2020-12-12] MEDS ORDERED: Vancomycin 1 GM SDV IV SCH (08:00)
[2020-12-12] MEDS: oxyCODONE 5 MG Tab PO PRN ×3 (08:14→22:40)
[2020-12-12] MEDS: Carvedilol 12.5 MG Tab PO SCH ×2 (08:15→20:36)
[2020-12-12] MEDS: Gabapentin 300 MG Cap PO SCH (08:15)
[2020-12-12] MEDS: Sertraline 50 MG Tab PO SCH (08:15)
[2020-12-12] MEDS: Aspirin 81 MG Tab.EC PO SCH (08:15)
[2020-12-12] MEDS: Magnesium Oxide 400 MG Tab PO SCH (08:15)
[2020-12-12] MEDS: Apixaban 5 MG Tab PO SCH ×2 (08:15→20:36)
[2020-12-12] MEDS: Piperacillin/Tazobactam/Dext 3.375 GM in Premix Bag 1 BAG IV SCH ×3 (08:26→19:43)
[2020-12-12] MEDS: Pantoprazole 40 MG Vial IVPUSH SCH ×2 (09:14→20:37)
--- NOTE | 2020-12-12 11:12 | CR ---
CHEST: Portable 12/11/2020 and 6:27 PM CLINICAL HISTORY:SOB, abdominal pain COMPARISON:2019 FINDINGS: The heart size, pulmonary vascularity and hilar structures are normal. There is minimal patchy density in the right infrahilar region. There is no effusion. IMPRESSION: Minimal patchy right infrahilar density. Early pneumonia is not excluded. If clinical symptomatology persists or worsens a repeat exam is recommended.
--- NOTE | 2020-12-12 11:27 | CR ---
CHEST: Portable 12/12/2020 at 831 CLINICAL HISTORY:Hypoxia COMPARISON:12/11/2020 FINDINGS: There is patchy pneumonic infiltrate in the right lower lobe. Heart and pulmonary vascularity are normal. There are no effusions Impression: Right lower lobe pneumonia.
[2020-12-12] MEDS: Levofloxacin/Dextrose 5%-Water 750 MG in Premix Bag 1 BAG IV SCH (13:03)
--- NOTE | 2020-12-12 15:08 | PCM.PN ---
- General Info Date of Service: 12/12/20 Subjective Update: Ms. Frakn has improved as far as her ketoacidosis. Unfortunately she is developed further respiratory compromise through the night. Repeat chest x-ray shows more definite evidence of a right lung infiltrate, no other abnormality seen. White blood cell count is increased modestly from admission. She does report symptoms of shortness of breath. Troponin level was obtained last night because of symptoms of chest pain and was mildly elevated, it has increased slightly since then. No acute ST segment changes noted on EKG. Functional Status: Denies: Tolerating Diet, Ambulating - Review of Systems General: Reports: Weakness, Fatigue, Chills. Denies: Fever Pulmonary: Reports: Shortness of Breath, Cough. Denies: Pleuritic Chest Pain, Sputum, Hemoptysis, Wheezing Cardiovascular: Reports: Dyspnea on Exertion. Denies: Chest Pain, Palpitations, Orthopnea, PND, Edema, Lightheadedness Gastrointestinal: Reports: Abdominal Pain, Decreased Appetite, Nausea, Vomiting. Denies: Difficulty Swallowing, Hematochezia, Melena Genitourinary: Reports: No Symptoms - Patient Data Vitals - Most Recent: Last Vital Signs Temp 98.1 F 12/12/20 14:00 Pulse 109 H 12/12/20 08:15 Resp 24 H 12/12/20 14:00 BP 150/102 H 12/12/20 14:00 Pulse Ox 99 12/12/20 14:00 Weight - Most Recent: 160 lb 9.6 oz I&O - Last 24 Hours: Intake & Output 12/12/20 12/12/20 12/12/20 06:59 14:59 22:59 Intake Total 2097 199 Output Total 700 Balance 1397 636 Lab Results Last 24 Hours: Laboratory Results - last 24 hr 12/11/20 12/11/20 12/11/20 Range/Units 16:37 17:50 17:50 WBC 13.5 H (4.5-11.0) K/uL RBC 3.83 (3.30-5.50) M/uL Hgb 11.2 L D (12.0-15.0) g/dL Hct 33.3 L (36.0-48.0) % MCV 87 (80-98) fL MCH 29 (27-31) pg MCHC 34 (32-36) % Plt Count 217 (150-400) K/uL Neut % (Auto) 81.8 H (36-66) % Lymph % (Auto) 7.8 L (24-44) % [place] % (Auto) 9.6 H (2-6) % Eos % (Auto) 0.7 L (2-4) % Baso % (Auto) 0.1 (0-1) % VBG pH (7.350-7.450) Sodium 135 L (140-148) mmol/L Potassium 4.7 (3.6-5.2) mmol/L Chloride 97 L (100-108) mmol/L Carbon Dioxide 11 L (21-32) mmol/L Anion Gap 31.7 H (5.0-14.0) mmol/L BUN 50 H D (7-18) mg/dL Creatinine 3.8 H* D (0.6-1.0) mg/dL Est Cr Clr Drug Dosing 19.97 mL/min Estimated GFR (MDRD) 17 L (>60) Glucose 680 H* (74-106) mg/dL POC Glucose (74-106) mg/dL Hemoglobin A1c (4.5-6.2) % Calcium 8.1 L (8.5-10.1) mg/dL Phosphorus (2.5-4.9) mg/dL Magnesium (1.8-2.4) mg/dL Total Bilirubin 0.9 (0.2-1.0) mg/dL AST 22 (15-37) U/L ALT 15 (12-78) U/L Alkaline Phosphatase 103 (46-116) U/L Troponin I (0.000-0.056) ng/mL C-Reactive Protein (0.0-0.3) mg/dL Total Protein 7.5 (6.4-8.2) g/dL Albumin 3.0 L (3.4-5.0) g/dL Globulin 4.5 H (2.3-3.5) g/dL Albumin/Globulin Ratio 0.7 L (1.2-2.2) Amylase (25-115) U/L Lipase (73-393) U/L Urine Color Cancelled Urine Appearance Cancelled Urine pH Cancelled Ur Specific [place] Cancelled Urine Protein Cancelled Urine Glucose (UA) Cancelled Urine Ketones Cancelled Urine Occult Blood Cancelled Urine Nitrite Cancelled Urine Bilirubin Cancelled Urine Urobilinogen Cancelled Ur Leukocyte Esterase Cancelled Urine RBC Cancelled Urine WBC Cancelled Ur Epithelial Cells Cancelled Amorphous Sediment Cancelled Urine Bacteria Cancelled Urine Mucus Cancelled Urine Other Cancelled Urinalysis Comment Cancelled Urine Opiates Screen (NEGATIVE) Ur Oxycodone Screen (NEGATIVE) Urine Methadone Screen (NEGATIVE) Ur Propoxyphene Screen (NEGATIVE) Ur Barbiturates Screen (NEGATIVE) Ur Tricyclics Screen (NEGATIVE) Ur Phencyclidine Scrn (NEGATIVE) Ur Amphetamine Screen (NEGATIVE) U Methamphetamines Scrn (NEGATIVE) Urine MDMA Screen (NEGATIVE) U Benzodiazepines Scrn (NEGATIVE) U Cocaine Metab Screen (NEGATIVE) U Marijuana (THC) Screen (NEGATIVE) Influenza Type A RNA (NEGATIVE) RSV RNA (INAAT) (NEGATIVE) Influenza Type B RNA (NEGATIVE) SARS-CoV-2 RNA (ANGEL) (NEGATIVE) 12/11/20 12/11/20 12/11/20 Range/Units 17:50 17:50 19:49 WBC (4.5-11.0) K/uL RBC (3.30-5.50) M/uL Hgb (12.0-15.0) g/dL Hct (36.0-48.0) % MCV (80-98) fL MCH (27-31) pg MCHC (32-36) % Plt Count (150-400) K/uL Neut % (Auto) (36-66) % Lymph % (Auto) (24-44) % [place] % (Auto) (2-6) % Eos % (Auto) (2-4) % Baso % (Auto) (0-1) % VBG pH 7.242 L (7.350-7.450) Sodium (140-148) mmol/L Potassium (3.6-5.2) mmol/L Chloride (100-108) mmol/L Carbon Dioxide (21-32) mmol/L Anion Gap (5.0-14.0) mmol/L BUN (7-18) mg/dL Creatinine (0.6-1.0) mg/dL Est Cr Clr Drug Dosing mL/min Estimated GFR (MDRD) (>60) Glucose (74-106) mg/dL POC Glucose (74-106) mg/dL Hemoglobin A1c (4.5-6.2) % Calcium (8.5-10.1) mg/dL Phosphorus (2.5-4.9) mg/dL Magnesium (1.8-2.4) mg/dL Total Bilirubin (0.2-1.0) mg/dL AST (15-37) U/L ALT (12-78) U/L Alkaline Phosphatase (46-116) U/L Troponin I (0.000-0.056) ng/mL C-Reactive Protein 23.80 H (0.0-0.3) mg/dL Total Protein (6.4-8.2) g/dL Albumin (3.4-5.0) g/dL Globulin (2.3-3.5) g/dL Albumin/Globulin Ratio (1.2-2.2) Amylase 235 H (25-115) U/L Lipase 43 L (73-393) U/L Urine Color Urine Appearance Urine pH Ur Specific [place] Urine Protein Urine Glucose (UA) Urine Ketones Urine Occult Blood Urine Nitrite Urine Bilirubin Urine Urobilinogen Ur Leukocyte Esterase Urine RBC Urine WBC Ur Epithelial Cells Amorphous Sediment Urine Bacteria Urine Mucus Urine Other Urinalysis Comment Urine Opiates Screen (NEGATIVE) Ur Oxycodone Screen (NEGATIVE) Urine Methadone Screen (NEGATIVE) Ur Propoxyphene Screen (NEGATIVE) Ur Barbiturates Screen (NEGATIVE) Ur Tricyclics Screen (NEGATIVE) Ur Phencyclidine Scrn (NEGATIVE) Ur Amphetamine Screen (NEGATIVE) U Methamphetamines Scrn (NEGATIVE) Urine MDMA Screen (NEGATIVE) U Benzodiazepines Scrn (NEGATIVE) U Cocaine Metab Screen (NEGATIVE) U Marijuana (THC) Screen (NEGATIVE) Influenza Type A RNA (NEGATIVE) RSV RNA (INAAT) (NEGATIVE) Influenza Type B RNA (NEGATIVE) SARS-CoV-2 RNA (ANGEL) (NEGATIVE) 12/11/20 12/11/20 12/11/20 Range/Units 20:51 21:27 21:29 WBC (4.5-11.0) K/uL RBC (3.30-5.50) M/uL Hgb (12.0-15.0) g/dL Hct (36.0-48.0) % MCV (80-98) fL MCH (27-31) pg MCHC (32-36) % Plt Count (150-400) K/uL Neut % (Auto) (36-66) % Lymph % (Auto) (24-44) % [place] % (Auto) (2-6) % Eos % (Auto) (2-4) % Baso % (Auto) (0-1) % VBG pH (7.350-7.450) Sodium (140-148) mmol/L Potassium (3.6-5.2) mmol/L Chloride (100-108) mmol/L Carbon Dioxide (21-32) mmol/L Anion Gap (5.0-14.0) mmol/L BUN (7-18) mg/dL Creatinine (0.6-1.0) mg/dL Est Cr Clr Drug Dosing mL/min Estimated GFR (MDRD) (>60) Glucose (74-106) mg/dL POC Glucose (74-106) mg/dL Hemoglobin A1c (4.5-6.2) % Calcium (8.5-10.1) mg/dL Phosphorus (2.5-4.9) mg/dL Magnesium 1.7 L (1.8-2.4) mg/dL Total Bilirubin (0.2-1.0) mg/dL AST (15-37) U/L ALT (12-78) U/L Alkaline Phosphatase (46-116) U/L Troponin I (0.000-0.056) ng/mL C-Reactive Protein (0.0-0.3) mg/dL Total Protein (6.4-8.2) g/dL Albumin (3.4-5.0) g/dL Globulin (2.3-3.5) g/dL Albumin/Globulin Ratio (1.2-2.2) Amylase (25-115) U/L Lipase (73-393) U/L Urine Color Yellow Urine Appearance Slightly cloudy A Urine pH 5.5 Ur Specific [place] 1.015 Urine Protein >=300 H Urine Glucose (UA) 500 H Urine Ketones 80 H Urine Occult Blood Large H Urine Nitrite Negative Urine Bilirubin Small H Urine Urobilinogen 0.2 Ur Leukocyte Esterase Negative Urine RBC 75-100 H Urine WBC 0-5 Ur Epithelial Cells Few Amorphous Sediment Not seen Urine Bacteria Moderate Urine Mucus Not seen Urine Other Urinalysis Comment Urine Opiates Screen Negative (NEGATIVE) Ur Oxycodone Screen Negative (NEGATIVE) Urine Methadone Screen Presumptive positive H (NEGATIVE) Ur Propoxyphene Screen Negative (NEGATIVE) Ur Barbiturates Screen Negative (NEGATIVE) Ur Tricyclics Screen Negative (NEGATIVE) Ur Phencyclidine Scrn Negative (NEGATIVE) Ur Amphetamine Screen Negative (NEGATIVE) U Methamphetamines Scrn Negative (NEGATIVE) Urine MDMA Screen Negative (NEGATIVE) U Benzodiazepines Scrn Negative (NEGATIVE) U Cocaine Metab Screen Negative (NEGATIVE) U Marijuana (THC) Screen Negative (NEGATIVE) Influenza Type A RNA (NEGATIVE) RSV RNA (INAAT) (NEGATIVE) Influenza Type B RNA (NEGATIVE) SARS-CoV-2 RNA (ANGEL) (NEGATIVE) 12/11/20 12/11/20 12/11/20 Range/Units 21:29 22:45 23:28 WBC (4.5-11.0) K/uL RBC (3.30-5.50) M/uL Hgb (12.0-15.0) g/dL Hct (36.0-48.0) % MCV (80-98) fL MCH (27-31) pg MCHC (32-36) % Plt Count (150-400) K/uL Neut % (Auto) (36-66) % Lymph % (Auto) (24-44) % [place] % (Auto) (2-6) % Eos % (Auto) (2-4) % Baso % (Auto) (0-1) % VBG pH (7.350-7.450) Sodium 139 L (140-148) mmol/L Potassium 5.3 H (3.6-5.2) mmol/L Chloride 104 (100-108) mmol/L Carbon Dioxide 17 L (21-32) mmol/L Anion Gap 23.3 H (5.0-14.0) mmol/L BUN 46 H (7-18) mg/dL Creatinine 3.5 H (0.6-1.0) mg/dL Est Cr Clr Drug Dosing 21.68 mL/min Estimated GFR (MDRD) 18 L (>60) Glucose 488 H* (74-106) mg/dL POC Glucose 544 H* 402 H* (74-106) mg/dL Hemoglobin A1c (4.5-6.2) % Calcium 7.7 L (8.5-10.1) mg/dL Phosphorus 3.6 (2.5-4.9) mg/dL Magnesium 1.8 (1.8-2.4) mg/dL Total Bilirubin (0.2-1.0) mg/dL AST (15-37) U/L ALT (12-78) U/L Alkaline Phosphatase (46-116) U/L Troponin I (0.000-0.056) ng/mL C-Reactive Protein (0.0-0.3) mg/dL Total Protein (6.4-8.2) g/dL Albumin (3.4-5.0) g/dL Globulin (2.3-3.5) g/dL Albumin/Globulin Ratio (1.2-2.2) Amylase (25-115) U/L Lipase (73-393) U/L Urine Color Urine Appearance Urine pH Ur Specific [place] Urine Protein Urine Glucose (UA) Urine Ketones Urine Occult Blood Urine Nitrite Urine Bilirubin Urine Urobilinogen Ur Leukocyte Esterase Urine RBC Urine WBC Ur Epithelial Cells Amorphous Sediment Urine Bacteria Urine Mucus Urine Other Urinalysis Comment Urine Opiates Screen (NEGATIVE) Ur Oxycodone Screen (NEGATIVE) Urine Methadone Screen (NEGATIVE) Ur Propoxyphene Screen (NEGATIVE) Ur Barbiturates Screen (NEGATIVE) Ur Tricyclics Screen (NEGATIVE) Ur Phencyclidine Scrn (NEGATIVE) Ur Amphetamine Screen (NEGATIVE) U Methamphetamines Scrn (NEGATIVE) Urine MDMA Screen (NEGATIVE) U Benzodiazepines Scrn (NEGATIVE) U Cocaine Metab Screen (NEGATIVE) U Marijuana (THC) Screen (NEGATIVE) Influenza Type A RNA (NEGATIVE) RSV RNA (INAAT) (NEGATIVE) Influenza Type B RNA (NEGATIVE) SARS-CoV-2 RNA (ANGEL) (NEGATIVE) 12/11/20 12/12/20 12/12/20 Range/Units 23:38 00:14 00:52 WBC (4.5-11.0) K/uL RBC (3.30-5.50) M/uL Hgb (12.0-15.0) g/dL Hct (36.0-48.0) % MCV (80-98) fL MCH (27-31) pg MCHC (32-36) % Plt Count (150-400) K/uL Neut % (Auto) (36-66) % Lymph % (Auto) (24-44) % [place] % (Auto) (2-6) % Eos % (Auto) (2-4) % Baso % (Auto) (0-1) % VBG pH (7.350-7.450) Sodium (140-148) mmol/L Potassium 3.9 (3.6-5.2) mmol/L Chloride (100-108) mmol/L Carbon Dioxide (21-32) mmol/L Anion Gap (5.0-14.0) mmol/L BUN (7-18) mg/dL Creatinine (0.6-1.0) mg/dL Est Cr Clr Drug Dosing mL/min Estimated GFR (MDRD) (>60) Glucose (74-106) mg/dL POC Glucose (74-106) mg/dL Hemoglobin A1c 9.2 H (4.5-6.2) % Calcium (8.5-10.1) mg/dL Phosphorus (2.5-4.9) mg/dL Magnesium (1.8-2.4) mg/dL Total Bilirubin (0.2-1.0) mg/dL AST (15-37) U/L ALT (12-78) U/L Alkaline Phosphatase (46-116) U/L Troponin I (0.000-0.056) ng/mL C-Reactive Protein (0.0-0.3) mg/dL Total Protein (6.4-8.2) g/dL Albumin (3.4-5.0) g/dL Globulin (2.3-3.5) g/dL Albumin/Globulin Ratio (1.2-2.2) Amylase (25-115) U/L Lipase (73-393) U/L Urine Color Urine Appearance Urine pH Ur Specific [place] Urine Protein Urine Glucose (UA) Urine Ketones Urine Occult Blood Urine Nitrite Urine Bilirubin Urine Urobilinogen Ur Leukocyte Esterase Urine RBC Urine WBC Ur Epithelial Cells Amorphous Sediment Urine Bacteria Urine Mucus Urine Other Urinalysis Comment Urine Opiates Screen (NEGATIVE) Ur Oxycodone Screen (NEGATIVE) Urine Methadone Screen (NEGATIVE) Ur Propoxyphene Screen (NEGATIVE) Ur Barbiturates Screen (NEGATIVE) Ur Tricyclics Screen (NEGATIVE) Ur Phencyclidine Scrn (NEGATIVE) Ur Amphetamine Screen (NEGATIVE) U Methamphetamines Scrn (NEGATIVE) Urine MDMA Screen (NEGATIVE) U Benzodiazepines Scrn (NEGATIVE) U Cocaine Metab Screen (NEGATIVE) U Marijuana (THC) Screen (NEGATIVE) Influenza Type A RNA Negative (NEGATIVE) RSV RNA (INAAT) Negative (NEGATIVE) Influenza Type B RNA Negative (NEGATIVE) SARS-CoV-2 RNA (ANGEL) Negative (NEGATIVE) 12/12/20 12/12/20 12/12/20 Range/Units 00:52 01:05 02:04 WBC (4.5-11.0) K/uL RBC (3.30-5.50) M/uL Hgb (12.0-15.0) g/dL Hct (36.0-48.0) % MCV (80-98) fL MCH (27-31) pg MCHC (32-36) % Plt Count (150-400) K/uL Neut % (Auto) (36-66) % Lymph % (Auto) (24-44) % [place] % (Auto) (2-6) % Eos % (Auto) (2-4) % Baso % (Auto) (0-1) % VBG pH (7.350-7.450) Sodium (140-148) mmol/L Potassium (3.6-5.2) mmol/L Chloride (100-108) mmol/L Carbon Dioxide (21-32) mmol/L Anion Gap (5.0-14.0) mmol/L BUN (7-18) mg/dL Creatinine (0.6-1.0) mg/dL Est Cr Clr Drug Dosing mL/min Estimated GFR (MDRD) (>60) Glucose (74-106) mg/dL POC Glucose 279 H 197 H (74-106) mg/dL Hemoglobin A1c (4.5-6.2) % Calcium (8.5-10.1) mg/dL Phosphorus (2.5-4.9) mg/dL Magnesium (1.8-2.4) mg/dL Total Bilirubin (0.2-1.0) mg/dL AST (15-37) U/L ALT (12-78) U/L Alkaline Phosphatase (46-116) U/L Troponin I 0.077 H* (0.000-0.056) ng/mL C-Reactive Protein (0.0-0.3) mg/dL Total Protein (6.4-8.2) g/dL Albumin (3.4-5.0) g/dL Globulin (2.3-3.5) g/dL Albumin/Globulin Ratio (1.2-2.2) Amylase (25-115) U/L Lipase (73-393) U/L Urine Color Urine Appearance Urine pH Ur Specific [place] Urine Protein Urine Glucose (UA) Urine Ketones Urine Occult Blood Urine Nitrite Urine Bilirubin Urine Urobilinogen Ur Leukocyte Esterase Urine RBC Urine WBC Ur Epithelial Cells Amorphous Sediment Urine Bacteria Urine Mucus Urine Other Urinalysis Comment Urine Opiates Screen (NEGATIVE) Ur Oxycodone Screen (NEGATIVE) Urine Methadone Screen (NEGATIVE) Ur Propoxyphene Screen (NEGATIVE) Ur Barbiturates Screen (NEGATIVE) Ur Tricyclics Screen (NEGATIVE) Ur Phencyclidine Scrn (NEGATIVE) Ur Amphetamine Screen (NEGATIVE) U Methamphetamines Scrn (NEGATIVE) Urine MDMA Screen (NEGATIVE) U Benzodiazepines Scrn (NEGATIVE) U Cocaine Metab Screen (NEGATIVE) U Marijuana (THC) Screen (NEGATIVE) Influenza Type A RNA (NEGATIVE) RSV RNA (INAAT) (NEGATIVE) Influenza Type B RNA (NEGATIVE) SARS-CoV-2 RNA (ANGEL) (NEGATIVE) 12/12/20 12/12/20 12/12/20 Range/Units 03:04 03:30 04:11 WBC (4.5-11.0) K/uL RBC (3.30-5.50) M/uL Hgb (12.0-15.0) g/dL Hct (36.0-48.0) % MCV (80-98) fL MCH (27-31) pg MCHC (32-36) % Plt Count (150-400) K/uL Neut % (Auto) (36-66) % Lymph % (Auto) (24-44) % [place] % (Auto) (2-6) % Eos % (Auto) (2-4) % Baso % (Auto) (0-1) % VBG pH (7.350-7.450) Sodium 146 (140-148) mmol/L Potassium 3.7 (3.6-5.2) mmol/L Chloride 112 H (100-108) mmol/L Carbon Dioxide 20 L (21-32) mmol/L Anion Gap 17.7 H (5.0-14.0) mmol/L BUN 39 H (7-18) mg/dL Creatinine 3.1 H (0.6-1.0) mg/dL Est Cr Clr Drug Dosing 25.57 mL/min Estimated GFR (MDRD) 21 L (>60) Glucose 173 H (74-106) mg/dL POC Glucose 181 H 166 H (74-106) mg/dL Hemoglobin A1c (4.5-6.2) % Calcium 8.0 L (8.5-10.1) mg/dL Phosphorus (2.5-4.9) mg/dL Magnesium (1.8-2.4) mg/dL Total Bilirubin (0.2-1.0) mg/dL AST (15-37) U/L ALT (12-78) U/L Alkaline Phosphatase (46-116) U/L Troponin I (0.000-0.056) ng/mL C-Reactive Protein (0.0-0.3) mg/dL Total Protein (6.4-8.2) g/dL Albumin (3.4-5.0) g/dL Globulin (2.3-3.5) g/dL Albumin/Globulin Ratio (1.2-2.2) Amylase (25-115) U/L Lipase (73-393) U/L Urine Color Urine Appearance Urine pH Ur Specific [place] Urine Protein Urine Glucose (UA) Urine Ketones Urine Occult Blood Urine Nitrite Urine Bilirubin Urine Urobilinogen Ur Leukocyte Esterase Urine RBC Urine WBC Ur Epithelial Cells Amorphous Sediment Urine Bacteria Urine Mucus Urine Other Urinalysis Comment Urine Opiates Screen (NEGATIVE) Ur Oxycodone Screen (NEGATIVE) Urine Methadone Screen (NEGATIVE) Ur Propoxyphene Screen (NEGATIVE) Ur Barbiturates Screen (NEGATIVE) Ur Tricyclics Screen (NEGATIVE) Ur Phencyclidine Scrn (NEGATIVE) Ur Amphetamine Screen (NEGATIVE) U Methamphetamines Scrn (NEGATIVE) Urine MDMA Screen (NEGATIVE) U Benzodiazepines Scrn (NEGATIVE) U Cocaine Metab Screen (NEGATIVE) U Marijuana (THC) Screen (NEGATIVE) Influenza Type A RNA (NEGATIVE) RSV RNA (INAAT) (NEGATIVE) Influenza Type B RNA (NEGATIVE) SARS-CoV-2 RNA (ANGEL) (NEGATIVE) 12/12/20 12/12/20 12/12/20 Range/Units 05:02 05:30 05:30 WBC 14.4 H (4.5-11.0) K/uL RBC 3.10 L (3.30-5.50) M/uL Hgb 9.0 L D (12.0-15.0) g/dL Hct 26.5 L (36.0-48.0) % MCV 86 (80-98) fL MCH 29 (27-31) pg MCHC 34 (32-36) % Plt Count 197 (150-400) K/uL Neut % (Auto) 73.5 H (36-66) % Lymph % (Auto) 9.8 L (24-44) % [place] % (Auto) 16.3 H (2-6) % Eos % (Auto) 0.1 L (2-4) % Baso % (Auto) 0.3 (0-1) % VBG pH (7.350-7.450) Sodium (140-148) mmol/L Potassium 4.8 (3.6-5.2) mmol/L Chloride (100-108) mmol/L Carbon Dioxide (21-32) mmol/L Anion Gap (5.0-14.0) mmol/L BUN (7-18) mg/dL Creatinine (0.6-1.0) mg/dL Est Cr Clr Drug Dosing mL/min Estimated GFR (MDRD) (>60) Glucose (74-106) mg/dL POC Glucose 178 H (74-106) mg/dL Hemoglobin A1c (4.5-6.2) % Calcium (8.5-10.1) mg/dL Phosphorus 2.3 L (2.5-4.9) mg/dL Magnesium 1.7 L (1.8-2.4) mg/dL Total Bilirubin (0.2-1.0) mg/dL AST (15-37) U/L ALT (12-78) U/L Alkaline Phosphatase (46-116) U/L Troponin I (0.000-0.056) ng/mL C-Reactive Protein (0.0-0.3) mg/dL Total Protein (6.4-8.2) g/dL Albumin (3.4-5.0) g/dL Globulin (2.3-3.5) g/dL Albumin/Globulin Ratio (1.2-2.2) Amylase (25-115) U/L Lipase (73-393) U/L Urine Color Urine Appearance Urine pH Ur Specific [place] Urine Protein Urine Glucose (UA) Urine Ketones Urine Occult Blood Urine Nitrite Urine Bilirubin Urine Urobilinogen Ur Leukocyte Esterase Urine RBC Urine WBC Ur Epithelial Cells Amorphous Sediment Urine Bacteria Urine Mucus Urine Other Urinalysis Comment Urine Opiates Screen (NEGATIVE) Ur Oxycodone Screen (NEGATIVE) Urine Methadone Screen (NEGATIVE) Ur Propoxyphene Screen (NEGATIVE) Ur Barbiturates Screen (NEGATIVE) Ur Tricyclics Screen (NEGATIVE) Ur Phencyclidine Scrn (NEGATIVE) Ur Amphetamine Screen (NEGATIVE) U Methamphetamines Scrn (NEGATIVE) Urine MDMA Screen (NEGATIVE) U Benzodiazepines Scrn (NEGATIVE) U Cocaine Metab Screen (NEGATIVE) U Marijuana (THC) Screen (NEGATIVE) Influenza Type A RNA (NEGATIVE) RSV RNA (INAAT) (NEGATIVE) Influenza Type B RNA (NEGATIVE) SARS-CoV-2 RNA (ANGEL) (NEGATIVE) 12/12/20 12/12/20 12/12/20 Range/Units 05:30 05:59 06:58 WBC (4.5-11.0) K/uL RBC (3.30-5.50) M/uL Hgb (12.0-15.0) g/dL Hct (36.0-48.0) % MCV (80-98) fL MCH (27-31) pg MCHC (32-36) % Plt Count (150-400) K/uL Neut % (Auto) (36-66) % Lymph % (Auto) (24-44) % [place] % (Auto) (2-6) % Eos % (Auto) (2-4) % Baso % (Auto) (0-1) % VBG pH (7.350-7.450) Sodium (140-148) mmol/L Potassium (3.6-5.2) mmol/L Chloride (100-108) mmol/L Carbon Dioxide (21-32) mmol/L Anion Gap (5.0-14.0) mmol/L BUN (7-18) mg/dL Creatinine (0.6-1.0) mg/dL Est Cr Clr Drug Dosing mL/min Estimated GFR (MDRD) (>60) Glucose (74-106) mg/dL POC Glucose 184 H 188 H (74-106) mg/dL Hemoglobin A1c (4.5-6.2) % Calcium (8.5-10.1) mg/dL Phosphorus (2.5-4.9) mg/dL Magnesium (1.8-2.4) mg/dL Total Bilirubin (0.2-1.0) mg/dL AST (15-37) U/L ALT (12-78) U/L Alkaline Phosphatase (46-116) U/L Troponin I 0.114 H* (0.000-0.056) ng/mL C-Reactive Protein (0.0-0.3) mg/dL Total Protein (6.4-8.2) g/dL Albumin (3.4-5.0) g/dL Globulin (2.3-3.5) g/dL Albumin/Globulin Ratio (1.2-2.2) Amylase (25-115) U/L Lipase (73-393) U/L Urine Color Urine Appearance Urine pH Ur Specific [place] Urine Protein Urine Glucose (UA) Urine Ketones Urine Occult Blood Urine Nitrite Urine Bilirubin Urine Urobilinogen Ur Leukocyte Esterase Urine RBC Urine WBC Ur Epithelial Cells Amorphous Sediment Urine Bacteria Urine Mucus Urine Other Urinalysis Comment Urine Opiates Screen (NEGATIVE) Ur Oxycodone Screen (NEGATIVE) Urine Methadone Screen (NEGATIVE) Ur Propoxyphene Screen (NEGATIVE) Ur Barbiturates Screen (NEGATIVE) Ur Tricyclics Screen (NEGATIVE) Ur Phencyclidine Scrn (NEGATIVE) Ur Amphetamine Screen (NEGATIVE) U Methamphetamines Scrn (NEGATIVE) Urine MDMA Screen (NEGATIVE) U Benzodiazepines Scrn (NEGATIVE) U Cocaine Metab Screen (NEGATIVE) U Marijuana (THC) Screen (NEGATIVE) Influenza Type A RNA (NEGATIVE) RSV RNA (INAAT) (NEGATIVE) Influenza Type B RNA (NEGATIVE) SARS-CoV-2 RNA (ANGEL) (NEGATIVE) 12/12/20 12/12/20 12/12/20 Range/Units 07:03 08:10 09:10 WBC (4.5-11.0) K/uL RBC (3.30-5.50) M/uL Hgb (12.0-15.0) g/dL Hct (36.0-48.0) % MCV (80-98) fL MCH (27-31) pg MCHC (32-36) % Plt Count (150-400) K/uL Neut % (Auto) (36-66) % Lymph % (Auto) (24-44) % [place] % (Auto) (2-6) % Eos % (Auto) (2-4) % Baso % (Auto) (0-1) % VBG pH (7.350-7.450) Sodium 144 (140-148) mmol/L Potassium 4.9 (3.6-5.2) mmol/L Chloride 112 H (100-108) mmol/L Carbon Dioxide 18 L (21-32) mmol/L Anion Gap 18.9 H (5.0-14.0) mmol/L BUN 35 H (7-18) mg/dL Creatinine 2.8 H (0.6-1.0) mg/dL Est Cr Clr Drug Dosing 28.31 mL/min Estimated GFR (MDRD) 24 L (>60) Glucose 197 H (74-106) mg/dL POC Glucose 159 H 148 H (74-106) mg/dL Hemoglobin A1c (4.5-6.2) % Calcium 8.4 L (8.5-10.1) mg/dL Phosphorus (2.5-4.9) mg/dL Magnesium (1.8-2.4) mg/dL Total Bilirubin (0.2-1.0) mg/dL AST (15-37) U/L ALT (12-78) U/L Alkaline Phosphatase (46-116) U/L Troponin I (0.000-0.056) ng/mL C-Reactive Protein (0.0-0.3) mg/dL Total Protein (6.4-8.2) g/dL Albumin (3.4-5.0) g/dL Globulin (2.3-3.5) g/dL Albumin/Globulin Ratio (1.2-2.2) Amylase (25-115) U/L Lipase (73-393) U/L Urine Color Urine Appearance Urine pH Ur Specific [place] Urine Protein Urine Glucose (UA) Urine Ketones Urine Occult Blood Urine Nitrite Urine Bilirubin Urine Urobilinogen Ur Leukocyte Esterase Urine RBC Urine WBC Ur Epithelial Cells Amorphous Sediment Urine Bacteria Urine Mucus Urine Other Urinalysis Comment Urine Opiates Screen (NEGATIVE) Ur Oxycodone Screen (NEGATIVE) Urine Methadone Screen (NEGATIVE) Ur Propoxyphene Screen (NEGATIVE) Ur Barbiturates Screen (NEGATIVE) Ur Tricyclics Screen (NEGATIVE) Ur Phencyclidine Scrn (NEGATIVE) Ur Amphetamine Screen (NEGATIVE) U Methamphetamines Scrn (NEGATIVE) Urine MDMA Screen (NEGATIVE) U Benzodiazepines Scrn (NEGATIVE) U Cocaine Metab Screen (NEGATIVE) U Marijuana (THC) Screen (NEGATIVE) Influenza Type A RNA (NEGATIVE) RSV RNA (INAAT) (NEGATIVE) Influenza Type B RNA (NEGATIVE) SARS-CoV-2 RNA (ANGEL) (NEGATIVE) 12/12/20 12/12/20 12/12/20 Range/Units 09:21 10:04 10:57 WBC (4.5-11.0) K/uL RBC (3.30-5.50) M/uL Hgb (12.0-15.0) g/dL Hct (36.0-48.0) % MCV (80-98) fL MCH (27-31) pg MCHC (32-36) % Plt Count (150-400) K/uL Neut % (Auto) (36-66) % Lymph % (Auto) (24-44) % [place] % (Auto) (2-6) % Eos % (Auto) (2-4) % Baso % (Auto) (0-1) % VBG pH (7.350-7.450) Sodium (140-148) mmol/L Potassium 4.0 (3.6-5.2) mmol/L Chloride (100-108) mmol/L Carbon Dioxide (21-32) mmol/L Anion Gap (5.0-14.0) mmol/L BUN (7-18) mg/dL Creatinine (0.6-1.0) mg/dL Est Cr Clr Drug Dosing mL/min Estimated GFR (MDRD) (>60) Glucose (74-106) mg/dL POC Glucose 136 H 163 H (74-106) mg/dL Hemoglobin A1c (4.5-6.2) % Calcium (8.5-10.1) mg/dL Phosphorus (2.5-4.9) mg/dL Magnesium (1.8-2.4) mg/dL Total Bilirubin (0.2-1.0) mg/dL AST (15-37) U/L ALT (12-78) U/L Alkaline Phosphatase (46-116) U/L Troponin I (0.000-0.056) ng/mL C-Reactive Protein (0.0-0.3) mg/dL Total Protein (6.4-8.2) g/dL Albumin (3.4-5.0) g/dL Globulin (2.3-3.5) g/dL Albumin/Globulin Ratio (1.2-2.2) Amylase (25-115) U/L Lipase (73-393) U/L Urine Color Urine Appearance Urine pH Ur Specific [place] Urine Protein Urine Glucose (UA) Urine Ketones Urine Occult Blood Urine Nitrite Urine Bilirubin Urine Urobilinogen Ur Leukocyte Esterase Urine RBC Urine WBC Ur Epithelial Cells Amorphous Sediment Urine Bacteria Urine Mucus Urine Other Urinalysis Comment Urine Opiates Screen (NEGATIVE) Ur Oxycodone Screen (NEGATIVE) Urine Methadone Screen (NEGATIVE) Ur Propoxyphene Screen (NEGATIVE) Ur Barbiturates Screen (NEGATIVE) Ur Tricyclics Screen (NEGATIVE) Ur Phencyclidine Scrn (NEGATIVE) Ur Amphetamine Screen (NEGATIVE) U Methamphetamines Scrn (NEGATIVE) Urine MDMA Screen (NEGATIVE) U Benzodiazepines Scrn (NEGATIVE) U Cocaine Metab Screen (NEGATIVE) U Marijuana (THC) Screen (NEGATIVE) Influenza Type A RNA (NEGATIVE) RSV RNA (INAAT) (NEGATIVE) Influenza Type B RNA (NEGATIVE) SARS-CoV-2 RNA (ANGEL) (NEGATIVE) 12/12/20 12/12/20 12/12/20 Range/Units 11:05 11:55 12:30 WBC (4.5-11.0) K/uL RBC (3.30-5.50) M/uL Hgb (12.0-15.0) g/dL Hct (36.0-48.0) % MCV (80-98) fL MCH (27-31) pg MCHC (32-36) % Plt Count (150-400) K/uL Neut % (Auto) (36-66) % Lymph % (Auto) (24-44) % [place] % (Auto) (2-6) % Eos % (Auto) (2-4) % Baso % (Auto) (0-1) % VBG pH (7.350-7.450) Sodium 142 142 (140-148) mmol/L Potassium 4.3 4.6 (3.6-5.2) mmol/L Chloride 110 H 111 H (100-108) mmol/L Carbon Dioxide 12 L 18 L (21-32) mmol/L Anion Gap 24.3 H 17.6 H (5.0-14.0) mmol/L BUN 34 H 32 H (7-18) mg/dL Creatinine 2.6 H 2.8 H (0.6-1.0) mg/dL Est Cr Clr Drug Dosing 30.49 28.31 mL/min Estimated GFR (MDRD) 26 L 24 L (>60) Glucose 207 H (74-106) mg/dL POC Glucose 175 H (74-106) mg/dL Hemoglobin A1c (4.5-6.2) % Calcium 8.3 L (8.5-10.1) mg/dL Phosphorus 2.3 L (2.5-4.9) mg/dL Magnesium 2.2 (1.8-2.4) mg/dL Total Bilirubin (0.2-1.0) mg/dL AST (15-37) U/L ALT (12-78) U/L Alkaline Phosphatase (46-116) U/L Troponin I (0.000-0.056) ng/mL C-Reactive Protein (0.0-0.3) mg/dL Total Protein (6.4-8.2) g/dL Albumin (3.4-5.0) g/dL Globulin (2.3-3.5) g/dL Albumin/Globulin Ratio (1.2-2.2) Amylase (25-115) U/L Lipase (73-393) U/L Urine Color Urine Appearance Urine pH Ur Specific [place] Urine Protein Urine Glucose (UA) Urine Ketones Urine Occult Blood Urine Nitrite Urine Bilirubin Urine Urobilinogen Ur Leukocyte Esterase Urine RBC Urine WBC Ur Epithelial Cells Amorphous Sediment Urine Bacteria Urine Mucus Urine Other Urinalysis Comment Urine Opiates Screen (NEGATIVE) Ur Oxycodone Screen (NEGATIVE) Urine Methadone Screen (NEGATIVE) Ur Propoxyphene Screen (NEGATIVE) Ur Barbiturates Screen (NEGATIVE) Ur Tricyclics Screen (NEGATIVE) Ur Phencyclidine Scrn (NEGATIVE) Ur Amphetamine Screen (NEGATIVE) U Methamphetamines Scrn (NEGATIVE) Urine MDMA Screen (NEGATIVE) U Benzodiazepines Scrn (NEGATIVE) U Cocaine Metab Screen (NEGATIVE) U Marijuana (THC) Screen (NEGATIVE) Influenza Type A RNA (NEGATIVE) RSV RNA (INAAT) (NEGATIVE) Influenza Type B RNA (NEGATIVE) SARS-CoV-2 RNA (ANGEL) (NEGATIVE) 12/12/20 12/12/20 Range/Units 12:56 14:07 WBC (4.5-11.0) K/uL RBC (3.30-5.50) M/uL Hgb (12.0-15.0) g/dL Hct (36.0-48.0) % MCV (80-98) fL MCH (27-31) pg MCHC (32-36) % Plt Count (150-400) K/uL Neut % (Auto) (36-66) % Lymph % (Auto) (24-44) % [place] % (Auto) (2-6) % Eos % (Auto) (2-4) % Baso % (Auto) (0-1) % VBG pH (7.350-7.450) Sodium (140-148) mmol/L Potassium (3.6-5.2) mmol/L Chloride (100-108) mmol/L Carbon Dioxide (21-32) mmol/L Anion Gap (5.0-14.0) mmol/L BUN (7-18) mg/dL Creatinine (0.6-1.0) mg/dL Est Cr Clr Drug Dosing mL/min Estimated GFR (MDRD) (>60) Glucose (74-106) mg/dL POC Glucose 184 H 213 H (74-106) mg/dL Hemoglobin A1c (4.5-6.2) % Calcium (8.5-10.1) mg/dL Phosphorus (2.5-4.9) mg/dL Magnesium (1.8-2.4) mg/dL Total Bilirubin (0.2-1.0) mg/dL AST (15-37) U/L ALT (12-78) U/L Alkaline Phosphatase (46-116) U/L Troponin I (0.000-0.056) ng/mL C-Reactive Protein (0.0-0.3) mg/dL Total Protein (6.4-8.2) g/dL Albumin (3.4-5.0) g/dL Globulin (2.3-3.5) g/dL Albumin/Globulin Ratio (1.2-2.2) Amylase (25-115) U/L Lipase (73-393) U/L Urine Color Urine Appearance Urine pH Ur Specific [place] Urine Protein Urine Glucose (UA) Urine Ketones Urine Occult Blood Urine Nitrite Urine Bilirubin Urine Urobilinogen Ur Leukocyte Esterase Urine RBC Urine WBC Ur Epithelial Cells Amorphous Sediment Urine Bacteria Urine Mucus Urine Other Urinalysis Comment Urine Opiates Screen (NEGATIVE) Ur Oxycodone Screen (NEGATIVE) Urine Methadone Screen (NEGATIVE) Ur Propoxyphene Screen (NEGATIVE) Ur Barbiturates Screen (NEGATIVE) Ur Tricyclics Screen (NEGATIVE) Ur Phencyclidine Scrn (NEGATIVE) Ur Amphetamine Screen (NEGATIVE) U Methamphetamines Scrn (NEGATIVE) Urine MDMA Screen (NEGATIVE) U Benzodiazepines Scrn (NEGATIVE) U Cocaine Metab Screen (NEGATIVE) U Marijuana (THC) Screen (NEGATIVE) Influenza Type A RNA (NEGATIVE) RSV RNA (INAAT) (NEGATIVE) Influenza Type B RNA (NEGATIVE) SARS-CoV-2 RNA (ANGEL) (NEGATIVE) Med Orders - Current: Current Medications Acetaminophen (Acetaminophen 325 Mg Tab) 650 mg PO Q4H PRN PRN Reason: Pain (Mild 1-3)/fever Albuterol (Albuterol 8 Gm Inhaler) 1 - 2 gm INH Q4H PRN PRN Reason: Shortness of Breath Albuterol (Albuterol 0.083% 2.5 Mg/3 Ml Neb Soln) 2.5 mg NEB Q4H PRN PRN Reason: Shortness Of Breath/wheezing Last Admin: 12/12/20 05:43 Dose: 2.5 mg Documented by: Apixaban (Apixaban 5 Mg Tab) 5 mg PO BID [facility] Last Admin: 12/12/20 08:15 Dose: 5 mg Documented by: Aspirin (Aspirin 81 Mg Tab.Ec) 81 mg PO DAILY [facility] Last Admin: 12/12/20 08:15 Dose: 81 mg Documented by: Atorvastatin Calcium (Atorvastatin 20 Mg Tab) 20 mg PO BEDTIME [facility] Carvedilol (Carvedilol 12.5 Mg Tab) 12.5 mg PO BID [facility] Last Admin: 12/12/20 08:15 Dose: 12.5 mg Documented by: Dextrose/Water (50% Dextrose In Water 50 Ml Syringe) 50 ml IVPUSH ONETIME PRN PRN Reason: Blood Glucose Dextrose/Water (50% Dextrose In Water 50 Ml Syringe) 50 ml IVPUSH ASDIRECTED PRN PRN Reason: Hypoglycemia Gabapentin (Gabapentin 300 Mg Cap) 300 mg PO DAILY [facility] Last Admin: 12/12/20 08:15 Dose: 300 mg Documented by: Glucagon (Glucagon,Human Recombinant 1 Mg Vial) 1 mg IM ASDIRECTED PRN PRN Reason: Hypoglycemia Hydralazine HCl (Hydralazine 25 Mg Tab) 25 mg PO QID [facility] Last Admin: 12/12/20 09:19 Dose: 25 mg Documented by: Sodium Chloride (Normal Saline) 2,000 mls @ 500 mls/hr IV .CONTINUOUS PRN PRN Reason: Blood Glucose Last Infusion: 12/12/20 02:07 Dose: 0 mls/hr Documented by: Dextrose/Sodium Chloride (Dextrose 5%-1/2 Ns) 1,000 mls @ 150 mls/hr IV .CONTINUOUS PRN PRN Reason: Blood Glucose Last Admin: 12/12/20 08:25 Dose: 150 mls/hr Documented by: Potassium Chloride 20 meq/ (Premix) 100 mls @ 50 mls/hr IV Q2H PRN PRN Reason: Hypokalemia Insulin Regular in 0.9 % NACL (Myxredlin In Ns 100 Unit/100 Ml) 100 mls @ 5.897 mls/hr IV ASDIRECTED [facility]; Protocol Last Infusion: 12/12/20 14:08 Dose: 0.07 units/kg/hr, 4 mls/hr Documented by: Piperacillin/Tazobactam/ (Dextrose 3.375 gm/ Premix) 50 mls @ 100 mls/hr IV Q6H [facility] Last Admin: 12/12/20 14:34 Dose: 100 mls/hr Documented by: Vancomycin HCl 1 gm/ Sodium (Chloride) 250 mls @ 166.667 mls/hr IV Q12H [facility] Levofloxacin/Dextrose 750 mg/ (Premix) 150 mls @ 100 mls/hr IV Q48H [facility] Last Admin: 12/12/20 13:03 Dose: 100 mls/hr Documented by: Insulin Glargine (Insulin Glargine,Human Rec. Analog 100 Units/Ml 3 Ml Pen) 10 units SUBCUT BEDTIME [facility] Magnesium Oxide (Magnesium Oxide 400 Mg Tab) 400 mg PO DAILY [facility] Last Admin: 12/12/20 08:15 Dose: 400 mg Documented by: Morphine Sulfate (Morphine 2 Mg/Ml Syringe) 2 mg IVPUSH Q1H PRN PRN Reason: Pain Last Admin: 12/12/20 04:06 Dose: 2 mg Documented by: Ondansetron HCl (Ondansetron 4 Mg/2 Ml Sdv) 4 mg IV Q4H PRN PRN Reason: Nausea/Vomiting Last Admin: 12/12/20 04:49 Dose: 4 mg Documented by: Oxycodone HCl (Oxycodone 5 Mg Tab) 5 mg PO Q6H PRN PRN Reason: Pain Last Admin: 12/12/20 08:14 Dose: 5 mg Documented by: Pantoprazole Sodium (Pantoprazole 40 Mg Vial) 40 mg IVPUSH Q12H [facility] Last Admin: 12/12/20 09:14 Dose: 40 mg Documented by: Polyethylene Glycol (Polyethylene Glycol 3350 Powder 17 Gm Packet) 17 gm PO DAILY PRN PRN Reason: Constipation Potassium Chloride (Potassium Chloride 10% 20 Meq/15 Ml Soln 15 Ml Ud Cup) 20 meq PO NOW PRN PRN Reason: Hypokalemia Last Admin: 12/12/20 04:45 Dose: 20 meq Documented by: Potassium Chloride (Potassium Chloride 10% 20 Meq/15 Ml Soln 15 Ml Ud Cup) 40 meq PO NOW PRN PRN Reason: Hypokalemia Potassium Chloride (Potassium Chloride 10% 20 Meq/15 Ml Soln 15 Ml Ud Cup) 40 meq PO Q2H PRN PRN Reason: Hypokalemia Sertraline HCl (Sertraline 50 Mg Tab) 50 mg PO DAILY [facility] Last Admin: 12/12/20 08:15 Dose: 50 mg Documented by: Sodium Chloride (Sodium Chloride 0.9% 10 Ml Syringe) 10 ml FLUSH ASDIRECTED PRN PRN Reason: Keep Vein Open Discontinued Medications Dextrose/Water (50% Dextrose In Water 50 Ml Syringe) 50 ml IVPUSH ASDIRECTED PRN PRN Reason: Hypoglycemia Dextrose/Water (50% Dextrose In Water 50 Ml Syringe) 50 ml IVPUSH ASDIRECTED PRN PRN Reason: Hypoglycemia Glucagon (Glucagon,Human Recombinant 1 Mg Vial) 1 mg IM ASDIRECTED PRN PRN Reason: Hypoglycemia Glucagon (Glucagon,Human Recombinant 1 Mg Vial) 1 mg IM ASDIRECTED PRN PRN Reason: Hypoglycemia Hydromorphone HCl (Hydromorphone 0.5 Mg/0.5 Ml Syringe) 0.5 mg IVPUSH ONETIME ONE Stop: 12/11/20 18:53 Last Admin: 12/11/20 19:12 Dose: 0.5 mg Documented by: Hydromorphone HCl (Hydromorphone 0.5 Mg/0.5 Ml Syringe) 0.5 mg IVPUSH ONETIME ONE Stop: 12/11/20 22:10 Last Admin: 12/11/20 23:37 Dose: Not Given Documented by: Sodium Chloride (Normal Saline) 1,000 mls @ 999 mls/hr IV ASDIRECTED [facility] Last Admin: 12/11/20 17:53 Dose: 999 mls/hr Documented by: Sodium Chloride (Normal Saline) 1,000 mls @ 999 mls/hr IV ASDIRECTED [facility] Last Admin: 12/11/20 19:32 Dose: 999 mls/hr Documented by: Potassium Chloride/Sodium Chloride (Normal Saline With 20 Meq Kcl) 1,000 mls @ 500 mls/hr IV ASDIRECTED [facility] Last Admin: 12/11/20 21:10 Dose: 500 mls/hr Documented by: Potassium Chloride 20 meq/ (Premix) 100 mls @ 50 mls/hr IV ONETIME ONE Stop: 12/12/20 00:28 Last Admin: 12/11/20 23:30 Dose: Not Given Documented by: Potassium Chloride 20 meq/ (Premix) 100 mls @ 50 mls/hr IV Q2H PRN PRN Reason: Hypokalemia Magnesium Sulfate (Magnesium Sulfate In Water 2 Gm/50 Ml) 2 gm in 50 mls @ 25 mls/hr IV ONETIME PRN PRN Reason: low magnesium Last Admin: 12/12/20 06:13 Dose: 25 mls/hr Documented by: Vancomycin HCl 1.5 gm/ Sodium (Chloride) 250 mls @ 167 mls/hr IV ONETIME ONE Stop: 12/12/20 10:29 Last Admin: 12/12/20 09:18 Dose: 167 mls/hr Documented by: Insulin Human Regular (Insulin Regular, Human 100 Units/Ml 3 Ml Vial) 16 unit SUBCUT ONETIME ONE Stop: 12/11/20 19:48 Last Admin: 12/11/20 19:52 Dose: 16 units Documented by: Insulin Human Regular (Insulin Regular, Human 100 Units/Ml 3 Ml Vial) 14 unit SUBCUT ONETIME ONE Stop: 12/11/20 21:34 Last Admin: 12/11/20 22:00 Dose: 14 units Documented by: Metoclopramide HCl (Metoclopramide 10 Mg/2 Ml Sdv) 5 mg IVPUSH ONETIME ONE Stop: 12/11/20 21:18 Last Admin: 12/11/20 21:44 Dose: 5 mg Documented by: Ondansetron HCl (Ondansetron 4 Mg/2 Ml Sdv) 4 mg IVPUSH ONETIME ONE Stop: 12/11/20 16:39 Last Admin: 12/11/20 17:52 Dose: 4 mg Documented by: Ondansetron HCl (Ondansetron 4 Mg/2 Ml Sdv) 4 mg IVPUSH ONETIME ONE Stop: 12/11/20 23:09 Last Admin: 12/11/20 23:17 Dose: 4 mg Documented by: Vancomycin HCl (Vancomycin 1 Gm Sdv) 1 gm IV .PHARMACY TO DOSE GWENDOLYN - Exam Quality Assessment: Supplemental Oxygen, Urine Catheter, DVT Prophylaxis Urinary Catheter Total Time: 0Days 0Hours General: Moderate Distress, Lethargic Lungs: Decreased Breath Sounds, Rhonchi. No: Crackles, Rales, Wheezing Cardiovascular: Regular Rhythm, No Murmurs, Tachycardia GI/Abdominal Exam: Soft, No Organomegaly, Tender. No: Distended, Guarding, Rigid, Rebound Extremities: Non-Tender, No Pedal Edema - Patient Data Lab Results Last 24 hrs: Laboratory Results - last 24 hr 12/11/20 12/11/20 12/11/20 Range/Units 16:37 17:50 17:50 WBC 13.5 H (4.5-11.0) K/uL RBC 3.83 (3.30-5.50) M/uL Hgb 11.2 L D (12.0-15.0) g/dL Hct 33.3 L (36.0-48.0) % MCV 87 (80-98) fL MCH 29 (27-31) pg MCHC 34 (32-36) % Plt Count 217 (150-400) K/uL Neut % (Auto) 81.8 H (36-66) % Lymph % (Auto) 7.8 L (24-44) % [place] % (Auto) 9.6 H (2-6) % Eos % (Auto) 0.7 L (2-4) % Baso % (Auto) 0.1 (0-1) % VBG pH (7.350-7.450) Sodium 135 L (140-148) mmol/L Potassium 4.7 (3.6-5.2) mmol/L Chloride 97 L (100-108) mmol/L Carbon Dioxide 11 L (21-32) mmol/L Anion Gap 31.7 H (5.0-14.0) mmol/L BUN 50 H D (7-18) mg/dL Creatinine 3.8 H* D (0.6-1.0) mg/dL Est Cr Clr Drug Dosing 19.97 mL/min Estimated GFR (MDRD) 17 L (>60) Glucose 680 H* (74-106) mg/dL POC Glucose (74-106) mg/dL Hemoglobin A1c (4.5-6.2) % Calcium 8.1 L (8.5-10.1) mg/dL Phosphorus (2.5-4.9) mg/dL Magnesium (1.8-2.4) mg/dL Total Bilirubin 0.9 (0.2-1.0) mg/dL AST 22 (15-37) U/L ALT 15 (12-78) U/L Alkaline Phosphatase 103 (46-116) U/L Troponin I (0.000-0.056) ng/mL C-Reactive Protein (0.0-0.3) mg/dL Total Protein 7.5 (6.4-8.2) g/dL Albumin 3.0 L (3.4-5.0) g/dL Globulin 4.5 H (2.3-3.5) g/dL Albumin/Globulin Ratio 0.7 L (1.2-2.2) Amylase (25-115) U/L Lipase (73-393) U/L Urine Color Cancelled Urine Appearance Cancelled Urine pH Cancelled Ur Specific [place] Cancelled Urine Protein Cancelled Urine Glucose (UA) Cancelled Urine Ketones Cancelled Urine Occult Blood Cancelled Urine Nitrite Cancelled Urine Bilirubin Cancelled Urine Urobilinogen Cancelled Ur Leukocyte Esterase Cancelled Urine RBC Cancelled Urine WBC Cancelled Ur Epithelial Cells Cancelled Amorphous Sediment Cancelled Urine Bacteria Cancelled Urine Mucus Cancelled Urine Other Cancelled Urinalysis Comment Cancelled Urine Opiates Screen (NEGATIVE) Ur Oxycodone Screen (NEGATIVE) Urine Methadone Screen (NEGATIVE) Ur Propoxyphene Screen (NEGATIVE) Ur Barbiturates Screen (NEGATIVE) Ur Tricyclics Screen (NEGATIVE) Ur Phencyclidine Scrn (NEGATIVE) Ur Amphetamine Screen (NEGATIVE) U Methamphetamines Scrn (NEGATIVE) Urine MDMA Screen (NEGATIVE) U Benzodiazepines Scrn (NEGATIVE) U Cocaine Metab Screen (NEGATIVE) U Marijuana (THC) Screen (NEGATIVE) Influenza Type A RNA (NEGATIVE) RSV RNA (INAAT) (NEGATIVE) Influenza Type B RNA (NEGATIVE) SARS-CoV-2 RNA (ANGEL) (NEGATIVE) 12/11/20 12/11/20 12/11/20 Range/Units 17:50 17:50 19:49 WBC (4.5-11.0) K/uL RBC (3.30-5.50) M/uL Hgb (12.0-15.0) g/dL Hct (36.0-48.0) % MCV (80-98) fL MCH (27-31) pg MCHC (32-36) % Plt Count (150-400) K/uL Neut % (Auto) (36-66) % Lymph % (Auto) (24-44) % [place] % (Auto) (2-6) % Eos % (Auto) (2-4) % Baso % (Auto) (0-1) % VBG pH 7.242 L (7.350-7.450) Sodium (140-148) mmol/L Potassium (3.6-5.2) mmol/L Chloride (100-108) mmol/L Carbon Dioxide (21-32) mmol/L Anion Gap (5.0-14.0) mmol/L BUN (7-18) mg/dL Creatinine (0.6-1.0) mg/dL Est Cr Clr Drug Dosing mL/min Estimated GFR (MDRD) (>60) Glucose (74-106) mg/dL POC Glucose (74-106) mg/dL Hemoglobin A1c (4.5-6.2) % Calcium (8.5-10.1) mg/dL Phosphorus (2.5-4.9) mg/dL Magnesium (1.8-2.4) mg/dL Total Bilirubin (0.2-1.0) mg/dL AST (15-37) U/L ALT (12-78) U/L Alkaline Phosphatase (46-116) U/L Troponin I (0.000-0.056) ng/mL C-Reactive Protein 23.80 H (0.0-0.3) mg/dL Total Protein (6.4-8.2) g/dL Albumin (3.4-5.0) g/dL Globulin (2.3-3.5) g/dL Albumin/Globulin Ratio (1.2-2.2) Amylase 235 H (25-115) U/L Lipase 43 L (73-393) U/L Urine Color Urine Appearance Urine pH Ur Specific [place] Urine Protein Urine Glucose (UA) Urine Ketones Urine Occult Blood Urine Nitrite Urine Bilirubin Urine Urobilinogen Ur Leukocyte Esterase Urine RBC Urine WBC Ur Epithelial Cells Amorphous Sediment Urine Bacteria Urine Mucus Urine Other Urinalysis Comment Urine Opiates Screen (NEGATIVE) Ur Oxycodone Screen (NEGATIVE) Urine Methadone Screen (NEGATIVE) Ur Propoxyphene Screen (NEGATIVE) Ur Barbiturates Screen (NEGATIVE) Ur Tricyclics Screen (NEGATIVE) Ur Phencyclidine Scrn (NEGATIVE) Ur Amphetamine Screen (NEGATIVE) U Methamphetamines Scrn (NEGATIVE) Urine MDMA Screen (NEGATIVE) U Benzodiazepines Scrn (NEGATIVE) U Cocaine Metab Screen (NEGATIVE) U Marijuana (THC) Screen (NEGATIVE) Influenza Type A RNA (NEGATIVE) RSV RNA (INAAT) (NEGATIVE) Influenza Type B RNA (NEGATIVE) SARS-CoV-2 RNA (ANGEL) (NEGATIVE) 12/11/20 12/11/20 12/11/20 Range/Units 20:51 21:27 21:29 WBC (4.5-11.0) K/uL RBC (3.30-5.50) M/uL Hgb (12.0-15.0) g/dL Hct (36.0-48.0) % MCV (80-98) fL MCH (27-31) pg MCHC (32-36) % Plt Count (150-400) K/uL Neut % (Auto) (36-66) % Lymph % (Auto) (24-44) % [place] % (Auto) (2-6) % Eos % (Auto) (2-4) % Baso % (Auto) (0-1) % VBG pH (7.350-7.450) Sodium (140-148) mmol/L Potassium (3.6-5.2) mmol/L Chloride (100-108) mmol/L Carbon Dioxide (21-32) mmol/L Anion Gap (5.0-14.0) mmol/L BUN (7-18) mg/dL Creatinine (0.6-1.0) mg/dL Est Cr Clr Drug Dosing mL/min Estimated GFR (MDRD) (>60) Glucose (74-106) mg/dL POC Glucose (74-106) mg/dL Hemoglobin A1c (4.5-6.2) % Calcium (8.5-10.1) mg/dL Phosphorus (2.5-4.9) mg/dL Magnesium 1.7 L (1.8-2.4) mg/dL Total Bilirubin (0.2-1.0) mg/dL AST (15-37) U/L ALT (12-78) U/L Alkaline Phosphatase (46-116) U/L Troponin I (0.000-0.056) ng/mL C-Reactive Protein (0.0-0.3) mg/dL Total Protein (6.4-8.2) g/dL Albumin (3.4-5.0) g/dL Globulin (2.3-3.5) g/dL Albumin/Globulin Ratio (1.2-2.2) Amylase (25-115) U/L Lipase (73-393) U/L Urine Color Yellow Urine Appearance Slightly cloudy A Urine pH 5.5 Ur Specific [place] 1.015 Urine Protein >=300 H Urine Glucose (UA) 500 H Urine Ketones 80 H Urine Occult Blood Large H Urine Nitrite Negative Urine Bilirubin Small H Urine Urobilinogen 0.2 Ur Leukocyte Esterase Negative Urine RBC 75-100 H Urine WBC 0-5 Ur Epithelial Cells Few Amorphous Sediment Not seen Urine Bacteria Moderate Urine Mucus Not seen Urine Other Urinalysis Comment Urine Opiates Screen Negative (NEGATIVE) Ur Oxycodone Screen Negative (NEGATIVE) Urine Methadone Screen Presumptive positive H (NEGATIVE) Ur Propoxyphene Screen Negative (NEGATIVE) Ur Barbiturates Screen Negative (NEGATIVE) Ur Tricyclics Screen Negative (NEGATIVE) Ur Phencyclidine Scrn Negative (NEGATIVE) Ur Amphetamine Screen Negative (NEGATIVE) U Methamphetamines Scrn Negative (NEGATIVE) Urine MDMA Screen Negative (NEGATIVE) U Benzodiazepines Scrn Negative (NEGATIVE) U Cocaine Metab Screen Negative (NEGATIVE) U Marijuana (THC) Screen Negative (NEGATIVE) Influenza Type A RNA (NEGATIVE) RSV RNA (INAAT) (NEGATIVE) Influenza Type B RNA (NEGATIVE) SARS-CoV-2 RNA (ANGEL) (NEGATIVE) 12/11/20 12/11/20 12/11/20 Range/Units 21:29 22:45 23:28 WBC (4.5-11.0) K/uL RBC (3.30-5.50) M/uL Hgb (12.0-15.0) g/dL Hct (36.0-48.0) % MCV (80-98) fL MCH (27-31) pg MCHC (32-36) % Plt Count (150-400) K/uL Neut % (Auto) (36-66) % Lymph % (Auto) (24-44) % [place] % (Auto) (2-6) % Eos % (Auto) (2-4) % Baso % (Auto) (0-1) % VBG pH (7.350-7.450) Sodium 139 L (140-148) mmol/L Potassium 5.3 H (3.6-5.2) mmol/L Chloride 104 (100-108) mmol/L Carbon Dioxide 17 L (21-32) mmol/L Anion Gap 23.3 H (5.0-14.0) mmol/L BUN 46 H (7-18) mg/dL Creatinine 3.5 H (0.6-1.0) mg/dL Est Cr Clr Drug Dosing 21.68 mL/min Estimated GFR (MDRD) 18 L (>60) Glucose 488 H* (74-106) mg/dL POC Glucose 544 H* 402 H* (74-106) mg/dL Hemoglobin A1c (4.5-6.2) % Calcium 7.7 L (8.5-10.1) mg/dL Phosphorus 3.6 (2.5-4.9) mg/dL Magnesium 1.8 (1.8-2.4) mg/dL Total Bilirubin (0.2-1.0) mg/dL AST (15-37) U/L ALT (12-78) U/L Alkaline Phosphatase (46-116) U/L Troponin I (0.000-0.056) ng/mL C-Reactive Protein (0.0-0.3) mg/dL Total Protein (6.4-8.2) g/dL Albumin (3.4-5.0) g/dL Globulin (2.3-3.5) g/dL Albumin/Globulin Ratio (1.2-2.2) Amylase (25-115) U/L Lipase (73-393) U/L Urine Color Urine Appearance Urine pH Ur Specific [place] Urine Protein Urine Glucose (UA) Urine Ketones Urine Occult Blood Urine Nitrite Urine Bilirubin Urine Urobilinogen Ur Leukocyte Esterase Urine RBC Urine WBC Ur Epithelial Cells Amorphous Sediment Urine Bacteria Urine Mucus Urine Other Urinalysis Comment Urine Opiates Screen (NEGATIVE) Ur Oxycodone Screen (NEGATIVE) Urine Methadone Screen (NEGATIVE) Ur Propoxyphene Screen (NEGATIVE) Ur Barbiturates Screen (NEGATIVE) Ur Tricyclics Screen (NEGATIVE) Ur Phencyclidine Scrn (NEGATIVE) Ur Amphetamine Screen (NEGATIVE) U Methamphetamines Scrn (NEGATIVE) Urine MDMA Screen (NEGATIVE) U Benzodiazepines Scrn (NEGATIVE) U Cocaine Metab Screen (NEGATIVE) U Marijuana (THC) Screen (NEGATIVE) Influenza Type A RNA (NEGATIVE) RSV RNA (INAAT) (NEGATIVE) Influenza Type B RNA (NEGATIVE) SARS-CoV-2 RNA (ANGEL) (NEGATIVE) 12/11/20 12/12/20 12/12/20 Range/Units 23:38 00:14 00:52 WBC (4.5-11.0) K/uL RBC (3.30-5.50) M/uL Hgb (12.0-15.0) g/dL Hct (36.0-48.0) % MCV (80-98) fL MCH (27-31) pg MCHC (32-36) % Plt Count (150-400) K/uL Neut % (Auto) (36-66) % Lymph % (Auto) (24-44) % [place] % (Auto) (2-6) % Eos % (Auto) (2-4) % Baso % (Auto) (0-1) % VBG pH (7.350-7.450) Sodium (140-148) mmol/L Potassium 3.9 (3.6-5.2) mmol/L Chloride (100-108) mmol/L Carbon Dioxide (21-32) mmol/L Anion Gap (5.0-14.0) mmol/L BUN (7-18) mg/dL Creatinine (0.6-1.0) mg/dL Est Cr Clr Drug Dosing mL/min Estimated GFR (MDRD) (>60) Glucose (74-106) mg/dL POC Glucose (74-106) mg/dL Hemoglobin A1c 9.2 H (4.5-6.2) % Calcium (8.5-10.1) mg/dL Phosphorus (2.5-4.9) mg/dL Magnesium (1.8-2.4) mg/dL Total Bilirubin (0.2-1.0) mg/dL AST (15-37) U/L ALT (12-78) U/L Alkaline Phosphatase (46-116) U/L Troponin I (0.000-0.056) ng/mL C-Reactive Protein (0.0-0.3) mg/dL Total Protein (6.4-8.2) g/dL Albumin (3.4-5.0) g/dL Globulin (2.3-3.5) g/dL Albumin/Globulin Ratio (1.2-2.2) Amylase (25-115) U/L Lipase (73-393) U/L Urine Color Urine Appearance Urine pH Ur Specific [place] Urine Protein Urine Glucose (UA) Urine Ketones Urine Occult Blood Urine Nitrite Urine Bilirubin Urine Urobilinogen Ur Leukocyte Esterase Urine RBC Urine WBC Ur Epithelial Cells Amorphous Sediment Urine Bacteria Urine Mucus Urine Other Urinalysis Comment Urine Opiates Screen (NEGATIVE) Ur Oxycodone Screen (NEGATIVE) Urine Methadone Screen (NEGATIVE) Ur Propoxyphene Screen (NEGATIVE) Ur Barbiturates Screen (NEGATIVE) Ur Tricyclics Screen (NEGATIVE) Ur Phencyclidine Scrn (NEGATIVE) Ur Amphetamine Screen (NEGATIVE) U Methamphetamines Scrn (NEGATIVE) Urine MDMA Screen (NEGATIVE) U Benzodiazepines Scrn (NEGATIVE) U Cocaine Metab Screen (NEGATIVE) U Marijuana (THC) Screen (NEGATIVE) Influenza Type A RNA Negative (NEGATIVE) RSV RNA (INAAT) Negative (NEGATIVE) Influenza Type B RNA Negative (NEGATIVE) SARS-CoV-2 RNA (ANGEL) Negative (NEGATIVE) 12/12/20 12/12/20 12/12/20 Range/Units 00:52 01:05 02:04 WBC (4.5-11.0) K/uL RBC (3.30-5.50) M/uL Hgb (12.0-15.0) g/dL Hct (36.0-48.0) % MCV (80-98) fL MCH (27-31) pg MCHC (32-36) % Plt Count (150-400) K/uL Neut % (Auto) (36-66) % Lymph % (Auto) (24-44) % [place] % (Auto) (2-6) % Eos % (Auto) (2-4) % Baso % (Auto) (0-1) % VBG pH (7.350-7.450) Sodium (140-148) mmol/L Potassium (3.6-5.2) mmol/L Chloride (100-108) mmol/L Carbon Dioxide (21-32) mmol/L Anion Gap (5.0-14.0) mmol/L BUN (7-18) mg/dL Creatinine (0.6-1.0) mg/dL Est Cr Clr Drug Dosing mL/min Estimated GFR (MDRD) (>60) Glucose (74-106) mg/dL POC Glucose 279 H 197 H (74-106) mg/dL Hemoglobin A1c (4.5-6.2) % Calcium (8.5-10.1) mg/dL Phosphorus (2.5-4.9) mg/dL Magnesium (1.8-2.4) mg/dL Total Bilirubin (0.2-1.0) mg/dL AST (15-37) U/L ALT (12-78) U/L Alkaline Phosphatase (46-116) U/L Troponin I 0.077 H* (0.000-0.056) ng/mL C-Reactive Protein (0.0-0.3) mg/dL Total Protein (6.4-8.2) g/dL Albumin (3.4-5.0) g/dL Globulin (2.3-3.5) g/dL Albumin/Globulin Ratio (1.2-2.2) Amylase (25-115) U/L Lipase (73-393) U/L Urine Color Urine Appearance Urine pH Ur Specific [place] Urine Protein Urine Glucose (UA) Urine Ketones Urine Occult Blood Urine Nitrite Urine Bilirubin Urine Urobilinogen Ur Leukocyte Esterase Urine RBC Urine WBC Ur Epithelial Cells Amorphous Sediment Urine Bacteria Urine Mucus Urine Other Urinalysis Comment Urine Opiates Screen (NEGATIVE) Ur Oxycodone Screen (NEGATIVE) Urine Methadone Screen (NEGATIVE) Ur Propoxyphene Screen (NEGATIVE) Ur Barbiturates Screen (NEGATIVE) Ur Tricyclics Screen (NEGATIVE) Ur Phencyclidine Scrn (NEGATIVE) Ur Amphetamine Screen (NEGATIVE) U Methamphetamines Scrn (NEGATIVE) Urine MDMA Screen (NEGATIVE) U Benzodiazepines Scrn (NEGATIVE) U Cocaine Metab Screen (NEGATIVE) U Marijuana (THC) Screen (NEGATIVE) Influenza Type A RNA (NEGATIVE) RSV RNA (INAAT) (NEGATIVE) Influenza Type B RNA (NEGATIVE) SARS-CoV-2 RNA (ANGEL) (NEGATIVE) 12/12/20 12/12/20 12/12/20 Range/Units 03:04 03:30 04:11 WBC (4.5-11.0) K/uL RBC (3.30-5.50) M/uL Hgb (12.0-15.0) g/dL Hct (36.0-48.0) % MCV (80-98) fL MCH (27-31) pg MCHC (32-36) % Plt Count (150-400) K/uL Neut % (Auto) (36-66) % Lymph % (Auto) (24-44) % [place] % (Auto) (2-6) % Eos % (Auto) (2-4) % Baso % (Auto) (0-1) % VBG pH (7.350-7.450) Sodium 146 (140-148) mmol/L Potassium 3.7 (3.6-5.2) mmol/L Chloride 112 H (100-108) mmol/L Carbon Dioxide 20 L (21-32) mmol/L Anion Gap 17.7 H (5.0-14.0) mmol/L BUN 39 H (7-18) mg/dL Creatinine 3.1 H (0.6-1.0) mg/dL Est Cr Clr Drug Dosing 25.57 mL/min Estimated GFR (MDRD) 21 L (>60) Glucose 173 H (74-106) mg/dL POC Glucose 181 H 166 H (74-106) mg/dL Hemoglobin A1c (4.5-6.2) % Calcium 8.0 L (8.5-10.1) mg/dL Phosphorus (2.5-4.9) mg/dL Magnesium (1.8-2.4) mg/dL Total Bilirubin (0.2-1.0) mg/dL AST (15-37) U/L ALT (12-78) U/L Alkaline Phosphatase (46-116) U/L Troponin I (0.000-0.056) ng/mL C-Reactive Protein (0.0-0.3) mg/dL Total Protein (6.4-8.2) g/dL Albumin (3.4-5.0) g/dL Globulin (2.3-3.5) g/dL Albumin/Globulin Ratio (1.2-2.2) Amylase (25-115) U/L Lipase (73-393) U/L Urine Color Urine Appearance Urine pH Ur Specific [place] Urine Protein Urine Glucose (UA) Urine Ketones Urine Occult Blood Urine Nitrite Urine Bilirubin Urine Urobilinogen Ur Leukocyte Esterase Urine RBC Urine WBC Ur Epithelial Cells Amorphous Sediment Urine Bacteria Urine Mucus Urine Other Urinalysis Comment Urine Opiates Screen (NEGATIVE) Ur Oxycodone Screen (NEGATIVE) Urine Methadone Screen (NEGATIVE) Ur Propoxyphene Screen (NEGATIVE) Ur Barbiturates Screen (NEGATIVE) Ur Tricyclics Screen (NEGATIVE) Ur Phencyclidine Scrn (NEGATIVE) Ur Amphetamine Screen (NEGATIVE) U Methamphetamines Scrn (NEGATIVE) Urine MDMA Screen (NEGATIVE) U Benzodiazepines Scrn (NEGATIVE) U Cocaine Metab Screen (NEGATIVE) U Marijuana (THC) Screen (NEGATIVE) Influenza Type A RNA (NEGATIVE) RSV RNA (INAAT) (NEGATIVE) Influenza Type B RNA (NEGATIVE) SARS-CoV-2 RNA (ANGEL) (NEGATIVE) 12/12/20 12/12/20 12/12/20 Range/Units 05:02 05:30 05:30 WBC 14.4 H (4.5-11.0) K/uL RBC 3.10 L (3.30-5.50) M/uL Hgb 9.0 L D (12.0-15.0) g/dL Hct 26.5 L (36.0-48.0) % MCV 86 (80-98) fL MCH 29 (27-31) pg MCHC 34 (32-36) % Plt Count 197 (150-400) K/uL Neut % (Auto) 73.5 H (36-66) % Lymph % (Auto) 9.8 L (24-44) % [place] % (Auto) 16.3 H (2-6) % Eos % (Auto) 0.1 L (2-4) % Baso % (Auto) 0.3 (0-1) % VBG pH (7.350-7.450) Sodium (140-148) mmol/L Potassium 4.8 (3.6-5.2) mmol/L Chloride (100-108) mmol/L Carbon Dioxide (21-32) mmol/L Anion Gap (5.0-14.0) mmol/L BUN (7-18) mg/dL Creatinine (0.6-1.0) mg/dL Est Cr Clr Drug Dosing mL/min Estimated GFR (MDRD) (>60) Glucose (74-106) mg/dL POC Glucose 178 H (74-106) mg/dL Hemoglobin A1c (4.5-6.2) % Calcium (8.5-10.1) mg/dL Phosphorus 2.3 L (2.5-4.9) mg/dL Magnesium 1.7 L (1.8-2.4) mg/dL Total Bilirubin (0.2-1.0) mg/dL AST (15-37) U/L ALT (12-78) U/L Alkaline Phosphatase (46-116) U/L Troponin I (0.000-0.056) ng/mL C-Reactive Protein (0.0-0.3) mg/dL Total Protein (6.4-8.2) g/dL Albumin (3.4-5.0) g/dL Globulin (2.3-3.5) g/dL Albumin/Globulin Ratio (1.2-2.2) Amylase (25-115) U/L Lipase (73-393) U/L Urine Color Urine Appearance Urine pH Ur Specific [place] Urine Protein Urine Glucose (UA) Urine Ketones Urine Occult Blood Urine Nitrite Urine Bilirubin Urine Urobilinogen Ur Leukocyte Esterase Urine RBC Urine WBC Ur Epithelial Cells Amorphous Sediment Urine Bacteria Urine Mucus Urine Other Urinalysis Comment Urine Opiates Screen (NEGATIVE) Ur Oxycodone Screen (NEGATIVE) Urine Methadone Screen (NEGATIVE) Ur Propoxyphene Screen (NEGATIVE) Ur Barbiturates Screen (NEGATIVE) Ur Tricyclics Screen (NEGATIVE) Ur Phencyclidine Scrn (NEGATIVE) Ur Amphetamine Screen (NEGATIVE) U Methamphetamines Scrn (NEGATIVE) Urine MDMA Screen (NEGATIVE) U Benzodiazepines Scrn (NEGATIVE) U Cocaine Metab Screen (NEGATIVE) U Marijuana (THC) Screen (NEGATIVE) Influenza Type A RNA (NEGATIVE) RSV RNA (INAAT) (NEGATIVE) Influenza Type B RNA (NEGATIVE) SARS-CoV-2 RNA (ANGEL) (NEGATIVE) 12/12/20 12/12/20 12/12/20 Range/Units 05:30 05:59 06:58 WBC (4.5-11.0) K/uL RBC (3.30-5.50) M/uL Hgb (12.0-15.0) g/dL Hct (36.0-48.0) % MCV (80-98) fL MCH (27-31) pg MCHC (32-36) % Plt Count (150-400) K/uL Neut % (Auto) (36-66) % Lymph % (Auto) (24-44) % [place] % (Auto) (2-6) % Eos % (Auto) (2-4) % Baso % (Auto) (0-1) % VBG pH (7.350-7.450) Sodium (140-148) mmol/L Potassium (3.6-5.2) mmol/L Chloride (100-108) mmol/L Carbon Dioxide (21-32) mmol/L Anion Gap (5.0-14.0) mmol/L BUN (7-18) mg/dL Creatinine (0.6-1.0) mg/dL Est Cr Clr Drug Dosing mL/min Estimated GFR (MDRD) (>60) Glucose (74-106) mg/dL POC Glucose 184 H 188 H (74-106) mg/dL Hemoglobin A1c (4.5-6.2) % Calcium (8.5-10.1) mg/dL Phosphorus (2.5-4.9) mg/dL Magnesium (1.8-2.4) mg/dL Total Bilirubin (0.2-1.0) mg/dL AST (15-37) U/L ALT (12-78) U/L Alkaline Phosphatase (46-116) U/L Troponin I 0.114 H* (0.000-0.056) ng/mL C-Reactive Protein (0.0-0.3) mg/dL Total Protein (6.4-8.2) g/dL Albumin (3.4-5.0) g/dL Globulin (2.3-3.5) g/dL Albumin/Globulin Ratio (1.2-2.2) Amylase (25-115) U/L Lipase (73-393) U/L Urine Color Urine Appearance Urine pH Ur Specific [place] Urine Protein Urine Glucose (UA) Urine Ketones Urine Occult Blood Urine Nitrite Urine Bilirubin Urine Urobilinogen Ur Leukocyte Esterase Urine RBC Urine WBC Ur Epithelial Cells Amorphous Sediment Urine Bacteria Urine Mucus Urine Other Urinalysis Comment Urine Opiates Screen (NEGATIVE) Ur Oxycodone Screen (NEGATIVE) Urine Methadone Screen (NEGATIVE) Ur Propoxyphene Screen (NEGATIVE) Ur Barbiturates Screen (NEGATIVE) Ur Tricyclics Screen (NEGATIVE) Ur Phencyclidine Scrn (NEGATIVE) Ur Amphetamine Screen (NEGATIVE) U Methamphetamines Scrn (NEGATIVE) Urine MDMA Screen (NEGATIVE) U Benzodiazepines Scrn (NEGATIVE) U Cocaine Metab Screen (NEGATIVE) U Marijuana (THC) Screen (NEGATIVE) Influenza Type A RNA (NEGATIVE) RSV RNA (INAAT) (NEGATIVE) Influenza Type B RNA (NEGATIVE) SARS-CoV-2 RNA (ANGEL) (NEGATIVE) 12/12/20 12/12/20 12/12/20 Range/Units 07:03 08:10 09:10 WBC (4.5-11.0) K/uL RBC (3.30-5.50) M/uL Hgb (12.0-15.0) g/dL Hct (36.0-48.0) % MCV (80-98) fL MCH (27-31) pg MCHC (32-36) % Plt Count (150-400) K/uL Neut % (Auto) (36-66) % Lymph % (Auto) (24-44) % [place] % (Auto) (2-6) % Eos % (Auto) (2-4) % Baso % (Auto) (0-1) % VBG pH (7.350-7.450) Sodium 144 (140-148) mmol/L Potassium 4.9 (3.6-5.2) mmol/L Chloride 112 H (100-108) mmol/L Carbon Dioxide 18 L (21-32) mmol/L Anion Gap 18.9 H (5.0-14.0) mmol/L BUN 35 H (7-18) mg/dL Creatinine 2.8 H (0.6-1.0) mg/dL Est Cr Clr Drug Dosing 28.31 mL/min Estimated GFR (MDRD) 24 L (>60) Glucose 197 H (74-106) mg/dL POC Glucose 159 H 148 H (74-106) mg/dL Hemoglobin A1c (4.5-6.2) % Calcium 8.4 L (8.5-10.1) mg/dL Phosphorus (2.5-4.9) mg/dL Magnesium (1.8-2.4) mg/dL Total Bilirubin (0.2-1.0) mg/dL AST (15-37) U/L ALT (12-78) U/L Alkaline Phosphatase (46-116) U/L Troponin I (0.000-0.056) ng/mL C-Reactive Protein (0.0-0.3) mg/dL Total Protein (6.4-8.2) g/dL Albumin (3.4-5.0) g/dL Globulin (2.3-3.5) g/dL Albumin/Globulin Ratio (1.2-2.2) Amylase (25-115) U/L Lipase (73-393) U/L Urine Color Urine Appearance Urine pH Ur Specific [place] Urine Protein Urine Glucose (UA) Urine Ketones Urine Occult Blood Urine Nitrite Urine Bilirubin Urine Urobilinogen Ur Leukocyte Esterase Urine RBC Urine WBC Ur Epithelial Cells Amorphous [place] Urine Bacteria Urine Mucus Urine Other Urinalysis Comment Urine Opiates Screen (NEGATIVE) Ur Oxycodone Screen (NEGATIVE) Urine Methadone Screen (NEGATIVE) Ur Propoxyphene Screen (NEGATIVE) Ur Barbiturates Screen (NEGATIVE) Ur Tricyclics Screen (NEGATIVE) Ur Phencyclidine Scrn (NEGATIVE) Ur Amphetamine Screen (NEGATIVE) U Methamphetamines Scrn (NEGATIVE) Urine MDMA Screen (NEGATIVE) U Benzodiazepines Scrn (NEGATIVE) U Cocaine Metab Screen (NEGATIVE) U Marijuana (THC) Screen (NEGATIVE) Influenza Type A RNA (NEGATIVE) RSV RNA (INAAT) (NEGATIVE) Influenza Type B RNA (NEGATIVE) SARS-CoV-2 RNA (ANGEL) (NEGATIVE) 12/12/20 12/12/20 12/12/20 Range/Units 09:21 10:04 10:57 WBC (4.5-11.0) K/uL RBC (3.30-5.50) M/uL Hgb (12.0-15.0) g/dL Hct (36.0-48.0) % MCV (80-98) fL MCH (27-31) pg MCHC (32-36) % Plt Count (150-400) K/uL Neut % (Auto) (36-66) % Lymph % (Auto) (24-44) % [place] % (Auto) (2-6) % Eos % (Auto) (2-4) % Baso % (Auto) (0-1) % VBG pH (7.350-7.450) Sodium (140-148) mmol/L Potassium 4.0 (3.6-5.2) mmol/L Chloride (100-108) mmol/L Carbon Dioxide (21-32) mmol/L Anion Gap (5.0-14.0) mmol/L BUN (7-18) mg/dL Creatinine (0.6-1.0) mg/dL Est Cr Clr Drug Dosing mL/min Estimated GFR (MDRD) (>60) Glucose (74-106) mg/dL POC Glucose 136 H 163 H (74-106) mg/dL Hemoglobin A1c (4.5-6.2) % Calcium (8.5-10.1) mg/dL Phosphorus (2.5-4.9) mg/dL Magnesium (1.8-2.4) mg/dL Total Bilirubin (0.2-1.0) mg/dL AST (15-37) U/L ALT (12-78) U/L Alkaline Phosphatase (46-116) U/L Troponin I (0.000-0.056) ng/mL C-Reactive Protein (0.0-0.3) mg/dL Total Protein (6.4-8.2) g/dL Albumin (3.4-5.0) g/dL Globulin (2.3-3.5) g/dL Albumin/Globulin Ratio (1.2-2.2) Amylase (25-115) U/L Lipase (73-393) U/L Urine Color Urine Appearance Urine pH Ur Specific [place] Urine Protein Urine Glucose (UA) Urine Ketones Urine Occult Blood Urine Nitrite Urine Bilirubin Urine Urobilinogen Ur Leukocyte Esterase Urine RBC Urine WBC Ur Epithelial Cells Amorphous [place] Urine Bacteria Urine Mucus Urine Other Urinalysis Comment Urine Opiates Screen (NEGATIVE) Ur Oxycodone Screen (NEGATIVE) Urine Methadone Screen (NEGATIVE) Ur Propoxyphene Screen (NEGATIVE) Ur Barbiturates Screen (NEGATIVE) Ur Tricyclics Screen (NEGATIVE) Ur Phencyclidine Scrn (NEGATIVE) Ur Amphetamine Screen (NEGATIVE) U Methamphetamines Scrn (NEGATIVE) Urine MDMA Screen (NEGATIVE) U Benzodiazepines Scrn (NEGATIVE) U Cocaine Metab Screen (NEGATIVE) U Marijuana (THC) Screen (NEGATIVE) Influenza Type A RNA (NEGATIVE) RSV RNA (INAAT) (NEGATIVE) Influenza Type B RNA (NEGATIVE) SARS-CoV-2 RNA (ANGEL) (NEGATIVE) 12/12/20 12/12/20 12/12/20 Range/Units 11:05 11:55 12:30 WBC (4.5-11.0) K/uL RBC (3.30-5.50) M/uL Hgb (12.0-15.0) g/dL Hct (36.0-48.0) % MCV (80-98) fL MCH (27-31) pg MCHC (32-36) % Plt Count (150-400) K/uL Neut % (Auto) (36-66) % Lymph % (Auto) (24-44) % [place] % (Auto) (2-6) % Eos % (Auto) (2-4) % Baso % (Auto) (0-1) % VBG pH (7.350-7.450) Sodium 142 142 (140-148) mmol/L Potassium 4.3 4.6 (3.6-5.2) mmol/L Chloride 110 H 111 H (100-108) mmol/L Carbon Dioxide 12 L 18 L (21-32) mmol/L Anion Gap 24.3 H 17.6 H (5.0-14.0) mmol/L BUN 34 H 32 H (7-18) mg/dL Creatinine 2.6 H 2.8 H (0.6-1.0) mg/dL Est Cr Clr Drug Dosing 30.49 28.31 mL/min Estimated GFR (MDRD) 26 L 24 L (>60) Glucose 207 H (74-106) mg/dL POC Glucose 175 H (74-106) mg/dL Hemoglobin A1c (4.5-6.2) % Calcium 8.3 L (8.5-10.1) mg/dL Phosphorus 2.3 L (2.5-4.9) mg/dL Magnesium 2.2 (1.8-2.4) mg/dL Total Bilirubin (0.2-1.0) mg/dL AST (15-37) U/L ALT (12-78) U/L Alkaline Phosphatase (46-116) U/L Troponin I (0.000-0.056) ng/mL C-Reactive Protein (0.0-0.3) mg/dL Total Protein (6.4-8.2) g/dL Albumin (3.4-5.0) g/dL Globulin (2.3-3.5) g/dL Albumin/Globulin Ratio (1.2-2.2) Amylase (25-115) U/L Lipase (73-393) U/L Urine Color Urine Appearance Urine pH Ur Specific [place] Urine Protein Urine Glucose (UA) Urine Ketones Urine Occult Blood Urine Nitrite Urine Bilirubin Urine Urobilinogen Ur Leukocyte Esterase Urine RBC Urine WBC Ur Epithelial Cells Amorphous [place] Urine Bacteria Urine Mucus Urine Other Urinalysis Comment Urine Opiates Screen (NEGATIVE) Ur Oxycodone Screen (NEGATIVE) Urine Methadone Screen (NEGATIVE) Ur Propoxyphene Screen (NEGATIVE) Ur Barbiturates Screen (NEGATIVE) Ur Tricyclics Screen (NEGATIVE) Ur Phencyclidine Scrn (NEGATIVE) Ur Amphetamine Screen (NEGATIVE) U Methamphetamines Scrn (NEGATIVE) Urine MDMA Screen (NEGATIVE) U Benzodiazepines Scrn (NEGATIVE) U Cocaine Metab Screen (NEGATIVE) U Marijuana (THC) Screen (NEGATIVE) Influenza Type A RNA (NEGATIVE) RSV RNA (INAAT) (NEGATIVE) Influenza Type B RNA (NEGATIVE) SARS-CoV-2 RNA (ANGEL) (NEGATIVE) 12/12/20 12/12/20 Range/Units 12:56 14:07 WBC (4.5-11.0) K/uL RBC (3.30-5.50) M/uL Hgb (12.0-15.0) g/dL Hct (36.0-48.0) % MCV (80-98) fL MCH (27-31) pg MCHC (32-36) % Plt Count (150-400) K/uL Neut % (Auto) (36-66) % Lymph % (Auto) (24-44) % [place] % (Auto) (2-6) % Eos % (Auto) (2-4) % Baso % (Auto) (0-1) % VBG pH (7.350-7.450) Sodium (140-148) mmol/L Potassium (3.6-5.2) mmol/L Chloride (100-108) mmol/L Carbon Dioxide (21-32) mmol/L Anion Gap (5.0-14.0) mmol/L BUN (7-18) mg/dL Creatinine (0.6-1.0) mg/dL Est Cr Clr Drug Dosing mL/min Estimated GFR (MDRD) (>60) Glucose (74-106) mg/dL POC Glucose 184 H 213 H (74-106) mg/dL Hemoglobin A1c (4.5-6.2) % Calcium (8.5-10.1) mg/dL Phosphorus (2.5-4.9) mg/dL Magnesium (1.8-2.4) mg/dL Total Bilirubin (0.2-1.0) mg/dL AST (15-37) U/L ALT (12-78) U/L Alkaline Phosphatase (46-116) U/L Troponin I (0.000-0.056) ng/mL C-Reactive Protein (0.0-0.3) mg/dL Total Protein (6.4-8.2) g/dL Albumin (3.4-5.0) g/dL Globulin (2.3-3.5) g/dL Albumin/Globulin Ratio (1.2-2.2) Amylase (25-115) U/L Lipase (73-393) U/L Urine Color Urine Appearance Urine pH Ur Specific [place] Urine Protein Urine Glucose (UA) Urine Ketones Urine Occult Blood Urine Nitrite Urine Bilirubin Urine Urobilinogen Ur Leukocyte Esterase Urine RBC Urine WBC Ur Epithelial Cells Amorphous Sed[place] Urine Bacteria Urine Mucus Urine Other Urinalysis Comment Urine Opiates Screen (NEGATIVE) Ur Oxycodone Screen (NEGATIVE) Urine Methadone Screen (NEGATIVE) Ur Propoxyphene Screen (NEGATIVE) Ur Barbiturates Screen (NEGATIVE) Ur Tricyclics Screen (NEGATIVE) Ur Phencyclidine Scrn (NEGATIVE) Ur Amphetamine Screen (NEGATIVE) U Methamphetamines Scrn (NEGATIVE) Urine MDMA Screen (NEGATIVE) U Benzodiazepines Scrn (NEGATIVE) U Cocaine Metab Screen (NEGATIVE) U Marijuana (THC) Screen (NEGATIVE) Influenza Type A RNA (NEGATIVE) RSV RNA (INAAT) (NEGATIVE) Influenza Type B RNA (NEGATIVE) SARS-CoV-2 RNA (ANGEL) (NEGATIVE) Result Diagrams: 12/12/20 05:30 12/12/20 12:30 Sepsis Event Note - Evaluation Sepsis Screening Result: Severe Sepsis Risk - Focused Exam Vital Signs: Vital Signs Temp Pulse Pulse Resp BP BP Pulse Ox 12/12/20 14:00 98.1 F 24 H 150/102 H 99 12/12/20 13:00 97.9 F 12 138/89 91 L 12/12/20 12:00 23 H 119/79 90 L 12/12/20 11:00 20 115/79 90 L 12/12/20 10:00 98.0 F 23 H 119/77 90 L 12/12/20 09:19 149/103 H 12/12/20 09:00 30 H 149/103 H 97 12/12/20 08:15 109 H 145/78 H 12/12/20 08:00 97.9 F 25 H 145/78 H 96 12/12/20 07:00 30 H 175/102 H 93 L 12/12/20 06:00 110 H 29 H 174/106 H 93 L 12/12/20 05:55 30 H 92 L 12/12/20 05:43 169/100 H 12/12/20 05:00 112 H 36 H 169/100 H 86 L 12/12/20 04:00 111 H 33 H 175/111 H 90 L - Problem List Review Problem List Initiated/Reviewed/Updated: Yes - My Orders Last 24 Hours: My Active Orders 12/11/20 22:29 Diabetes Education [RC] Click to Edit Notify Provider [RC] PRN Vital Signs [RC] Q1H Consult to Diabetic Nurse Specialist [CONS] Urgent Dextrose 5%-0.45% NaCl [Dextrose 5%-1/2 NS] 1,000 ml IV .CONTINUOUS Dextrose 50% in Water 50 ml IVPUSH ONETIME PRN Potassium Chloride [Potassium Chloride Solution] 20 meq PO NOW PRN Potassium Chloride [Potassium Chloride Solution] 40 meq PO NOW PRN Potassium Chloride [Potassium Chloride Solution] 40 meq PO Q2H PRN Sodium Chloride 0.9% [Normal Saline] 2,000 ml IV .CONTINUOUS 12/11/20 22:30 Insulin Regular in 0.9 % NACL [Myxredlin in NS 100 UNIT/100 ML] 100 ml IV ASDIRECTED Medication Continuation Instructions [OM.PC] ASDIRECTED Medication Discontinuation Instructions [OM.PC] ASDIRECTED 12/11/20 22:31 Notify Provider Laboratory Res [RC] ASDIRECTED Notify Provider Laboratory Res [RC] ASDIRECTED Notify Provider Laboratory Res [RC] ASDIRECTED 12/11/20 22:32 Blood Glucose Check, Bedside [RC] Q1H 12/11/20 22:33 Medication Discontinuation Instructions [OM.PC] Routine 12/11/20 22:48 Resuscitation Status Routine 12/11/20 23:00 Potassium Chloride [KCL in Water 20 MEQ/100 ML] 20 meq Premix Bag 1 bag IV Q2H 12/11/20 23:05 Acetaminophen [TylenoL] 650 mg PO Q4H PRN Albuterol [Proventil Neb Soln] 2.5 mg NEB Q4H PRN Albuterol [Ventolin HFA] 1 - 2 gm INH Q4H PRN Dextrose 50% in Water 50 ml IVPUSH ASDIRECTED PRN Glucagon,Human Recombinant [GlucaGen] 1 mg IM ASDIRECTED PRN Ondansetron [Zofran] 4 mg IV Q4H PRN Sodium Chloride 0.9% [Saline Flush] 10 ml FLUSH ASDIRECTED PRN oxyCODONE 5 mg PO Q6H PRN polyethylene glycoL 3350 [MiraLAX] 17 gm PO DAILY PRN 12/11/20 23:05 Patient Status [ADT] Routine Ambulate [RC] QID Height and Weight [RC] DAILY Intake and Output [RC] QSHIFT Notify Provider Vital Signs [RC] ASDIRECTED Oxygen Therapy [RC] PRN Peripheral IV Care [RC] . DIRECTED RT Aerosol Therapy [RC] ASDIRECTED RT Post Treatment Assessment [RC] Click to Edit Up With Assistance [RC] ASDIRECTED Up to Chair [RC] QID VTE/DVT Education [RC] Per Unit Routine Peripheral IV Insertion Adult [OM.PC] Routine Sequential Compression Device [OM.PC] Per Unit Routine 12/12/20 00:44 EKG Documentation Completion [RC] ASDIRECTED EKG 12 Lead [EK] Routine 12/12/20 00:45 Morphine 2 mg IVPUSH Q1H PRN 12/12/20 06:00 hydrALAZINE [Apresoline] 25 mg PO QID 12/12/20 07:21 EKG 12 Lead [EK] Stat 12/12/20 07:23 Blood Culture x2 Reflex Set [OM.PC] Urgent 12/12/20 08:00 Piperacillin/Tazobactam/Dext [Zosyn in Dextrose Iso-Osmotic 3.375 GM/50 ML] 3.375 gm Premix Bag 1 bag IV Q6H 12/12/20 08:10 CULTURE BLOOD [BC] Stat 12/12/20 08:15 CULTURE BLOOD [BC] Stat 12/12/20 09:00 Apixaban [Eliquis] 5 mg PO BID Aspirin [Halfprin] 81 mg PO DAILY Gabapentin [Neurontin] 300 mg PO DAILY Magnesium Oxide 400 mg PO DAILY Pantoprazole [ProTONIX IV] 40 mg IVPUSH Q12H Sertraline [Zoloft] 50 mg PO DAILY carvediloL [Coreg] 12.5 mg PO BID 12/12/20 13:00 Levofloxacin/Dextrose 5%-Water [Levaquin in D5W 750 MG/150 ML] 750 mg Premix Bag 1 bag IV Q48H 12/12/20 14:28 Urinary Catheter Assessment [RC] ASDIRECTED 12/12/20 14:30 Insert [place] Catheter [Insert Urinary Catheter] [OM.PC] Q24H BASIC METABOLIC PANEL,BMP [CHEM] Q4H BLOOD GAS ARTERIAL [BG] Stat LACTIC ACID [CHEM] Stat 12/12/20 16:30 MAGNESIUM [CHEM] Q6H PHOSPHORUS [CHEM] Q6H POTASSIUM,K [CHEM] Q2H 12/12/20 17:00 TROPONIN I [CHEM] Stat 12/12/20 18:30 BASIC METABOLIC PANEL,BMP [CHEM] Q4H 12/12/20 20:30 POTASSIUM,K [CHEM] Q2H 12/12/20 21:00 Insulin Glarg,Human.Rec.Analog [LantUS Solostar] 10 units SUBCUT BEDTIME Vancomycin 1 gm Sodium Chloride 0.9% [Normal Saline] 250 ml IV Q12H atorvaSTATin [Lipitor] 20 mg PO BEDTIME 12/13/20 05:00 BLOOD GAS ARTERIAL [BG] Timed CBC WITH AUTO DIFF [HEME] Timed COMPREHENSIVE METABOLIC PN,CMP [CHEM] Timed MAGNESIUM [CHEM] Timed - Plan Plan:: ASSESSMENT AND PLAN DIABETIC KETOACIDOSIS-ketoacidosis has improved significantly but not yet resolved -IV insulin per protocol -Continue vigorous IV fluid replacement again per ketoacidosis protocol -Closely monitor electrolytes and manage per protocol -Consistent carbohydrate diet ACUTE KIDNEY INJURY-known chronic kidney disease stage IIIb. Renal function has improved with hydration but is not yet back to baseline -IV fluids as above -Closely monitor urine output and renal function ABDOMINAL PAIN WITH NAUSEA AND VOMITING-likely secondary to ketoacidosis, no sig nificant abnormalities identified on CT scan -Continue to monitor RIGHT LUNG PNEUMONIA -Blood cultures pending -IV vancomycin, Zosyn, and levofloxacin, pending culture results HYPOXIC RESPIRATORY FAILURE-progressive hypoxia requiring increased levels of supplemental oxygen, likely secondary to underlying pneumonia -Supplemental oxygen as needed -BiPAP -Arterial blood gases pending now and in a.m. 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 At the time of this admission I do not reasonably expected evaluation and management of this problem will require more than a 96 hour hospital stay. DISPOSITION-anticipate discharge to home after the hospital stay. PRIMARY CARE PROVIDER-Randy Jacques
--- NOTE | 2020-12-12 16:55 | PCM.EKG ---
#1 Interpretation EKG Date: 12/12/20 Time: 01:00 Rhythm: Other (Sinus tachycardia) Rate (Beats/Min): 115 [place]: Normal P-Wave: Present QRS: Normal ST-T: Normal QT: Prolonged Comparison: NA - No Prior EKG EKG Interpretation Comments: Nonspecific T wave abnormalities #2 Interpretation EKG Date: 12/12/20 Time: 07:30 Rhythm: Other (Sinus tachycardia) Rate (Beats/Min): 112 [place]: Normal P-Wave: Present QRS: Normal ST-T: Normal QT: Prolonged Comparison: No Change
[2020-12-12] MEDS ORDERED: Glucose Gel 15 GM in 37.5 GM Tube PO PRN (18:03)
[2020-12-12] MEDS ORDERED: 50% Dextrose in Water 50 ML Syringe IV PRN (18:03)
[2020-12-12] MEDS: Sodium Chloride 0.9% 1,000 ML IV SCH (18:29)
[2020-12-12] MEDS: Insulin Lispro 100 Unit/ML 3 ML KwikPen SUBCUT SCH (19:48)
[2020-12-12] MEDS: atorvaSTATin 20 MG Tab PO SCH (20:36)
[2020-12-12] MEDS: Insulin Glargine,Human Rec. Analog 100 Units/ML 3 ML Pen SUBCUT SCH (20:37)
[2020-12-13] MEDS: Morphine 2 MG/ML SYRINGE IVPUSH PRN ×4 (01:03→21:41)
[2020-12-13] MEDS: Piperacillin/Tazobactam/Dext 3.375 GM in Premix Bag 1 BAG IV SCH ×3 (02:00→13:05)
[2020-12-13] MEDS: Ondansetron 4 MG/2 ML SDV IV PRN (05:27)
[2020-12-13] MEDS: oxyCODONE 5 MG Tab PO PRN ×4 (05:29→23:55)
[2020-12-13] MEDS: hydrALAZINE 25 MG Tab PO SCH ×4 (05:29→21:44)
[2020-12-13] MEDS ORDERED: Insulin Lispro 100 Units/ML 3 ML Vial SUBCUT ONE (05:42)
[2020-12-13] MEDS: Insulin Lispro 100 Unit/ML 3 ML KwikPen SUBCUT SCH ×5 (08:10→21:31)
[2020-12-13] MEDS: Aspirin 81 MG Tab.EC PO SCH (09:29)
[2020-12-13] MEDS: Carvedilol 12.5 MG Tab PO SCH ×2 (09:30→21:28)
[2020-12-13] MEDS: Gabapentin 300 MG Cap PO SCH (09:30)
[2020-12-13] MEDS: Magnesium Oxide 400 MG Tab PO SCH (09:30)
[2020-12-13] MEDS: Sertraline 50 MG Tab PO SCH (09:30)
[2020-12-13] MEDS: Apixaban 5 MG Tab PO SCH ×2 (09:30→21:28)
[2020-12-13] MEDS: Pantoprazole 40 MG Tab.CR PO SCH ×2 (09:55→15:29)
[2020-12-13] MEDS: Sodium Chloride 0.9% 1,000 ML IV SCH (11:07)
[2020-12-13] MEDS: Magnesium Sulfate/Water 2 GM in Premix Bag 1 BAG IV SCH ×2 (11:07→15:29)
--- NOTE | 2020-12-13 15:30 | PCM.PN ---
- General Info Date of Service: 12/13/20 Subjective Update: Ms. Frank has been more alert and interactive, intermittently confused. Vital signs have been stable and she has been afebrile. Oxygenating well on minimal s upplemental oxygen. She refuses to get out of bed and oral intake has been poor. Functional Status: Denies: Tolerating Diet - Review of Systems Pulmonary: Reports: No Symptoms Cardiovascular: Reports: No Symptoms Gastrointestinal: Reports: No Symptoms - Patient Data Vitals - Most Recent: Last Vital Signs Temp 97.7 F 12/13/20 12:00 Pulse 106 H 12/13/20 09:30 Resp 18 12/13/20 14:00 BP 129/80 12/13/20 14:00 Pulse Ox 99 12/13/20 14:00 Weight - Most Recent: 160 lb 9.6 oz I&O - Last 24 Hours: Intake & Output 12/13/20 12/13/20 12/13/20 06:59 14:59 22:59 Intake Total 1707 Output Total 550 Balance 1157 @ Lab Results Last 24 Hours: Laboratory Results - last 24 hr 12/12/20 12/12/20 12/12/20 Range/Units 14:30 15:12 15:12 WBC (4.5-11.0) K/uL RBC (3.30-5.50) M/uL Hgb (12.0-15.0) g/dL Hct (36.0-48.0) % MCV (80-98) fL MCH (27-31) pg MCHC (32-36) % Plt Count (150-400) K/uL Add Manual Diff Neutrophils % (Manual) (36-66) % Band Neutrophils % (5-11) % Lymphocytes % (Manual) (24-44) % Monocytes % (Manual) (2-6) % Atypical Lymphocytes Puncture Site ABG pH (7.350-7.450) ABG pCO2 (35.0-42.0) mmHg ABG pO2 (75.0-100.0) mmHg ABG HCO3 (22.0-26.0) mmol/L ABG Total CO2 (21.0-25.0) mmol/L ABG O2 Saturation (95.0-98.0) % ABG O2 Content (15.0-23.0) %vol ABG Base Excess mm/L ABG Hemoglobin (12.0-16.0) g/dL ABG Oxyhemoglobin % ABG Carboxyhemoglobin (0.0-1.6) % ABG Methemoglobin % Santiago Test O2 Delivery Device Oxygen Flow Rate L Sodium 142 (140-148) mmol/L Potassium 3.3 L 4.4 (3.6-5.2) mmol/L Chloride 110 H (100-108) mmol/L Carbon Dioxide 22 (21-32) mmol/L Anion Gap 13.3 (5.0-14.0) mmol/L BUN 29 H (7-18) mg/dL Creatinine 2.8 H (0.6-1.0) mg/dL Est Cr Clr Drug Dosing 28.31 mL/min Estimated GFR (MDRD) 24 L (>60) Glucose 202 H (74-106) mg/dL POC Glucose (74-106) mg/dL Calcium 8.1 L (8.5-10.1) mg/dL Phosphorus 1.5 L (2.5-4.9) mg/dL Magnesium 1.8 (1.8-2.4) mg/dL Total Bilirubin (0.2-1.0) mg/dL AST (15-37) U/L ALT (12-78) U/L Alkaline Phosphatase (46-116) U/L Troponin I 0.080 H* (0.000-0.056) ng/mL Total Protein (6.4-8.2) g/dL Albumin (3.4-5.0) g/dL Globulin (2.3-3.5) g/dL Albumin/Globulin Ratio (1.2-2.2) 12/12/20 12/12/20 12/12/20 Range/Units 16:01 17:03 18:19 WBC (4.5-11.0) K/uL RBC (3.30-5.50) M/uL Hgb (12.0-15.0) g/dL Hct (36.0-48.0) % MCV (80-98) fL MCH (27-31) pg MCHC (32-36) % Plt Count (150-400) K/uL Add Manual Diff Neutrophils % (Manual) (36-66) % Band Neutrophils % (5-11) % Lymphocytes % (Manual) (24-44) % Monocytes % (Manual) (2-6) % Atypical Lymphocytes Puncture Site ABG pH (7.350-7.450) ABG pCO2 (35.0-42.0) mmHg ABG pO2 (75.0-100.0) mmHg ABG HCO3 (22.0-26.0) mmol/L ABG Total CO2 (21.0-25.0) mmol/L ABG O2 Saturation (95.0-98.0) % ABG O2 Content (15.0-23.0) %vol ABG Base Excess mm/L ABG Hemoglobin (12.0-16.0) g/dL ABG Oxyhemoglobin % ABG Carboxyhemoglobin (0.0-1.6) % ABG Methemoglobin % Santiago Test O2 Delivery Device Oxygen Flow Rate L Sodium (140-148) mmol/L Potassium (3.6-5.2) mmol/L Chloride (100-108) mmol/L Carbon Dioxide (21-32) mmol/L Anion Gap (5.0-14.0) mmol/L BUN (7-18) mg/dL Creatinine (0.6-1.0) mg/dL Est Cr Clr Drug Dosing mL/min Estimated GFR (MDRD) (>60) Glucose (74-106) mg/dL POC Glucose 172 H 196 H 228 H (74-106) mg/dL Calcium (8.5-10.1) mg/dL Phosphorus (2.5-4.9) mg/dL Magnesium (1.8-2.4) mg/dL Total Bilirubin (0.2-1.0) mg/dL AST (15-37) U/L ALT (12-78) U/L Alkaline Phosphatase (46-116) U/L Troponin I (0.000-0.056) ng/mL Total Protein (6.4-8.2) g/dL Albumin (3.4-5.0) g/dL Globulin (2.3-3.5) g/dL Albumin/Globulin Ratio (1.2-2.2) 12/12/20 12/12/20 12/12/20 Range/Units 19:33 19:35 20:05 WBC (4.5-11.0) K/uL RBC (3.30-5.50) M/uL Hgb (12.0-15.0) g/dL Hct (36.0-48.0) % MCV (80-98) fL MCH (27-31) pg MCHC (32-36) % Plt Count (150-400) K/uL Add Manual Diff Neutrophils % (Manual) (36-66) % Band Neutrophils % (5-11) % Lymphocytes % (Manual) (24-44) % Monocytes % (Manual) (2-6) % Atypical Lymphocytes Puncture Site ABG pH (7.350-7.450) ABG pCO2 (35.0-42.0) mmHg ABG pO2 (75.0-100.0) mmHg ABG HCO3 (22.0-26.0) mmol/L ABG Total CO2 (21.0-25.0) mmol/L ABG O2 Saturation (95.0-98.0) % ABG O2 Content (15.0-23.0) %vol ABG Base Excess mm/L ABG Hemoglobin (12.0-16.0) g/dL ABG Oxyhemoglobin % ABG Carboxyhemoglobin (0.0-1.6) % ABG Methemoglobin % Santiago Test O2 Delivery Device Oxygen Flow Rate L Sodium 139 L (140-148) mmol/L Potassium 4.6 4.3 (3.6-5.2) mmol/L Chloride 110 H (100-108) mmol/L Carbon Dioxide 15 L (21-32) mmol/L Anion Gap 18.6 H (5.0-14.0) mmol/L BUN 27 H (7-18) mg/dL Creatinine 2.8 H (0.6-1.0) mg/dL Est Cr Clr Drug Dosing 28.31 mL/min Estimated GFR (MDRD) 24 L (>60) Glucose 279 H (74-106) mg/dL POC Glucose 274 H (74-106) mg/dL Calcium 8.3 L (8.5-10.1) mg/dL Phosphorus (2.5-4.9) mg/dL Magnesium (1.8-2.4) mg/dL Total Bilirubin (0.2-1.0) mg/dL AST (15-37) U/L ALT (12-78) U/L Alkaline Phosphatase (46-116) U/L Troponin I (0.000-0.056) ng/mL Total Protein (6.4-8.2) g/dL Albumin (3.4-5.0) g/dL Globulin (2.3-3.5) g/dL Albumin/Globulin Ratio (1.2-2.2) 12/13/20 12/13/20 12/13/20 Range/Units 05:00 05:35 05:50 WBC 10.3 (4.5-11.0) K/uL RBC 2.77 L (3.30-5.50) M/uL Hgb 7.9 L (12.0-15.0) g/dL Hct 24.4 L (36.0-48.0) % MCV 88 (80-98) fL MCH 29 (27-31) pg MCHC 32 (32-36) % Plt Count 145 L (150-400) K/uL Add Manual Diff Yes Neutrophils % (Manual) 76 H (36-66) % Band Neutrophils % 6 (5-11) % Lymphocytes % (Manual) 11 L (24-44) % Monocytes % (Manual) 7 H (2-6) % Atypical Lymphocytes Rare Puncture Site Rt brachial ABG pH 7.342 L (7.350-7.450) ABG pCO2 33.7 L (35.0-42.0) mmHg ABG pO2 86.4 (75.0-100.0) mmHg ABG HCO3 17.8 L (22.0-26.0) mmol/L ABG Total CO2 17.1 L (21.0-25.0) mmol/L ABG O2 Saturation 94.0 L (95.0-98.0) % ABG O2 Content 10.5 L (15.0-23.0) %vol ABG Base Excess -6.7 mm/L ABG Hemoglobin 8.2 L (12.0-16.0) g/dL ABG Oxyhemoglobin 90.0 % ABG Carboxyhemoglobin 1.0 (0.0-1.6) % ABG Methemoglobin 3.3 % Santiago Test Not performed O2 Delivery Device Bipap Oxygen Flow Rate L Sodium (140-148) mmol/L Potassium (3.6-5.2) mmol/L Chloride (100-108) mmol/L Carbon Dioxide (21-32) mmol/L Anion Gap (5.0-14.0) mmol/L BUN (7-18) mg/dL Creatinine (0.6-1.0) mg/dL Est Cr Clr Drug Dosing mL/min Estimated GFR (MDRD) (>60) Glucose (74-106) mg/dL POC Glucose 356 H (74-106) mg/dL Calcium (8.5-10.1) mg/dL Phosphorus (2.5-4.9) mg/dL Magnesium (1.8-2.4) mg/dL Total Bilirubin (0.2-1.0) mg/dL AST (15-37) U/L ALT (12-78) U/L Alkaline Phosphatase (46-116) U/L Troponin I (0.000-0.056) ng/mL Total Protein (6.4-8.2) g/dL Albumin (3.4-5.0) g/dL Globulin (2.3-3.5) g/dL Albumin/Globulin Ratio (1.2-2.2) 12/13/20 12/13/20 12/13/20 Range/Units 05:50 08:05 11:35 WBC (4.5-11.0) K/uL RBC (3.30-5.50) M/uL Hgb (12.0-15.0) g/dL Hct (36.0-48.0) % MCV (80-98) fL MCH (27-31) pg MCHC (32-36) % Plt Count (150-400) K/uL Add Manual Diff Neutrophils % (Manual) (36-66) % Band Neutrophils % (5-11) % Lymphocytes % (Manual) (24-44) % Monocytes % (Manual) (2-6) % Atypical Lymphocytes Puncture Site ABG pH (7.350-7.450) ABG pCO2 (35.0-42.0) mmHg ABG pO2 (75.0-100.0) mmHg ABG HCO3 (22.0-26.0) mmol/L ABG Total CO2 (21.0-25.0) mmol/L ABG O2 Saturation (95.0-98.0) % ABG O2 Content (15.0-23.0) %vol ABG Base Excess mm/L ABG Hemoglobin (12.0-16.0) g/dL ABG Oxyhemoglobin % ABG Carboxyhemoglobin (0.0-1.6) % ABG Methemoglobin % Santiago Test O2 Delivery Device Oxygen Flow Rate L Sodium 136 L (140-148) mmol/L Potassium 3.7 (3.6-5.2) mmol/L Chloride 106 (100-108) mmol/L Carbon Dioxide 20 L (21-32) mmol/L Anion Gap 13.7 (5.0-14.0) mmol/L BUN 24 H (7-18) mg/dL Creatinine 2.9 H (0.6-1.0) mg/dL Est Cr Clr Drug Dosing 27.33 mL/min Estimated GFR (MDRD) 23 L (>60) Glucose 373 H (74-106) mg/dL POC Glucose 274 H 318 H (74-106) mg/dL Calcium 7.6 L (8.5-10.1) mg/dL Phosphorus (2.5-4.9) mg/dL Magnesium 1.5 L (1.8-2.4) mg/dL Total Bilirubin 0.9 (0.2-1.0) mg/dL AST 22 (15-37) U/L ALT 15 (12-78) U/L Alkaline Phosphatase 81 (46-116) U/L Troponin I (0.000-0.056) ng/mL Total Protein 5.6 L (6.4-8.2) g/dL Albumin 1.9 L (3.4-5.0) g/dL Globulin 3.7 H (2.3-3.5) g/dL Albumin/Globulin Ratio 0.5 L (1.2-2.2) Denzel Results Last 24 Hours: Microbiology 12/12/20 08:15 Aerobic Blood Culture - Preliminary Blood - Venous - Lab Draw NO GROWTH AFTER 1 DAY Anaerobic Blood Culture - Preliminary NO GROWTH AFTER 1 DAY 12/12/20 08:10 Aerobic Blood Culture - Preliminary Blood - Venous NO GROWTH AFTER 1 DAY Anaerobic Blood Culture - Preliminary NO GROWTH AFTER 1 DAY Med Orders - Current: Current Medications Acetaminophen (Acetaminophen 325 Mg Tab) 650 mg PO Q4H PRN PRN Reason: Pain (Mild 1-3)/fever Albuterol (Albuterol 8 Gm Inhaler) 1 - 2 gm INH Q4H PRN PRN Reason: Shortness of Breath Albuterol (Albuterol 0.083% 2.5 Mg/3 Ml Neb Soln) 2.5 mg NEB Q4H PRN PRN Reason: Shortness Of Breath/wheezing Last Admin: 12/12/20 05:43 Dose: 2.5 mg Documented by: Apixaban (Apixaban 5 Mg Tab) 5 mg PO BID [facility] Last Admin: 12/13/20 09:30 Dose: 5 mg Documented by: Aspirin (Aspirin 81 Mg Tab.Ec) 81 mg PO DAILY [facility] Last Admin: 12/13/20 09:29 Dose: 81 mg Documented by: Atorvastatin Calcium (Atorvastatin 20 Mg Tab) 20 mg PO BEDTIME [facility] Last Admin: 12/12/20 20:36 Dose: 20 mg Documented by: Bumetanide (Bumetanide 1 Mg Tab) 1 mg PO DAILY [facility] Carvedilol (Carvedilol 12.5 Mg Tab) 12.5 mg PO BID [facility] Last Admin: 12/13/20 09:30 Dose: 12.5 mg Documented by: Dextrose (Glucose Gel 15 Gm In 37.5 Gm Tube) 15 gm PO ONETIME PRN PRN Reason: Hypoglycemia Dextrose/Water (50% Dextrose In Water 50 Ml Syringe) 50 ml IVPUSH ASDIRECTED P RN PRN Reason: Hypoglycemia Dextrose/Water (50% Dextrose In Water 50 Ml Syringe) 50 ml IV ONETIME PRN PRN Reason: Hypoglycemia Gabapentin (Gabapentin 300 Mg Cap) 300 mg PO DAILY [facility] Last Admin: 12/13/20 09:30 Dose: 300 mg Documented by: Glucagon (Glucagon,Human Recombinant 1 Mg Vial) 1 mg IM ASDIRECTED PRN PRN Reason: Hypoglycemia Hydralazine HCl (Hydralazine 25 Mg Tab) 25 mg PO QID [facility] Last Admin: 12/13/20 09:29 Dose: 25 mg Documented by: Potassium Chloride 20 meq/ (Premix) 100 mls @ 50 mls/hr IV Q2H PRN PRN Reason: Hypokalemia Levofloxacin/Dextrose 750 mg/ (Premix) 150 mls @ 100 mls/hr IV Q48H [facility] Last Admin: 12/12/20 13:03 Dose: 100 mls/hr Documented by: Magnesium Sulfate 2 gm/ Premix 50 mls @ 25 mls/hr IV Q6H [facility] Stop: 12/13/20 17:59 Last Admin: 12/13/20 11:07 Dose: 25 mls/hr Documented by: Insulin Glargine (Insulin Glargine,Human Rec. Analog 100 Units/Ml 3 Ml Pen) 10 units SUBCUT BEDTIME [facility] Last Admin: 12/12/20 20:37 Dose: 10 units Documented by: Insulin Human Lispro (Insulin Lispro 100 Unit/Ml 3 Ml Kwikpen) 0 unit SUBCUT QIDACANDBED [facility]; Protocol Last Admin: 12/13/20 11:38 Dose: 8 units Documented by: Insulin Human Lispro (Insulin Lispro 100 Unit/Ml 3 Ml Kwikpen) 3 unit SUBCUT TIDAC [facility] Magnesium Oxide (Magnesium Oxide 400 Mg Tab) 400 mg PO DAILY [facility] Last Admin: 12/13/20 09:30 Dose: 400 mg Documented by: Morphine Sulfate (Morphine 2 Mg/Ml Syringe) 2 mg IVPUSH Q1H PRN PRN Reason: Pain Last Admin: 12/13/20 04:11 Dose: 2 mg Documented by: Ondansetron HCl (Ondansetron 4 Mg/2 Ml Sdv) 4 mg IV Q4H PRN PRN Reason: Nausea/Vomiting Last Admin: 12/13/20 05:27 Dose: 4 mg Documented by: Oxycodone HCl (Oxycodone 5 Mg Tab) 5 mg PO Q6H PRN PRN Reason: Pain Last Admin: 12/13/20 11:35 Dose: 5 mg Documented by: Pantoprazole Sodium (Pantoprazole 40 Mg Tab.Cr) 40 mg PO BIDAC [facility] Last Admin: 12/13/20 09:55 Dose: 40 mg Documented by: Polyethylene Glycol (Polyethylene Glycol 3350 Powder 17 Gm Packet) 17 gm PO DAILY PRN PRN Reason: Constipation Potassium Chloride (Potassium Chloride 10% 20 Meq/15 Ml Soln 15 Ml Ud Cup) 20 meq PO NOW PRN PRN Reason: Hypokalemia Last Admin: 12/12/20 04:45 Dose: 20 meq Documented by: Potassium Chloride (Potassium Chloride 10% 20 Meq/15 Ml Soln 15 Ml Ud Cup) 40 meq PO NOW PRN PRN Reason: Hypokalemia Last Admin: 12/12/20 15:48 Dose: 40 meq Documented by: Potassium Chloride (Potassium Chloride 10% 20 Meq/15 Ml Soln 15 Ml Ud Cup) 40 meq PO Q2H PRN PRN Reason: Hypokalemia Sertraline HCl (Sertraline 50 Mg Tab) 50 mg PO DAILY [facility] Last Admin: 12/13/20 09:30 Dose: 50 mg Documented by: Sodium Chloride (Sodium Chloride 0.9% 10 Ml Syringe) 10 ml FLUSH ASDIRECTED PRN PRN Reason: Keep Vein Open Discontinued Medications Dextrose/Water (50% Dextrose In Water 50 Ml Syringe) 50 ml IVPUSH ASDIRECTED PRN PRN Reason: Hypoglycemia Dextrose/Water (50% Dextrose In Water 50 Ml Syringe) 50 ml IVPUSH ASDIRECTED PRN PRN Reason: Hypoglycemia Dextrose/Water (50% Dextrose In Water 50 Ml Syringe) 50 ml IVPUSH ONETIME PRN PRN Reason: Blood Glucose Glucagon (Glucagon,Human Recombinant 1 Mg Vial) 1 mg IM ASDIRECTED PRN PRN Reason: Hypoglycemia Glucagon (Glucagon,Human Recombinant 1 Mg Vial) 1 mg IM ASDIRECTED PRN PRN Reason: Hypoglycemia Hydromorphone HCl (Hydromorphone 0.5 Mg/0.5 Ml Syringe) 0.5 mg IVPUSH ONETIME ONE Stop: 12/11/20 18:53 Last Admin: 12/11/20 19:12 Dose: 0.5 mg Documented by: Hydromorphone HCl (Hydromorphone 0.5 Mg/0.5 Ml Syringe) 0.5 mg IVPUSH ONETIME ONE Stop: 12/11/20 22:10 Last Admin: 12/11/20 23:37 Dose: Not Given Documented by: Sodium Chloride (Normal Saline) 1,000 mls @ 999 mls/hr IV ASDIRECTED [facility] Last Admin: 12/11/20 17:53 Dose: 999 mls/hr Documented by: Sodium Chloride (Normal Saline) 1,000 mls @ 999 mls/hr IV ASDIRECTED [facility] Last Admin: 12/11/20 19:32 Dose: 999 mls/hr Documented by: Potassium Chloride/Sodium Chloride (Normal Saline With 20 Meq Kcl) 1,000 mls @ 500 mls/hr IV ASDIRECTED [facility] Last Admin: 12/11/20 21:10 Dose: 500 mls/hr Documented by: Sodium Chloride (Normal Saline) 2,000 mls @ 500 mls/hr IV .CONTINUOUS PRN PRN Reason: Blood Glucose Last Infusion: 12/12/20 02:07 Dose: 0 mls/hr Documented by: Dextrose/Sodium Chloride (Dextrose 5%-1/2 Ns) 1,000 mls @ 150 mls/hr IV .CONTINUOUS PRN PRN Reason: Blood Glucose Last Admin: 12/12/20 15:14 Dose: 150 mls/hr Documented by: Potassium Chloride 20 meq/ (Premix) 100 mls @ 50 mls/hr IV ONETIME ONE Stop: 12/12/20 00:28 Last Admin: 12/11/20 23:30 Dose: Not Given Documented by: Potassium Chloride 20 meq/ (Premix) 100 mls @ 50 mls/hr IV Q2H PRN PRN Reason: Hypokalemia Magnesium Sulfate (Magnesium Sulfate In Water 2 Gm/50 Ml) 2 gm in 50 mls @ 25 mls/hr IV ONETIME PRN PRN Reason: low magnesium Last Admin: 12/12/20 06:13 Dose: 25 mls/hr Documented by: Insulin Regular in 0.9 % NACL (Myxredlin In Ns 100 Unit/100 Ml) 100 mls @ 5.897 mls/hr IV ASDIRECTED [facility]; Protocol Last Infusion: 12/12/20 17:16 Dose: 0.05 units/kg/hr, 3 mls/hr Documented by: Piperacillin/Tazobactam/ (Dextrose 3.375 gm/ Premix) 50 mls @ 100 mls/hr IV Q6H [facility] Last Admin: 12/13/20 13:05 Dose: 100 mls/hr Documented by: Vancomycin HCl 1.5 gm/ Sodium (Chloride) 250 mls @ 167 mls/hr IV ONETIME ONE Stop: 12/12/20 10:29 Last Admin: 12/12/20 09:18 Dose: 167 mls/hr Documented by: Vancomycin HCl 1 gm/ Sodium (Chloride) 250 mls @ 166.667 mls/hr IV Q12H [facility] Last Admin: 12/13/20 09:09 Dose: 166.667 mls/hr Documented by: Sodium Chloride (Normal Saline) 1,000 mls @ 75 mls/hr IV ASDIRECTED [facility] Last Admin: 12/13/20 11:07 Dose: 75 mls/hr Documented by: Insulin Human Lispro (Insulin Lispro 100 Units/Ml 3 Ml Vial) 8 unit SUBCUT ONETIME ONE Stop: 12/13/20 05:43 Last Admin: 12/13/20 05:50 Dose: 8 units Documented by: Insulin Human Regular (Insulin Regular, Human 100 Units/Ml 3 Ml Vial) 16 unit SUBCUT ONETIME ONE Stop: 12/11/20 19:48 Last Admin: 12/11/20 19:52 Dose: 16 units Documented by: Insulin Human Regular (Insulin Regular, Human 100 Units/Ml 3 Ml Vial) 14 unit SUBCUT ONETIME ONE Stop: 12/11/20 21:34 Last Admin: 12/11/20 22:00 Dose: 14 units Documented by: Metoclopramide HCl (Metoclopramide 10 Mg/2 Ml Sdv) 5 mg IVPUSH ONETIME ONE Stop: 12/11/20 21:18 Last Admin: 12/11/20 21:44 Dose: 5 mg Documented by: Ondansetron HCl (Ondansetron 4 Mg/2 Ml Sdv) 4 mg IVPUSH ONETIME ONE Stop: 12/11/20 16:39 Last Admin: 12/11/20 17:52 Dose: 4 mg Documented by: Ondansetron HCl (Ondansetron 4 Mg/2 Ml Sdv) 4 mg IVPUSH ONETIME ONE Stop: 12/11/20 23:09 Last Admin: 12/11/20 23:17 Dose: 4 mg Documented by: Pantoprazole Sodium (Pantoprazole 40 Mg Vial) 40 mg IVPUSH Q12H [facility] Last Admin: 12/12/20 20:37 Dose: 40 mg Documented by: Vancomycin HCl (Vancomycin 1 Gm Sdv) 1 gm IV .PHARMACY TO DOSE GWENDOLYN - Exam Quality Assessment: Supplemental Oxygen, Urine Catheter, DVT Prophylaxis Urinary Catheter Total Time: 0Days 19Hours General: Alert, Oriented, Cooperative, Mild Distress Lungs: Clear to Auscultation, Normal Respiratory Effort, Decreased Breath Sounds. No: Rales, Rhonchi, Wheezing Cardiovascular: Regular Rate, Regular Rhythm, No Murmurs GI/Abdominal Exam: Soft, Non-Tender, No Organomegaly, No Distention Extremities: Non-Tender, No Pedal Edema - Patient Data Lab Results Last 24 hrs: Laboratory Results - last 24 hr 12/12/20 12/12/20 12/12/20 Range/Units 14:30 15:12 15:12 WBC (4.5-11.0) K/uL RBC (3.30-5.50) M/uL Hgb (12.0-15.0) g/dL Hct (36.0-48.0) % MCV (80-98) fL MCH (27-31) pg MCHC (32-36) % Plt Count (150-400) K/uL Add Manual Diff Neutrophils % (Manual) (36-66) % Band Neutrophils % (5-11) % Lymphocytes % (Manual) (24-44) % Monocytes % (Manual) (2-6) % Atypical Lymphocytes Puncture Site ABG pH (7.350-7.450) ABG pCO2 (35.0-42.0) mmHg ABG pO2 (75.0-100.0) mmHg ABG HCO3 (22.0-26.0) mmol/L ABG Total CO2 (21.0-25.0) mmol/L ABG O2 Saturation (95.0-98.0) % ABG O2 Content (15.0-23.0) %vol ABG Base Excess mm/L ABG Hemoglobin (12.0-16.0) g/dL ABG Oxyhemoglobin % ABG Carboxyhemoglobin (0.0-1.6) % ABG Methemoglobin % Santiago Test O2 Delivery Device Oxygen Flow Rate L Sodium 142 (140-148) mmol/L Potassium 3.3 L 4.4 (3.6-5.2) mmol/L Chloride 110 H (100-108) mmol/L Carbon Dioxide 22 (21-32) mmol/L Anion Gap 13.3 (5.0-14.0) mmol/L BUN 29 H (7-18) mg/dL Creatinine 2.8 H (0.6-1.0) mg/dL Est Cr Clr Drug Dosing 28.31 mL/min Estimated GFR (MDRD) 24 L (>60) Glucose 202 H (74-106) mg/dL POC Glucose (74-106) mg/dL Calcium 8.1 L (8.5-10.1) mg/dL Phosphorus 1.5 L (2.5-4.9) mg/dL Magnesium 1.8 (1.8-2.4) mg/dL Total Bilirubin (0.2-1.0) mg/dL AST (15-37) U/L ALT (12-78) U/L Alkaline Phosphatase (46-116) U/L Troponin I 0.080 H* (0.000-0.056) ng/mL Total Protein (6.4-8.2) g/dL Albumin (3.4-5.0) g/dL Globulin (2.3-3.5) g/dL Albumin/Globulin Ratio (1.2-2.2) 12/12/20 12/12/20 12/12/20 Range/Units 16:01 17:03 18:19 WBC (4.5-11.0) K/uL RBC (3.30-5.50) M/uL Hgb (12.0-15.0) g/dL Hct (36.0-48.0) % MCV (80-98) fL MCH (27-31) pg MCHC (32-36) % Plt Count (150-400) K/uL Add Manual Diff Neutrophils % (Manual) (36-66) % Band Neutrophils % (5-11) % Lymphocytes % (Manual) (24-44) % Monocytes % (Manual) (2-6) % Atypical Lymphocytes Puncture Site ABG pH (7.350-7.450) ABG pCO2 (35.0-42.0) mmHg ABG pO2 (75.0-100.0) mmHg ABG HCO3 (22.0-26.0) mmol/L ABG Total CO2 (21.0-25.0) mmol/L ABG O2 Saturation (95.0-98.0) % ABG O2 Content (15.0-23.0) %vol ABG Base Excess mm/L ABG Hemoglobin (12.0-16.0) g/dL ABG Oxyhemoglobin % ABG Carboxyhemoglobin (0.0-1.6) % ABG Methemoglobin % Santiago Test O2 Delivery Device Oxygen Flow Rate L Sodium (140-148) mmol/L Potassium (3.6-5.2) mmol/L Chloride (100-108) mmol/L Carbon Dioxide (21-32) mmol/L Anion Gap (5.0-14.0) mmol/L BUN (7-18) mg/dL Creatinine (0.6-1.0) mg/dL Est Cr Clr Drug Dosing mL/min Estimated GFR (MDRD) (>60) Glucose (74-106) mg/dL POC Glucose 172 H 196 H 228 H (74-106) mg/dL Calcium (8.5-10.1) mg/dL Phosphorus (2.5-4.9) mg/dL Magnesium (1.8-2.4) mg/dL Total Bilirubin (0.2-1.0) mg/dL AST (15-37) U/L ALT (12-78) U/L Alkaline Phosphatase (46-116) U/L Troponin I (0.000-0.056) ng/mL Total Protein (6.4-8.2) g/dL Albumin (3.4-5.0) g/dL Globulin (2.3-3.5) g/dL Albumin/Globulin Ratio (1.2-2.2) 12/12/20 12/12/20 12/12/20 Range/Units 19:33 19:35 20:05 WBC (4.5-11.0) K/uL RBC (3.30-5.50) M/uL Hgb (12.0-15.0) g/dL Hct (36.0-48.0) % MCV (80-98) fL MCH (27-31) pg MCHC (32-36) % Plt Count (150-400) K/uL Add Manual Diff Neutrophils % (Manual) (36-66) % Band Neutrophils % (5-11) % Lymphocytes % (Manual) (24-44) % Monocytes % (Manual) (2-6) % Atypical Lymphocytes Puncture Site ABG pH (7.350-7.450) ABG pCO2 (35.0-42.0) mmHg ABG pO2 (75.0-100.0) mmHg ABG HCO3 (22.0-26.0) mmol/L ABG Total CO2 (21.0-25.0) mmol/L ABG O2 Saturation (95.0-98.0) % ABG O2 Content (15.0-23.0) %vol ABG Base Excess mm/L ABG Hemoglobin (12.0-16.0) g/dL ABG Oxyhemoglobin % ABG Carboxyhemoglobin (0.0-1.6) % ABG Methemoglobin % Santiago Test O2 Delivery Device Oxygen Flow Rate L Sodium 139 L (140-148) mmol/L Potassium 4.6 4.3 (3.6-5.2) mmol/L Chloride 110 H (100-108) mmol/L Carbon Dioxide 15 L (21-32) mmol/L Anion Gap 18.6 H (5.0-14.0) mmol/L BUN 27 H (7-18) mg/dL Creatinine 2.8 H (0.6-1.0) mg/dL Est Cr Clr Drug Dosing 28.31 mL/min Estimated GFR (MDRD) 24 L (>60) Glucose 279 H (74-106) mg/dL POC Glucose 274 H (74-106) mg/dL Calcium 8.3 L (8.5-10.1) mg/dL Phosphorus (2.5-4.9) mg/dL Magnesium (1.8-2.4) mg/dL Total Bilirubin (0.2-1.0) mg/dL AST (15-37) U/L ALT (12-78) U/L Alkaline Phosphatase (46-116) U/L Troponin I (0.000-0.056) ng/mL Total Protein (6.4-8.2) g/dL Albumin (3.4-5.0) g/dL Globulin (2.3-3.5) g/dL Albumin/Globulin Ratio (1.2-2.2) 12/13/20 12/13/20 12/13/20 Range/Units 05:00 05:35 05:50 WBC 10.3 (4.5-11.0) K/uL RBC 2.77 L (3.30-5.50) M/uL Hgb 7.9 L (12.0-15.0) g/dL Hct 24.4 L (36.0-48.0) % MCV 88 (80-98) fL MCH 29 (27-31) pg MCHC 32 (32-36) % Plt Count 145 L (150-400) K/uL Add Manual Diff Yes Neutrophils % (Manual) 76 H (36-66) % Band Neutrophils % 6 (5-11) % Lymphocytes % (Manual) 11 L (24-44) % Monocytes % (Manual) 7 H (2-6) % Atypical Lymphocytes Rare Puncture Site Rt brachial ABG pH 7.342 L (7.350-7.450) ABG pCO2 33.7 L (35.0-42.0) mmHg ABG pO2 86.4 (75.0-100.0) mmHg ABG HCO3 17.8 L (22.0-26.0) mmol/L ABG Total CO2 17.1 L (21.0-25.0) mmol/L ABG O2 Saturation 94.0 L (95.0-98.0) % ABG O2 Content 10.5 L (15.0-23.0) %vol ABG Base Excess -6.7 mm/L ABG Hemoglobin 8.2 L (12.0-16.0) g/dL ABG Oxyhemoglobin 90.0 % ABG Carboxyhemoglobin 1.0 (0.0-1.6) % ABG Methemoglobin 3.3 % Santiago Test Not performed O2 Delivery Device Bipap Oxygen Flow Rate L Sodium (140-148) mmol/L Potassium (3.6-5.2) mmol/L Chloride (100-108) mmol/L Carbon Dioxide (21-32) mmol/L Anion Gap (5.0-14.0) mmol/L BUN (7-18) mg/dL Creatinine (0.6-1.0) mg/dL Est Cr Clr Drug Dosing mL/min Estimated GFR (MDRD) (>60) Glucose (74-106) mg/dL POC Glucose 356 H (74-106) mg/dL Calcium (8.5-10.1) mg/dL Phosphorus (2.5-4.9) mg/dL Magnesium (1.8-2.4) mg/dL Total Bilirubin (0.2-1.0) mg/dL AST (15-37) U/L ALT (12-78) U/L Alkaline Phosphatase (46-116) U/L Troponin I (0.000-0.056) ng/mL Total Protein (6.4-8.2) g/dL Albumin (3.4-5.0) g/dL Globulin (2.3-3.5) g/dL Albumin/Globulin Ratio (1.2-2.2) 12/13/20 12/13/20 12/13/20 Range/Units 05:50 08:05 11:35 WBC (4.5-11.0) K/uL RBC (3.30-5.50) M/uL Hgb (12.0-15.0) g/dL Hct (36.0-48.0) % MCV (80-98) fL MCH (27-31) pg MCHC (32-36) % Plt Count (150-400) K/uL Add Manual Diff Neutrophils % (Manual) (36-66) % Band Neutrophils % (5-11) % Lymphocytes % (Manual) (24-44) % Monocytes % (Manual) (2-6) % Atypical Lymphocytes Puncture Site ABG pH (7.350-7.450) ABG pCO2 (35.0-42.0) mmHg ABG pO2 (75.0-100.0) mmHg ABG HCO3 (22.0-26.0) mmol/L ABG Total CO2 (21.0-25.0) mmol/L ABG O2 Saturation (95.0-98.0) % ABG O2 Content (15.0-23.0) %vol ABG Base Excess mm/L ABG Hemoglobin (12.0-16.0) g/dL ABG Oxyhemoglobin % ABG Carboxyhemoglobin (0.0-1.6) % ABG Methemoglobin % [place] Test O2 Delivery Device Oxygen Flow Rate L Sodium 136 L (140-148) mmol/L Potassium 3.7 (3.6-5.2) mmol/L Chloride 106 (100-108) mmol/L Carbon Dioxide 20 L (21-32) mmol/L Anion Gap 13.7 (5.0-14.0) mmol/L BUN 24 H (7-18) mg/dL Creatinine 2.9 H (0.6-1.0) mg/dL Est Cr Clr Drug Dosing 27.33 mL/min Estimated GFR (MDRD) 23 L (>60) Glucose 373 H (74-106) mg/dL POC Glucose 274 H 318 H (74-106) mg/dL Calcium 7.6 L (8.5-10.1) mg/dL Phosphorus (2.5-4.9) mg/dL Magnesium 1.5 L (1.8-2.4) mg/dL Total Bilirubin 0.9 (0.2-1.0) mg/dL AST 22 (15-37) U/L ALT 15 (12-78) U/L Alkaline Phosphatase 81 (46-116) U/L Troponin I (0.000-0.056) ng/mL Total Protein 5.6 L (6.4-8.2) g/dL Albumin 1.9 L (3.4-5.0) g/dL Globulin 3.7 H (2.3-3.5) g/dL Albumin/Globulin Ratio 0.5 L (1.2-2.2) Result Diagrams: 12/13/20 05:50 12/13/20 05:50 Denzel Results Last 24 hrs: Microbiology 12/12/20 08:15 Aerobic Blood Culture - Preliminary Blood - Venous - Lab Draw NO GROWTH AFTER 1 DAY Anaerobic Blood Culture - Preliminary NO GROWTH AFTER 1 DAY 12/12/20 08:10 Aerobic Blood Culture - Preliminary Blood - Venous NO GROWTH AFTER 1 DAY Anaerobic Blood Culture - Preliminary NO GROWTH AFTER 1 DAY Sepsis Event Note - Evaluation Sepsis Screening Result: Severe Sepsis Risk - Focused Exam Vital Signs: Vital Signs Temp Pulse Pulse Resp BP BP Pulse Ox 12/13/20 14:00 18 129/80 99 12/13/20 12:00 97.7 F 16 123/75 100 12/13/20 10:00 22 H 132/78 97 12/13/20 09:30 106 H 127/78 12/13/20 09:29 127/78 12/13/20 08:00 98 F 22 H 128/80 98 12/13/20 06:00 105 H 26 H 148/86 H 97 12/13/20 05:29 144/86 H 12/13/20 05:00 105 H 18 144/86 H 97 12/13/20 04:00 98.1 F 104 H 23 H 136/81 98 12/13/20 03:28 98.2 F - Problem List Review Problem List Initiated/Reviewed/Updated: Yes - My Orders Last 24 Hours: My Active Orders 12/12/20 18:03 Communication Order [RC] STAT Dextrose 50% in Water 50 ml IV ONETIME PRN Dextrose [Glutose 15] 15 gm PO ONETIME PRN 12/12/20 20:00 Insulin Lispro [HumaLOG] See Protocol SUBCUT QIDACANDBED 12/12/20 21:00 Insulin Glarg,Human.Rec.Analog [LantUS Solostar] 10 units SUBCUT BEDTIME atorvaSTATin [Lipitor] 20 mg PO BEDTIME 12/13/20 09:15 Pantoprazole [ProTONIX] 40 mg PO BIDAC 12/13/20 10:00 Magnesium Sulfate/Water [Magnesium Sulfate in Water 2 GM/50 ML] 2 gm Premix Bag 1 bag IV Q6H 12/13/20 15:18 Remove Altamirano Catheter [Urinary Catheter Removal] [RC] Per Unit Routine Convert IV to Saline Lock [OM.PC] Routine 12/13/20 16:00 Insulin Lispro [HumaLOG] 3 unit SUBCUT TIDAC 12/14/20 05:00 BASIC METABOLIC PANEL,BMP [CHEM] Timed CBC WITH AUTO DIFF [HEME] Timed MAGNESIUM [CHEM] Timed 12/14/20 07:30 GLUCOSE POC LAB TO COLLECT JPM [POC] QIDACANDBED 12/14/20 09:00 Bumetanide [Bumex] 1 mg PO DAILY 12/14/20 11:30 GLUCOSE POC LAB TO COLLECT JPM [POC] QIDADBED 12/14/20 16:30 GLUCOSE POC LAB TO COLLECT JPM [POC] QIDACANDBED 12/14/20 21:00 GLUCOSE POC LAB TO COLLECT JPM [POC] QIDACANDBED 12/15/20 07:30 GLUCOSE POC LAB TO COLLECT JPM [POC] QIDACANDBED 12/15/20 11:30 GLUCOSE POC LAB TO COLLECT JPM [POC] QIDACANDBED 12/15/20 16:30 GLUCOSE POC LAB TO COLLECT JPM [POC] QIDACANDBED 12/15/20 21:00 GLUCOSE POC LAB TO COLLECT JPM [POC] QIDACANDBED 12/16/20 07:30 GLUCOSE POC LAB TO COLLECT JPM [POC] QIDACANDBED 12/16/20 11:30 GLUCOSE POC LAB TO COLLECT JPM [POC] QIDACANDBED 12/16/20 16:30 GLUCOSE POC LAB TO COLLECT JPM [POC] QIDACANDBED 12/16/20 21:00 GLUCOSE POC LAB TO COLLECT JPM [POC] QIDACANDBED 12/17/20 07:30 GLUCOSE POC LAB TO COLLECT JPM [POC] QIDACANDBED 12/17/20 11:30 GLUCOSE POC LAB TO COLLECT JPM [POC] QIDACANDBED 12/17/20 16:30 GLUCOSE POC LAB TO COLLECT JPM [POC] QIDACANDBED - Plan Plan:: ASSESSMENT AND PLAN DIABETIC KETOACIDOSIS-ketoacidosis has resolved -Usual dose of long-acting insulin -Usual dose of short acting insulin -4 times daily glucometers -Medium dose sliding scale Humalog -Consistent carbohydrate diet ACUTE KIDNEY INJURY-renal function appears to be back to baseline -Closely monitor urine output and renal function ABDOMINAL PAIN WITH NAUSEA AND VOMITING-improved -Continue to monitor RIGHT LUNG PNEUMONIA -Blood cultures pending -IV levofloxacin, pending culture results -Discontinue vancomycin and Zosyn HYPOXIC RESPIRATORY FAILURE-respiratory status has improved significantly, currently requiring only low-level of supplemental oxygen -Supplemental oxygen as needed -BiPAP as needed ELEVATED TROPONIN-improved HISTORY OF CEREBROVASCULAR DISEASE-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 At the time of this admission I do not reasonably expected evaluation and management of this problem will require more than a 96 hour hospital stay. DISPOSITION-anticipate discharge to home after the hospital stay. PRIMARY CARE PROVIDER-Randy Jacques
[2020-12-13] MEDS: atorvaSTATin 20 MG Tab PO SCH (21:28)
[2020-12-13] MEDS: Insulin Glargine,Human Rec. Analog 100 Units/ML 3 ML Pen SUBCUT SCH (21:31)
[2020-12-14] MEDS: oxyCODONE 5 MG Tab PO PRN ×3 (05:30→20:32)
[2020-12-14] MEDS: hydrALAZINE 25 MG Tab PO SCH ×4 (05:31→21:39)
[2020-12-14] MEDS: Insulin Lispro 100 Unit/ML 3 ML KwikPen SUBCUT SCH ×7 (08:28→20:40)
[2020-12-14] MEDS: Magnesium Oxide 400 MG Tab PO SCH (08:58)
[2020-12-14] MEDS: Sertraline 50 MG Tab PO SCH (08:58)
[2020-12-14] MEDS: Carvedilol 12.5 MG Tab PO SCH ×2 (08:58→20:32)
[2020-12-14] MEDS: Bumetanide 1 MG Tab PO SCH (08:58)
[2020-12-14] MEDS: Aspirin 81 MG Tab.EC PO SCH (08:58)
[2020-12-14] MEDS: Apixaban 5 MG Tab PO SCH ×2 (08:58→20:33)
[2020-12-14] MEDS: Gabapentin 300 MG Cap PO SCH (08:59)
[2020-12-14] MEDS: Acetaminophen 325 MG Tab PO PRN ×2 (08:59→22:57)
[2020-12-14] MEDS: Pantoprazole 40 MG Tab.CR PO SCH ×2 (08:59→16:27)
--- NOTE | 2020-12-14 12:29 | PCM.PN ---
- General Info Date of Service: 12/14/20 Subjective Update: Ms. Frank has remained fairly stable over the last 24 hours. This morning she is noted to have mild elevation in anion gap and mild decrease in carbon dioxide level. Hemoglobin has dropped during hospital stay now at 7.3. There has been no evidence of overt bleeding noted thus far. Oral intake remains somewhat poor and she is reluctant to get out of bed. - Review of Systems General: Reports: Weakness, Fatigue. Denies: Fever, Chills Pulmonary: Reports: No Symptoms Cardiovascular: Reports: No Symptoms Gastrointestinal: Reports: Abdominal Pain. Denies: Diarrhea, Difficulty Swallowing, Hematochezia, Melena, Nausea, Vomiting Genitourinary: Reports: No Symptoms - Patient Data Vitals - Most Recent: Last Vital Signs Temp 97.7 F 12/14/20 12:00 Pulse 104 H 12/14/20 08:58 Resp 20 12/14/20 12:00 BP 130/76 12/14/20 12:00 Pulse Ox 96 12/14/20 12:00 Weight - Most Recent: 160 lb 9.6 oz I&O - Last 24 Hours: Intake & Output 12/13/20 12/14/20 12/14/20 22:59 06:59 14:59 Intake Total 1265 Output Total 1100 500 500 Balance 165 -500 -500 Lab Results Last 24 Hours: Laboratory Results - last 24 hr 12/13/20 12/13/20 12/14/20 Range/Units 16:17 21:27 05:00 WBC 10.8 (4.5-11.0) K/uL RBC 2.52 L (3.30-5.50) M/uL Hgb 7.3 L (12.0-15.0) g/dL Hct 22.2 L (36.0-48.0) % MCV 88 (80-98) fL MCH 29 (27-31) pg MCHC 33 (32-36) % Plt Count 153 (150-400) K/uL Neut % (Auto) 82.7 H (36-66) % Lymph % (Auto) 9.4 L (24-44) % [place] % (Auto) 7.2 H (2-6) % Eos % (Auto) 0.5 L (2-4) % Baso % (Auto) 0.2 (0-1) % Sodium (140-148) mmol/L Potassium (3.6-5.2) mmol/L Chloride (100-108) mmol/L Carbon Dioxide (21-32) mmol/L Anion Gap (5.0-14.0) mmol/L BUN (7-18) mg/dL Creatinine (0.6-1.0) mg/dL Est Cr Clr Drug Dosing mL/min Estimated GFR (MDRD) (>60) Glucose (74-106) mg/dL POC Glucose 261 H 187 H (74-106) mg/dL Calcium (8.5-10.1) mg/dL Magnesium (1.8-2.4) mg/dL 12/14/20 12/14/20 12/14/20 Range/Units 06:31 08:21 11:51 WBC (4.5-11.0) K/uL RBC (3.30-5.50) M/uL Hgb (12.0-15.0) g/dL Hct (36.0-48.0) % MCV (80-98) fL MCH (27-31) pg MCHC (32-36) % Plt Count (150-400) K/uL Neut % (Auto) (36-66) % Lymph % (Auto) (24-44) % [place] % (Auto) (2-6) % Eos % (Auto) (2-4) % Baso % (Auto) (0-1) % Sodium 136 L (140-148) mmol/L Potassium 4.1 (3.6-5.2) mmol/L Chloride 104 (100-108) mmol/L Carbon Dioxide 17 L (21-32) mmol/L Anion Gap 19.1 H (5.0-14.0) mmol/L BUN 22 H (7-18) mg/dL Creatinine 2.8 H (0.6-1.0) mg/dL Est Cr Clr Drug Dosing 28.31 mL/min Estimated GFR (MDRD) 24 L (>60) Glucose 361 H (74-106) mg/dL POC Glucose 363 H 297 H (74-106) mg/dL Calcium 8.1 L (8.5-10.1) mg/dL Magnesium 2.1 D (1.8-2.4) mg/dL Denzel Results Last 24 Hours: Microbiology 12/12/20 08:15 Aerobic Blood Culture - Preliminary Blood - Venous - Lab Draw NO GROWTH AFTER 2 DAYS Anaerobic Blood Culture - Preliminary NO GROWTH AFTER 2 DAYS 12/12/20 08:10 Aerobic Blood Culture - Preliminary Blood - Venous NO GROWTH AFTER 2 DAYS Anaerobic Blood Culture - Preliminary NO GROWTH AFTER 2 DAYS Med Orders - Current: Current Medications Acetaminophen (Acetaminophen 325 Mg Tab) 650 mg PO Q4H PRN PRN Reason: Pain (Mild 1-3)/fever Last Admin: 12/14/20 08:59 Dose: 650 mg Documented by: Albuterol (Albuterol 8 Gm Inhaler) 1 - 2 gm INH Q4H PRN PRN Reason: Shortness of Breath Albuterol (Albuterol 0.083% 2.5 Mg/3 Ml Neb Soln) 2.5 mg NEB Q4H PRN PRN Reason: Shortness Of Breath/wheezing Last Admin: 12/12/20 05:43 Dose: 2.5 mg Documented by: Apixaban (Apixaban 5 Mg Tab) 5 mg PO BID [facility] Last Admin: 12/14/20 08:58 Dose: 5 mg Documented by: Aspirin (Aspirin 81 Mg Tab.Ec) 81 mg PO DAILY [facility] Last Admin: 12/14/20 08:58 Dose: 81 mg Documented by: Atorvastatin Calcium (Atorvastatin 20 Mg Tab) 20 mg PO BEDTIME [facility] Last Admin: 12/13/20 21:28 Dose: 20 mg Documented by: Bumetanide (Bumetanide 1 Mg Tab) 1 mg PO DAILY [facility] Last Admin: 12/14/20 08:58 Dose: 1 mg Documented by: Carvedilol (Carvedilol 12.5 Mg Tab) 12.5 mg PO BID [facility] Last Admin: 12/14/20 08:58 Dose: 12.5 mg Documented by: Dextrose (Glucose Gel 15 Gm In 37.5 Gm Tube) 15 gm PO ONETIME PRN PRN Reason: Hypoglycemia Dextrose/Water (50% Dextrose In Water 50 Ml Syringe) 50 ml IVPUSH ASDIRECTED PRN PRN Reason: Hypoglycemia Dextrose/Water (50% Dextrose In Water 50 Ml Syringe) 50 ml IV ONETIME PRN PRN Reason: Hypoglycemia Gabapentin (Gabapentin 300 Mg Cap) 300 mg PO DAILY [facility] Last Admin: 12/14/20 08:59 Dose: 300 mg Documented by: Glucagon (Glucagon,Human Recombinant 1 Mg Vial) 1 mg IM ASDIRECTED PRN PRN Reason: Hypoglycemia Hydralazine HCl (Hydralazine 25 Mg Tab) 25 mg PO QID [facility] Last Admin: 12/14/20 10:20 Dose: 25 mg Documented by: Potassium Chloride 20 meq/ (Premix) 100 mls @ 50 mls/hr IV Q2H PRN PRN Reason: Hypokalemia Levofloxacin/Dextrose 750 mg/ (Premix) 150 mls @ 100 mls/hr IV Q48H [facility] Last Admin: 12/12/20 13:03 Dose: 100 mls/hr Documented by: Insulin Glargine (Insulin Glargine,Human Rec. Analog 100 Units/Ml 3 Ml Pen) 10 units SUBCUT BEDTIME [facility] Last Admin: 12/13/20 21:31 Dose: 10 units Documented by: Insulin Human Lispro (Insulin Lispro 100 Unit/Ml 3 Ml Kwikpen) 0 unit SUBCUT QIDACANDBED [facility]; Protocol Last Admin: 12/14/20 11:54 Dose: 6 units Documented by: Insulin Human Lispro (Insulin Lispro 100 Unit/Ml 3 Ml Kwikpen) 3 unit SUBCUT TIDAC [facility] Last Admin: 12/14/20 11:55 Dose: 3 units Documented by: Magnesium Oxide (Magnesium Oxide 400 Mg Tab) 400 mg PO DAILY [facility] Last Admin: 12/14/20 08:58 Dose: 400 mg Documented by: Morphine Sulfate (Morphine 2 Mg/Ml Syringe) 2 mg IVPUSH Q1H PRN PRN Reason: Pain Last Admin: 12/13/20 21:41 Dose: 2 mg Documented by: Ondansetron HCl (Ondansetron 4 Mg/2 Ml Sdv) 4 mg IV Q4H PRN PRN Reason: Nausea/Vomiting Last Admin: 12/13/20 05:27 Dose: 4 mg Documented by: Oxycodone HCl (Oxycodone 5 Mg Tab) 5 mg PO Q6H PRN PRN Reason: Pain Last Admin: 12/14/20 11:52 Dose: 5 mg Documented by: Pantoprazole Sodium (Pantoprazole 40 Mg Tab.Cr) 40 mg PO BIDAC [facility] Last Admin: 12/14/20 08:59 Dose: 40 mg Documented by: Polyethylene Glycol (Polyethylene Glycol 3350 Powder 17 Gm Packet) 17 gm PO DAILY PRN PRN Reason: Constipation Potassium Chloride (Potassium Chloride 10% 20 Meq/15 Ml Soln 15 Ml Ud Cup) 20 meq PO NOW PRN PRN Reason: Hypokalemia Last Admin: 12/12/20 04:45 Dose: 20 meq Documented by: Potassium Chloride (Potassium Chloride 10% 20 Meq/15 Ml Soln 15 Ml Ud Cup) 40 meq PO NOW PRN PRN Reason: Hypokalemia Last Admin: 12/12/20 15:48 Dose: 40 meq Documented by: Potassium Chloride (Potassium Chloride 10% 20 Meq/15 Ml Soln 15 Ml Ud Cup) 40 meq PO Q2H PRN PRN Reason: Hypokalemia Sertraline HCl (Sertraline 50 Mg Tab) 50 mg PO DAILY [facility] Last Admin: 12/14/20 08:58 Dose: 50 mg Documented by: Sodium Chloride (Sodium Chloride 0.9% 10 Ml Syringe) 10 ml FLUSH ASDIRECTED PRN PRN Reason: Keep Vein Open Discontinued Medications Dextrose/Water (50% Dextrose In Water 50 Ml Syringe) 50 ml IVPUSH ASDIRECTED PRN PRN Reason: Hypoglycemia Dextrose/Water (50% Dextrose In Water 50 Ml Syringe) 50 ml IVPUSH ASDIRECTED PRN PRN Reason: Hypoglycemia Dextrose/Water (50% Dextrose In Water 50 Ml Syringe) 50 ml IVPUSH ONETIME PRN PRN Reason: Blood Glucose Glucagon (Glucagon,Human Recombinant 1 Mg Vial) 1 mg IM ASDIRECTED PRN PRN Reason: Hypoglycemia Glucagon (Glucagon,Human Recombinant 1 Mg Vial) 1 mg IM ASDIRECTED PRN PRN Reason: Hypoglycemia Hydromorphone HCl (Hydromorphone 0.5 Mg/0.5 Ml Syringe) 0.5 mg IVPUSH ONETIME ONE Stop: 12/11/20 18:53 Last Admin: 12/11/20 19:12 Dose: 0.5 mg Documented by: Hydromorphone HCl (Hydromorphone 0.5 Mg/0.5 Ml Syringe) 0.5 mg IVPUSH ONETIME ONE Stop: 12/11/20 22:10 Last Admin: 12/11/20 23:37 Dose: Not Given Documented by: Sodium Chloride (Normal Saline) 1,000 mls @ 999 mls/hr IV ASDIRECTED [facility] Last Admin: 12/11/20 17:53 Dose: 999 mls/hr Documented by: Sodium Chloride (Normal Saline) 1,000 mls @ 999 mls/hr IV ASDIRECTED [facility] Last Admin: 12/11/20 19:32 Dose: 999 mls/hr Documented by: Potassium Chloride/Sodium Chloride (Normal Saline With 20 Meq Kcl) 1,000 mls @ 500 mls/hr IV ASDIRECTED [facility] Last Admin: 12/11/20 21:10 Dose: 500 mls/hr Documented by: Sodium Chloride (Normal Saline) 2,000 mls @ 500 mls/hr IV .CONTINUOUS PRN PRN Reason: Blood Glucose Last Infusion: 12/12/20 02:07 Dose: 0 mls/hr Documented by: Dextrose/Sodium Chloride (Dextrose 5%-1/2 Ns) 1,000 mls @ 150 mls/hr IV .CONTINUOUS PRN PRN Reason: Blood Glucose Last Admin: 12/12/20 15:14 Dose: 150 mls/hr Documented by: Potassium Chloride 20 meq/ (Premix) 100 mls @ 50 mls/hr IV ONETIME ONE Stop: 12/12/20 00:28 Last Admin: 12/11/20 23:30 Dose: Not Given Documented by: Potassium Chloride 20 meq/ (Premix) 100 mls @ 50 mls/hr IV Q2H PRN PRN Reason: Hypokalemia Magnesium Sulfate (Magnesium Sulfate In Water 2 Gm/50 Ml) 2 gm in 50 mls @ 25 mls/hr IV ONETIME PRN PRN Reason: low magnesium Last Admin: 12/12/20 06:13 Dose: 25 mls/hr Documented by: Insulin Regular in 0.9 % NACL (Myxredlin In Ns 100 Unit/100 Ml) 100 mls @ 5.897 mls/hr IV ASDIRECTED [facility]; Protocol Last Infusion: 12/12/20 17:16 Dose: 0.05 units/kg/hr, 3 mls/hr Documented by: Piperacillin/Tazobactam/ (Dextrose 3.375 gm/ Premix) 50 mls @ 100 mls/hr IV Q6H [facility] Last Admin: 12/13/20 13:05 Dose: 100 mls/hr Documented by: Vancomycin HCl 1.5 gm/ Sodium (Chloride) 250 mls @ 167 mls/hr IV ONETIME ONE Stop: 12/12/20 10:29 Last Admin: 12/12/20 09:18 Dose: 167 mls/hr Documented by: Vancomycin HCl 1 gm/ Sodium (Chloride) 250 mls @ 166.667 mls/hr IV Q12H [facility] Last Admin: 12/13/20 09:09 Dose: 166.667 mls/hr Documented by: Sodium Chloride (Normal Saline) 1,000 mls @ 75 mls/hr IV ASDIRECTED [facility] Last Admin: 12/13/20 11:07 Dose: 75 mls/hr Documented by: Magnesium Sulfate 2 gm/ Premix 50 mls @ 25 mls/hr IV Q6H [facility] Stop: 12/13/20 17:59 Last Admin: 12/13/20 15:29 Dose: 25 mls/hr Documented by: Insulin Human Lispro (Insulin Lispro 100 Units/Ml 3 Ml Vial) 8 unit SUBCUT ONETIME ONE Stop: 12/13/20 05:43 Last Admin: 12/13/20 05:50 Dose: 8 units Documented by: Insulin Human Regular (Insulin Regular, Human 100 Units/Ml 3 Ml Vial) 16 unit SUBCUT ONETIME ONE Stop: 12/11/20 19:48 Last Admin: 12/11/20 19:52 Dose: 16 units Documented by: Insulin Human Regular (Insulin Regular, Human 100 Units/Ml 3 Ml Vial) 14 unit SUBCUT ONETIME ONE Stop: 12/11/20 21:34 Last Admin: 12/11/20 22:00 Dose: 14 units Documented by: Metoclopramide HCl (Metoclopramide 10 Mg/2 Ml Sdv) 5 mg IVPUSH ONETIME ONE Stop: 12/11/20 21:18 Last Admin: 12/11/20 21:44 Dose: 5 mg Documented by: Ondansetron HCl (Ondansetron 4 Mg/2 Ml Sdv) 4 mg IVPUSH ONETIME ONE Stop: 12/11/20 16:39 Last Admin: 12/11/20 17:52 Dose: 4 mg Documented by: Ondansetron HCl (Ondansetron 4 Mg/2 Ml Sdv) 4 mg IVPUSH ONETIME ONE Stop: 12/11/20 23:09 Last Admin: 12/11/20 23:17 Dose: 4 mg Documented by: Pantoprazole Sodium (Pantoprazole 40 Mg Vial) 40 mg IVPUSH Q12H [facility] Last Admin: 12/12/20 20:37 Dose: 40 mg Documented by: Vancomycin HCl (Vancomycin 1 Gm Sdv) 1 gm IV .PHARMACY TO DOSE GWENDOLYN - Exam Urinary Catheter Total Time: 0Days 19Hours General: Alert, Mild Distress Lungs: Clear to Auscultation, Normal Respiratory Effort Cardiovascular: Regular Rate, Regular Rhythm, No Murmurs GI/Abdominal Exam: Soft, Non-Tender, No Organomegaly, No Distention Back Exam: Normal Inspection, Full Range of Motion - Patient Data Lab Results Last 24 hrs: Laboratory Results - last 24 hr 12/13/20 12/13/20 12/14/20 Range/Units 16:17 21:27 05:00 WBC 10.8 (4.5-11.0) K/uL RBC 2.52 L (3.30-5.50) M/uL Hgb 7.3 L (12.0-15.0) g/dL Hct 22.2 L (36.0-48.0) % MCV 88 (80-98) fL MCH 29 (27-31) pg MCHC 33 (32-36) % Plt Count 153 (150-400) K/uL Neut % (Auto) 82.7 H (36-66) % Lymph % (Auto) 9.4 L (24-44) % [place] % (Auto) 7.2 H (2-6) % Eos % (Auto) 0.5 L (2-4) % Baso % (Auto) 0.2 (0-1) % Sodium (140-148) mmol/L Potassium (3.6-5.2) mmol/L Chloride (100-108) mmol/L Carbon Dioxide (21-32) mmol/L Anion Gap (5.0-14.0) mmol/L BUN (7-18) mg/dL Creatinine (0.6-1.0) mg/dL Est Cr Clr Drug Dosing mL/min Estimated GFR (MDRD) (>60) Glucose (74-106) mg/dL POC Glucose 261 H 187 H (74-106) mg/dL Calcium (8.5-10.1) mg/dL Magnesium (1.8-2.4) mg/dL 12/14/20 12/14/20 12/14/20 Range/Units 06:31 08:21 11:51 WBC (4.5-11.0) K/uL RBC (3.30-5.50) M/uL Hgb (12.0-15.0) g/dL Hct (36.0-48.0) % MCV (80-98) fL MCH (27-31) pg MCHC (32-36) % Plt Count (150-400) K/uL Neut % (Auto) (36-66) % Lymph % (Auto) (24-44) % [place] % (Auto) (2-6) % Eos % (Auto) (2-4) % Baso % (Auto) (0-1) % Sodium 136 L (140-148) mmol/L Potassium 4.1 (3.6-5.2) mmol/L Chloride 104 (100-108) mmol/L Carbon Dioxide 17 L (21-32) mmol/L Anion Gap 19.1 H (5.0-14.0) mmol/L BUN 22 H (7-18) mg/dL Creatinine 2.8 H (0.6-1.0) mg/dL Est Cr Clr Drug Dosing 28.31 mL/min Estimated GFR (MDRD) 24 L (>60) Glucose 361 H (74-106) mg/dL POC Glucose 363 H 297 H (74-106) mg/dL Calcium 8.1 L (8.5-10.1) mg/dL Magnesium 2.1 D (1.8-2.4) mg/dL Result Diagrams: 12/14/20 05:00 12/14/20 06:31 Denzel Results Last 24 hrs: Microbiology 12/12/20 08:15 Aerobic Blood Culture - Preliminary Blood - Venous - Lab Draw NO GROWTH AFTER 2 DAYS Anaerobic Blood Culture - Preliminary NO GROWTH AFTER 2 DAYS 12/12/20 08:10 Aerobic Blood Culture - Preliminary Blood - Venous NO GROWTH AFTER 2 DAYS Anaerobic Blood Culture - Preliminary NO GROWTH AFTER 2 DAYS Sepsis Event Note - Evaluation Sepsis Screening Result: No Definite Risk - Focused Exam Vital Signs: Vital Signs Temp Pulse Pulse Resp BP BP Pulse Ox 12/14/20 12:00 97.7 F 20 130/76 96 12/14/20 10:20 135/92 H 12/14/20 10:00 18 135/92 H 94 L 12/14/20 08:58 104 H 116/80 12/14/20 08:00 97.7 F 12 116/80 93 L 12/14/20 06:00 104 H 18 129/82 91 L 12/14/20 05:31 121/63 12/14/20 04:00 97.7 F 24 H 121/63 93 L 12/14/20 02:00 22 H 129/78 97 - Problem List Review Problem List Initiated/Reviewed/Updated: Yes - My Orders Last 24 Hours: My Active Orders 12/13/20 15:18 Convert IV to Saline Lock [OM.PC] Routine 12/13/20 15:45 Consult to Physical Therapy [PT Evaluation and Treatment] [CONS] Routine 12/13/20 16:00 Insulin Lispro [HumaLOG] 3 unit SUBCUT TIDAC 12/14/20 09:00 Bumetanide [Bumex] 1 mg PO DAILY 12/14/20 17:00 BASIC METABOLIC PANEL,BMP [CHEM] Stat HGB [HEMOGLOBIN] [HEME] Stat 12/15/20 05:00 BASIC METABOLIC PANEL,BMP [CHEM] Timed CBC WITH AUTO DIFF [HEME] Timed MAGNESIUM [CHEM] Timed 12/15/20 07:30 GLUCOSE POC LAB TO COLLECT JPM [POC] QIDACANDBED 12/15/20 11:30 GLUCOSE POC LAB TO COLLECT JPM [POC] QIDACANDBED 12/15/20 16:30 GLUCOSE POC LAB TO COLLECT JPM [POC] QIDACANDBED 12/15/20 21:00 GLUCOSE POC LAB TO COLLECT JPM [POC] QIDACANDBED 12/16/20 07:30 GLUCOSE POC LAB TO COLLECT JPM [POC] QIDACANDBED 12/16/20 11:30 GLUCOSE POC LAB TO COLLECT JPM [POC] QIDACANDBED 12/16/20 16:30 GLUCOSE POC LAB TO COLLECT JPM [POC] QIDACANDBED 12/16/20 21:00 GLUCOSE POC LAB TO COLLECT JPM [POC] QIDACANDBED 12/17/20 07:30 GLUCOSE POC LAB TO COLLECT JPM [POC] QIDACANDBED 12/17/20 11:30 GLUCOSE POC LAB TO COLLECT JPM [POC] QIDACANDBED 12/17/20 16:30 GLUCOSE POC LAB TO COLLECT JPM [POC] QIDACANDBED - Plan Plan:: ASSESSMENT AND PLAN DIABETIC KETOACIDOSIS-mild increase in anion gap and mild decrease in carbon dioxide level -Usual dose of long-acting insulin -Usual dose of short acting insulin -4 times daily glucometers -Medium dose sliding scale Humalog -Consistent carbohydrate diet -Recheck labs later this afternoon and in a.m. ACUTE KIDNEY INJURY-renal function appears to be back to baseline -Closely monitor urine output and renal function ABDOMINAL PAIN WITH NAUSEA AND VOMITING-improved -Continue to monitor RIGHT LUNG PNEUMONIA -Blood cultures pending -IV levofloxacin, pending culture results ANEMIA-likely good part of this is chronic in nature related to her chronic kidney disease and underlying medical problems. -Recheck hemoglobin later today and in a.m. 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 At the time of this admission I do not reasonably expected evaluation and management of this problem will require more than a 96 hour hospital stay. DISPOSITION-anticipate discharge to home after the hospital stay. PRIMARY CARE PROVIDER-Randy Jacques
[2020-12-14] MEDS: Levofloxacin/Dextrose 5%-Water 750 MG in Premix Bag 1 BAG IV SCH (12:57)
[2020-12-14] MEDS: atorvaSTATin 20 MG Tab PO SCH (20:33)
[2020-12-14] MEDS: Insulin Glargine,Human Rec. Analog 100 Units/ML 3 ML Pen SUBCUT SCH (20:40)
[2020-12-14] MEDS: Albuterol 0.083% 2.5 MG/3 ML Neb Soln NEB PRN (23:49)
[2020-12-15] MEDS: Morphine 2 MG/ML SYRINGE IVPUSH PRN (00:50)
[2020-12-15] MEDS: hydrALAZINE 25 MG Tab PO SCH ×4 (05:22→21:33)
[2020-12-15] MEDS: oxyCODONE 5 MG Tab PO PRN ×3 (05:24→17:52)
[2020-12-15] MEDS: Insulin Lispro 100 Unit/ML 3 ML KwikPen SUBCUT SCH ×7 (08:15→21:38)
[2020-12-15] MEDS: Apixaban 5 MG Tab PO SCH ×2 (08:15→21:34)
[2020-12-15] MEDS: Bumetanide 1 MG Tab PO SCH (08:16)
[2020-12-15] MEDS: Acetaminophen 325 MG Tab PO PRN ×2 (08:16→15:57)
[2020-12-15] MEDS: Carvedilol 12.5 MG Tab PO SCH ×2 (08:16→21:33)
[2020-12-15] MEDS: Pantoprazole 40 MG Tab.CR PO SCH ×2 (08:17→15:58)
[2020-12-15] MEDS: Magnesium Oxide 400 MG Tab PO SCH (08:17)
[2020-12-15] MEDS: Gabapentin 300 MG Cap PO SCH (08:17)
[2020-12-15] MEDS: Aspirin 81 MG Tab.EC PO SCH (08:17)
[2020-12-15] MEDS ORDERED: Potassium Chloride 20 MEQ Tab.ER PO ONE ×2 (08:40→17:00)
[2020-12-15] MEDS: Sertraline 50 MG Tab PO SCH (11:28)
--- NOTE | 2020-12-15 15:13 | PCM.PN ---
- General Info Date of Service: 12/15/20 Subjective Update: Ms. Frank has experienced further drop in hemoglobin over the last 24 hours. Nursing staff describes very heavy menstrual flow with large clots. To this point there has been no evidence of GI blood loss. She reports feeling somewhat weaker but denies significant shortness of breath or chest pain. Functional Status: Reports: Tolerating Diet, Urinating - Review of Systems General: Reports: Weakness, Fatigue. Denies: Fever, Chills Pulmonary: Reports: No Symptoms Cardiovascular: Reports: No Symptoms Gastrointestinal: Reports: No Symptoms Genitourinary: Reports: No Symptoms - Patient Data Vitals - Most Recent: Last Vital Signs Temp 97.7 F 12/15/20 11:35 Pulse 101 H 12/15/20 08:16 Resp 16 12/15/20 14:00 BP 145/82 H 12/15/20 14:00 Pulse Ox 99 12/15/20 14:00 Weight - Most Recent: 160 lb 9.6 oz I&O - Last 24 Hours: Intake & Output 12/15/20 12/15/20 12/15/20 06:59 14:59 22:59 Intake Total 360 390 Output Total 850 Balance -490 390 Lab Results Last 24 Hours: Laboratory Results - last 24 hr 12/14/20 12/14/20 12/14/20 Range/Units 16:23 17:18 17:18 WBC (4.5-11.0) K/uL RBC (3.30-5.50) M/uL Hgb 7.4 L (12.0-15.0) g/dL Hct (36.0-48.0) % MCV (80-98) fL MCH (27-31) pg MCHC (32-36) % Plt Count (150-400) K/uL Neut % (Auto) (36-66) % Lymph % (Auto) (24-44) % [place] % (Auto) (2-6) % Eos % (Auto) (2-4) % Baso % (Auto) (0-1) % Sodium 136 L (140-148) mmol/L Potassium 4.0 (3.6-5.2) mmol/L Chloride 105 (100-108) mmol/L Carbon Dioxide 18 L (21-32) mmol/L Anion Gap 17.0 H (5.0-14.0) mmol/L BUN 22 H (7-18) mg/dL Creatinine 2.9 H (0.6-1.0) mg/dL Est Cr Clr Drug Dosing 27.33 mL/min Estimated GFR (MDRD) 23 L (>60) Glucose 290 H (74-106) mg/dL POC Glucose 291 H (74-106) mg/dL Calcium 7.8 L (8.5-10.1) mg/dL Magnesium (1.8-2.4) mg/dL Blood Type Gel Antibody Screen Crossmatch 12/14/20 12/15/20 12/15/20 Range/Units 20:38 05:20 05:20 WBC 6.9 (4.5-11.0) K/uL RBC 2.38 L (3.30-5.50) M/uL Hgb 6.9 L* (12.0-15.0) g/dL Hct 21.0 L (36.0-48.0) % MCV 88 (80-98) fL MCH 29 (27-31) pg MCHC 33 (32-36) % Plt Count 176 (150-400) K/uL Neut % (Auto) 75.2 H (36-66) % Lymph % (Auto) 12.8 L (24-44) % [place] % (Auto) 10.8 H (2-6) % Eos % (Auto) 0.9 L (2-4) % Baso % (Auto) 0.3 (0-1) % Sodium 138 L (140-148) mmol/L Potassium 3.2 L (3.6-5.2) mmol/L Chloride 106 (100-108) mmol/L Carbon Dioxide 22 (21-32) mmol/L Anion Gap 13.2 (5.0-14.0) mmol/L BUN 17 (7-18) mg/dL Creatinine 2.8 H (0.6-1.0) mg/dL Est Cr Clr Drug Dosing 28.31 mL/min Estimated GFR (MDRD) 24 L (>60) Glucose 218 H (74-106) mg/dL POC Glucose 240 H (74-106) mg/dL Calcium 7.9 L (8.5-10.1) mg/dL Magnesium 1.8 (1.8-2.4) mg/dL Blood Type Gel Antibody Screen Crossmatch 12/15/20 12/15/20 12/15/20 Range/Units 05:58 08:12 11:31 WBC (4.5-11.0) K/uL RBC (3.30-5.50) M/uL Hgb (12.0-15.0) g/dL Hct (36.0-48.0) % MCV (80-98) fL MCH (27-31) pg MCHC (32-36) % Plt Count (150-400) K/uL Neut % (Auto) (36-66) % Lymph % (Auto) (24-44) % [place] % (Auto) (2-6) % Eos % (Auto) (2-4) % Baso % (Auto) (0-1) % Sodium (140-148) mmol/L Potassium (3.6-5.2) mmol/L Chloride (100-108) mmol/L Carbon Dioxide (21-32) mmol/L Anion Gap (5.0-14.0) mmol/L BUN (7-18) mg/dL Creatinine (0.6-1.0) mg/dL Est Cr Clr Drug Dosing mL/min Estimated GFR (MDRD) (>60) Glucose (74-106) mg/dL POC Glucose 232 H 175 H (74-106) mg/dL Calcium (8.5-10.1) mg/dL Magnesium (1.8-2.4) mg/dL Blood Type O POSITIVE Gel Antibody Screen Negative Crossmatch See Detail 12/15/20 Range/Units 13:15 WBC (4.5-11.0) K/uL RBC (3.30-5.50) M/uL Hgb 8.4 L (12.0-15.0) g/dL Hct (36.0-48.0) % MCV (80-98) fL MCH (27-31) pg MCHC (32-36) % Plt Count (150-400) K/uL Neut % (Auto) (36-66) % Lymph % (Auto) (24-44) % [place] % (Auto) (2-6) % Eos % (Auto) (2-4) % Baso % (Auto) (0-1) % Sodium (140-148) mmol/L Potassium (3.6-5.2) mmol/L Chloride (100-108) mmol/L Carbon Dioxide (21-32) mmol/L Anion Gap (5.0-14.0) mmol/L BUN (7-18) mg/dL Creatinine (0.6-1.0) mg/dL Est Cr Clr Drug Dosing mL/min Estimated GFR (MDRD) (>60) Glucose (74-106) mg/dL POC Glucose (74-106) mg/dL Calcium (8.5-10.1) mg/dL Magnesium (1.8-2.4) mg/dL Blood Type Gel Antibody Screen Crossmatch Denzel Results Last 24 Hours: Microbiology 12/12/20 08:10 Aerobic Blood Culture - Preliminary Blood - Venous NO GROWTH AFTER 3 DAYS Anaerobic Blood Culture - Preliminary NO GROWTH AFTER 3 DAYS 12/12/20 08:15 Aerobic Blood Culture - Preliminary Blood - Venous - Lab Draw NO GROWTH AFTER 3 DAYS Anaerobic Blood Culture - Preliminary NO GROWTH AFTER 3 DAYS Med Orders - Current: Current Medications Acetaminophen (Acetaminophen 325 Mg Tab) 650 mg PO Q4H PRN PRN Reason: Pain (Mild 1-3)/fever Last Admin: 12/15/20 08:16 Dose: 650 mg Documented by: Albuterol (Albuterol 8 Gm Inhaler) 1 - 2 gm INH Q4H PRN PRN Reason: Shortness of Breath Albuterol (Albuterol 0.083% 2.5 Mg/3 Ml Neb Soln) 2.5 mg NEB Q4H PRN PRN Reason: Shortness Of Breath/wheezing Last Admin: 12/14/20 23:49 Dose: 2.5 mg Documented by: Apixaban (Apixaban 5 Mg Tab) 5 mg PO BID [facility] Last Admin: 12/15/20 08:15 Dose: 5 mg Documented by: Aspirin (Aspirin 81 Mg Tab.Ec) 81 mg PO DAILY [facility] Last Admin: 12/15/20 08:17 Dose: 81 mg Documented by: Atorvastatin Calcium (Atorvastatin 20 Mg Tab) 20 mg PO BEDTIME [facility] Last Admin: 12/14/20 20:33 Dose: 20 mg Documented by: Bumetanide (Bumetanide 1 Mg Tab) 1 mg PO DAILY [facility] Last Admin: 12/15/20 08:16 Dose: 1 mg Documented by: Carvedilol (Carvedilol 12.5 Mg Tab) 12.5 mg PO BID [facility] Last Admin: 12/15/20 08:16 Dose: 12.5 mg Documented by: Dextrose (Glucose Gel 15 Gm In 37.5 Gm Tube) 15 gm PO ONETIME PRN PRN Reason: Hypoglycemia Dextrose/Water (50% Dextrose In Water 50 Ml Syringe) 50 ml IVPUSH ASDIRECTED PRN PRN Reason: Hypoglycemia Dextrose/Water (50% Dextrose In Water 50 Ml Syringe) 50 ml IV ONETIME PRN PRN Reason: Hypoglycemia Gabapentin (Gabapentin 300 Mg Cap) 300 mg PO DAILY [facility] Last Admin: 12/15/20 08:17 Dose: 300 mg Documented by: Glucagon (Glucagon,Human Recombinant 1 Mg Vial) 1 mg IM ASDIRECTED PRN PRN Reason: Hypoglycemia Hydralazine HCl (Hydralazine 25 Mg Tab) 25 mg PO QID [facility] Last Admin: 12/15/20 11:28 Dose: 25 mg Documented by: Potassium Chloride 20 meq/ (Premix) 100 mls @ 50 mls/hr IV Q2H PRN PRN Reason: Hypokalemia Levofloxacin/Dextrose 750 mg/ (Premix) 150 mls @ 100 mls/hr IV Q48H [facility] Last Admin: 12/14/20 12:57 Dose: 100 mls/hr Documented by: Insulin Glargine (Insulin Glargine,Human Rec. Analog 100 Units/Ml 3 Ml Pen) 10 units SUBCUT BEDTIME [facility] Last Admin: 12/14/20 20:40 Dose: 10 units Documented by: Insulin Human Lispro (Insulin Lispro 100 Unit/Ml 3 Ml Kwikpen) 0 unit SUBCUT QIDACANDBED [facility]; Protocol Last Admin: 12/15/20 11:34 Dose: 2 units Documented by: Insulin Human Lispro (Insulin Lispro 100 Unit/Ml 3 Ml Kwikpen) 3 unit SUBCUT TIDAC [facility] Last Admin: 12/15/20 11:34 Dose: 3 units Documented by: Magnesium Oxide (Magnesium Oxide 400 Mg Tab) 400 mg PO DAILY [facility] Last Admin: 12/15/20 08:17 Dose: 400 mg Documented by: Morphine Sulfate (Morphine 2 Mg/Ml Syringe) 2 mg IVPUSH Q1H PRN PRN Reason: Pain Last Admin: 12/15/20 00:50 Dose: 2 mg Documented by: Ondansetron HCl (Ondansetron 4 Mg/2 Ml Sdv) 4 mg IV Q4H PRN PRN Reason: Nausea/Vomiting Last Admin: 12/13/20 05:27 Dose: 4 mg Documented by: Oxycodone HCl (Oxycodone 5 Mg Tab) 5 mg PO Q6H PRN PRN Reason: Pain Last Admin: 12/15/20 11:28 Dose: 5 mg Documented by: Pantoprazole Sodium (Pantoprazole 40 Mg Tab.Cr) 40 mg PO BIDAC [facility] Last Admin: 12/15/20 08:17 Dose: 40 mg Documented by: Polyethylene Glycol (Polyethylene Glycol 3350 Powder 17 Gm Packet) 17 gm PO DAILY PRN PRN Reason: Constipation Potassium Chloride (Potassium Chloride 10% 20 Meq/15 Ml Soln 15 Ml Ud Cup) 20 meq PO NOW PRN PRN Reason: Hypokalemia Last Admin: 12/12/20 04:45 Dose: 20 meq Documented by: Potassium Chloride (Potassium Chloride 10% 20 Meq/15 Ml Soln 15 Ml Ud Cup) 40 meq PO NOW PRN PRN Reason: Hypokalemia Last Admin: 12/12/20 15:48 Dose: 40 meq Documented by: Potassium Chloride (Potassium Chloride 10% 20 Meq/15 Ml Soln 15 Ml Ud Cup) 40 meq PO Q2H PRN PRN Reason: Hypokalemia Potassium Chloride (Potassium Chloride 20 Meq Tab.Er) 40 meq PO ONETIME ONE Stop: 12/15/20 17:01 Sertraline HCl (Sertraline 50 Mg Tab) 50 mg PO DAILY [facility] Last Admin: 12/15/20 11:28 Dose: 50 mg Documented by: Sodium Chloride (Sodium Chloride 0.9% 10 Ml Syringe) 10 ml FLUSH ASDIRECTED PRN PRN Reason: Keep Vein Open Discontinued Medications Dextrose/Water (50% Dextrose In Water 50 Ml Syringe) 50 ml IVPUSH ASDIRECTED PRN PRN Reason: Hypoglycemia Dextrose/Water (50% Dextrose In Water 50 Ml Syringe) 50 ml IVPUSH ASDIRECTED PRN PRN Reason: Hypoglycemia Dextrose/Water (50% Dextrose In Water 50 Ml Syringe) 50 ml IVPUSH ONETIME PRN PRN Reason: Blood Glucose Glucagon (Glucagon,Human Recombinant 1 Mg Vial) 1 mg IM ASDIRECTED PRN PRN Reason: Hypoglycemia Glucagon (Glucagon,Human Recombinant 1 Mg Vial) 1 mg IM ASDIRECTED PRN PRN Reason: Hypoglycemia Hydromorphone HCl (Hydromorphone 0.5 Mg/0.5 Ml Syringe) 0.5 mg IVPUSH ONETIME ONE Stop: 12/11/20 18:53 Last Admin: 12/11/20 19:12 Dose: 0.5 mg Documented by: Hydromorphone HCl (Hydromorphone 0.5 Mg/0.5 Ml Syringe) 0.5 mg IVPUSH ONETIME ONE Stop: 12/11/20 22:10 Last Admin: 12/11/20 23:37 Dose: Not Given Documented by: Sodium Chloride (Normal Saline) 1,000 mls @ 999 mls/hr IV ASDIRECTED [facility] Last Admin: 12/11/20 17:53 Dose: 999 mls/hr Documented by: Sodium Chloride (Normal Saline) 1,000 mls @ 999 mls/hr IV ASDIRECTED [facility] Last Admin: 12/11/20 19:32 Dose: 999 mls/hr Documented by: Potassium Chloride/Sodium Chloride (Normal Saline With 20 Meq Kcl) 1,000 mls @ 500 mls/hr IV ASDIRECTED [facility] Last Admin: 12/11/20 21:10 Dose: 500 mls/hr Documented by: Sodium Chloride (Normal Saline) 2,000 mls @ 500 mls/hr IV .CONTINUOUS PRN PRN Reason: Blood Glucose Last Infusion: 12/12/20 02:07 Dose: 0 mls/hr Documented by: Dextrose/Sodium Chloride (Dextrose 5%-1/2 Ns) 1,000 mls @ 150 mls/hr IV .CONTINUOUS PRN PRN Reason: Blood Glucose Last Admin: 12/12/20 15:14 Dose: 150 mls/hr Documented by: Potassium Chloride 20 meq/ (Premix) 100 mls @ 50 mls/hr IV ONETIME ONE Stop: 12/12/20 00:28 Last Admin: 12/11/20 23:30 Dose: Not Given Documented by: Potassium Chloride 20 meq/ (Premix) 100 mls @ 50 mls/hr IV Q2H PRN PRN Reason: Hypokalemia Magnesium Sulfate (Magnesium Sulfate In Water 2 Gm/50 Ml) 2 gm in 50 mls @ 25 mls/hr IV ONETIME PRN PRN Reason: low magnesium Last Admin: 12/12/20 06:13 Dose: 25 mls/hr Documented by: Insulin Regular in 0.9 % NACL (Myxredlin In Ns 100 Unit/100 Ml) 100 mls @ 5.897 mls/hr IV ASDIRECTED [facility]; Protocol Last Infusion: 12/12/20 17:16 Dose: 0.05 units/kg/hr, 3 mls/hr Documented by: Piperacillin/Tazobactam/ (Dextrose 3.375 gm/ Premix) 50 mls @ 100 mls/hr IV Q6H [facility] Last Admin: 12/13/20 13:05 Dose: 100 mls/hr Documented by: Vancomycin HCl 1.5 gm/ Sodium (Chloride) 250 mls @ 167 mls/hr IV ONETIME ONE Stop: 12/12/20 10:29 Last Admin: 12/12/20 09:18 Dose: 167 mls/hr Documented by: Vancomycin HCl 1 gm/ Sodium (Chloride) 250 mls @ 166.667 mls/hr IV Q12H [facility] Last Admin: 12/13/20 09:09 Dose: 166.667 mls/hr Documented by: Sodium Chloride (Normal Saline) 1,000 mls @ 75 mls/hr IV ASDIRECTED [facility] Last Admin: 12/13/20 11:07 Dose: 75 mls/hr Documented by: Magnesium Sulfate 2 gm/ Premix 50 mls @ 25 mls/hr IV Q6H [facility] Stop: 12/13/20 17:59 Last Admin: 12/13/20 15:29 Dose: 25 mls/hr Documented by: Insulin Human Lispro (Insulin Lispro 100 Units/Ml 3 Ml Vial) 8 unit SUBCUT ONETIME ONE Stop: 12/13/20 05:43 Last Admin: 12/13/20 05:50 Dose: 8 units Documented by: Insulin Human Regular (Insulin Regular, Human 100 Units/Ml 3 Ml Vial) 16 unit SUBCUT ONETIME ONE Stop: 12/11/20 19:48 Last Admin: 12/11/20 19:52 Dose: 16 units Documented by: Insulin Human Regular (Insulin Regular, Human 100 Units/Ml 3 Ml Vial) 14 unit SUBCUT ONETIME ONE Stop: 12/11/20 21:34 Last Admin: 12/11/20 22:00 Dose: 14 units Documented by: Metoclopramide HCl (Metoclopramide 10 Mg/2 Ml Sdv) 5 mg IVPUSH ONETIME ONE Stop: 12/11/20 21:18 Last Admin: 12/11/20 21:44 Dose: 5 mg Documented by: Ondansetron HCl (Ondansetron 4 Mg/2 Ml Sdv) 4 mg IVPUSH ONETIME ONE Stop: 12/11/20 16:39 Last Admin: 12/11/20 17:52 Dose: 4 mg Documented by: Ondansetron HCl (Ondansetron 4 Mg/2 Ml Sdv) 4 mg IVPUSH ONETIME ONE Stop: 12/11/20 23:09 Last Admin: 12/11/20 23:17 Dose: 4 mg Documented by: Pantoprazole Sodium (Pantoprazole 40 Mg Vial) 40 mg IVPUSH Q12H [facility] Last Admin: 12/12/20 20:37 Dose: 40 mg Documented by: Potassium Chloride (Potassium Chloride 20 Meq Tab.Er) 40 meq PO ONETIME ONE Stop: 12/15/20 08:41 Last Admin: 12/15/20 11:28 Dose: 40 meq Documented by: Vancomycin HCl (Vancomycin 1 Gm Sdv) 1 gm IV .PHARMACY TO DOSE [facility] - Exam Quality Assessment: DVT Prophylaxis Urinary Catheter Total Time: 0Days 19Hours General: Alert, Cooperative, Mild Distress Lungs: Clear to Auscultation, Normal Respiratory Effort Cardiovascular: Regular Rate, Regular Rhythm, No Murmurs GI/Abdominal Exam: Soft, No Organomegaly, Tender. No: Distended, Guarding, Rigid, Rebound Extremities: Non-Tender, No Pedal Edema - Patient Data Lab Results Last 24 hrs: Laboratory Results - last 24 hr 12/14/20 12/14/20 12/14/20 Range/Units 16:23 17:18 17:18 WBC (4.5-11.0) K/uL RBC (3.30-5.50) M/uL Hgb 7.4 L (12.0-15.0) g/dL Hct (36.0-48.0) % MCV (80-98) fL MCH (27-31) pg MCHC (32-36) % Plt Count (150-400) K/uL Neut % (Auto) (36-66) % Lymph % (Auto) (24-44) % [place] % (Auto) (2-6) % Eos % (Auto) (2-4) % Baso % (Auto) (0-1) % Sodium 136 L (140-148) mmol/L Potassium 4.0 (3.6-5.2) mmol/L Chloride 105 (100-108) mmol/L Carbon Dioxide 18 L (21-32) mmol/L Anion Gap 17.0 H (5.0-14.0) mmol/L BUN 22 H (7-18) mg/dL Creatinine 2.9 H (0.6-1.0) mg/dL Est Cr Clr Drug Dosing 27.33 mL/min Estimated GFR (MDRD) 23 L (>60) Glucose 290 H (74-106) mg/dL POC Glucose 291 H (74-106) mg/dL Calcium 7.8 L (8.5-10.1) mg/dL Magnesium (1.8-2.4) mg/dL Blood Type Gel Antibody Screen Crossmatch 12/14/20 12/15/20 12/15/20 Range/Units 20:38 05:20 05:20 WBC 6.9 (4.5-11.0) K/uL RBC 2.38 L (3.30-5.50) M/uL Hgb 6.9 L* (12.0-15.0) g/dL Hct 21.0 L (36.0-48.0) % MCV 88 (80-98) fL MCH 29 (27-31) pg MCHC 33 (32-36) % Plt Count 176 (150-400) K/uL Neut % (Auto) 75.2 H (36-66) % Lymph % (Auto) 12.8 L (24-44) % [place] % (Auto) 10.8 H (2-6) % Eos % (Auto) 0.9 L (2-4) % Baso % (Auto) 0.3 (0-1) % Sodium 138 L (140-148) mmol/L Potassium 3.2 L (3.6-5.2) mmol/L Chloride 106 (100-108) mmol/L Carbon Dioxide 22 (21-32) mmol/L Anion Gap 13.2 (5.0-14.0) mmol/L BUN 17 (7-18) mg/dL Creatinine 2.8 H (0.6-1.0) mg/dL Est Cr Clr Drug Dosing 28.31 mL/min Estimated GFR (MDRD) 24 L (>60) Glucose 218 H (74-106) mg/dL POC Glucose 240 H (74-106) mg/dL Calcium 7.9 L (8.5-10.1) mg/dL Magnesium 1.8 (1.8-2.4) mg/dL Blood Type Gel Antibody Screen Crossmatch 12/15/20 12/15/20 12/15/20 Range/Units 05:58 08:12 11:31 WBC (4.5-11.0) K/uL RBC (3.30-5.50) M/uL Hgb (12.0-15.0) g/dL Hct (36.0-48.0) % MCV (80-98) fL MCH (27-31) pg MCHC (32-36) % Plt Count (150-400) K/uL Neut % (Auto) (36-66) % Lymph % (Auto) (24-44) % [place] % (Auto) (2-6) % Eos % (Auto) (2-4) % Baso % (Auto) (0-1) % Sodium (140-148) mmol/L Potassium (3.6-5.2) mmol/L Chloride (100-108) mmol/L Carbon Dioxide (21-32) mmol/L Anion Gap (5.0-14.0) mmol/L BUN (7-18) mg/dL Creatinine (0.6-1.0) mg/dL Est Cr Clr Drug Dosing mL/min Estimated GFR (MDRD) (>60) Glucose (74-106) mg/dL POC Glucose 232 H 175 H (74-106) mg/dL Calcium (8.5-10.1) mg/dL Magnesium (1.8-2.4) mg/dL Blood Type O POSITIVE Gel Antibody Screen Negative Crossmatch See Detail 12/15/20 Range/Units 13:15 WBC (4.5-11.0) K/uL RBC (3.30-5.50) M/uL Hgb 8.4 L (12.0-15.0) g/dL Hct (36.0-48.0) % MCV (80-98) fL MCH (27-31) pg MCHC (32-36) % Plt Count (150-400) K/uL Neut % (Auto) (36-66) % Lymph % (Auto) (24-44) % [place] % (Auto) (2-6) % Eos % (Auto) (2-4) % Baso % (Auto) (0-1) % Sodium (140-148) mmol/L Potassium (3.6-5.2) mmol/L Chloride (100-108) mmol/L Carbon Dioxide (21-32) mmol/L Anion Gap (5.0-14.0) mmol/L BUN (7-18) mg/dL Creatinine (0.6-1.0) mg/dL Est Cr Clr Drug Dosing mL/min Estimated GFR (MDRD) (>60) Glucose (74-106) mg/dL POC Glucose (74-106) mg/dL Calcium (8.5-10.1) mg/dL Magnesium (1.8-2.4) mg/dL Blood Type Gel Antibody Screen Crossmatch Result Diagrams: 12/15/20 13:15 12/15/20 05:20 Denzel Results Last 24 hrs: Microbiology 12/12/20 08:10 Aerobic Blood Culture - Preliminary Blood - Venous NO GROWTH AFTER 3 DAYS Anaerobic Blood Culture - Preliminary NO GROWTH AFTER 3 DAYS 12/12/20 08:15 Aerobic Blood Culture - Preliminary Blood - Venous - Lab Draw NO GROWTH AFTER 3 DAYS Anaerobic Blood Culture - Preliminary NO GROWTH AFTER 3 DAYS Sepsis Event Note - Evaluation Sepsis Screening Result: No Definite Risk - Focused Exam Vital Signs: Vital Signs Temp Temp Pulse Pulse Resp BP BP 12/15/20 14:00 16 145/82 H 12/15/20 11:35 97.7 F 12 120/59 L 12/15/20 11:28 113/53 L 12/15/20 10:51 97.9 F 12 108/58 L 12/15/20 10:40 97.9 F 12 103/53 L 12/15/20 10:25 98.1 F 12 110/67 12/15/20 10:10 97.9 F 12 105/60 12/15/20 09:55 97.9 F 16 95/58 L 12/15/20 09:40 98.1 F 16 122/67 12/15/20 09:25 98.1 F 16 137/82 12/15/20 09:10 97.9 F 16 153/90 H 12/15/20 08:55 97.7 F 19 146/89 H 12/15/20 08:40 97.9 F 16 150/86 H 12/15/20 08:25 97.7 F 16 146/84 H 12/15/20 08:16 101 H 153/90 H 12/15/20 08:10 97.9 F 20 153/90 H 12/15/20 06:00 93 15 146/80 H 12/15/20 05:22 133/72 12/15/20 04:00 97.9 F 17 115/62 Pulse Ox 12/15/20 14:00 99 12/15/20 11:35 99 12/15/20 11:28 12/15/20 10:51 99 12/15/20 10:40 99 12/15/20 10:25 99 12/15/20 10:10 97 12/15/20 09:55 98 12/15/20 09:40 98 12/15/20 09:25 97 12/15/20 09:10 99 12/15/20 08:55 98 12/15/20 08:40 99 12/15/20 08:25 98 12/15/20 08:16 12/15/20 08:10 95 12/15/20 06:00 97 12/15/20 05:22 12/15/20 04:00 96 - Problem List Review Problem List Initiated/Reviewed/Updated: Yes - My Orders Last 24 Hours: My Active Orders 12/15/20 05:58 PATIENT RETYPE [BBK] Routine RED BLOOD CELLS LP [BBK] Routine TYPE AND SCREEN [BBK] Routine 12/15/20 05:59 Transfuse Red Blood Cells [COMM] Urgent 12/15/20 08:19 Hemoccult [OCCULT BLOOD DIAGNOSTIC] [OP] Stat 12/15/20 17:00 Potassium Chloride [Klor-Con M20] 40 meq PO ONETIME ONE 12/16/20 05:11 HEMOGLOBIN [HEME] AM POTASSIUM,K [CHEM] AM 12/16/20 07:30 GLUCOSE POC LAB TO COLLECT JPM [POC] QIDACANDBED 12/16/20 11:30 GLUCOSE POC LAB TO COLLECT JPM [POC] QIDACANDBED 12/16/20 16:30 GLUCOSE POC LAB TO COLLECT JPM [POC] QIDACANDBED 12/16/20 21:00 GLUCOSE POC LAB TO COLLECT JPM [POC] QIDACANDBED 12/17/20 07:30 GLUCOSE POC LAB TO COLLECT JPM [POC] QIDACANDBED 12/17/20 11:30 GLUCOSE POC LAB TO COLLECT JPM [POC] QIDACANDBED 12/17/20 16:30 GLUCOSE POC LAB TO COLLECT JPM [POC] QIDACANDBED - Plan Plan:: ASSESSMENT AND PLAN DIABETIC KETOACIDOSIS-resolved -Usual dose of long-acting insulin -Usual dose of short acting insulin -4 times daily glucometers -Medium dose sliding scale Humalog -Consistent carbohydrate diet ACUTE KIDNEY INJURY-renal function appears to be back to baseline -Closely monitor urine output and renal function ABDOMINAL PAIN WITH NAUSEA AND VOMITING-improved -Continue to monitor RIGHT LUNG PNEUMONIA -Blood cultures pending -IV levofloxacin, pending culture results ANEMIA-worse over the last few days and seems to be associated with very heavy menstrual flow, likely exacerbated because of anticoagulation -Transfuse 1 unit of red blood cells today -Recheck hemoglobin in a.m. 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 At the time of this admission I do not reasonably expected evaluation a nd management of this problem will require more than a 96 hour hospital stay. DISPOSITION-anticipate discharge to home after the hospital stay. PRIMARY CARE PROVIDER-Randy Jacques
[2020-12-15] MEDS: atorvaSTATin 20 MG Tab PO SCH (21:34)
[2020-12-15] MEDS: Insulin Glargine,Human Rec. Analog 100 Units/ML 3 ML Pen SUBCUT SCH (21:38)
[2020-12-16] MEDS: Acetaminophen 325 MG Tab PO PRN ×2 (03:41→08:48)
[2020-12-16] MEDS: Ondansetron 4 MG/2 ML SDV IV PRN ×2 (03:51→09:53)
[2020-12-16] MEDS: Albuterol 0.083% 2.5 MG/3 ML Neb Soln NEB PRN (03:56)
[2020-12-16] MEDS: hydrALAZINE 25 MG Tab PO SCH ×2 (05:50→09:45)
[2020-12-16] MEDS: oxyCODONE 5 MG Tab PO PRN ×3 (05:53→11:41)
[2020-12-16] MEDS: Insulin Lispro 100 Unit/ML 3 ML KwikPen SUBCUT SCH ×4 (08:47→11:32)
[2020-12-16] MEDS: Carvedilol 12.5 MG Tab PO SCH (08:49)
[2020-12-16] MEDS: Aspirin 81 MG Tab.EC PO SCH (08:49)
[2020-12-16] MEDS: Magnesium Oxide 400 MG Tab PO SCH (08:50)
[2020-12-16] MEDS: Pantoprazole 40 MG Tab.CR PO SCH (08:50)
[2020-12-16] MEDS: Apixaban 5 MG Tab PO SCH (08:50)
[2020-12-16] MEDS: Bumetanide 1 MG Tab PO SCH (08:50)
[2020-12-16] MEDS: Sertraline 50 MG Tab PO SCH (08:51)
[2020-12-16] MEDS: Gabapentin 300 MG Cap PO SCH (08:59)
[2020-12-16] MEDS ORDERED: Potassium Chloride 10 MEQ Cap.ER PO ONE (09:15)
--- NOTE | 2020-12-16 10:04 | PCM.DCSUM1 ---
Discharge Summary - Hospital Course Brief History: Ms. Frank is a 30-year-old woman who was admitted through the emergency department with generalized weakness and lethargy secondary to diabetic ketoacidosis. - Discharge Data Discharge Date: 12/16/20 Discharge Disposition: DC/Tfer to SNF 03 Condition: Fair - Referral to Home Health Primary Care Physician: PCP None - Discharge Diagnosis/Problem(s) (1) Pneumonia SNOMED Code(s): 243817353 ICD Code: J18.9 - PNEUMONIA, UNSPECIFIED ORGANISM Status: Acute Current Visit: Yes (2) Acute respiratory failure with hypoxia SNOMED Code(s): 25625941, 053518570 ICD Code: J96.01 - ACUTE RESPIRATORY FAILURE WITH HYPOXIA Status: Acute Current Visit: Yes (3) DKA (diabetic ketoacidoses) SNOMED Code(s): 010443884, 720547557 ICD Code: E11.10 - TYPE 2 DIABETES MELLITUS WITH KETOACIDOSIS WITHOUT COMA Status: Acute Current Visit: Yes Qualifiers: Diabetes mellitus type: type 1 Diabetes mellitus complication detail: without coma Qualified Code(s): E10.10 - Type 1 diabetes mellitus with ketoacidosis without coma (4) Nausea and vomiting SNOMED Code(s): 87456811 ICD Code: R11.2 - NAUSEA WITH VOMITING, UNSPECIFIED Status: Acute Current Visit: Yes Qualifiers: Vomiting type: unspecified Vomiting Intractability: non-intractable Qualified Code(s): R11.2 - Nausea with vomiting, unspecified (5) Anemia SNOMED Code(s): 608956182 ICD Code: D64.9 - ANEMIA, UNSPECIFIED Status: Acute Current Visit: No Qualifiers: Anemia type: unspecified type Qualified Code(s): D64.9 - Anemia, unspecified (6) Type I diabetes mellitus with complication SNOMED Code(s): 85499734, 100130010 ICD Code: E10.8 - TYPE 1 DIABETES MELLITUS WITH UNSPECIFIED COMPLICATIONS Status: Chronic Current Visit: No (7) CKD (chronic kidney disease), stage III SNOMED Code(s): 105244261 ICD Code: N18.3 - CHRONIC KIDNEY DISEASE, STAGE 3 (MODERATE) * DO NOT USE * Status: Chronic Current Visit: No (8) Dehydration SNOMED Code(s): 85449640 ICD Code: E86.0 - DEHYDRATION Status: Acute Current Visit: Yes - Patient Summary/Data Consults: Consultations 12/13/20 15:45 Consult to Physical Therapy [PT Evaluation and Treatment] [CONS] Routine Please Evaluate and Treat. PT Reason for Consult: Hx CVA, weakness This query below is only for informational purposes and is not editable. Admission Diagnosis/Problem: Ketoacidosis Hospital Course: Ms. Frank is a 30-year-old woman who was admitted through the emergency department with progressive weakness, nausea vomiting, and abdominal pain, secondary to diabetic ketoacidosis. She has a known and longstanding history of type 1 diabetes mellitus with regular episodes of ketoacidosis. She has underlying kidney disease, cerebrovascular disease, and peripheral neuropathy. She reports recent history of abdominal pain in the left lower quadrant for the past 4 days associated with nausea and vomiting. She thinks that she has been taking her insulin at home and has noticed a progressive increase in glucose levels over the past few days. Because of progression of her symptoms she has presented to the emergency department earlier today for further evaluation. Laboratory tests did show evidence of elevated anion gap acidosis, with a carbon dioxide level of 11 and anion gap of 32. White blood cell count is mildly to moderately elevated and CRP is significantly elevated. Because of her history of abdominal pain CT scan of the abdomen was obtained but shows no acute abnormality to explain her current symptoms. Chest x-ray is clear with no obvious infiltrate and urinalysis is also fairly clear other than some blood in the urine. She has received IV fluid replacement in the emergency department and given 2 doses of subcutaneous insulin. With management in the emergency department there was improvement in ketoacidosis by the time of admission, she was started on IV insulin infusion per ketoacidosis protocol. She also received vigorous fluid replacement per protocol and electrolytes were monitored and replaced as needed. Following day she was noted to have increased respiratory rate with hypoxia. Chest x-ray was repeated and did show evidence now of a infiltrate in the right lower lung. Respiratory compromise was managed with use of BiPAP and supplemental oxygen. Blood cultures were obtained and she was s tarted on broad-spectrum IV antibiotic therapy with vancomycin, Zosyn, and levofloxacin. Respiratory status improved over the next few days, vancomycin and Zosyn were discontinued. By the time of discharge she had good oxygenation on room air without use of supplemental oxygen or the BiPAP. Ketoacidosis resolved with management. During hospitalization she did have a progressive decrease in hemoglobin level, this was associated with her menstrual period and very heavy bleeding likely complicated by her anticoagulation. She was transfused 1 unit of red blood cells and hemoglobin level stabilized. She will be discharged on additional 5 days of antibiotic therapy with oral levofloxacin 750 mg every 48 hours. Over the past several years she has shown evidence of marked difficulty in caring for herself and I strongly believe at this time that she should have a permanent guardian to help make decisions for her. She will be transferred back to the half-way in [place], because of her right-sided weakness she will require ambulance transfer with a gurney, she is unable to support herself or keep herself upright in chair for long periods of time. Activity will be as tolerated and she will remain on a diabetic diet. - Patient Instructions Diet: Diabetic Diet Activity: As Tolerated Other/Special Instructions: Please obtain follow-up labs on , December 20; CBC and BMP - Discharge Plan *PRESCRIPTION DRUG MONITORING PROGRAM REVIEWED*: Not Applicable *COPY OF PRESCRIPTION DRUG MONITORING REPORT IN PATIENT EDIN: Not Applicable Prescriptions/Med Rec: levoFLOXacin [Levaquin] 750 mg PO Q48H #3 tab Home Medications: Home Meds Insulin Glarg,Human.Rec.Analog [Lantus Solostar] 10 units SQ BEDTIME 11/01/19 [History] Acetaminophen [Tylenol] 650 mg PO Q4H PRN 01/04/20 [History] Albuterol Sulfate [Albuterol Sulfate Hfa] 1 - 2 puff INH Q4H PRN 01/04/20 [History] Sertraline HCl 50 mg PO DAILY 01/04/20 [History] Apixaban [Eliquis] 5 mg PO BID 03/02/20 [History] Aspirin [Halfprin] 81 mg PO DAILY 03/02/20 [History] Bumetanide [Bumex] 1 mg PO DAILY 03/02/20 [History] Gabapentin [Neurontin] 300 mg PO DAILY 03/02/20 [History] Magnesium Chloride [Mag-64] 128 mg PO DAILY 03/02/20 [History] atorvaSTATin [Lipitor] 20 mg PO BEDTIME 03/02/20 [History] carvediloL [Carvedilol] 12.5 mg PO BID 03/02/20 [History] Insulin Aspart [NovoLOG] 3 units SQ TIDAC #3 pen 03/03/20 [Rx] hydrALAZINE [Apresoline] 25 mg PO QID 03/03/20 [History] oxyCODONE 5 mg PO Q6H PRN #15 tablet 03/03/20 [Rx] levoFLOXacin [Levaquin] 750 mg PO Q48H #3 tab 12/16/20 [Rx] - Discharge Summary/Plan Comment DC Time >30 min.: No - Patient Data Vitals - Most Recent: Last Vital Signs Temp 97.8 F 12/16/20 08:00 Pulse 103 H 12/16/20 08:49 Resp 12 12/16/20 09:45 BP 152/81 H 12/16/20 09:45 Pulse Ox 98 12/16/20 09:45 Weight - Most Recent: 160 lb 9.6 oz I&O - Last 24 hours: Intake & Output 12/15/20 12/16/20 12/16/20 22:59 06:59 14:59 Output Total 550 Balance -550 Lab Results - Last 24 hrs: Laboratory Results - last 24 hr 12/15/20 12/15/20 12/15/20 Range/Units 05:58 11:31 13:15 Hgb 8.4 L (12.0-15.0) g/dL Potassium (3.6-5.2) mmol/L POC Glucose 175 H (74-106) mg/dL Crossmatch See Detail 12/15/20 12/15/20 12/16/20 Range/Units 16:02 21:37 04:30 Hgb 8.2 L (12.0-15.0) g/dL Potassium (3.6-5.2) mmol/L POC Glucose 184 H 190 H (74-106) mg/dL Crossmatch 12/16/20 12/16/20 Range/Units 04:30 08:44 Hgb (12.0-15.0) g/dL Potassium 3.1 L (3.6-5.2) mmol/L POC Glucose 299 H (74-106) mg/dL Crossmatch [place] Results - Last 24 hrs: Microbiology 12/12/20 08:15 Aerobic Blood Culture - Preliminary Blood - Venous - Lab Draw NO GROWTH AFTER 4 DAYS Anaerobic Blood Culture - Preliminary NO GROWTH AFTER 4 DAYS 12/12/20 08:10 Aerobic Blood Culture - Preliminary Blood - Venous NO GROWTH AFTER 4 DAYS Anaerobic Blood Culture - Preliminary NO GROWTH AFTER 4 DAYS Med Orders - Current: Current Medications Acetaminophen (Acetaminophen 325 Mg Tab) 650 mg PO Q4H PRN PRN Reason: Pain (Mild 1-3)/fever Last Admin: 12/16/20 08:48 Dose: 650 mg Documented by: Albuterol (Albuterol 8 Gm Inhaler) 1 - 2 gm INH Q4H PRN PRN Reason: Shortness of Breath Albuterol (Albuterol 0.083% 2.5 Mg/3 Ml Neb Soln) 2.5 mg NEB Q4H PRN PRN Reason: Shortness Of Breath/wheezing Last Admin: 12/16/20 03:56 Dose: 2.5 mg Documented by: Apixaban (Apixaban 5 Mg Tab) 5 mg PO BID [facility] Last Admin: 12/16/20 08:50 Dose: 5 mg Documented by: Aspirin (Aspirin 81 Mg Tab.Ec) 81 mg PO DAILY [facility] Last Admin: 12/16/20 08:49 Dose: 81 mg Documented by: Atorvastatin Calcium (Atorvastatin 20 Mg Tab) 20 mg PO BEDTIME [facility] Last Admin: 12/15/20 21:34 Dose: 20 mg Documented by: Bumetanide (Bumetanide 1 Mg Tab) 1 mg PO DAILY [facility] Last Admin: 12/16/20 08:50 Dose: 1 mg Documented by: Carvedilol (Carvedilol 12.5 Mg Tab) 12.5 mg PO BID [facility] Last Admin: 12/16/20 08:49 Dose: 12.5 mg Documented by: Dextrose (Glucose Gel 15 Gm In 37.5 Gm Tube) 15 gm PO ONETIME PRN PRN Reason: Hypoglycemia Dextrose/Water (50% Dextrose In Water 50 Ml Syringe) 50 ml IVPUSH ASDIRECTED PRN PRN Reason: Hypoglycemia Gabapentin (Gabapentin 300 Mg Cap) 300 mg PO DAILY [facility] Last Admin: 12/16/20 08:59 Dose: 300 mg Documented by: Glucagon (Glucagon,Human Recombinant 1 Mg Vial) 1 mg IM ASDIRECTED PRN PRN Reason: Hypoglycemia Hydralazine HCl (Hydralazine 25 Mg Tab) 25 mg PO QID [facility] Last Admin: 12/16/20 09:45 Dose: 25 mg Documented by: Potassium Chloride 20 meq/ (Premix) 100 mls @ 50 mls/hr IV Q2H PRN PRN Reason: Hypokalemia Levofloxacin/Dextrose 750 mg/ (Premix) 150 mls @ 100 mls/hr IV Q48H [facility] Last Admin: 12/14/20 12:57 Dose: 100 mls/hr Documented by: Insulin Glargine (Insulin Glargine,Human Rec. Analog 100 Units/Ml 3 Ml Pen) 10 units SUBCUT BEDTIME [facility] Last Admin: 12/15/20 21:38 Dose: 10 units Documented by: Insulin Human Lispro (Insulin Lispro 100 Unit/Ml 3 Ml Kwikpen) 0 unit SUBCUT QIDACANDBED [facility]; Protocol Last Admin: 12/16/20 08:47 Dose: 6 units Documented by: Insulin Human Lispro (Insulin Lispro 100 Unit/Ml 3 Ml Kwikpen) 3 unit SUBCUT TIDAC [facility] Last Admin: 12/16/20 08:47 Dose: 3 units Documented by: Magnesium Oxide (Magnesium Oxide 400 Mg Tab) 400 mg PO DAILY [facility] Last Admin: 12/16/20 08:50 Dose: 400 mg Documented by: Morphine Sulfate (Morphine 2 Mg/Ml Syringe) 2 mg IVPUSH Q1H PRN PRN Reason: Pain Last Admin: 12/15/20 00:50 Dose: 2 mg Documented by: Ondansetron HCl (Ondansetron 4 Mg/2 Ml Sdv) 4 mg IV Q4H PRN PRN Reason: Nausea/Vomiting Last Admin: 12/16/20 09:53 Dose: 4 mg Documented by: Oxycodone HCl (Oxycodone 5 Mg Tab) 5 mg PO Q6H PRN PRN Reason: Pain Last Admin: 12/16/20 05:53 Dose: 5 mg Documented by: Pantoprazole Sodium (Pantoprazole 40 Mg Tab.Cr) 40 mg PO BIDAC [facility] Last Admin: 12/16/20 08:50 Dose: 40 mg Documented by: Polyethylene Glycol (Polyethylene Glycol 3350 Powder 17 Gm Packet) 17 gm PO DAILY PRN PRN Reason: Constipation Potassium Chloride (Potassium Chloride 10% 20 Meq/15 Ml Soln 15 Ml Ud Cup) 20 meq PO NOW PRN PRN Reason: Hypokalemia Last Admin: 12/12/20 04:45 Dose: 20 meq Documented by: Potassium Chloride (Potassium Chloride 10% 20 Meq/15 Ml Soln 15 Ml Ud Cup) 40 meq PO NOW PRN PRN Reason: Hypokalemia Last Admin: 12/12/20 15:48 Dose: 40 meq Documented by: Potassium Chloride (Potassium Chloride 10% 20 Meq/15 Ml Soln 15 Ml Ud Cup) 40 meq PO Q2H PRN PRN Reason: Hypokalemia Sertraline HCl (Sertraline 50 Mg Tab) 50 mg PO DAILY [facility] Last Admin: 12/16/20 08:51 Dose: 50 mg Documented by: Sodium Chloride (Sodium Chloride 0.9% 10 Ml Syringe) 10 ml FLUSH ASDIRECTED PRN PRN Reason: Keep Vein Open Discontinued Medications Dextrose/Water (50% Dextrose In Water 50 Ml Syringe) 50 ml IVPUSH ASDIRECTED PRN PRN Reason: Hypoglycemia Dextrose/Water (50% Dextrose In Water 50 Ml Syringe) 50 ml IVPUSH ASDIRECTED PRN PRN Reason: Hypoglycemia Dextrose/Water (50% Dextrose In Water 50 Ml Syringe) 50 ml IVPUSH ONETIME PRN PRN Reason: Blood Glucose Glucagon (Glucagon,Human Recombinant 1 Mg Vial) 1 mg IM ASDIRECTED PRN PRN Reason: Hypoglycemia Glucagon (Glucagon,Human Recombinant 1 Mg Vial) 1 mg IM ASDIRECTED PRN PRN Reason: Hypoglycemia Hydromorphone HCl (Hydromorphone 0.5 Mg/0.5 Ml Syringe) 0.5 mg IVPUSH ONETIME ONE Stop: 12/11/20 18:53 Last Admin: 12/11/20 19:12 Dose: 0.5 mg Documented by: Hydromorphone HCl (Hydromorphone 0.5 Mg/0.5 Ml Syringe) 0.5 mg IVPUSH ONETIME ONE Stop: 12/11/20 22:10 Last Admin: 12/11/20 23:37 Dose: Not Given Documented by: Sodium Chloride (Normal Saline) 1,000 mls @ 999 mls/hr IV ASDIRECTED [facility] Last Admin: 12/11/20 17:53 Dose: 999 mls/hr Documented by: Sodium Chloride (Normal Saline) 1,000 mls @ 999 mls/hr IV ASDIRECTED [facility] Last Admin: 12/11/20 19:32 Dose: 999 mls/hr Documented by: Potassium Chloride/Sodium Chloride (Normal Saline With 20 Meq Kcl) 1,000 mls @ 500 mls/hr IV ASDIRECTED [facility] Last Admin: 12/11/20 21:10 Dose: 500 mls/hr Documented by: Sodium Chloride (Normal Saline) 2,000 mls @ 500 mls/hr IV .CONTINUOUS PRN PRN Reason: Blood Glucose Last Infusion: 12/12/20 02:07 Dose: 0 mls/hr Documented by: Dextrose/Sodium Chloride (Dextrose 5%-1/2 Ns) 1,000 mls @ 150 mls/hr IV .CONTINUOUS PRN PRN Reason: Blood Glucose Last Admin: 12/12/20 15:14 Dose: 150 mls/hr Documented by: Potassium Chloride 20 meq/ (Premix) 100 mls @ 50 mls/hr IV ONETIME ONE Stop: 12/12/20 00:28 Last Admin: 12/11/20 23:30 Dose: Not Given Documented by: Potassium Chloride 20 meq/ (Premix) 100 mls @ 50 mls/hr IV Q2H PRN PRN Reason: Hypokalemia Magnesium Sulfate (Magnesium Sulfate In Water 2 Gm/50 Ml) 2 gm in 50 mls @ 25 mls/hr IV ONETIME PRN PRN Reason: low magnesium Last Admin: 12/12/20 06:13 Dose: 25 mls/hr Documented by: Insulin Regular in 0.9 % NACL (Myxredlin In Ns 100 Unit/100 Ml) 100 mls @ 5.897 mls/hr IV ASDIRECTED [facility]; Protocol Last Infusion: 12/12/20 17:16 Dose: 0.05 units/kg/hr, 3 mls/hr Documented by: Piperacillin/Tazobactam/ (Dextrose 3.375 gm/ Premix) 50 mls @ 100 mls/hr IV Q6H [facility] Last Admin: 12/13/20 13:05 Dose: 100 mls/hr Documented by: Vancomycin HCl 1.5 gm/ Sodium (Chloride) 250 mls @ 167 mls/hr IV ONETIME ONE Stop: 12/12/20 10:29 Last Admin: 12/12/20 09:18 Dose: 167 mls/hr Documented by: Vancomycin HCl 1 gm/ Sodium (Chloride) 250 mls @ 166.667 mls/hr IV Q12H [facility] Last Admin: 12/13/20 09:09 Dose: 166.667 mls/hr Documented by: Sodium Chloride (Normal Saline) 1,000 mls @ 75 mls/hr IV ASDIRECTED [facility] Last Admin: 12/13/20 11:07 Dose: 75 mls/hr Documented by: Magnesium Sulfate 2 gm/ Premix 50 mls @ 25 mls/hr IV Q6H [facility] Stop: 12/13/20 17:59 Last Admin: 12/13/20 15:29 Dose: 25 mls/hr Documented by: Insulin Human Lispro (Insulin Lispro 100 Units/Ml 3 Ml Vial) 8 unit SUBCUT ONETIME ONE Stop: 12/13/20 05:43 Last Admin: 12/13/20 05:50 Dose: 8 units Documented by: Insulin Human Regular (Insulin Regular, Human 100 Units/Ml 3 Ml Vial) 16 unit SUBCUT ONETIME ONE Stop: 12/11/20 19:48 Last Admin: 12/11/20 19:52 Dose: 16 units Documented by: Insulin Human Regular (Insulin Regular, Human 100 Units/Ml 3 Ml Vial) 14 unit SUBCUT ONETIME ONE Stop: 12/11/20 21:34 Last Admin: 12/11/20 22:00 Dose: 14 units Documented by: Metoclopramide HCl (Metoclopramide 10 Mg/2 Ml Sdv) 5 mg IVPUSH ONETIME ONE Stop: 12/11/20 21:18 Last Admin: 12/11/20 21:44 Dose: 5 mg Documented by: Ondansetron HCl (Ondansetron 4 Mg/2 Ml Sdv) 4 mg IVPUSH ONETIME ONE Stop: 12/11/20 16:39 Last Admin: 12/11/20 17:52 Dose: 4 mg Documented by: Ondansetron HCl (Ondansetron 4 Mg/2 Ml Sdv) 4 mg IVPUSH ONETIME ONE Stop: 12/11/20 23:09 Last Admin: 12/11/20 23:17 Dose: 4 mg Documented by: Pantoprazole Sodium (Pantoprazole 40 Mg Vial) 40 mg IVPUSH Q12H [facility] Last Admin: 12/12/20 20:37 Dose: 40 mg Documented by: Potassium Chloride (Potassium Chloride 20 Meq Tab.Er) 40 meq PO ONETIME ONE Stop: 12/15/20 08:41 Last Admin: 12/15/20 11:28 Dose: 40 meq Documented by: Potassium Chloride (Potassium Chloride 20 Meq Tab.Er) 40 meq PO ONETIME ONE Stop: 12/15/20 17:01 Last Admin: 12/15/20 16:10 Dose: 40 meq Documented by: Potassium Chloride (Potassium Chloride 10 Meq Cap.Er) 40 meq PO ONETIME ONE Stop: 12/16/20 09:16 Last Admin: 12/16/20 09:46 Dose: 40 meq Documented by: Vancomycin HCl (Vancomycin 1 Gm Sdv) 1 gm IV .PHARMACY TO DOSE [id number] - Exam Quality Assessment: Reports: DVT Prophylaxis General: Reports: Alert, Oriented, Cooperative, Mild Distress Lungs: Reports: Clear to Auscultation, Normal Respiratory Effort Cardiovascular: Reports: Regular Rate, Regular Rhythm, No Murmurs GI/Abdominal Exam: Soft, No Organomegaly, Tender. No: Distended, Guarding, Rigid, Rebound Extremities: Non-Tender, No Pedal Edema
== END 2020-12-16 13:45 | DRG 637 ==
LOC: JP.ED 14:07 → JP.ICU 23:00
PROVIDERS: ADMIT Hospitalist; ATTEND Hospitalist
PROC: 5A09457 Assistance with Respiratory Ventilation, 24-96 Consecutive Hours, Continuous Positive Airway Pressure (ICD-10-PCS; principal; 2020-12-11)
PROC: 30233N1 Transfusion of Nonautologous Red Blood Cells into Peripheral Vein, Percutaneous Approach (ICD-10-PCS; 2020-12-11)
DX: E10.10 Type 1 diabetes mellitus with ketoacidosis without coma (principal); J18.9 Pneumonia, unspecified organism; J96.01 Acute respiratory failure with hypoxia; N17.9 Acute kidney failure, unspecified; E10.22 Type 1 diabetes mellitus with diabetic chronic kidney disease; E86.0 Dehydration; D63.1 Anemia in chronic kidney disease; E10.42 Type 1 diabetes mellitus with diabetic polyneuropathy; H54.7 Unspecified visual loss; I48.91 Unspecified atrial fibrillation; E78.00 Pure hypercholesterolemia, unspecified; I95.9 Hypotension, unspecified; K21.9 Gastro-esophageal reflux disease without esophagitis; F41.9 Anxiety disorder, unspecified; F32.9 Major depressive disorder, single episode, unspecified; F17.210 Nicotine dependence, cigarettes, uncomplicated; N18.32 Chronic kidney disease, stage 3b; Z79.82 Long term (current) use of aspirin; Z79.01 Long term (current) use of anticoagulants; Z88.8 Allergy status to other drugs, medicaments and biological substances; Z79.899 Other long term (current) drug therapy; Z86.73 Personal history of transient ischemic attack (TIA), and cerebral infarction without residual deficits; Z91.19 Patient's noncompliance with other medical treatment and regimen; Z88.6 Allergy status to analgesic agent; Z20.822 Contact with and (suspected) exposure to COVID-19; I12.9 Hypertensive chronic kidney disease with stage 1 through stage 4 chronic kidney disease, or unspecified chronic kidney disease
CPT/HCPCS: 0241U; 36415; 36430; 36600; 51702; 71045; 71045-26; 74176; 80048; 80053; 80305-QW; 81001; 82150; 82800; 82803; 82947; 83036; 83605; 83690; 83735; 84100; 84132; 84484; 85018; 85025; 86140; 86850; 86900; 86901; 86920; 86922; 87040; 93005; 93010; 94640; 94660; 96365; 96366; 96375; 97110-GP; 97162-GP; 99285; 99285-25; A9270-GY; C9113; J1170; J1815; J1815-GY; J1956; J2270; J2405; J2543; J2765; J3370; J3475; J3480; J7030; J7042; J7050; P9016

== ENCOUNTER 2023-03-26 13:18 | Emergency (ER) | payer MEDICAID ==
[2023-03-26] MEDS ORDERED: Sodium Chloride 0.9% 10 ML Syringe FLUSH PRN ×2 (13:19→14:14)
[2023-03-26] MEDS ORDERED: Sodium Chloride 0.9% 1,000 ML IV ONE ×4 (13:19→15:53)
[2023-03-26] MEDS ORDERED: Pantoprazole 40 MG Vial IVPUSH ONE (13:20)
[2023-03-26] MEDS ORDERED: HYDROmorphone 0.5 MG/0.5 ML Syringe IVPUSH ONE ×2 (13:20→15:07)
[2023-03-26] MEDS ORDERED: Naloxone 0.4 MG/ML SDV IVPUSH PRN (13:20)
[2023-03-26] MEDS ORDERED: Ondansetron 4 MG/2 ML SDV IVPUSH ONE (13:21)
[2023-03-26 13:46] LABS: BASOPHILS ABSOLUTE AUTO 0.04 K/uL (0.00-0.10); BASOPHILS PERCENT AUTO 0.2 % (0.1-1.3); HEMATOCRIT 30.8 % (34.3-46.0); HEMOGLOBIN 9.7 g/dL (11.2-15.5); IMMATURE GRAN ABSOLUTE AUTO 0.06 K/uL (0.00-0.23); IMMATURE GRAN PERCENT AUTO 0.3 % (0.0-0.7); LYMPHOCYTES ABSOLUTE AUTO 0.63 K/uL (0.8-3.3); LYMPHOCYTES PERCENT AUTO 3.6 % (11.4-47.7); MEAN CORPUSCULAR HEMOGLOBIN 31.1 pg (31.6-35.5); MEAN CORPUSCULAR HGB CONC 31.5 g/dL (31.6-35.5); MEAN CORPUSCULAR VOLUME 98.7 fL (81.4-99.0); MONOCYTES ABSOLUTE AUTO 1.21 K/uL (0.20-0.90); MONOCYTES PERCENT AUTO 6.8 % (3.3-12.6); NEUTROPHILS ABSOLUTE AUTO 15.79 K/uL (1.0-7.6); NEUTROPHILS PERCENT AUTO 89.1 % (40.0-78.1); PLATELET COUNT,PLT 328 K/uL (130-375); RED BLOOD CELL COUNT 3.12 M/uL (3.77-5.24); WHITE BLOOD CELL COUNT,WBC 17.7 K/uL (3.2-11.0)
[2023-03-26 13:47] LABS: BASE EXCESS VENOUS -19.4 mm/L; BICARBONATE,VENOUS 7.3 mmol/L; CARBOXYHEMOGLOBIN 1.9 % (0.0-1.6); METHEMOGLOBIN 3.4 %; O2 SATURATION VENOUS 79.8; OXYHEMOGLOBIN 75.6 %; PCO2 VENOUS 19.7 mm/Hg; PH,VENOUS 7.195 (7.350-7.450); PO2 VENOUS 54.5 mm/Hg; TOTAL HEMOGLOBIN 10.2 g/dL (12.0-16.0)
[2023-03-26] MEDS ORDERED: Sodium Chloride 0.9% 10 ML Syringe FLUSH ONE (14:01)
[2023-03-26 14:06] LABS: ALANINE AMINOTRANSFERASE,ALT 19 U/L (12-78); ALBUMIN 3.7 g/dL (3.4-5.0); ALKALINE PHOSPHATASE 145 U/L (46-116); ASPARTATE AMNIOTRANSFERASE,AST 15 U/L (15-37); BILIRUBIN TOTAL 0.7 mg/dL (0.2-1.0); BLOOD UREA NITROGEN,BUN 40 mg/dL (7-18); CALCIUM 8.2 mg/dL (8.5-10.1); CHLORIDE,CL 96 mmol/L (100-108); CREATININE 3.3 mg/dL (0.6-1.0); EST CRCL DRUG DOSING (CG) 23.58 mL/min; ESTIMATED GFR 18 mL/min (>60); PROTEIN TOTAL,TP 7.5 g/dL (6.4-8.2); PROTHROMBIN TIME 10.6 sec (9.2-10.6); PTT,PARTIAL THROMBOPLSTIN TIME 22.4 sec (21.8-27.3); SODIUM,NA 133 mmol/L (140-148)
[2023-03-26 14:14] LABS: CARBON DIOXIDE,CO2 9 mmol/L (21-32)
[2023-03-26] MEDS ORDERED: Calcium Gluconate 10% 1 GM/10 ML SDV IV ONE (14:14)
[2023-03-26] MEDS ORDERED: Insulin Regular, Human 100 Units/ML 3 ML Vial IVPUSH ONE (14:14)
[2023-03-26] MEDS ORDERED: Sodium Chloride 0.9% 50 ML IV SCH (14:15)
[2023-03-26] MEDS ORDERED: Iopamidol 612 MG/ML 100 ML Bottle IV SCH (14:15)
[2023-03-26 14:20] LABS: HCG QUALITATIVE,SERUM NEGATIVE; KETONES,BLOOD MODERATE (NEGATIVE)
[2023-03-26 14:25] LABS: LACTIC ACID 4.5 mmol/L (0.4-2.0)
[2023-03-26 14:26] LABS: GLUCOSE RANDOM 905 mg/dL (74-106)
[2023-03-26] MEDS ORDERED: Midazolam 1 MG/ML 2 ML SDV IVPUSH ONE (14:53)
[2023-03-26 16:34] LABS: CALCIUM 7.5 mg/dL (8.5-10.1); CREATININE 3.2 mg/dL (0.6-1.0); EST CRCL DRUG DOSING (CG) 22.5 mL/min; POTASSIUM,K 4.3 mmol/L (3.6-5.2)
[2023-03-26 16:40] LABS: AMPHETAMINES SCREEN, URINE NEGATIVE (NEGATIVE); BARBITURATE SCREEN,URINE NEGATIVE (NEGATIVE); BENZODIAZEPINES SCREEN,URINE NEGATIVE (NEGATIVE); METHADONE SCREEN, URINE NEGATIVE (NEGATIVE); METHAMPHETAMINES SCREEN, URINE NEGATIVE (NEGATIVE); OXYCODONE SCREEN,URINE PRESUMPTIVE POSITIVE (NEGATIVE); PROPOXYPHENE SCREEN,URINE NEGATIVE (NEGATIVE); THC SCREEN,URINE 50 NG/ML NEGATIVE (NEGATIVE)
[2023-03-26 16:41] LABS: APPEARANCE,URINE CLEAR (CLEAR); BILIRUBIN,URINE NEGATIVE (NEGATIVE); COLOR,URINE YELLOW (YELLOW); GLUCOSE,URINE 500 mg/dL (NEGATIVE); KETONES,URINE 40 mg/dL (NEGATIVE); LEUKOCYTE ESTERASE,URINE NEGATIVE (NEGATIVE); NITRITE,URINE NEGATIVE (NEGATIVE); OCCULT BLOOD,URINE MODERATE (NEGATIVE); PH,URINE 5.5 (5.0-8.0); PROTEIN,URINE TRACE mg/dL (NEGATIVE); UROBILINOGEN,URINE 0.2 EU/dL (0.2-1.0)
[2023-03-26 16:48] LABS: ANION GAP 30.3 mmol/L (5.0-14.0)
[2023-03-26 16:50] LABS: AMORPHOUS SEDIMENT,URINE NOT SEEN; BACTERIA,URINE NOT SEEN; EPITHELIAL CELLS,URINE RARE; MUCUS,URINE NOT SEEN; RBC,URINE 0-5 (0-5); WBC,URINE 0-5 (0-5)
== END 2023-03-26 17:03 ==
LOC: JP.ED 13:18
DX: E87.5 Hyperkalemia (principal); K92.2 Gastrointestinal hemorrhage, unspecified; N17.9 Acute kidney failure, unspecified; E10.10 Type 1 diabetes mellitus with ketoacidosis without coma; E10.22 Type 1 diabetes mellitus with diabetic chronic kidney disease; N18.30 Chronic kidney disease, stage 3 unspecified; I48.91 Unspecified atrial fibrillation; E78.00 Pure hypercholesterolemia, unspecified; I10 Essential (primary) hypertension; E10.40 Type 1 diabetes mellitus with diabetic neuropathy, unspecified; Z86.73 Personal history of transient ischemic attack (TIA), and cerebral infarction without residual deficits; Z79.4 Long term (current) use of insulin; Z79.01 Long term (current) use of anticoagulants; Z79.82 Long term (current) use of aspirin; Z79.899 Other long term (current) drug therapy; Z88.8 Allergy status to other drugs, medicaments and biological substances
CPT/HCPCS: 36415; 36430; 36680; 51702; 74176; 80048; 80053; 80305; 80307; 81001; 82009; 82803; 82947; 83605; 83735; 84703; 85025; 85610; 85730; 86140; 86850; 86900; 86901; 86920; 86922; 93005; 96361; 96374; 96375; 96376; 99285; C9113; J0612; J1170; J1815; J2405; J7030; P9016; 93010

== ENCOUNTER 2023-04-15 19:45 | Emergency (ER) | payer MEDICAID ==
[2023-04-15] MEDS ORDERED: Sodium Chloride 0.9% 10 ML Syringe FLUSH PRN (20:22)
[2023-04-15] MEDS: Sodium Chloride 0.9% 1,000 ML IV SCH ×2 (20:49→23:08)
[2023-04-15] MEDS ORDERED: Ondansetron 4 MG/2 ML SDV IVPUSH STA (21:03)
[2023-04-15 21:12] LABS: HEMATOCRIT 34.8 % (34.3-46.0); HEMOGLOBIN 11.6 g/dL (11.2-15.5); MEAN CORPUSCULAR HEMOGLOBIN 30.4 pg (31.6-35.5); MEAN CORPUSCULAR HGB CONC 33.3 g/dL (31.6-35.5); MEAN CORPUSCULAR VOLUME 91.3 fL (81.4-99.0); RED BLOOD CELL COUNT 3.81 M/uL (3.77-5.24)
[2023-04-15] MEDS ORDERED: Pantoprazole 40 MG Vial IVPUSH STA (21:22)
[2023-04-15 21:36] LABS: A/G RATIO 0.7 (1.2-2.2); ALANINE AMINOTRANSFERASE,ALT 21 U/L (12-78); ALBUMIN 3.2 g/dL (3.4-5.0); ALKALINE PHOSPHATASE 128 U/L (46-116); ASPARTATE AMNIOTRANSFERASE,AST 16 U/L (15-37); BILIRUBIN TOTAL 0.8 mg/dL (0.2-1.0); BLOOD UREA NITROGEN,BUN 22 mg/dL (7-18); C-REACTIVE PROTEIN 4.89 mg/dL (0.0-0.3); CALCIUM 8.9 mg/dL (8.5-10.1); CARBON DIOXIDE,CO2 23 mmol/L (21-32); CHLORIDE,CL 98 mmol/L (100-108); CREATININE 2.5 mg/dL (0.6-1.0); EST CRCL DRUG DOSING (CG) 31.12 mL/min; ESTIMATED GFR 25 mL/min (>60); GLUCOSE RANDOM 273 mg/dL (74-106); POTASSIUM,K 4.3 mmol/L (3.6-5.2); PROTEIN TOTAL,TP 7.6 g/dL (6.4-8.2); SODIUM,NA 136 mmol/L (140-148)
[2023-04-15 21:37] LABS: ANION GAP 19.3 mmol/L (5.0-14.0)
[2023-04-15 21:44] LABS: CORONAVIRUS COVID-19 NAA NEGATIVE (NEGATIVE); INFLUENZA A NAA NEGATIVE (NEGATIVE); INFLUENZA B NAA NEGATIVE (NEGATIVE); RESPIRATORY SYNCYTIAL VIR NAA NEGATIVE (NEGATIVE)
[2023-04-15] MEDS ORDERED: Acetaminophen 325 MG Tab PO STA (22:01)
[2023-04-15 22:03] LABS: APPEARANCE,URINE CLOUDY (CLEAR); BILIRUBIN,URINE SMALL (NEGATIVE); COLOR,URINE YELLOW (YELLOW); GLUCOSE,URINE 500 mg/dL (NEGATIVE); KETONES,URINE 15 mg/dL (NEGATIVE); LEUKOCYTE ESTERASE,URINE NEGATIVE (NEGATIVE); NITRITE,URINE NEGATIVE (NEGATIVE); OCCULT BLOOD,URINE SMALL (NEGATIVE); PH,URINE 5.5 (5.0-8.0); PROTEIN,URINE 100 mg/dL (NEGATIVE); UROBILINOGEN,URINE 0.2 EU/dL (0.2-1.0)
[2023-04-15 22:05] LABS: AMPHETAMINES SCREEN, URINE NEGATIVE (NEGATIVE); BARBITURATE SCREEN,URINE NEGATIVE (NEGATIVE); BENZODIAZEPINES SCREEN,URINE NEGATIVE (NEGATIVE); METHADONE SCREEN, URINE NEGATIVE (NEGATIVE); METHAMPHETAMINES SCREEN, URINE NEGATIVE (NEGATIVE); OXYCODONE SCREEN,URINE PRESUMPTIVE POSITIVE (NEGATIVE); PROPOXYPHENE SCREEN,URINE NEGATIVE (NEGATIVE); THC SCREEN,URINE 50 NG/ML PRESUMPTIVE POSITIVE (NEGATIVE)
[2023-04-15 22:06] LABS: EPITHELIAL CELLS,URINE MODERATE
[2023-04-15 22:07] LABS: AMORPHOUS SEDIMENT,URINE NOT SEEN; BACTERIA,URINE MANY; MUCUS,URINE RARE
[2023-04-15] MEDS ORDERED: Carvedilol 12.5 MG Tab PO STA (22:19)
[2023-04-15] MEDS ORDERED: hydrALAZINE 25 MG Tab PO ONE (22:30)
[2023-04-15] MEDS ORDERED: Sodium Chloride 0.9% 1,000 ML IV SCH (23:15)
[2023-04-15] MEDS ORDERED: Metoclopramide 10 MG/2 ML SDV IVPUSH ONE (23:18)
== END 2023-04-16 00:57 | disposition home or self-care (01) ==
LOC: JP.ED 19:45
DX: E86.0 Dehydration (principal); E10.43 Type 1 diabetes mellitus with diabetic autonomic (poly)neuropathy; K31.84 Gastroparesis; K59.00 Constipation, unspecified; E10.42 Type 1 diabetes mellitus with diabetic polyneuropathy; E78.00 Pure hypercholesterolemia, unspecified; Z86.73 Personal history of transient ischemic attack (TIA), and cerebral infarction without residual deficits; Z20.822 Contact with and (suspected) exposure to COVID-19; Z88.6 Allergy status to analgesic agent; Z88.8 Allergy status to other drugs, medicaments and biological substances; Z79.82 Long term (current) use of aspirin; Z79.01 Long term (current) use of anticoagulants; Z79.4 Long term (current) use of insulin; Z79.899 Other long term (current) drug therapy
CPT/HCPCS: 0241U; 36415; 74019; 80053; 80305; 81001; 81025; 82947; 85027; 86140; 87070; 87077; 87186; 87205; 96361; 96374; 96375; 99284; A9270; C9113; J2405; J2765; J3490; J7030

== ENCOUNTER 2023-05-17 12:23 | Emergency (ER) | payer MEDICAID ==
[2023-05-17] MEDS ORDERED: Sodium Chloride 0.9% 10 ML Syringe FLUSH PRN (12:27)
[2023-05-17] MEDS ORDERED: Sodium Chloride 0.9% 1,000 ML IV ONE (12:31)
[2023-05-17] MEDS ORDERED: Glucagon,Human Recombinant 1 MG Vial IM PRN ×3 (12:57→14:22)
[2023-05-17] MEDS ORDERED: 50% Dextrose in Water 50 ML Syringe IVPUSH PRN ×3 (12:57→14:22)
[2023-05-17] MEDS ORDERED: Insulin Lispro 100 Units/ML 3 ML Vial SUBCUT ONE ×2 (12:57→14:22)
[2023-05-17 13:18] LABS: BASOPHILS ABSOLUTE AUTO 0.04 K/uL (0.00-0.10); BASOPHILS PERCENT AUTO 0.4 % (0.1-1.3); HEMATOCRIT 40.7 % (34.3-46.0); IMMATURE GRAN ABSOLUTE AUTO 0.03 K/uL (0.00-0.23); IMMATURE GRAN PERCENT AUTO 0.3 % (0.0-0.7); LYMPHOCYTES ABSOLUTE AUTO 0.99 K/uL (0.8-3.3); LYMPHOCYTES PERCENT AUTO 9.2 % (11.4-47.7); MEAN CORPUSCULAR HEMOGLOBIN 30.2 pg (31.6-35.5); MEAN CORPUSCULAR HGB CONC 31.9 g/dL (31.6-35.5); MEAN CORPUSCULAR VOLUME 94.7 fL (81.4-99.0); MONOCYTES ABSOLUTE AUTO 0.45 K/uL (0.20-0.90); MONOCYTES PERCENT AUTO 4.2 % (3.3-12.6); NEUTROPHILS PERCENT AUTO 85.9 % (40.0-78.1); PLATELET COUNT,PLT 300 K/uL (130-375); WHITE BLOOD CELL COUNT,WBC 10.7 K/uL (3.2-11.0)
[2023-05-17 13:19] LABS: BASE EXCESS VENOUS -14.5 mm/L; BICARBONATE,VENOUS 11.7 mmol/L; CARBOXYHEMOGLOBIN 1.4 % (0.0-1.6); METHEMOGLOBIN 1.6 %; O2 SATURATION VENOUS 36.2; OXYHEMOGLOBIN 35.1 %; PCO2 VENOUS 28.8 mm/Hg; PH,VENOUS 7.231 (7.350-7.450); TOTAL HEMOGLOBIN 13.6 g/dL (12.0-16.0)
[2023-05-17 13:22] LABS: PO2 VENOUS 27.4 mm/Hg
[2023-05-17] MEDS ORDERED: Metoclopramide 10 MG/2 ML SDV IVPUSH ONE (13:34)
[2023-05-17 13:50] LABS: A/G RATIO 0.9 (1.2-2.2); ALANINE AMINOTRANSFERASE,ALT 8 U/L (12-78); ALBUMIN 3.8 g/dL (3.4-5.0); ALKALINE PHOSPHATASE 163 U/L (46-116); ASPARTATE AMNIOTRANSFERASE,AST 18 U/L (15-37); BILIRUBIN TOTAL 1.5 mg/dL (0.2-1.0); BLOOD UREA NITROGEN,BUN 36 mg/dL (7-18); CALCIUM 8.2 mg/dL (8.5-10.1); CHLORIDE,CL 83 mmol/L (100-108); EST CRCL DRUG DOSING (CG) 21.28 mL/min; ESTIMATED GFR 17 mL/min (>60); PROTEIN TOTAL,TP 8.1 g/dL (6.4-8.2); SODIUM,NA 123 mmol/L (140-148); TROPONIN I HIGH SENSITIVITY 36.9 pg/mL (<=60.3)
[2023-05-17 13:59] LABS: ANION GAP 34.1 mmol/L (5.0-14.0)
[2023-05-17 14:00] LABS: CARBON DIOXIDE,CO2 13 mmol/L (21-32); POTASSIUM,K 7.1 mmol/L (3.6-5.2)
[2023-05-17 14:01] LABS: CREATININE 3.5 mg/dL (0.6-1.0); GLUCOSE RANDOM 894 mg/dL (74-106)
[2023-05-17 14:17] LABS: MAGNESIUM 1.7 mg/dL (1.8-2.4); PHOSPHORUS 5.5 mg/dL (2.5-4.9)
[2023-05-17] MEDS: Lidocaine 1% 10 ML MDV INJECT ONE ×2 (14:38→14:41)
[2023-05-17] MEDS ORDERED: Lidocaine 1% 10 ML MDV INJECT ONE (15:01)
[2023-05-17] MEDS ORDERED: Lidocaine 1% 10 ML MDV ONE (15:01)
[2023-05-17] MEDS ORDERED: fentaNYL 50 MCG/ML SDV IVPUSH ONE (15:13)
[2023-05-18] MEDS ORDERED: Insulin Glargine,Human Rec. Analog 100 Units/ML 3 ML Pen SUBCUT SCH (09:00)
== END 2023-05-17 15:58 ==
LOC: JP.ED 12:23
DX: R11.2 Nausea with vomiting, unspecified (principal); E10.10 Type 1 diabetes mellitus with ketoacidosis without coma; E10.65 Type 1 diabetes mellitus with hyperglycemia; E87.5 Hyperkalemia; I48.91 Unspecified atrial fibrillation; I10 Essential (primary) hypertension; E78.00 Pure hypercholesterolemia, unspecified; J45.909 Unspecified asthma, uncomplicated; E10.40 Type 1 diabetes mellitus with diabetic neuropathy, unspecified; Z88.8 Allergy status to other drugs, medicaments and biological substances; Z88.6 Allergy status to analgesic agent; Z79.01 Long term (current) use of anticoagulants; Z79.82 Long term (current) use of aspirin; Z79.899 Other long term (current) drug therapy; Z79.4 Long term (current) use of insulin
CPT/HCPCS: 36415; 36680; 80053; 82803; 82947; 83605; 83735; 84100; 84484; 85025; 86140; 93005; 93010; 96361; 96374; 99285; 99285-25; J1815-GY; J3010; J3490; J7030

== ENCOUNTER 2023-07-16 02:28 | Inpatient (IN) | payer MEDICAID ==
[2023-07-16] MEDS ORDERED: 50% Dextrose in Water 50 ML Syringe IVPUSH PRN (03:12)
[2023-07-16] MEDS ORDERED: Glucagon,Human Recombinant 1 MG Vial IM PRN (03:12)
[2023-07-16] MEDS ORDERED: Insulin Lispro 100 Units/ML 3 ML Vial SUBCUT ONE (03:12)
[2023-07-16 03:19] LABS: BASOPHILS ABSOLUTE AUTO 0.04 K/uL (0.00-0.10); BASOPHILS PERCENT AUTO 0.3 % (0.1-1.3); HEMATOCRIT 33.3 % (34.3-46.0); HEMOGLOBIN 11.2 g/dL (11.2-15.5); IMMATURE GRAN ABSOLUTE AUTO 0.07 K/uL (0.00-0.23); IMMATURE GRAN PERCENT AUTO 0.6 % (0.0-0.7); LYMPHOCYTES ABSOLUTE AUTO 1.58 K/uL (0.8-3.3); MEAN CORPUSCULAR HEMOGLOBIN 30.6 pg (31.6-35.5); MEAN CORPUSCULAR HGB CONC 33.6 g/dL (31.6-35.5); MONOCYTES ABSOLUTE AUTO 0.36 K/uL (0.20-0.90); NEUTROPHILS ABSOLUTE AUTO 10.14 K/uL (1.0-7.6); NEUTROPHILS PERCENT AUTO 83.1 % (40.0-78.1); PLATELET COUNT,PLT 230 K/uL (130-375); RED BLOOD CELL COUNT 3.66 M/uL (3.77-5.24); WHITE BLOOD CELL COUNT,WBC 12.2 K/uL (3.2-11.0)
[2023-07-16] MEDS ORDERED: Lidocaine 1% 2 ML ONE (03:33)
[2023-07-16 03:45] LABS: C-REACTIVE PROTEIN 1.08 mg/dL (<0.50); CALCIUM 9.1 mg/dL (8.5-10.1); CREATININE 2.2 mg/dL (0.6-1.0); EST CRCL DRUG DOSING (CG) 35.37 mL/min; POTASSIUM,K 5.7 mmol/L (3.6-5.2)
[2023-07-16 03:46] LABS: ANION GAP 31.7 mmol/L (5.0-14.0)
[2023-07-16] MEDS ORDERED: Sodium Chloride 0.9% 1,000 ML IV ONE ×2 (03:49→04:14)
[2023-07-16] MEDS ORDERED: Ondansetron 4 MG/2 ML SDV IVPUSH ONE (04:08)
[2023-07-16] MEDS ORDERED: Naloxone 0.4 MG/ML SDV IVPUSH PRN ×2 (04:08→05:20)
[2023-07-16] MEDS ORDERED: HYDROmorphone 0.5 MG/0.5 ML Syringe IVPUSH ONE ×3 (04:08→08:35)
[2023-07-16 04:52] LABS: BASE EXCESS ARTERIAL -9.2 mm/L; BICARBONATE,ARTERIAL 15.3 mmol/L (22.0-26.0); CARBOXYHEMOGLOBIN 1.7 % (0.0-1.6); METHEMOGLOBIN 3.6 %; O2 SATURATION ARTERIAL 95.3 % (95.0-98.0); OXYHEMOGLOBIN 90.2 %; PCO2 ARTERIAL 30.1 mmHg (35.0-42.0); TOTAL HEMOGLOBIN 10.6 g/dL (12.0-16.0)
[2023-07-16] MEDS ORDERED: metroNIDAZOLE/Normal Saline 500 MG in Premix Bag 1 BAG IV ONE (04:58)
[2023-07-16] MEDS ORDERED: cefTRIAXone 2 GM in Sodium Chloride 0.9% 50 ML IV ONE (04:58)
[2023-07-16] MEDS ORDERED: hydrALAZINE 20 MG/ML SDV IVPUSH ONE (05:11)
[2023-07-16 05:26] LABS: A/G RATIO 0.8 (1.2-2.2); ALBUMIN 3.1 g/dL (3.4-5.0); BILIRUBIN DIRECT 0.2 mg/dL (0.0-0.2); BILIRUBIN INDIRECT 0.7; BILIRUBIN TOTAL 0.9 mg/dL (0.2-1.0); PROTEIN TOTAL,TP 6.9 g/dL (6.4-8.2)
[2023-07-16 06:26] LABS: CALCIUM 8.3 mg/dL (8.5-10.1); CREATININE 2.1 mg/dL (0.6-1.0); EST CRCL DRUG DOSING (CG) 37.05 mL/min; POTASSIUM,K 3.6 mmol/L (3.6-5.2)
[2023-07-16 06:29] LABS: APPEARANCE,URINE SLIGHTLY CLOUDY (CLEAR); BILIRUBIN,URINE NEGATIVE (NEGATIVE); COLOR,URINE YELLOW (YELLOW); GLUCOSE,URINE 500 mg/dL (NEGATIVE); KETONES,URINE 80 mg/dL (NEGATIVE); LEUKOCYTE ESTERASE,URINE NEGATIVE (NEGATIVE); NITRITE,URINE NEGATIVE (NEGATIVE); OCCULT BLOOD,URINE TRACE-INTACT (NEGATIVE); PH,URINE 5.5 (5.0-8.0); PROTEIN,URINE 100 mg/dL (NEGATIVE); UROBILINOGEN,URINE 0.2 EU/dL (0.2-1.0)
[2023-07-16 06:35] LABS: ANION GAP 24.6 mmol/L (5.0-14.0)
[2023-07-16 06:37] LABS: AMORPHOUS SEDIMENT,URINE RARE; BACTERIA,URINE MODERATE; EPITHELIAL CELLS,URINE RARE; MUCUS,URINE NOT SEEN; RBC,URINE 0-5 (0-5); WBC,URINE 0-5 (0-5)
[2023-07-16] MEDS ORDERED: metroNIDAZOLE/Normal Saline 100 ML ONE (07:02)
[2023-07-16] MEDS ORDERED: HYDROmorphone 1 MG/ML Syringe IVPUSH PRN (09:23)
[2023-07-16] MEDS ORDERED: Ondansetron 4 MG Tab.DIS PO PRN (09:23)
[2023-07-16] MEDS ORDERED: Insulin Regular in 0.9 % NACL 100 ML IV SCH ×2 (09:23→09:55)
[2023-07-16] MEDS ORDERED: Sertraline 50 MG Tab PO SCH (09:23)
[2023-07-16] MEDS ORDERED: Piperacillin/Tazobactam 2.25 GM in Sodium Chloride 0.9% 50 ML IV SCH (10:00)
[2023-07-16 10:32] LABS: CALCIUM 8.6 mg/dL (8.5-10.1); CREATININE 2.2 mg/dL (0.6-1.0); EST CRCL DRUG DOSING (CG) 35.37 mL/min; POTASSIUM,K 3.3 mmol/L (3.6-5.2)
[2023-07-16 10:33] LABS: ANION GAP 15.3 mmol/L (5.0-14.0)
[2023-07-16] MEDS: Piperacillin/Tazobactam/Dext 2.25 GM in Premix Bag 1 BAG IV SCH ×3 (10:35→23:20)
[2023-07-16] MEDS: hydrALAZINE 25 MG Tab PO SCH ×3 (10:38→21:47)
[2023-07-16] MEDS: Aspirin 81 MG Tab.EC PO SCH (10:38)
[2023-07-16] MEDS: Gabapentin 300 MG Cap PO SCH (10:39)
[2023-07-16] MEDS: Carvedilol 12.5 MG Tab PO SCH ×2 (10:39→21:46)
[2023-07-16] MEDS: Pantoprazole 40 MG Vial IV SCH ×2 (10:45→21:47)
[2023-07-16] MEDS: HYDROmorphone 0.5 MG/0.5 ML Syringe IVPUSH PRN ×3 (12:13→22:18)
[2023-07-16] MEDS: Potassium Chloride 10 MEQ in Premix Bag 1 BAG IV SCH ×2 (12:30→14:01)
[2023-07-16 12:52] LABS: CORONAVIRUS COVID-19 NAA NEGATIVE (NEGATIVE); INFLUENZA A NAA NEGATIVE (NEGATIVE); INFLUENZA B NAA NEGATIVE (NEGATIVE); RESPIRATORY SYNCYTIAL VIR NAA NEGATIVE (NEGATIVE)
[2023-07-16] MEDS: Amylase/Lipase/Protease 12,000 Unit Cap.CR PO SCH (16:14)
[2023-07-16] MEDS ORDERED: Amylase/Lipase/Protease 12,000 Unit Cap.CR PO ONE (16:30)
[2023-07-16] MEDS: Sodium Chloride 0.9% 1,000 ML IV SCH (16:44)
[2023-07-16] MEDS: Insulin Lispro 100 Unit/ML 3 ML KwikPen SUBCUT SCH ×3 (17:13→22:06)
[2023-07-16] MEDS: oxyCODONE 5 MG Tab PO PRN (18:30)
[2023-07-16] MEDS ORDERED: Insulin Glargine,Human Rec. Analog 100 Units/ML 3 ML Pen SUBCUT SCH (21:00)
[2023-07-16] MEDS: Lactobacillus Rhamnosus GG (Probiotic) Cap PO SCH (21:46)
[2023-07-16] MEDS: atorvaSTATin 20 MG Tab PO SCH (21:47)
[2023-07-16] MEDS: Acetaminophen 325 MG Tab PO PRN (22:09)
[2023-07-16] MEDS: Ondansetron 4 MG/2 ML SDV IV PRN (22:18)
[2023-07-17] MEDS: Sodium Chloride 0.9% 1,000 ML IV SCH ×2 (01:28→09:05)
[2023-07-17] MEDS: HYDROmorphone 0.5 MG/0.5 ML Syringe IVPUSH PRN ×8 (03:19→20:09)
[2023-07-17] MEDS: Piperacillin/Tazobactam/Dext 2.25 GM in Premix Bag 1 BAG IV SCH ×4 (03:26→21:24)
[2023-07-17 05:17] LABS: HEMATOCRIT 26.5 % (34.3-46.0); HEMOGLOBIN 8.7 g/dL (11.2-15.5); MEAN CORPUSCULAR HEMOGLOBIN 30.4 pg (31.6-35.5); MEAN CORPUSCULAR HGB CONC 32.8 g/dL (31.6-35.5); MEAN CORPUSCULAR VOLUME 92.7 fL (81.4-99.0); RED BLOOD CELL COUNT 2.86 M/uL (3.77-5.24)
[2023-07-17 05:49] LABS: INR 1.3; PROTHROMBIN TIME 12.9 sec (9.2-10.6)
[2023-07-17 06:18] LABS: A/G RATIO 0.7 (1.2-2.2); ALANINE AMINOTRANSFERASE,ALT 14 U/L (12-78); ALBUMIN 2.3 g/dL (3.4-5.0); ALKALINE PHOSPHATASE 78 U/L (46-116); ASPARTATE AMNIOTRANSFERASE,AST 18 U/L (15-37); BILIRUBIN TOTAL 0.7 mg/dL (0.2-1.0); BLOOD UREA NITROGEN,BUN 16 mg/dL (7-18); CALCIUM 7.9 mg/dL (8.5-10.1); CARBON DIOXIDE,CO2 20 mmol/L (21-32); CHLORIDE,CL 104 mmol/L (100-108); EST CRCL DRUG DOSING (CG) 38.91 mL/min; ESTIMATED GFR 33 mL/min (>60); GLUCOSE RANDOM 347 mg/dL (74-106); POTASSIUM,K 3.8 mmol/L (3.6-5.2); PROTEIN TOTAL,TP 5.4 g/dL (6.4-8.2); SODIUM,NA 136 mmol/L (140-148); VANCOMYCIN RANDOM 23.5 ug/mL (0.0-50.0)
[2023-07-17 06:19] LABS: ANION GAP 15.8 mmol/L (5.0-14.0)
[2023-07-17 06:28] LABS: MAGNESIUM 1.3 mg/dL (1.8-2.4); PHOSPHORUS 2.4 mg/dL (2.5-4.9)
[2023-07-17] MEDS ORDERED: Bupivacaine 0.5% 50 ML MDV ONE (06:44)
[2023-07-17] MEDS ORDERED: Bupivacaine 0.5%/EPINEPHrine 1:200,000 50 ML MDV ONE (06:45)
[2023-07-17] MEDS ORDERED: Lidocaine 1% with EPINEPHrine 1:100,000 50 ML MDV ONE (06:45)
[2023-07-17] MEDS: Ondansetron 4 MG/2 ML SDV IV PRN (07:32)
[2023-07-17] MEDS: Carvedilol 12.5 MG Tab PO SCH ×3 (07:36→21:24)
[2023-07-17] MEDS: hydrALAZINE 25 MG Tab PO SCH ×5 (07:37→21:22)
[2023-07-17] MEDS: Insulin Lispro 100 Unit/ML 3 ML KwikPen SUBCUT SCH ×5 (07:39→16:23)
[2023-07-17] MEDS ORDERED: fentaNYL 100 MCG/2 ML SDV ONE (07:43)
[2023-07-17] MEDS ORDERED: Propofol 200 MG/20 ML SDV ONE (07:43)
[2023-07-17] MEDS ORDERED: Midazolam 1 MG/ML 2 ML SDV ONE (07:43)
[2023-07-17] MEDS ORDERED: Sodium Phosphate 15 mMole/5 ML SDV IV ONE (07:46)
[2023-07-17] MEDS: Amylase/Lipase/Protease 12,000 Unit Cap.CR PO SCH ×4 (08:05→17:19)
[2023-07-17] MEDS ORDERED: Sertraline 50 MG Tab PO SCH (09:00)
[2023-07-17] MEDS ORDERED: Magnesium Sulfate/Water 2 GM in Premix Bag 1 BAG IV ONE ×3 (09:00→12:15)
[2023-07-17] MEDS ORDERED: Sodium Phosphate 30 MMOLE in Sodium Chloride 0.9% 250 ML IV ONE (09:00)
[2023-07-17] MEDS ORDERED: Sodium Chloride 0.9% 1,000 ML IV SCH ×2 (10:05→17:00)
[2023-07-17] MEDS ORDERED: Bumetanide 1 MG/4 ML MDV IVPUSH ONE (10:30)
[2023-07-17] MEDS ORDERED: 50% Dextrose in Water 50 ML Syringe IVPUSH PRN (12:32)
[2023-07-17] MEDS ORDERED: Glucagon,Human Recombinant 1 MG Vial IM PRN (12:32)
[2023-07-17] MEDS ORDERED: Insulin Lispro 100 Unit/ML 3 ML KwikPen SUBCUT ONE (12:45)
[2023-07-17] MEDS: Lactobacillus Rhamnosus GG (Probiotic) Cap PO SCH ×2 (14:24→21:22)
[2023-07-17 15:13] LABS: HEMATOCRIT 29.1 % (34.3-46.0); HEMOGLOBIN 9.7 g/dL (11.2-15.5); MEAN CORPUSCULAR HEMOGLOBIN 30.5 pg (31.6-35.5); MEAN CORPUSCULAR HGB CONC 33.3 g/dL (31.6-35.5); MEAN CORPUSCULAR VOLUME 91.5 fL (81.4-99.0); RED BLOOD CELL COUNT 3.18 M/uL (3.77-5.24); WHITE BLOOD CELL COUNT,WBC 9.6 K/uL (3.2-11.0)
[2023-07-17 15:36] LABS: CALCIUM 7.6 mg/dL (8.5-10.1); CREATININE 1.9 mg/dL (0.6-1.0); EST CRCL DRUG DOSING (CG) 40.95 mL/min; MAGNESIUM 2.3 mg/dL (1.8-2.4); PHOSPHORUS 4.1 mg/dL (2.5-4.9); POTASSIUM,K 3.6 mmol/L (3.6-5.2)
[2023-07-17 15:38] LABS: ANION GAP 15.6 mmol/L (5.0-14.0)
[2023-07-17] MEDS ORDERED: Insulin Regular in 0.9 % NACL 100 ML IV SCH (17:00)
[2023-07-17] MEDS: Aspirin 81 MG Tab.EC PO SCH (17:20)
[2023-07-17] MEDS: Gabapentin 300 MG Cap PO SCH (17:21)
[2023-07-17] MEDS: Sertraline 25 MG Tab PO SCH (17:21)
[2023-07-17] MEDS: Pantoprazole 40 MG Tab.CR PO SCH (17:22)
[2023-07-17] MEDS ORDERED: Potassium Chloride 20 MEQ Tab.ER PO ONE (17:30)
[2023-07-17] MEDS: oxyCODONE 5 MG Tab PO PRN (17:31)
[2023-07-17] MEDS: Acetaminophen 325 MG Tab PO PRN (17:31)
[2023-07-17] MEDS ORDERED: Insulin Glargine,Human Rec. Analog 100 Units/ML 3 ML Pen SUBCUT SCH (21:00)
[2023-07-17] MEDS: atorvaSTATin 20 MG Tab PO SCH (21:23)
[2023-07-18] MEDS: HYDROmorphone 0.5 MG/0.5 ML Syringe IVPUSH PRN ×6 (00:02→21:46)
[2023-07-18] MEDS: Piperacillin/Tazobactam/Dext 2.25 GM in Premix Bag 1 BAG IV SCH ×4 (03:35→21:48)
[2023-07-18] MEDS: Dextrose 5%-0.9% NaCl 1,000 ML IV SCH ×2 (03:40→12:29)
[2023-07-18 04:18] LABS: HEMATOCRIT 26.1 % (34.3-46.0); HEMOGLOBIN 8.6 g/dL (11.2-15.5); MEAN CORPUSCULAR VOLUME 90.9 fL (81.4-99.0); RED BLOOD CELL COUNT 2.87 M/uL (3.77-5.24); WHITE BLOOD CELL COUNT,WBC 5.7 K/uL (3.2-11.0)
[2023-07-18] MEDS: hydrALAZINE 25 MG Tab PO SCH ×4 (06:19→20:59)
[2023-07-18] MEDS ORDERED: Lidocaine 1% with EPINEPHrine 1:100,000 50 ML MDV ONE (07:23)
[2023-07-18] MEDS ORDERED: Bupivacaine 0.5% 50 ML MDV ONE (07:23)
[2023-07-18] MEDS ORDERED: Bupivacaine 0.5%/EPINEPHrine 1:200,000 50 ML MDV ONE (07:23)
[2023-07-18] MEDS ORDERED: Propofol 200 MG/20 ML SDV ONE ×3 (07:57→09:59)
[2023-07-18] MEDS ORDERED: fentaNYL 100 MCG/2 ML SDV ONE (07:57)
[2023-07-18] MEDS ORDERED: Midazolam 1 MG/ML 2 ML SDV ONE (07:58)
[2023-07-18] MEDS: Carvedilol 12.5 MG Tab PO SCH ×2 (08:27→20:46)
[2023-07-18] MEDS: Amylase/Lipase/Protease 12,000 Unit Cap.CR PO SCH ×3 (08:35→15:46)
[2023-07-18] MEDS: Pantoprazole 40 MG Tab.CR PO SCH ×2 (08:36→15:47)
[2023-07-18] MEDS: Sertraline 25 MG Tab PO SCH (11:16)
[2023-07-18] MEDS: Lactobacillus Rhamnosus GG (Probiotic) Cap PO SCH ×2 (11:16→20:46)
[2023-07-18] MEDS: Gabapentin 300 MG Cap PO SCH (11:16)
[2023-07-18] MEDS: Aspirin 81 MG Tab.EC PO SCH (11:16)
[2023-07-18] MEDS ORDERED: Bumetanide 1 MG Tab PO ONE (13:30)
[2023-07-18 15:30] LABS: CALCIUM 7.3 mg/dL (8.5-10.1); EST CRCL DRUG DOSING (CG) 38.91 mL/min; POTASSIUM,K 3.1 mmol/L (3.6-5.2)
[2023-07-18 15:36] LABS: ANION GAP 10.1 mmol/L (5.0-14.0)
[2023-07-18] MEDS: oxyCODONE 5 MG Tab PO PRN ×2 (15:53→21:02)
[2023-07-18] MEDS ORDERED: Potassium Chloride 20 MEQ Tab.ER PO ONE (16:26)
[2023-07-18] MEDS: Insulin Lispro 100 Unit/ML 3 ML KwikPen SUBCUT SCH ×3 (16:57→20:51)
[2023-07-18] MEDS ORDERED: Sodium Chloride 0.9% 1,000 ML IV SCH (17:00)
[2023-07-18] MEDS: Acetaminophen 325 MG Tab PO PRN (17:39)
[2023-07-18] MEDS: levETIRAcetam 250 MG Tab PO SCH (20:45)
[2023-07-18] MEDS: atorvaSTATin 20 MG Tab PO SCH (20:46)
[2023-07-18] MEDS: Insulin Glargine,Human Rec. Analog 100 Units/ML 3 ML Pen SUBCUT SCH (20:50)
[2023-07-19] MEDS: Piperacillin/Tazobactam/Dext 2.25 GM in Premix Bag 1 BAG IV SCH (03:27)
[2023-07-19 04:32] LABS: HEMATOCRIT 25.9 % (34.3-46.0); HEMOGLOBIN 8.4 g/dL (11.2-15.5); MEAN CORPUSCULAR HEMOGLOBIN 30.4 pg (31.6-35.5); MEAN CORPUSCULAR HGB CONC 32.4 g/dL (31.6-35.5); MEAN CORPUSCULAR VOLUME 93.8 fL (81.4-99.0); RED BLOOD CELL COUNT 2.76 M/uL (3.77-5.24); WHITE BLOOD CELL COUNT,WBC 7.1 K/uL (3.2-11.0)
[2023-07-19] MEDS: hydrALAZINE 25 MG Tab PO SCH ×4 (05:05→21:31)
[2023-07-19] MEDS: oxyCODONE 5 MG Tab PO PRN (05:05)
[2023-07-19] MEDS: HYDROmorphone 0.5 MG/0.5 ML Syringe IVPUSH PRN ×2 (06:09→08:31)
[2023-07-19] MEDS: Insulin Lispro 100 Unit/ML 3 ML KwikPen SUBCUT SCH ×7 (07:38→21:27)
[2023-07-19] MEDS: Pantoprazole 40 MG Tab.CR PO SCH ×2 (07:40→16:49)
[2023-07-19] MEDS: Amylase/Lipase/Protease 12,000 Unit Cap.CR PO SCH ×3 (07:41→16:03)
[2023-07-19] MEDS: levETIRAcetam 250 MG Tab PO SCH ×2 (08:41→21:26)
[2023-07-19] MEDS: Sertraline 25 MG Tab PO SCH (08:41)
[2023-07-19] MEDS: Lactobacillus Rhamnosus GG (Probiotic) Cap PO SCH ×2 (08:41→21:26)
[2023-07-19] MEDS: Gabapentin 300 MG Cap PO SCH (08:41)
[2023-07-19] MEDS: Carvedilol 12.5 MG Tab PO SCH ×2 (08:41→21:29)
[2023-07-19] MEDS: Aspirin 81 MG Tab.EC PO SCH (08:42)
[2023-07-19] MEDS: HYDROmorphone 2 MG Tab PO PRN ×3 (13:40→20:35)
[2023-07-19] MEDS: Enoxaparin 30 MG/0.3 ML Syringe SUBCUT SCH (13:41)
[2023-07-19] MEDS: atorvaSTATin 20 MG Tab PO SCH (21:26)
[2023-07-19] MEDS: Insulin Glargine,Human Rec. Analog 100 Units/ML 3 ML Pen SUBCUT SCH (21:29)
[2023-07-20] MEDS: HYDROmorphone 2 MG Tab PO PRN ×7 (00:06→19:20)
[2023-07-20] MEDS: hydrALAZINE 25 MG Tab PO SCH ×4 (06:20→21:40)
[2023-07-20] MEDS: levETIRAcetam 250 MG Tab PO SCH ×2 (08:07→21:38)
[2023-07-20] MEDS: Insulin Lispro 100 Unit/ML 3 ML KwikPen SUBCUT SCH ×8 (08:07→21:35)
[2023-07-20] MEDS: Aspirin 81 MG Tab.EC PO SCH (08:07)
[2023-07-20] MEDS: Sertraline 25 MG Tab PO SCH (08:08)
[2023-07-20] MEDS: Amylase/Lipase/Protease 12,000 Unit Cap.CR PO SCH ×4 (08:08→19:40)
[2023-07-20] MEDS: Lactobacillus Rhamnosus GG (Probiotic) Cap PO SCH ×2 (08:08→21:38)
[2023-07-20] MEDS: Pantoprazole 40 MG Tab.CR PO SCH ×2 (08:08→16:02)
[2023-07-20] MEDS: Gabapentin 300 MG Cap PO SCH (08:08)
[2023-07-20] MEDS: Carvedilol 12.5 MG Tab PO SCH ×2 (08:08→21:36)
[2023-07-20 08:59] LABS: ANION GAP 9.2 mmol/L (5.0-14.0); CALCIUM 7.4 mg/dL (8.5-10.1); CREATININE 1.7 mg/dL (0.6-1.0); EST CRCL DRUG DOSING (CG) 45.77 mL/min; POTASSIUM,K 3.2 mmol/L (3.6-5.2); VANCOMYCIN RANDOM 27.5 ug/mL (0.0-50.0)
[2023-07-20] MEDS: Enoxaparin 30 MG/0.3 ML Syringe SUBCUT SCH (13:01)
[2023-07-20] MEDS ORDERED: cefTRIAXone 1 GM in Sodium Chloride 0.9% 50 ML IV SCH (17:00)
[2023-07-20] MEDS ORDERED: Potassium Chloride 20 MEQ Tab.ER PO ONE ×2 (17:00→21:00)
[2023-07-20] MEDS: Acetaminophen 325 MG Tab PO PRN (21:32)
[2023-07-20] MEDS: Insulin Glargine,Human Rec. Analog 100 Units/ML 3 ML Pen SUBCUT SCH (21:38)
[2023-07-20] MEDS: atorvaSTATin 20 MG Tab PO SCH (21:39)
[2023-07-20] MEDS: HYDROmorphone 0.5 MG/0.5 ML Syringe IVPUSH PRN (21:50)
[2023-07-20] MEDS ORDERED: Melatonin 3 MG Tab PO SCH (22:19)
[2023-07-21] MEDS: HYDROmorphone 2 MG Tab PO PRN ×3 (04:35→14:35)
[2023-07-21] MEDS: hydrALAZINE 25 MG Tab PO SCH ×2 (05:15→09:02)
[2023-07-21] MEDS: Lactobacillus Rhamnosus GG (Probiotic) Cap PO SCH (09:01)
[2023-07-21] MEDS: Amylase/Lipase/Protease 12,000 Unit Cap.CR PO SCH ×2 (09:01→11:18)
[2023-07-21] MEDS: levETIRAcetam 250 MG Tab PO SCH (09:01)
[2023-07-21] MEDS: Pantoprazole 40 MG Tab.CR PO SCH (09:01)
[2023-07-21] MEDS: Aspirin 81 MG Tab.EC PO SCH (09:01)
[2023-07-21] MEDS: Carvedilol 12.5 MG Tab PO SCH (09:02)
[2023-07-21] MEDS: Gabapentin 300 MG Cap PO SCH (09:02)
[2023-07-21] MEDS: Sertraline 25 MG Tab PO SCH (09:02)
[2023-07-21] MEDS: Insulin Lispro 100 Unit/ML 3 ML KwikPen SUBCUT SCH ×4 (11:16→12:43)
[2023-07-21] MEDS: Enoxaparin 30 MG/0.3 ML Syringe SUBCUT SCH (15:02)
[2023-07-21] MEDS: Acetaminophen 325 MG Tab PO PRN (16:28)
[2023-07-21] MEDS ORDERED: Melatonin 3 MG Tab PO SCH (21:00)
== END 2023-07-21 16:40 | disposition home or self-care (01) | DRG 757 ==
LOC: JP.ED 02:28 → JP.ICU 08:13 → JP.MS 07-19 14:46
PROVIDERS: ADMIT Internal Medicine; ATTEND Hospitalist
PROC: 0J9M0ZZ Drainage of Left Upper Leg Subcutaneous Tissue and Fascia, Open Approach (ICD-10-PCS; principal; 2023-07-18 08:00)
DX: N73.9 Female pelvic inflammatory disease, unspecified (principal); E10.10 Type 1 diabetes mellitus with ketoacidosis without coma; L03.315 Cellulitis of perineum; L03.314 Cellulitis of groin; E10.22 Type 1 diabetes mellitus with diabetic chronic kidney disease; N18.32 Chronic kidney disease, stage 3b; A08.4 Viral intestinal infection, unspecified; F41.9 Anxiety disorder, unspecified; F32.A Depression, unspecified; E10.42 Type 1 diabetes mellitus with diabetic polyneuropathy; F17.210 Nicotine dependence, cigarettes, uncomplicated; E83.42 Hypomagnesemia; E83.39 Other disorders of phosphorus metabolism; E87.6 Hypokalemia; E86.0 Dehydration; I12.9 Hypertensive chronic kidney disease with stage 1 through stage 4 chronic kidney disease, or unspecified chronic kidney disease; E78.00 Pure hypercholesterolemia, unspecified; I48.91 Unspecified atrial fibrillation; J45.909 Unspecified asthma, uncomplicated; K21.9 Gastro-esophageal reflux disease without esophagitis; Z91.148 Patient's other noncompliance with medication regimen for other reason; Z79.4 Long term (current) use of insulin; Z98.890 Other specified postprocedural states; Z79.82 Long term (current) use of aspirin; Z79.899 Other long term (current) drug therapy; Z88.8 Allergy status to other drugs, medicaments and biological substances; Z86.73 Personal history of transient ischemic attack (TIA), and cerebral infarction without residual deficits; Z79.01 Long term (current) use of anticoagulants
CPT/HCPCS: 0241U; 36415; 36600; 71250; 74176; 76000; 80048; 80053; 80076; 80202; 81001; 82009; 82803; 82947; 83036; 83605; 83690; 83735; 84100; 84132; 84702; 85025; 85027; 85049; 85610; 86140; 86850; 86900; 86901; 87040; 87070; 87075; 87077; 87186; 87205; 93005; 93010; 96365; 96375; 96376; 99222; 99232; 99238; 99285; 99285-25; A9270-GY; C1751; C9113; J0360; J0696; J1170; J1642; J1650; J1815; J1815-GY; J1836; J2250; J2405; J2543; J2704; J3010; J3370; J3475; J3480; J3490; J7030; J7050

== ENCOUNTER 2023-09-11 13:14 | Inpatient (IN) | payer MEDICAID ==
[2023-09-11] MEDS ORDERED: Sodium Chloride 0.9% 80 ML IV SCH (14:45)
[2023-09-11 14:56] LABS: BASOPHILS ABSOLUTE AUTO 0.04 K/uL (0.00-0.10); BASOPHILS PERCENT AUTO 0.4 % (0.1-1.3); EOSINOPHILS ABSOLUTE AUTO 0.09 K/uL (0.00-0.40); EOSINOPHILS PERCENT AUTO 0.9 % (0.0-5.4); HEMATOCRIT 30.8 % (34.3-46.0); HEMOGLOBIN 10.7 g/dL (11.2-15.5); IMMATURE GRAN ABSOLUTE AUTO 0.03 K/uL (0.00-0.23); IMMATURE GRAN PERCENT AUTO 0.3 % (0.0-0.7); LYMPHOCYTES ABSOLUTE AUTO 2.43 K/uL (0.8-3.3); LYMPHOCYTES PERCENT AUTO 25.3 % (11.4-47.7); MEAN CORPUSCULAR HEMOGLOBIN 30.1 pg (31.6-35.5); MEAN CORPUSCULAR HGB CONC 34.7 g/dL (31.6-35.5); MEAN CORPUSCULAR VOLUME 86.8 fL (81.4-99.0); MONOCYTES ABSOLUTE AUTO 0.72 K/uL (0.20-0.90); MONOCYTES PERCENT AUTO 7.5 % (3.3-12.6); NEUTROPHILS PERCENT AUTO 65.6 % (40.0-78.1); PLATELET COUNT,PLT 204 K/uL (130-375); RED BLOOD CELL COUNT 3.55 M/uL (3.77-5.24); WHITE BLOOD CELL COUNT,WBC 9.6 K/uL (3.2-11.0)
[2023-09-11 14:57] LABS: BASE EXCESS ARTERIAL 2.8 mm/L; BICARBONATE,ARTERIAL 26.3 mmol/L (22.0-26.0); CARBOXYHEMOGLOBIN 1.8 % (0.0-1.6); METHEMOGLOBIN 2.6 %; O2 SATURATION ARTERIAL 97.5 % (95.0-98.0); OXYHEMOGLOBIN 93.2 %; PCO2 ARTERIAL 38.2 mmHg (35.0-42.0); TOTAL HEMOGLOBIN 11.2 g/dL (12.0-16.0)
[2023-09-11 15:14] LABS: CORONAVIRUS COVID-19 NAA NEGATIVE (NEGATIVE); INFLUENZA A NAA NEGATIVE (NEGATIVE); INFLUENZA B NAA NEGATIVE (NEGATIVE); RESPIRATORY SYNCYTIAL VIR NAA NEGATIVE (NEGATIVE)
[2023-09-11 15:27] LABS: ALBUMIN 3.3 g/dL (3.4-5.0); BLOOD UREA NITROGEN,BUN 14 mg/dL (7-18); CALCIUM 8.8 mg/dL (8.5-10.1); CARBON DIOXIDE,CO2 27 mmol/L (21-32); CHLORIDE,CL 102 mmol/L (100-108); CREATININE 1.9 mg/dL (0.6-1.0); EST CRCL DRUG DOSING (CG) 40.95 mL/min; ESTIMATED GFR 35 mL/min (>60); GLUCOSE RANDOM 107 mg/dL (74-106); MAGNESIUM 1.4 mg/dL (1.8-2.4); SODIUM,NA 142 mmol/L (140-148)
[2023-09-11] MEDS: Ondansetron 4 MG Tab.DIS PO ONE (15:29)
[2023-09-11 15:44] LABS: ANION GAP 15.9 mmol/L (5.0-14.0)
[2023-09-11 15:45] LABS: A/G RATIO 0.8 (1.2-2.2); ALANINE AMINOTRANSFERASE,ALT 56 U/L (12-78); ALKALINE PHOSPHATASE 124 U/L (46-116); ASPARTATE AMNIOTRANSFERASE,AST 56 U/L (15-37); BILIRUBIN TOTAL 0.7 mg/dL (0.2-1.0); PHOSPHORUS 3.1 mg/dL (2.5-4.9); PROTEIN TOTAL,TP 7.3 g/dL (6.4-8.2)
[2023-09-11 15:47] LABS: POTASSIUM,K 2.9 mmol/L (3.6-5.2)
[2023-09-11] MEDS: fentaNYL 100 MCG/2 ML SDV IVPUSH ONE (16:33)
[2023-09-11] MEDS: Sodium Chloride 0.9% 1,000 ML IV SCH (16:34)
[2023-09-11] MEDS: droPERidol 5 MG/2 ML SDV IVPUSH ONE (16:34)
[2023-09-11] MEDS: Ondansetron 4 MG/2 ML SDV IVPUSH ONE ×2 (18:23→21:12)
[2023-09-11 18:24] LABS: APPEARANCE,URINE SLIGHTLY CLOUDY (CLEAR); BILIRUBIN,URINE NEGATIVE (NEGATIVE); COLOR,URINE YELLOW (YELLOW); GLUCOSE,URINE 500 mg/dL (NEGATIVE); KETONES,URINE NEGATIVE (NEGATIVE); LEUKOCYTE ESTERASE,URINE NEGATIVE (NEGATIVE); NITRITE,URINE NEGATIVE (NEGATIVE); OCCULT BLOOD,URINE SMALL (NEGATIVE); PROTEIN,URINE 100 mg/dL (NEGATIVE); UROBILINOGEN,URINE 0.2 EU/dL (0.2-1.0)
[2023-09-11] MEDS: Ketorolac 15 MG/ML SDV IVPUSH ONE (18:24)
[2023-09-11] MEDS: Sodium Chloride 0.9% 10 ML Syringe FLUSH PRN (18:24)
[2023-09-11 18:32] LABS: AMORPHOUS SEDIMENT,URINE NOT SEEN; BACTERIA,URINE MODERATE; EPITHELIAL CELLS,URINE MODERATE; MUCUS,URINE FEW
[2023-09-11] MEDS: Potassium Chloride 20 MEQ in Premix Bag 1 BAG IV ONE ×3 (18:53→23:21)
[2023-09-11] MEDS: cefTRIAXone 1 GM in Sodium Chloride 0.9% 50 ML IV SCH (18:58)
[2023-09-11] MEDS ORDERED: Naloxone 0.4 MG/ML SDV IVPUSH PRN (19:24)
[2023-09-11] MEDS: HYDROmorphone 1 MG/ML Syringe IVPUSH ONE (19:33)
[2023-09-11] MEDS ORDERED: Docusate Sodium 100 MG Cap PO PRN (20:04)
[2023-09-11] MEDS ORDERED: Bisacodyl 5 MG Tab PO PRN (20:04)
[2023-09-11] MEDS ORDERED: Glucagon,Human Recombinant 1 MG Vial IM PRN (20:04)
[2023-09-11] MEDS ORDERED: Albuterol 0.083% 2.5 MG/3 ML Neb Soln NEB PRN (20:04)
[2023-09-11] MEDS ORDERED: 50% Dextrose in Water 50 ML Syringe IVPUSH PRN (20:04)
[2023-09-11] MEDS ORDERED: Acetaminophen 325 MG Tab PO PRN (20:04)
[2023-09-11] MEDS ORDERED: Metoclopramide 10 MG Tab PO PRN (20:04)
[2023-09-11] MEDS ORDERED: Amylase/Lipase/Protease 12,000 Unit Cap.CR PO SCH (21:00)
[2023-09-11] MEDS: Pregabalin 50 MG Cap PO SCH (21:13)
[2023-09-11] MEDS: Iopamidol 612 MG/ML 100 ML Bottle IV ONE (21:13)
[2023-09-11] MEDS: Magnesium Oxide 400 MG Tab PO SCH ×2 (21:13)
[2023-09-11] MEDS: Amylase/Lipase/Protease 12,000 Unit Cap.CR PO SCH (21:13)
[2023-09-11] MEDS: atorvaSTATin 20 MG Tab PO SCH (21:13)
[2023-09-11] MEDS: oxyCODONE 5 MG Tab PO SCH (21:14)
[2023-09-11] MEDS: Pantoprazole 40 MG Vial IV SCH (21:26)
[2023-09-11] MEDS: Carvedilol 12.5 MG Tab PO SCH (21:26)
[2023-09-11] MEDS: oxyCODONE 5 MG Tab PO PRN (21:37)
[2023-09-11] MEDS: Melatonin 3 MG Tab PO SCH (21:38)
[2023-09-11] MEDS: Insulin Lispro 100 Unit/ML 3 ML KwikPen SUBCUT ONE (22:31)
[2023-09-11] MEDS: Insulin Glargine,Human Rec. Analog 100 Units/ML 3 ML Pen SUBCUT SCH (22:31)
[2023-09-11] MEDS: Potassium Chloride 100 ML ONE (23:59)
[2023-09-12] MEDS: Insulin Lispro 100 Unit/ML 3 ML KwikPen SUBCUT SCH ×3 (00:22→09:04)
[2023-09-12] MEDS: HYDROmorphone 1 MG/ML Syringe IVPUSH PRN (01:03)
[2023-09-12 07:10] LABS: BASOPHILS ABSOLUTE AUTO 0.03 K/uL (0.00-0.10); BASOPHILS PERCENT AUTO 0.4 % (0.1-1.3); EOSINOPHILS ABSOLUTE AUTO 0.08 K/uL (0.00-0.40); EOSINOPHILS PERCENT AUTO 1.2 % (0.0-5.4); HEMATOCRIT 25.5 % (34.3-46.0); HEMOGLOBIN 8.8 g/dL (11.2-15.5); IMMATURE GRAN PERCENT AUTO 0.3 % (0.0-0.7); LYMPHOCYTES ABSOLUTE AUTO 2.04 K/uL (0.8-3.3); LYMPHOCYTES PERCENT AUTO 29.8 % (11.4-47.7); MEAN CORPUSCULAR HEMOGLOBIN 30.4 pg (31.6-35.5); MEAN CORPUSCULAR HGB CONC 34.5 g/dL (31.6-35.5); MEAN CORPUSCULAR VOLUME 88.2 fL (81.4-99.0); MONOCYTES ABSOLUTE AUTO 0.36 K/uL (0.20-0.90); MONOCYTES PERCENT AUTO 5.3 % (3.3-12.6); NEUTROPHILS ABSOLUTE AUTO 4.32 K/uL (1.0-7.6); PLATELET COUNT,PLT 160 K/uL (130-375); RED BLOOD CELL COUNT 2.89 M/uL (3.77-5.24); WHITE BLOOD CELL COUNT,WBC 6.9 K/uL (3.2-11.0)
[2023-09-12 07:13] LABS: IMMATURE GRAN ABSOLUTE AUTO 0.02 K/uL (0.00-0.23)
[2023-09-12 07:23] LABS: ANION GAP 7.5 mmol/L (5.0-14.0); CALCIUM 7.5 mg/dL (8.5-10.1); CREATININE 2.1 mg/dL (0.6-1.0); EST CRCL DRUG DOSING (CG) 37.05 mL/min; MAGNESIUM 1.1 mg/dL (1.8-2.4); POTASSIUM,K 3.6 mmol/L (3.6-5.2)
[2023-09-12] MEDS: Ondansetron 4 MG Tab.DIS PO PRN (08:40)
[2023-09-12] MEDS: Potassium Chloride 10 MEQ in Premix Bag 1 BAG IV SCH (08:58)
[2023-09-12] MEDS: Magnesium Sulfate/Water 2 GM in Premix Bag 1 BAG IV SCH (08:58)
[2023-09-12] MEDS: LORazepam 2 MG/ML SDV IV PRN (09:22)
[2023-09-12] MEDS: Polyethylene Glycol 3350 Powder 17 GM Packet PO SCH (10:05)
[2023-09-12] MEDS: Aspirin 81 MG Tab.EC PO SCH (10:06)
[2023-09-12] MEDS: Ferrous Sulfate 325 MG Tab PO SCH (10:06)
[2023-09-12] MEDS: Bumetanide 1 MG Tab PO SCH (10:06)
[2023-09-12] MEDS: DULoxetine 30 MG Cap PO SCH (10:06)
[2023-09-12] MEDS: Rivaroxaban 15 MG Tab PO SCH (10:07)
[2023-09-12] MEDS: Sodium Chloride 0.9% 1,000 ML IV SCH (11:15)
[2023-09-13 04:41] LABS: HEMATOCRIT 26.4 % (34.3-46.0); HEMOGLOBIN 8.8 g/dL (11.2-15.5); MEAN CORPUSCULAR HEMOGLOBIN 30.2 pg (31.6-35.5); MEAN CORPUSCULAR HGB CONC 33.3 g/dL (31.6-35.5); MEAN CORPUSCULAR VOLUME 90.7 fL (81.4-99.0); RED BLOOD CELL COUNT 2.91 M/uL (3.77-5.24); WHITE BLOOD CELL COUNT,WBC 5.8 K/uL (3.2-11.0)
[2023-09-13 04:59] LABS: CALCIUM 7.9 mg/dL (8.5-10.1); CREATININE 1.8 mg/dL (0.6-1.0); EST CRCL DRUG DOSING (CG) 43.23 mL/min; POTASSIUM,K 3.5 mmol/L (3.6-5.2)
[2023-09-13 05:14] LABS: ANION GAP 12.5 mmol/L (5.0-14.0)
[2023-09-13] MEDS: Potassium Chloride 10 MEQ in Premix Bag 1 BAG IV SCH (09:20)
[2023-09-13] MEDS: HYDROmorphone 1 MG/ML Syringe IVPUSH PRN (18:18)
[2023-09-14 05:19] LABS: CALCIUM 8.1 mg/dL (8.5-10.1); CREATININE 1.8 mg/dL (0.6-1.0); EST CRCL DRUG DOSING (CG) 43.23 mL/min; POTASSIUM,K 3.7 mmol/L (3.6-5.2)
[2023-09-14 05:21] LABS: ANION GAP 10.7 mmol/L (5.0-14.0)
[2023-09-14] MEDS ORDERED: Pantoprazole 40 MG Tab.CR PO SCH (21:00)
== END 2023-09-14 14:30 | disposition home or self-care (01) | DRG 392 ==
LOC: JP.ED 13:14 → JP.MS 18:48
PROVIDERS: ADMIT Internal Medicine; ATTEND Internal Medicine
PROC: 4A033R1 Measurement of Arterial Saturation, Peripheral, Percutaneous Approach (ICD-10-PCS; principal; 2023-09-11)
DX: K52.9 Noninfective gastroenteritis and colitis, unspecified (principal); I69.351 Hemiplegia and hemiparesis following cerebral infarction affecting right dominant side; I12.9 Hypertensive chronic kidney disease with stage 1 through stage 4 chronic kidney disease, or unspecified chronic kidney disease; E10.40 Type 1 diabetes mellitus with diabetic neuropathy, unspecified; E10.22 Type 1 diabetes mellitus with diabetic chronic kidney disease; K21.9 Gastro-esophageal reflux disease without esophagitis; F17.210 Nicotine dependence, cigarettes, uncomplicated; E10.65 Type 1 diabetes mellitus with hyperglycemia; E78.00 Pure hypercholesterolemia, unspecified; J45.909 Unspecified asthma, uncomplicated; D50.9 Iron deficiency anemia, unspecified; N18.32 Chronic kidney disease, stage 3b; F41.9 Anxiety disorder, unspecified; I48.91 Unspecified atrial fibrillation; F32.A Depression, unspecified; E83.42 Hypomagnesemia; E87.6 Hypokalemia; Z88.8 Allergy status to other drugs, medicaments and biological substances; Z87.440 Personal history of urinary (tract) infections; Z79.51 Long term (current) use of inhaled steroids; Z79.899 Other long term (current) drug therapy; Z79.82 Long term (current) use of aspirin; Z79.4 Long term (current) use of insulin; Z98.84 Bariatric surgery status; Z91.81 History of falling
CPT/HCPCS: 0241U; 36415; 36600; 71045; 71045-26; 73030-26-RT; 73030-RT; 73080-26-RT; 73080-RT; 74177; 80048; 80053; 81001; 82009; 82803; 82947; 83605; 83735; 84100; 84145; 85018; 85025; 85027; 87040; 87086; 96361; 96374; 96375; 99223; 99232; 99238; 99284; 99285-25; A9270-GY; C9113; J0696; J1170; J1790; J1815; J1815-GY; J1885; J2060; J2405; J3010; J3475; J3480; J3490; J7030; Q0162

== ENCOUNTER 2023-09-22 16:57 | Emergency (ER) | payer MEDICAID ==
[2023-09-22] MEDS ORDERED: Naloxone 0.4 MG/ML SDV IVPUSH PRN (17:50)
[2023-09-22] MEDS: HYDROmorphone 0.5 MG/0.5 ML Syringe IVPUSH ONE (19:30)
[2023-09-22] MEDS: Ondansetron 4 MG/2 ML SDV IVPUSH ONE (19:30)
[2023-09-22 19:31] LABS: BASOPHILS ABSOLUTE AUTO 0.04 K/uL (0.00-0.10); BASOPHILS PERCENT AUTO 0.5 % (0.1-1.3); EOSINOPHILS ABSOLUTE AUTO 0.14 K/uL (0.00-0.40); EOSINOPHILS PERCENT AUTO 1.7 % (0.0-5.4); HEMATOCRIT 31.2 % (34.3-46.0); IMMATURE GRAN PERCENT AUTO 0.2 % (0.0-0.7); LYMPHOCYTES ABSOLUTE AUTO 1.78 K/uL (0.8-3.3); LYMPHOCYTES PERCENT AUTO 21.2 % (11.4-47.7); MEAN CORPUSCULAR HEMOGLOBIN 30.2 pg (31.6-35.5); MEAN CORPUSCULAR HGB CONC 32.1 g/dL (31.6-35.5); MEAN CORPUSCULAR VOLUME 94.3 fL (81.4-99.0); MONOCYTES ABSOLUTE AUTO 0.41 K/uL (0.20-0.90); MONOCYTES PERCENT AUTO 4.9 % (3.3-12.6); NEUTROPHILS ABSOLUTE AUTO 6.02 K/uL (1.0-7.6); NEUTROPHILS PERCENT AUTO 71.5 % (40.0-78.1); PLATELET COUNT,PLT 260 K/uL (130-375); RED BLOOD CELL COUNT 3.31 M/uL (3.77-5.24); WHITE BLOOD CELL COUNT,WBC 8.4 K/uL (3.2-11.0)
[2023-09-22 19:34] LABS: BASE EXCESS VENOUS 1.3 mm/L; BICARBONATE,VENOUS 26.9 mmol/L; CARBOXYHEMOGLOBIN 1.7 % (0.0-1.6); METHEMOGLOBIN 2.5 %; O2 SATURATION VENOUS 31.2; OXYHEMOGLOBIN 29.9 %; PCO2 VENOUS 50.6 mm/Hg; PH,VENOUS 7.346 (7.350-7.450); PO2 VENOUS 21.5 mm/Hg; TOTAL HEMOGLOBIN 10.6 g/dL (12.0-16.0)
[2023-09-22 19:35] LABS: IMMATURE GRAN ABSOLUTE AUTO 0.02 K/uL (0.00-0.23)
[2023-09-22] MEDS: Sodium Chloride 0.9% 50 ML IV SCH (19:42)
[2023-09-22] MEDS: Iopamidol 612 MG/ML 100 ML Bottle IV SCH (19:42)
[2023-09-22] MEDS: Sodium Chloride 0.9% 1,000 ML IV ONE (19:54)
[2023-09-22 19:55] LABS: A/G RATIO 0.8 (1.2-2.2); ALANINE AMINOTRANSFERASE,ALT 28 U/L (12-78); ALBUMIN 2.9 g/dL (3.4-5.0); ALKALINE PHOSPHATASE 101 U/L (46-116); ANION GAP 7.3 mmol/L (5.0-14.0); ASPARTATE AMNIOTRANSFERASE,AST 24 U/L (15-37); BILIRUBIN TOTAL 0.9 mg/dL (0.2-1.0); BLOOD UREA NITROGEN,BUN 13 mg/dL (7-18); CALCIUM 8.6 mg/dL (8.5-10.1); CARBON DIOXIDE,CO2 27 mmol/L (21-32); CHLORIDE,CL 107 mmol/L (100-108); CREATININE 1.6 mg/dL (0.6-1.0); ESTIMATED GFR 43 mL/min (>60); GLUCOSE RANDOM 96 mg/dL (74-106); POTASSIUM,K 3.9 mmol/L (3.6-5.2); PROTEIN TOTAL,TP 6.6 g/dL (6.4-8.2); SODIUM,NA 141 mmol/L (140-148)
[2023-09-22 20:37] LABS: APPEARANCE,URINE SLIGHTLY CLOUDY (CLEAR); BILIRUBIN,URINE NEGATIVE (NEGATIVE); COLOR,URINE YELLOW (YELLOW); GLUCOSE,URINE NEGATIVE (NEGATIVE); KETONES,URINE NEGATIVE (NEGATIVE); LEUKOCYTE ESTERASE,URINE TRACE (NEGATIVE); NITRITE,URINE NEGATIVE (NEGATIVE); OCCULT BLOOD,URINE TRACE-INTACT (NEGATIVE); PROTEIN,URINE NEGATIVE (NEGATIVE); UROBILINOGEN,URINE 0.2 EU/dL (0.2-1.0)
[2023-09-22 20:46] LABS: AMORPHOUS SEDIMENT,URINE NOT SEEN; BACTERIA,URINE MODERATE; EPITHELIAL CELLS,URINE FEW; MUCUS,URINE RARE
[2023-09-22] MEDS: Acetaminophen/oxyCODONE 325-10 MG Tab PO PRN (20:53)
[2023-09-22 21:05] LABS: CORONAVIRUS COVID-19 NAA NEGATIVE (NEGATIVE); INFLUENZA A NAA NEGATIVE (NEGATIVE); INFLUENZA B NAA NEGATIVE (NEGATIVE); RESPIRATORY SYNCYTIAL VIR NAA NEGATIVE (NEGATIVE)
== END 2023-09-22 23:27 | disposition home or self-care (01) ==
LOC: JP.ED 16:57
DX: K52.9 Noninfective gastroenteritis and colitis, unspecified (principal); I10 Essential (primary) hypertension; E78.00 Pure hypercholesterolemia, unspecified; I48.91 Unspecified atrial fibrillation; K21.9 Gastro-esophageal reflux disease without esophagitis; J45.909 Unspecified asthma, uncomplicated; E10.40 Type 1 diabetes mellitus with diabetic neuropathy, unspecified; F17.210 Nicotine dependence, cigarettes, uncomplicated; Z88.6 Allergy status to analgesic agent; Z88.8 Allergy status to other drugs, medicaments and biological substances; Z79.01 Long term (current) use of anticoagulants; Z86.16 Personal history of COVID-19; Z79.4 Long term (current) use of insulin; Z79.899 Other long term (current) drug therapy; Z79.82 Long term (current) use of aspirin
CPT/HCPCS: 0241U; 36415; 74177; 80053; 81001; 81025; 82009; 82803; 82947; 83605; 83690; 83735; 84145; 85025; 96361; 96374; 96375; 99285; A9270; J1170; J2405; J3490; J7030; Q9967; 99284

== ENCOUNTER 2023-09-23 14:19 | Emergency (ER) | payer MEDICAID ==
[2023-09-23] MEDS: Ondansetron 4 MG Tab.DIS PO ONE (15:15)
[2023-09-23] MEDS: HYDROmorphone 1 MG/ML Syringe IM ONE (15:16)
[2023-09-23 15:47] LABS: BILIRUBIN,URINE NEGATIVE (NEGATIVE); COLOR,URINE YELLOW (YELLOW); GLUCOSE,URINE 100 mg/dL (NEGATIVE); KETONES,URINE NEGATIVE (NEGATIVE); LEUKOCYTE ESTERASE,URINE NEGATIVE (NEGATIVE); NITRITE,URINE NEGATIVE (NEGATIVE); OCCULT BLOOD,URINE TRACE-INTACT (NEGATIVE); PROTEIN,URINE TRACE mg/dL (NEGATIVE); UROBILINOGEN,URINE 0.2 EU/dL (0.2-1.0)
[2023-09-23 15:54] LABS: AMORPHOUS SEDIMENT,URINE NOT SEEN; APPEARANCE,URINE CLEAR (CLEAR); BACTERIA,URINE MODERATE; EPITHELIAL CELLS,URINE FEW; MUCUS,URINE FEW; WBC,URINE 0-5 (0-5)
== END 2023-09-23 18:09 | disposition home or self-care (01) ==
LOC: JP.ED 14:19
DX: K86.1 Other chronic pancreatitis (principal); I10 Essential (primary) hypertension; E78.00 Pure hypercholesterolemia, unspecified; K21.9 Gastro-esophageal reflux disease without esophagitis; E10.40 Type 1 diabetes mellitus with diabetic neuropathy, unspecified; I48.91 Unspecified atrial fibrillation; J45.909 Unspecified asthma, uncomplicated; Z86.16 Personal history of COVID-19; Z86.73 Personal history of transient ischemic attack (TIA), and cerebral infarction without residual deficits; Z79.51 Long term (current) use of inhaled steroids; Z88.6 Allergy status to analgesic agent; Z88.8 Allergy status to other drugs, medicaments and biological substances; Z79.82 Long term (current) use of aspirin; Z79.4 Long term (current) use of insulin; Z79.01 Long term (current) use of anticoagulants; Z79.899 Other long term (current) drug therapy; F17.210 Nicotine dependence, cigarettes, uncomplicated
CPT/HCPCS: 81001; 96372; 99284; J1170; Q0162

== ENCOUNTER 2023-09-28 12:40 | Emergency (ER) | payer MEDICAID ==
[2023-09-28] MEDS ORDERED: Naloxone 0.4 MG/ML SDV IVPUSH PRN (13:29)
[2023-09-28] MEDS: HYDROmorphone 1 MG/ML Syringe IVPUSH ONE ×2 (13:34→18:17)
[2023-09-28 13:51] LABS: BASOPHILS ABSOLUTE AUTO 0.03 K/uL (0.00-0.10); BASOPHILS PERCENT AUTO 0.5 % (0.1-1.3); EOSINOPHILS ABSOLUTE AUTO 0.05 K/uL (0.00-0.40); EOSINOPHILS PERCENT AUTO 0.9 % (0.0-5.4); HEMATOCRIT 34.2 % (34.3-46.0); HEMOGLOBIN 11.3 g/dL (11.2-15.5); IMMATURE GRAN PERCENT AUTO 0.2 % (0.0-0.7); LYMPHOCYTES ABSOLUTE AUTO 1.08 K/uL (0.8-3.3); LYMPHOCYTES PERCENT AUTO 18.6 % (11.4-47.7); MEAN CORPUSCULAR HEMOGLOBIN 30.5 pg (31.6-35.5); MEAN CORPUSCULAR VOLUME 92.2 fL (81.4-99.0); MONOCYTES ABSOLUTE AUTO 0.22 K/uL (0.20-0.90); MONOCYTES PERCENT AUTO 3.8 % (3.3-12.6); NEUTROPHILS ABSOLUTE AUTO 4.41 K/uL (1.0-7.6); PLATELET COUNT,PLT 96 K/uL (130-375); RED BLOOD CELL COUNT 3.71 M/uL (3.77-5.24)
[2023-09-28 14:04] LABS: IMMATURE GRAN ABSOLUTE AUTO 0.01 K/uL (0.00-0.23)
[2023-09-28 14:05] LABS: WHITE BLOOD CELL COUNT,WBC 5.8 K/uL (3.2-11.0)
[2023-09-28 14:10] LABS: A/G RATIO 0.8 (1.2-2.2); ALANINE AMINOTRANSFERASE,ALT 28 U/L (12-78); ALBUMIN 3.2 g/dL (3.4-5.0); ALKALINE PHOSPHATASE 107 U/L (46-116); ASPARTATE AMNIOTRANSFERASE,AST 25 U/L (15-37); BLOOD UREA NITROGEN,BUN 16 mg/dL (7-18); CALCIUM 9.1 mg/dL (8.5-10.1); CARBON DIOXIDE,CO2 28 mmol/L (21-32); CHLORIDE,CL 100 mmol/L (100-108); CREATININE 1.8 mg/dL (0.6-1.0); EST CRCL DRUG DOSING (CG) 41.38 mL/min; ESTIMATED GFR 38 mL/min (>60); GLUCOSE RANDOM 363 mg/dL (74-106); POTASSIUM,K 5.1 mmol/L (3.6-5.2); PROTEIN TOTAL,TP 7.4 g/dL (6.4-8.2); SODIUM,NA 136 mmol/L (140-148)
[2023-09-28 14:11] LABS: ANION GAP 13.1 mmol/L (5.0-14.0)
[2023-09-28 14:31] LABS: APPEARANCE,URINE CLEAR (CLEAR); BILIRUBIN,URINE NEGATIVE (NEGATIVE); COLOR,URINE YELLOW (YELLOW); GLUCOSE,URINE 500 mg/dL (NEGATIVE); KETONES,URINE TRACE mg/dL (NEGATIVE); LEUKOCYTE ESTERASE,URINE NEGATIVE (NEGATIVE); NITRITE,URINE NEGATIVE (NEGATIVE); OCCULT BLOOD,URINE TRACE-INTACT (NEGATIVE); PH,URINE 7.5 (5.0-8.0); PROTEIN,URINE 100 mg/dL (NEGATIVE); UROBILINOGEN,URINE 0.2 EU/dL (0.2-1.0)
[2023-09-28 14:46] LABS: AMORPHOUS SEDIMENT,URINE NOT SEEN; BACTERIA,URINE FEW; EPITHELIAL CELLS,URINE FEW; MUCUS,URINE RARE; WBC,URINE 0-5 (0-5)
[2023-09-28] MEDS: Sodium Chloride 0.9% 1,000 ML IV ONE ×2 (16:28→18:14)
[2023-09-28] MEDS ORDERED: 50% Dextrose in Water 50 ML Syringe IVPUSH PRN (17:17)
[2023-09-28] MEDS ORDERED: Glucagon,Human Recombinant 1 MG Vial IM PRN (17:17)
[2023-09-28] MEDS: Insulin Glargine,Human Rec. Analog 100 Units/ML 3 ML Pen SUBCUT SCH (17:31)
[2023-09-28 19:33] LABS: A/G RATIO 0.7 (1.2-2.2); ALANINE AMINOTRANSFERASE,ALT 20 U/L (12-78); ALBUMIN 2.7 g/dL (3.4-5.0); ALKALINE PHOSPHATASE 90 U/L (46-116); ASPARTATE AMNIOTRANSFERASE,AST 26 U/L (15-37); BILIRUBIN TOTAL 0.7 mg/dL (0.2-1.0); BLOOD UREA NITROGEN,BUN 16 mg/dL (7-18); CALCIUM 8.2 mg/dL (8.5-10.1); CARBON DIOXIDE,CO2 26 mmol/L (21-32); CHLORIDE,CL 105 mmol/L (100-108); CREATININE 1.6 mg/dL (0.6-1.0); EST CRCL DRUG DOSING (CG) 46.55 mL/min; ESTIMATED GFR 43 mL/min (>60); GLUCOSE RANDOM 282 mg/dL (74-106); POTASSIUM,K 4.6 mmol/L (3.6-5.2); PROTEIN TOTAL,TP 6.4 g/dL (6.4-8.2); SODIUM,NA 137 mmol/L (140-148)
[2023-09-28 19:34] LABS: ANION GAP 10.6 mmol/L (5.0-14.0)
== END 2023-09-28 20:12 | disposition home or self-care (01) ==
LOC: JP.ED 12:40
DX: K52.9 Noninfective gastroenteritis and colitis, unspecified (principal); E10.40 Type 1 diabetes mellitus with diabetic neuropathy, unspecified; N28.9 Disorder of kidney and ureter, unspecified; E78.00 Pure hypercholesterolemia, unspecified; I10 Essential (primary) hypertension; J45.909 Unspecified asthma, uncomplicated; K21.9 Gastro-esophageal reflux disease without esophagitis; F17.210 Nicotine dependence, cigarettes, uncomplicated; Z79.82 Long term (current) use of aspirin; Z79.51 Long term (current) use of inhaled steroids; Z86.19 Personal history of other infectious and parasitic diseases; Z86.16 Personal history of COVID-19; Z88.8 Allergy status to other drugs, medicaments and biological substances; Z88.6 Allergy status to analgesic agent; Z79.899 Other long term (current) drug therapy
CPT/HCPCS: 36415; 80053; 81001; 83690; 85025; 96361; 96374; 96376; 99284; J1170; J1815; J7030